=== PATIENT | female | born 1950 | race Caucasian/White ===

== ENCOUNTER 2018-03-15 15:56 | Inpatient (IN) | END 2018-03-26 19:00 | DRG 467 ==

== ENCOUNTER 2018-03-26 19:31 | Inpatient (IN) | END 2018-04-07 15:30 | DRG 560 ==

== ENCOUNTER 2018-05-19 08:19 | Day surgery (SDC) | END 2018-05-19 14:46 ==

== ENCOUNTER 2018-06-16 13:19 | Day surgery (SDC) | END 2018-06-16 16:06 | disposition home or self-care (01) ==

== ENCOUNTER 2018-07-06 15:49 | Inpatient (IN) | payer MEDICARE, BC ==
[~2018-07-06] VITALS: Ht 144.8 cm; Wt 67.3 kg
[~2018-07-06 15:49] MED LIST: ACET-2047 PO; ASPI81TA52 PO; ATOR20TA38 PO; BETH25TA PO; BISA10SU55 RC; CARV12.598 PO; CLON-379 PO; CLOP75TA27 PO; DIL4I IV; IPRA3AMP29 INHALATION; LANT3I SC; LINA5TAB PO; LUBI24CA7 PO; MAGN400O19 PO; MAGN400T27 PO; NA P133E39 RC; ONDA4SOL IVP; OXYC40TA26 PO; PANT40TA3 PO; PRED5TAB PO
--- NOTE | 2018-07-06 21:30 | NUR ---
ADMISSION Pt arrived via gurney transported per [place]. Pt transferred from [facility]. Pt on bed in low position with call light within reach. Bed alarm activated. Will continue with admission process.
[2018-07-06 22:00] VITALS: BP 149/86; PULSE 81; RESP 18; Ht 144.8 cm; Wt 67.3 kg
[2018-07-06] MEDS ORDERED: NA PHOSPHATE/BIPHOS 133 ML ENEMA PR ONE (23:30)
[2018-07-06] MEDS ORDERED: AMLO2.5T78 PO (23:47)
[2018-07-06] MEDS ORDERED: FENO48TA4 PO (23:47)
[2018-07-06] MEDS: HYDROmorphONE 1 MG/ML SYG IV PRN (23:57)
[2018-07-07 02:53] VITALS: BP 141/69; PULSE 74; RESP 18
[2018-07-07] MEDS: HYDROmorphONE 1 MG/ML SYG IV PRN ×2 (02:58→06:06)
--- NOTE | 2018-07-07 05:56 | NUR ---
END OF SHIFT REPORT Pt alert and oriented x4. Pt on bed in low position with call light within reach and bed alarm activated. Vitals stable. Pt c/o pain and due pain meds administered with effectiveness. Will endorse pt to AM shift nurse for continuation of care.
[2018-07-07 07:33] VITALS: BP 138/67; PULSE 87; RESP 16
[2018-07-07] MEDS: INSULIN ASPART [NOVOLOG] 3 ML PEN SC SCH ×4 (08:00→20:28)
[2018-07-07] MEDS ORDERED: VANCOMYCIN IV PER PHARMACY XX SCH (08:00)
[2018-07-07] MEDS ORDERED: GLUCOSE GEL 15 GRAM TUBE PO PRN ×2 (08:00)
[2018-07-07] MEDS ORDERED: GLUCOSE GEL 15 GRAM TUBE BUCCAL PRN (08:00)
[2018-07-07] MEDS ORDERED: GLUCAGON 1 MG INJ IM PRN (08:00)
[2018-07-07] MEDS ORDERED: ALTEPLASE (CATHFLO) 2 MG INJ CATHETER PRN (08:00)
[2018-07-07] MEDS ORDERED: DEXTROSE 50% 50 ML SYRINGE IV PRN ×2 (08:00)
--- NOTE | 2018-07-07 08:40 | NUR ---
67 YO F TO START VANCOMYCIN IVPB PER RX PROTOCOL WT 67.3KG HT 4'9" CONCURRENT ABX: CEFTRIAXONE BUN/CR -13/0.6 (FROM 07/06- [facility]) - RECEIVED 1GM ON 07/05 @ 2316 AND 1GM 07/06 @ 07/06 A/P: WILL START 750MG IVPB Q12H FOR ESTIMATED GOAL TROUGH ~ 10-15. TROUGH AT SS.
[2018-07-07] MEDS: HYDROmorphONE 2 MG/ML SYG IV PRN ×7 (08:50→22:49)
[2018-07-07] MEDS: FENOFIBRATE 48 MG TAB PO SCH (08:53)
[2018-07-07] MEDS: oxyCODONE (CR) 40 MG TAB [oxyCONTIN] PO SCH ×3 (08:54→20:17)
[2018-07-07] MEDS: PANTOPRAZOLE (EC) 40 MG TAB PO SCH (08:54)
[2018-07-07] MEDS: AMLODIPINE 5 MG TAB PO SCH (08:54)
[2018-07-07] MEDS: CEFTRIAXONE 1 GM/50 ML (PMX) 50 ML IVPB SCH ×2 (08:55→20:18)
[2018-07-07] MEDS ORDERED: predniSONE 10 MG TAB PO SCH (09:00)
[2018-07-07] MEDS ORDERED: oxyCODONE (CR) 40 MG TAB [oxyCONTIN] PO SCH (09:00)
[2018-07-07] MEDS ORDERED: FENOFIBRATE 48 MG TAB PO SCH (09:00)
--- NOTE | 2018-07-07 09:18 | CONS ---
Date/Time of Note Date/Time of Note DATE: 07/07/18 TIME: 09:11 Assessment/Plan Assessment/Plan Chief Complaint/Hosp Course 1. Cardiovascular preop evaluation 2. Septic knee 3. 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 History of severe rheumatoid arthritis and multiple joint deformities 6. Poor exercise tolerance Recommendations: Antibiotic management as per internal medicine and possible ID recommendations I will check echocardiogram to evaluate for the valves Coreg will be added to her regimen to control the blood pressure better Patient EKG will be checked as well Chest x-ray for the baseline will be checked as well Patient has no anginal chest pain no history of cardiac disorder including no cardiac complication with the previous multiple orthopedic surgeries. Based on above no further cardiac workup would be indicated. However given her multiple comorbidities including diabetes hypertension history of poor exercise tolerance, patient would be at moderate risk of cardiovascular event. Thank you for his referral. We will continue to follow along with you KASSIDY BRAY MD [facility] Consultation Date/Type/Reason Admit Date/Time Jul 06, 2018 at 21:08 Date of Consultation: Jul 07, 2018 Type of Consult cv Reason for Consultation cvpreop Requesting Provider: ROMARIO GUTIERREZ DO Hx of Present Illness Interventional cardiology consultation note Reason for consult: Cardiovascular preop evaluation CHIEF COMPLAINT: septic knee HISTORY OF PRESENT ILLNESS: Thank you for his referral. History was obtained from the patient from review of the old chart, from discussion with the staff and physicians. This is a 67-year-old female with a past medical history of rheumatoid arthritis, history of bilateral knee replacement, and multiple other orthopedic surgery history of left hip replacement, history of steroid-induced diabetes, history of hypertension, dyslipidemia, history of osteoarthritis, history of multiple blood clots, status post IVC filter placement who was transferred for facility for evaluation treatment of her septic knee. Patient has been scheduled to undergo surgery for her septic knee and I was kindly asked to evaluate and treat. Patient denies any left-sided chest pain or pressure to me. Denies history of cardiac disorder to me. Denies any PND orthopnea to me. She denies any loss of consciousness syncope or presyncope to me. Patient exercise tolerance appeared to be very limited due to mostly her osteoarthritis and rheumatoid arthritis and she has been mostly bedbound recently. She denies any cardiac complication including any anesthesia complication or cardiac complications with her previous multiple orthopedic surgeries. She denies any chest pain or pressure to me denies any PND orthopnea to me. PAST MEDICAL HISTORY: As stated above, history of rheumatoid arthritis, history of osteoarthritis with severe joint deformity, history of diabetes, history of multiple blood clots. The patient is status post IVC filter, history of hypertension, dyslipidemia. PAST SURGICAL HISTORY: Status post bilateral knee replacement, status post left hip replacement surgery, status post inferior vena cava filter placement. Status post left malleolus fracture surgery ALLERGIES: PATIENT IS ALLERGIC TO: 1. HYDROMORPHONE MEPERIDINE. FAMILY HISTORY: No family history of early coronary artery disease SOCIAL HISTORY: Does not drink, smoke or do drugs. Medications were reviewed as per medical reconciliation sheet Review of system: Patient denies all others except for above-mentioned Past Medical History Medications Current Medications Amlodipine Besylate (Norvasc) 5 mg DAILY PO Last administered on 07/07/18at 08:54; Admin Dose 5 MG; Start 07/07/18 at 09:00 Atorvastatin Calcium (Lipitor) 20 mg QHS PO ; Start 07/07/18 at 21:00 Insulin Glargine (Lantus) 33 units QHS SC ; Start 07/07/18 at 21:00 Pantoprazole (Protonix Tab) 40 mg DAILY PO Last administered on 07/07/18at 08:54; Admin Dose 40 MG; Start 07/07/18 at 09:00 Prednisone (Prednisone) 10 mg DAILY PO Last administered on 07/07/18at 08:58; Admin Dose 10 MG; Start 07/07/18 at 09:00 Fenofibrate (Tricor) 48 mg DAILY PO Last administered on 07/07/18at 08:53; Admin Dose 48 MG; Start 07/07/18 at 09:00 Oxycodone HCl (Oxycontin) 40 mg TID PO Last administered on 07/07/18at 08:54; Admin Dose 40 MG; Start 07/07/18 at 09:00 Alteplase, Recombinant (Cathflo (Activase)) 2 mg MAY REPEAT X1 PRN CATHETER IF CATHETER REMAINS OCCULUDED Last administered on 07/07/18at 09:02; Admin Dose 2 MG; Start 07/07/18 at 08:00 Diagnostic Test (Pha) (Accu-Chek) 1 ea 02 XX ; Start 07/08/18 at 02:00 Insulin Aspart (Novolog Insulin Pen) NOVOLOG *MILD* ALGORITHM WITH MEALS BEDTIME SC ; Start 07/07/18 at 08:00 Vancomycin HCl (Vanco Iv Per Pharmacy) VANCOMYCIN PER PHARMACY PER PROTOCOL XX ; Start 07/07/18 at 08:00 Ceftriaxone Sodium 50 ml @ 100 mls/hr Q12 IVPB Last administered on 07/07/18at 08:55; Admin Dose 100 MLS/HR; Start 07/07/18 at 09:00 Miscellaneous Information 1 ea NOTE XX ; Start 07/07/18 at 08:00 Glucose (Glutose) 15 gm Q15M PRN PO DECREASED GLUCOSE; Start 07/07/18 at 08:00 Glucose (Glutose) 22.5 gm Q15M PRN PO DECREASED GLUCOSE; Start 07/07/18 at 08:00 Dextrose (D50w Syringe) 25 ml Q15M PRN IV DECREASED GLUCOSE; Start 07/07/18 at 08:00 Dextrose (D50w Syringe) 50 ml Q15M PRN IV DECREASED GLUCOSE; Start 07/07/18 at 08:00 Glucagon (Glucagen) 1 mg Q15M PRN IM DECREASED GLUCOSE; Start 07/07/18 at 08:00 Glucose (Glutose) 15 gm Q15M PRN BUCCAL DECREASED GLUCOSE; Start 07/07/18 at 08:00 Hydromorphone HCl (Dilaudid) 3 mg Q2H PRN IV SEVERE PAIN LEVEL 7-10 Last administered on 07/07/18at 08:50; Admin Dose 3 MG; Start 07/07/18 at 08:00 Vancomycin HCl 750 mg/Sodium Chloride 150 ml @ 75 mls/hr Q12H IVPB ; Start 07/07/18 at 10:00 Allergies: Coded Allergies: meperidine (Verified Allergy, Mild, 06/16/18) hydromorphone (Verified Adverse Reaction, Mild, NAUSEA, 06/16/18) Sulfa (Sulfonamide Antibiotics) (Verified Adverse Reaction, Unknown, PO: NAUSEA, 06/16/18) SULFA PO: NAUSEA/ ANESTHESIOLOGIST LAKSHMI haleyfish derived (Verified Adverse Reaction, Unknown, 06/16/18) Social History Smoking Status: Never smoker Exam/Review of Systems Vital Signs Vitals Vital Signs Date Temp Pulse Resp B/P (MAP) Pulse Ox O2 O2 Flow FiO2 Time Delivery Rate 07/07/18 99.1 87 16 138/67 93 Room Air 07:33 (90) Intake and Output 07/06/18 07/06/18 07/07/18 1515:00 23:00 07:00 IntakeIntake Total 600 ml BalanceBalance 600 ml Exam General: no acute distress HEENT: NC/AT. pupils are equal. round. NECK: NO JVD. no stridor. CV: RRR. systolic murmur; no gallop or rubs. PULM: no wheezing or rhonchi. GI: SOFT, NT, ND, no rebound or guarding Extremity: With multiple joint deformities. neuro: awake and alert, OX3. Psych: calm and pleasant rectal: deferred Review of the old chart showed echocardiogram done in March 2018 which was personally reviewed shows: Normal left ventricular systolic function. Normal left ventricular cavity size. Mild concentric left ventricular hypertrophy. Ejection fraction is visually estimated at 65 %. Tissue Doppler/Mitral Doppler indices are consistent with impaired relaxation (Stage I diastolic dysfunction). Mild mitral leaflet calcification. Mild mitral annular calcification. Trace mitral regurgitation. No significant aortic stenosis or insufficiency. Aortic cusps appear moderately calcified. Left coronary cusp appears moderately calcified. Non coronary cusp appears moderately calcified. Normal appearance of the tricuspid valve. Estimated peak PA systolic pressure 40 mmHg. There is mild tricuspid regurgitation. Normal size and normal respiratory collapse consistent with normal right atrial pressure. Medications Medications Current Medications Amlodipine Besylate (Norvasc) 5 mg DAILY PO Last administered on 07/07/18at 08:54; Admin Dose 5 MG; Start 07/07/18 at 09:00 Atorvastatin Calcium (Lipitor) 20 mg QHS PO ; Start 07/07/18 at 21:00 Insulin Glargine (Lantus) 33 units QHS SC ; Start 07/07/18 at 21:00 Pantoprazole (Protonix Tab) 40 mg DAILY PO Last administered on 07/07/18at 08:54; Admin Dose 40 MG; Start 07/07/18 at 09:00 Prednisone (Prednisone) 10 mg DAILY PO Last administered on 07/07/18at 08:58; Admin Dose 10 MG; Start 07/07/18 at 09:00 Fenofibrate (Tricor) 48 mg DAILY PO Last administered on 07/07/18at 08:53; Admin Dose 48 MG; Start 07/07/18 at 09:00 Oxycodone HCl (Oxycontin) 40 mg TID PO Last administered on 07/07/18at 08:54; Admin Dose 40 MG; Start 07/07/18 at 09:00 Alteplase, Recombinant (Cathflo (Activase)) 2 mg MAY REPEAT X1 PRN CATHETER IF CATHETER REMAINS OCCULUDED Last administered on 07/07/18at 09:02; Admin Dose 2 MG; Start 07/07/18 at 08:00 Diagnostic Test (Pha) (Accu-Chek) 1 ea 02 XX ; Start 07/08/18 at 02:00 Insulin Aspart (Novolog Insulin Pen) NOVOLOG *MILD* ALGORITHM WITH MEALS BEDTIME SC ; Start 07/07/18 at 08:00 Vancomycin HCl (Vanco Iv Per Pharmacy) VANCOMYCIN PER PHARMACY PER PROTOCOL XX ; Start 07/07/18 at 08:00 Ceftriaxone Sodium 50 ml @ 100 mls/hr Q12 IVPB Last administered on 07/07/18at 08:55; Admin Dose 100 MLS/HR; Start 07/07/18 at 09:00 Miscellaneous Information 1 ea NOTE XX ; Start 07/07/18 at 08:00 Glucose (Glutose) 15 gm Q15M PRN PO DECREASED GLUCOSE; Start 07/07/18 at 08:00 Glucose (Glutose) 22.5 gm Q15M PRN PO DECREASED GLUCOSE; Start 07/07/18 at 08:00 Dextrose (D50w Syringe) 25 ml Q15M PRN IV DECREASED GLUCOSE; Start 07/07/18 at 08:00 Dextrose (D50w Syringe) 50 ml Q15M PRN IV DECREASED GLUCOSE; Start 07/07/18 at 08:00 Glucagon (Glucagen) 1 mg Q15M PRN IM DECREASED GLUCOSE; Start 07/07/18 at 08:00 Glucose (Glutose) 15 gm Q15M PRN BUCCAL DECREASED GLUCOSE; Start 07/07/18 at 08:00 Hydromorphone HCl (Dilaudid) 3 mg Q2H PRN IV SEVERE PAIN LEVEL 7-10 Last administered on 07/07/18at 08:50; Admin Dose 3 MG; Start 07/07/18 at 08:00 Vancomycin HCl 750 mg/Sodium Chloride 150 ml @ 75 mls/hr Q12H IVPB ; Start 07/07/18 at 10:00 KASSIDY BRAY MD Jul 07, 2018 09:18
--- NOTE | 2018-07-07 11:14 | RADRPT ---
Echocardiogram Report Patient Name: FABIAN JACOME Gender: Female Date: 1950 Study Date: 07-Jul-2018 Supply Chain Technician: Alec Costa [facility] [place] Location: [id number] Ref. Physician: KASSIDY RUTLEDGE Quality: Good Procedures: Transthoracic echocardiogram with complete 2D, M-Mode, and doppler examination. Indications: r/o vegetations. 2D/M Mode Doppler Measurement Value Normal Ranges Measurement Value Normal Ranges LVIDd 2D 4.7 3.5 - 5.6 cm AV Peak Arley 1.7 m/sec LVIDs 2D 3.2 2.1 - 4.1 cm AV Peak PG 12.0 mmHg LVPWd 2D 1.2 0.6 - 1.1 cm LVOT Peak Arley 1.1 m/sec IVSd 2D 1.1 0.6 - 1.1 cm LVOT Peak PG 5.0 mmHg AoR Diam 2D 2.9 2.0 - 3.7 cm TR Peak Arley 2.8 m/sec LA/Ao 2D 1 0 - 1 TR Peak PG 31.0 mmHg LA Dimen 2D 3.8 2.3 - 4.0 cm RVSP 41.0 mmHg RA Pressure 10.0 Findings Left Ventricle: Normal left ventricular systolic function. Normal left ventricular cavity size. Mild concentric left ventricular hypertrophy. Ejection fraction is visually estimated at 65 %. Right Ventricle: Normal right ventricular size. Normal right ventricular systolic function. Left Atrium: The left atrium is normal in size. Right Atrium: The right atrium is normal in size. Mitral Valve: Mitral valve leaflets appear mildly thickened. Mild mitral annular calcification. Trace mitral regurgitation. Echogenic structure is seen on the mitral valve consistent with vegetation. Aortic Valve: No significant aortic stenosis or insufficiency. Aortic sclerosis without significant stenosis. Aortic cusps appear mildly calcified. Trileaflet aortic valve. Tricuspid Valve: Normal appearance of the tricuspid valve. Estimated peak PA systolic pressure 41 mmHg. There is mild tricuspid regurgitation. Pulmonic Valve: Normal pulmonic valve appearance. There is trace pulmonic regurgitation. Pericardium: Normal pericardium with no significant pericardial effusion. Aorta: Normal aortic root. IVC: Normal size and normal respiratory collapse consistent with normal right atrial pressure. Conclusions Normal left ventricular systolic function. Normal left ventricular cavity size. Mild concentric left ventricular hypertrophy. Ejection fraction is visually estimated at 65 %. Mitral valve leaflets appear mildly thickened. Mild mitral annular calcification. Trace mitral regurgitation. Echogenic structure is seen on the mitral valve consistent with vegetation. No significant aortic stenosis or insufficiency. Aortic sclerosis without significant stenosis. Aortic cusps appear mildly calcified. Trileaflet aortic valve. Normal appearance of the tricuspid valve. Estimated peak PA systolic pressure 41 mmHg. There is mild tricuspid regurgitation. Electronically Signed By: Kassidy Rutledge 07-Jul-2018 11:13:43 -0800 Patient Name: FABIAN JACOME Study Date: 07-Jul-2018 [id number]
--- NOTE | 2018-07-07 11:25 | HP ---
DATE OF ADMISSION: 07/06/2018 CHIEF COMPLAINT: Left knee septic joint. HISTORY OF PRESENT ILLNESS: This is a 67-year-old female with a past medical history of rheumatoid a rthritis, history of bilateral knee replacement surgery, history of left hip replacement surgery, his tory of steroid-induced diabetes, history of hypertension, dyslipidemia, osteoarthritis, previous his tory of peripheral vascular disease who was transferred from [facility] to [facility] due to septic joint. The patient's history started in March when she had a mechani michael fall resulting in a posterior malleolar fracture and displaced fracture of her left distal femora l metaphysis. The patient was seen by orthopedist, Dr. Duran and underwent a closed reduction of her l eft ankle fracture and a left total knee revision arthroplasty. Following the surgery, the patient w as transferred to acute rehabilitation. She developed initially superficial ulcers in her left ankle . The patient was seen by vascular surgery and wound care. The patient was then subsequently transf erred to a skilled nurse facility where she continued rehabilitation and was seen in wound care clini c in outpatient setting for underlying left ankle and a newly developed left knee wound. The patient also had followup with her orthopedic surgeon in the outpatient setting. The patient then states ap proximately 2 to 3 days ago she underwent another mechanical fall and developing more pain in her lef t knee. The patient then noted discharge from the left knee and was transferred to [facility]. While at [facility], the patient was placed on IV antibiotics and transferred to [facility] for evaluation with her original orthopedist, Dr. Duran. Upon my evaluation of the patient at this time, she is currently complaining of intolerable left knee pain. The patient denies any chills, any nausea, any vomiting. The patient is concerned about losi ng her left knee and her inability to ambulate. She otherwise denies any chest pain, no hemoptysis, hematemesis or anesthesia. PAST MEDICAL HISTORY: History of rheumatoid arthritis. The patient is on weekly Enbrel and predniso ne, a history of peripheral vascular disease, history of diabetes, hypertension, dyslipidemia, histor y of osteoarthritis. PAST SURGICAL HISTORY: Patient had bilateral knee replacement surgery, left hip replacement surgery, status post left knee revision surgery. The patient also has a history of IVC placement. History o f DVTs. ALLERGIES: PLEASE SEE LIST. FAMILY HISTORY: No family history of kidney disease. SOCIAL HISTORY: Does not drink, smoke or do drugs. MEDICATIONS: The patient's medications have been reviewed. REVIEW OF SYSTEMS: A 14-point review of systems conducted. Pertinent positives stated in HPI, other agrawal negative. PHYSICAL EXAMINATION: VITAL SIGNS: Blood pressure 120/62, respiration 18, pulse 87, temperature 98.7. HEENT: Head is normocephalic. Pupils are reactive to light. NECK: Supple. HEART: Regular rate. LUNGS: Show diminished breath sounds at base, otherwise clear. ABDOMEN: Soft, nontender to palpation without rebound or guarding. EXTREMITIES: Negative for clubbing, cyanosis, no edema. Noted is multiple deformities that the patie nt has including boutonniere and swan neck deformities of the joints. The patient's left knee has no baljit ulcer with surrounding erythema with positive discharge. DERMATOLOGIC: No rashes. NEUROLOGIC: No obvious focal deficits. MEDICATIONS: The patient's medications have been reviewed. LABORATORY DATA: Currently pending. ASSESSMENT AND PLAN: This is a 67-year-old female who presents with: 1. Left knee septic joint. Plan is to have urgent consult with orthopedist, Dr. Duran. Will also con sult vascular surgery, Dr. Pathak. The patient will be placed on broad spectrum antibiotics of va ncomycin and ceftriaxone. We will draw blood cultures. We will also place an ID consult to help wit h antibiotic management. Will monitor patient closely. 2. Rheumatoid arthritis with multiple joint deformities. The patient is currently on prednisone and will continue. The patient is also on Enbrel. We will place a rheumatology consult for further help with management. 3. History of deep venous thrombosis. The patient has a history of IVC filter placement. Will cont inue to monitor. Will hold Plavix at this time. 4. Diabetes. Continue current insulin regimen. Continue Lantus. Continue subcutaneous insulin with meals. Monitor and follow up hemoglobin A1c. 5. Pain syndrome. Continue pain regimen with OxyContin and IV Dilaudid. 6. Hypertension. Continue current blood pressure regimen. 7. Dyslipidemia. Continue statin therapy. 8. History of anemia. Monitor hemoglobin and hematocrit. 9. GI and DVT prophylaxis. Dictated By: ROMARIO AMBRIZ/JOLLY Conf#: [id number] DID#: [id number]
[2018-07-07] MEDS: VANCOMYCIN 750 MG in SOD CHLORIDE 0.9% 150 ML IVPB SCH ×2 (11:31→21:57)
[2018-07-07 13:49] VITALS: BP 110/58; PULSE 85
[2018-07-07] MEDS ORDERED: NA PHOSPHATE/BIPHOS 133 ML ENEMA PR ONE (14:00)
--- NOTE | 2018-07-07 18:00 | NUR ---
END OF SHIFT REPORT. PT IS AT BED RESTING HAS ARTHRITIS WITH MULTIPLE JOINT DEFORMATION. VITAL STABLE . ALL DUE MEDICATION GIVEN TOLERATED WELL.PT C/O OF LEFT KNEE PAIN. PAIN MED DILAUDID 3MG IV GIVEN Q2HRS. CURRENT ANTIBIOTIC VANCOMYCIN AND ROCEPHIN IV GIVEN.wound care is done .FLEET ENEMA IS GIVEN FOR CONSTIPATION and pt has big BM.picc line was no blood return cath flow iv given and the line start working. PT SEEN BY TODAY.HOURLY ROUND DONE . WILL MONITOR PT CLOSELY.
[2018-07-07 19:20] VITALS: BP 159/56; PULSE 80; RESP 18
--- NOTE | 2018-07-07 20:09 | CONS ---
Date/Time of Note Date/Time of Note DATE: 07/07/18 TIME: 20:07 Assessment/Plan Assessment/Plan Chief Complaint/Hosp Course no current vascular intervention, will need IV antibiotics and evaluation with Orthopedics Consultation Date/Type/Reason Admit Date/Time Jul 06, 2018 at 21:08 Past Medical History Medications Current Medications Amlodipine Besylate (Norvasc) 5 mg DAILY PO Last administered on 07/07/18 08:54; Admin Dose 5 MG; Start 07/07/18 at 09:00 Atorvastatin Calcium (Lipitor) 20 mg QHS PO ; Start 07/07/18 at 21:00 Insulin Glargine (Lantus) 33 units QHS SC ; Start 07/07/18 at 21:00 Pantoprazole (Protonix Tab) 40 mg DAILY PO Last administered on 07/07/18at 08:54; Admin Dose 40 MG; Start 07/07/18 at 09:00 Prednisone (Prednisone) 10 mg DAILY PO Last administered on 07/07/18at 08:58; Admin Dose 10 MG; Start 07/07/18 at 09:00 Fenofibrate (Tricor) 48 mg DAILY PO Last administered on 07/07/18at 08:53; Admin Dose 48 MG; Start 07/07/18 at 09:00 Oxycodone HCl (Oxycontin) 40 mg TID PO Last administered on 07/07/18at 12:55; Admin Dose 40 MG; Start 07/07/18 at 09:00 Alteplase, Recombinant (Cathflo (Activase)) 2 mg MAY REPEAT X1 PRN CATHETER IF CATHETER REMAINS OCCULUDED Last administered on 07/07/18at 09:02; Admin Dose 2 MG; Start 07/07/18 at 08:00 Diagnostic Test (Pha) (Accu-Chek) 1 02 XX ; Start 07/08/18 at 02:00 Insulin Aspart (Novolog Insulin Pen) NOVOLOG *MILD* ALGORITHM WITH MEALS BEDTIME SC Last administered on 07/07/18at 17:22; Admin Dose 3 UNIT; Start 07/07/18 at 08:00 Vancomycin HCl (Vanco Iv Per Pharmacy) VANCOMYCIN PER PHARMACY PER PROTOCOL XX ; Start 07/07/18 at 08:00 Ceftriaxone Sodium 50 ml @ 100 mls/hr Q12 IVPB Last administered on 07/07/18at 08:55; Admin Dose 100 MLS/HR; Start 07/07/18 at 09:00 Miscellaneous Information 1 ea NOTE XX ; Start 07/07/18 at 08:00 Glucose (Glutose) 15 gm Q15M PRN PO DECREASED GLUCOSE; Start 07/07/18 at 08:00 Glucose (Glutose) 22.5 gm Q15M PRN PO DECREASED GLUCOSE; Start 07/07/18 at 08:00 Dextrose (D50w Syringe) 25 ml Q15M PRN IV DECREASED GLUCOSE; Start 07/07/18 at 08:00 Dextrose (D50w Syringe) 50 ml Q15M PRN IV DECREASED GLUCOSE; Start 07/07/18 at 08:00 Glucagon (Glucagen) 1 mg Q15M PRN IM DECREASED GLUCOSE; Start 07/07/18 at 08:00 Glucose (Glutose) 15 gm Q15M PRN BUCCAL DECREASED GLUCOSE; Start 07/07/18 at 08:00 Hydromorphone HCl (Dilaudid) 3 mg Q2H PRN IV SEVERE PAIN LEVEL 7-10 Last administered on 07/07/18at 18:16; Admin Dose 3 MG; Start 07/07/18 at 08:00 Vancomycin HCl 750 mg/Sodium Chloride 150 ml @ 75 mls/hr Q12H IVPB Last administered on 07/07/18at 11:31; Admin Dose 75 MLS/HR; Start 07/07/18 at 10:00 Carvedilol (Coreg) 3.125 mg BID PO Last administered on 07/07/18at 12:55; Admin Dose 3.125 MG; Start 07/07/18 at 10:00 Allergies: Coded Allergies: meperidine (Verified Allergy, Mild, 06/16/18) hydromorphone (Verified Adverse Reaction, Mild, NAUSEA, 06/16/18) Sulfa (Sulfonamide Antibiotics) (Verified Adverse Reaction, Unknown, PO: NAUSEA, 06/16/18) SULFA PO: NAUSEA/ ANESTHESIOLOGIST LAKSHMI shellfish derived (Verified Adverse Reaction, Unknown, 06/16/18) Social History Smoking Status: Never smoker Exam/Review of Systems Vital Signs Vitals Vital Signs Date Temp Pulse Resp B/P (MAP) Pulse Ox O2 O2 Flow FiO2 Time Delivery Rate 07/07/18 98.0 80 18 159/56 97 19:20 (90) 12/25/18 Room Air 13:49 Intake and Output 12/24/18 12/24/18 12/25/18 1515:00 23:00 07:00 IntakeIntake Total 600 ml BalanceBalance 600 ml Medications Medications Current Medications Amlodipine Besylate (Norvasc) 5 mg DAILY PO Last administered on 07/07/18at 08:54; Admin Dose 5 MG; Start 07/07/18 at 09:00 Atorvastatin Calcium (Lipitor) 20 mg QHS PO ; Start 07/07/18 at 21:00 Insulin Glargine (Lantus) 33 units QHS SC ; Start 07/07/18 at 21:00 Pantoprazole (Protonix Tab) 40 mg DAILY PO Last administered on 07/07/18at 08:54; Admin Dose 40 MG; Start 07/07/18 at 09:00 Prednisone (Prednisone) 10 mg DAILY PO Last administered on 07/07/18at 08:58; Admin Dose 10 MG; Start 07/07/18 at 09:00 Fenofibrate (Tricor) 48 mg DAILY PO Last administered on 07/07/18at 08:53; Admin Dose 48 MG; Start 07/07/18 at 09:00 Oxycodone HCl (Oxycontin) 40 mg TID PO Last administered on 07/07/18at 12:55; Admin Dose 40 MG; Start 07/07/18 at 09:00 Alteplase, Recombinant (Cathflo (Activase)) 2 mg MAY REPEAT X1 PRN CATHETER IF CATHETER REMAINS OCCULUDED Last administered on 07/07/18at 09:02; Admin Dose 2 MG; Start 07/07/18 at 08:00 Diagnostic Test (Pha) (Accu-Chek) 1 ea 02 XX ; Start 07/08/18 at 02:00 Insulin Aspart (Novolog Insulin Pen) NOVOLOG *MILD* ALGORITHM WITH MEALS BEDTIME SC Last administered on 07/07/18at 17:22; Admin Dose 3 UNIT; Start 07/07/18 at 08:00 Vancomycin HCl (Vanco Iv Per Pharmacy) VANCOMYCIN PER PHARMACY PER PROTOCOL XX ; Start 07/07/18 at 08:00 Ceftriaxone Sodium 50 ml @ 100 mls/hr Q12 IVPB Last administered on 07/07/18at 08:55; Admin Dose 100 MLS/HR; Start 07/07/18 at 09:00 Miscellaneous Information 1 ea NOTE XX ; Start 07/07/18 at 08:00 Glucose (Glutose) 15 gm Q15M PRN PO DECREASED GLUCOSE; Start 07/07/18 at 08:00 Glucose (Glutose) 22.5 gm Q15M PRN PO DECREASED GLUCOSE; Start 07/07/18 at 08:00 Dextrose (D50w Syringe) 25 ml Q15M PRN IV DECREASED GLUCOSE; Start 07/07/18 at 08:00 Dextrose (D50w Syringe) 50 ml Q15M PRN IV DECREASED GLUCOSE; Start 07/07/18 at 08:00 Glucagon (Glucagen) 1 mg Q15M PRN IM DECREASED GLUCOSE; Start 07/07/18 at 08:00 Glucose (Glutose) 15 gm Q15M PRN BUCCAL DECREASED GLUCOSE; Start 07/07/18 at 08:00 Hydromorphone HCl (Dilaudid) 3 mg Q2H PRN IV SEVERE PAIN LEVEL 7-10 Last administered on 07/07/18at 18:16; Admin Dose 3 MG; Start 07/07/18 at 08:00 Vancomycin HCl 750 mg/Sodium Chloride 150 ml @ 75 mls/hr Q12H IVPB Last adm inistered on 07/07/18at 11:31; Admin Dose 75 MLS/HR; Start 07/07/18 at 10:00 Carvedilol (Coreg) 3.125 mg BID PO Last administered on 07/07/18at 12:55; Admin Dose 3.125 MG; Start 07/07/18 at 10:00 HECTOR CAVAZOS MD Jul 07, 2018 20:09
[2018-07-07] MEDS: ATORVASTATIN 20 MG TAB PO SCH (20:17)
[2018-07-07] MEDS: INSULIN GLARGINE [LANTus] (100 UNITS/ML) SYG SC SCH (20:29)
[2018-07-08 01:12] VITALS: BP 165/67; PULSE 65; RESP 18
[2018-07-08] MEDS: HYDROmorphONE 2 MG/ML SYG IV PRN ×11 (01:21→22:43)
[2018-07-08] MEDS: ACCU-CHEK XX SCH (02:23)
[2018-07-08] MEDS ORDERED: KETOROLAC 15 MG INJ IV STA (06:40)
--- NOTE | 2018-07-08 07:22 | NUR ---
SHIFT REPORT: AT THE START OF THE SHIFT, PATIENT WAS COMPLAINING OF THE INSUFFICIENT LIGHT IN HER ROOM. ENGINEERING WAS CALL AND TRIED TO FIX THE PROBLEM UNFORTUNATELY, HE SAID NEEDS FOLLOW UP IN AM. WOUND CARE WAS DONE.PAIN MEDICATION EVERY TWO HOURS WAS GIVEN NEEDED. CONTINUE ON IV ANTIBIOTIC WITH NO ADVERSE REACTION WAS NOTED.INSTRUCTED TO CALL FOR ASSISTANCE.BED ALARM IS ON. WILL CONTINUE TO MONITOR. CAME AND ASSESSED THE PATIENT WITH ORDER TO SOCIAL SERVICE CONSULT FOR POSSIBLE TRANSFER TO [facility].
--- NOTE | 2018-07-08 07:44 | CONS ---
DATE OF ADMISSION: 07/06/2018 DATE OF CONSULTATION: 07/07/2018 TYPE OF CONSULTATION: Infectious disease. REASON FOR CONSULTATION: Antibiotic management. HISTORY OF PRESENT ILLNESS: Norm Rendon is a 67-year-old female who was admitted on 07/06/2018 with left knee septic joint and is being seen for antibiotic management. Her problems include: 1. Rheumatoid arthritis. 2. History of bilateral knee replacement surgery. 3. Left hip replacement surgery. 4. History of steroid-induced diabetes. 5. Hypertension. 6. Dyslipidemia. 7. Osteoarthritis. 8. Peripheral vascular disease. She was transferred from [facility] to [facility] due to a septic joint. The pat ient's history started in March. She had a mechanical fall resulting in a posterior malleolar fr acture and displaced fracture of the left distal femoral metaphysis. She was seen by , orth opedics. She underwent a closed reduction of the left ankle fracture and a left total knee revision arthroplasty. She was sent to acute rehabilitation subsequently, she developed some superficial ulce rs in her left ankle. She was seen by vascular surgery and wound care and transferred to [facility] for continued rehabilitation. She was seen in the wound care clinic in an outpatient s etting for underlying left ankle and newly developed left knee wound. She also had followup with her orthopedic surgeon in the outpatient setting. Two or 3 days ago she underwent another mechanical fa ll with development of more pain in her left knee. Patient then noted a discharge from the left knee . She was transferred to [place], placed on IV antibiotics and transferred to [facility] for further evaluation by . The patient had significant pain in the left knee. She jose miguel es any chills, nausea or vomiting. She has inability to ambulate. PAST SURGICAL HISTORY: Includes bilateral knee replacement, left hip replacement, left knee revision . She also has history of IVC placement and DVTs. PAST MEDICAL HISTORY: Positive for rheumatoid arthritis. She is on weekly Enbrel and prednisone. S he has peripheral vascular disease, diabetes as noted previously. She also has hypertension, dyslipi demia, and osteoarthritis. PAST MEDICAL HISTORY: Operations as outlined. FAMILY HISTORY: Noncontributory. SOCIAL HISTORY: She does not smoke, drink or abuse drugs. ALLERGIES: Please see list that include: 1. SULFA. 2. HYDROMORPHONE. 3. MEPERIDINE. 4. SHELLFISH. MEDICATIONS: Per chart. REVIEW OF SYSTEMS: Noncontributory. PHYSICAL EXAMINATION: GENERAL: The patient is well-developed, well-nourished female who is alert, responsive, in no acute distress. VITAL SIGNS: Stable. She is afebrile. T-max of 99.1. SKIN: Without generalized rash. HEENT: Within normal limits. NECK: Supple. LYMPH NODES: None palpable. CHEST: Decreased breath sounds at the bases. HEART: Without murmur or gallop. ABDOMEN: Soft, nontender, without organosplenomegaly or masses. EXTREMITIES: Without cyanosis, clubbing, or edema. She has multiple deformities of her joints inclu ding swan neck deformities and boutonniere deformities. Left knee has noted ulceration with surround ing erythema. Positive discharge. IMPRESSION AND PLAN: The patient may have a left knee septic joint. Orthopedics was called, Dr. Edmund linton was called in vascular surgery. Patient was placed on vancomycin and ceftriaxone. Blood cult ures were drawn. I concur with the current regimen. She has to be evaluated by to see th e extent of her knee involvement whether it is superficial or goes down to the arthroplasty. Continu e on vancomycin and ceftriaxone. Cultures currently are pending. If there is any discharge a wound culture should be done. I will dictate my findings to Dr. Gutierrez. Dictated By: CALI FELDER MD, JD/JOLLY Conf#: [id number] DID#: [id number] CC: ROMARIO GUTIERREZ DO;*EndCC*
[2018-07-08] MEDS: INSULIN ASPART [NOVOLOG] 3 ML PEN SC SCH ×4 (08:00→21:48)
--- NOTE | 2018-07-08 08:01 | CONS ---
Date/Time of Note Date/Time of Note DATE: 07/08/18 TIME: 07:58 Consult Date/Type/Reason Admit Date/Time Jul 06, 2018 at 21:08 Initial Consult Date 07/07/18 Type of Consultation: cv Requesting Provider: ROMARIO GUTIERREZ DO Subjective Cardiology follow-up progress note Subjective: Case discussed with staff. Discussed with the physicians. Patient with no chest pain or pressure with no palpitation. Objective: General: no acute distress HEENT: NC/AT. pupils are equal. round. NECK: NO JVD. no stridor. CV: RRR. systolic murmur; no gallop or rubs. PULM: no wheezing or rhonchi. GI: SOFT, NT, ND, no rebound or guarding Extremity: With multiple joint deformities. neuro: awake and alert, OX3. Psych: calm and pleasant rectal: deferred Echocardiogram done 07/07/2018 which was personally reviewed shows: Normal left ventricular systolic function. Normal left ventricular cavity size. Mild concentric left ventricular hypertrophy. Ejection fraction is visually estimated at 65 %. Mitral valve leaflets appear mildly thickened. Mild mitral annular calcification. Trace mitral regurgitation. Echogenic structure is seen on the mitral valve consistent with vegetation. No significant aortic stenosis or insufficiency. Aortic sclerosis without significant stenosis. Aortic cusps appear mildly calcified. Trileaflet aortic valve. Normal appearance of the tricuspid valve. Estimated peak PA systolic pressure 41 mmHg. There is mild tricuspid regurgitation. Objective Vital Signs Date Temp Pulse Resp B/P (MAP) Pulse Ox O2 O2 Flow FiO2 Time Delivery Rate 07/08/18 98.0 65 18 165/67 95 01:12 (99) 07/07/18 Room Air 13:49 Intake and Output 07/07/18 07/07/18 07/08/18 1515:00 23:00 07:00 IntakeIntake Total 120 ml 970 ml 150 ml BalanceBalance 120 ml 970 ml 150 ml Results/Medications Result Diagram: 07/08/18 0454 07/08/18 0454 Results 24 hrs Laboratory Tests Test 07/07/18 08:06 07/07/18 08:18 07/07/18 12:27 07/07/18 17:11 Bedside Glucose 140 271 H 241 H White Blood 8.2 Count Red Blood Count 2.95 L Hemoglobin 7.7 L Hematocrit 25.9 L Mean Corpuscular 87.8 Volume Mean Corpuscular 26.1 L Hemoglobin Mean Corpuscular 29.7 L Hemoglobin Korin nt Red Cell 18.2 H Distribution Width Platelet Count 283 # Mean Platelet 8.8 Volume Immature 0.400 Granulocytes % Neutrophils % 63.4 Lymphocytes % 20.6 Monocytes % 11.7 H Eosinophils % 3.7 Basophils % 0.2 Nucleated Red 0.0 Blood Cells % Immature 0.030 Granulocytes # Neutrophils # 5.2 Lymphocytes # 1.7 Monocytes # 1.0 H Eosinophils # 0.3 Basophils # 0.0 Nucleated Red 0.0 Blood Cells # Sodium Level 141 Potassium Level 3.7 Chloride Level 106 Carbon Dioxide 29 Level Anion Gap 6 Blood Urea 12 Nitrogen Creatinine 0.47 Est Glomerular > 60 Filtrat Rate mL/min Glucose Level 128 Calcium Level 8.2 L Total Bilirubin 0.1 L Direct Bilirubin 0.00 Indirect 0.1 Bilirubin Aspartate Amino 14 L Transf (AST/SGOT ) Alanine 22 Aminotransferase (ALT/SGPT) Alkaline 76 Phosphatase Total Protein 5.4 L Albumin 2.5 L Globulin 2.90 Albumin/Globulin 0.86 Ratio Test 07/07/18 20:25 07/08/18 02:16 07/08/18 04:54 Bedside Glucose 284 H 208 White Blood 7.2 Count Red Blood Count 2.80 L Hemoglobin 7.4 L Hematocrit 25.1 L Mean Corpuscular 89.6 Volume Mean Corpuscular 26.4 L Hemoglobin Mean Corpuscular 29.5 L Hemoglobin Korin nt Red Cell 17.9 H Distribution Width Platelet Count 307 Mean Platelet 9.0 Volume Immature 0.700 H Granulocytes % Neutrophils % 55.8 Lymphocytes % 26.8 Monocytes % 12.2 H Eosinophils % 3.8 Basophils % 0.7 Nucleated Red 0.0 Blood Cells % Immature 0.050 H Granulocytes # Neutrophils # 4.0 Lymphocytes # 1.9 Monocytes # 0.9 Eosinophils # 0.3 Basophils # 0.1 Nucleated Red 0.0 Blood Cells # Sodium Level 143 Potassium Level 3.8 Chloride Level 105 Carbon Dioxide 30 Level Anion Gap 8 Blood Urea 17 Nitrogen Creatinine 0.65 Est Glomerular > 60 Filtrat Rate mL/min Glucose Level 131 Calcium Level 8.3 L Phosphorus Level 3.5 Magnesium Level 1.7 C-Reactive 7.0 H Protein Medications Current Medications Amlodipine Besylate (Norvasc) 5 mg DAILY PO Last administered on 07/07/18 08:54; Admin Dose 5 MG; Start 07/07/18 at 09:00 Atorvastatin Calcium (Lipitor) 20 mg QHS PO Last administered on 07/07/18 20:17; Admin Dose 20 MG; Start 07/07/18 at 21:00 Insulin Glargine (Lantus) 33 units QHS SC Last administered on 07/07/18at 20:29; Admin Dose 33 UNITS; Start 07/07/18 at 21:00 Pantoprazole (Protonix Tab) 40 mg DAILY PO Last administered on 07/07/18 08:54; Admin Dose 40 MG; Start 07/07/18 at 09:00 Prednisone (Prednisone) 10 mg DAILY PO Last administered on 07/07/18 08:58; Admin Dose 10 MG; Start 07/07/18 at 09:00 Fenofibrate (Tricor) 48 mg DAILY PO Last administered on 07/07/18 08:53; Admin Dose 48 MG; Start 07/07/18 at 09:00 Oxycodone HCl (Oxycontin) 40 mg TID PO Last administered on 07/07/18 20:17; Admin Dose 40 MG; Start 07/07/18 at 09:00 Alteplase, Recombinant (Cathflo (Activase)) 2 mg MAY REPEAT X1 PRN CATHETER IF CATHETER REMAINS OCCULUDED Last administered on 07/07/18 09:02; Admin Dose 2 MG; Start 07/07/18 at 08:00 Diagnostic Test (Pha) (Accu-Chek) 1 ea 02 XX Last administered on 07/08/18at 02:23; Admin Dose 1 EA; Start 07/08/18 at 02:00 Insulin Aspart (Novolog Insulin Pen) NOVOLOG *MILD* ALGORITHM WITH MEALS BEDTIME SC Last administered on 07/07/18at 20:28; Admin Dose 3 UNIT; Start 07/07/18 at 08:00 Vancomycin HCl (Vanco Iv Per Pharmacy) VANCOMYCIN PER PHARMACY PER PROTOCOL XX ; Start 07/07/18 at 08:00 Ceftriaxone Sodium 50 ml @ 100 mls/hr Q12 IVPB Last administered on 07/07/18at 20:18; Admin Dose 100 MLS/HR; Start 07/07/18 at 09:00 Miscellaneous Information 1 ea NOTE XX ; Start 07/07/18 at 08:00 Glucose (Glutose) 15 gm Q15M PRN PO DECREASED GLUCOSE; Start 07/07/18 at 08:00 Glucose (Glutose) 22.5 gm Q15M PRN PO DECREASED GLUCOSE; Start 07/07/18 at 08:00 Dextrose (D50w Syringe) 25 ml Q15M PRN IV DECREASED GLUCOSE; Start 07/07/18 at 08:00 Dextrose (D50w Syringe) 50 ml Q15M PRN IV DECREASED GLUCOSE; Start 07/07/18 at 08:00 Glucagon (Glucagen) 1 mg Q15M PRN IM DECREASED GLUCOSE; Start 07/07/18 at 08:00 Glucose (Glutose) 15 gm Q15M PRN BUCCAL DECREASED GLUCOSE; Start 07/07/18 at 08:00 Hydromorphone HCl (Dilaudid) 3 mg Q2H PRN IV SEVERE PAIN LEVEL 7-10 Last administered on 07/08/18at 07:53; Admin Dose 3 MG; Start 07/07/18 at 08:00 Vancomycin HCl 750 mg/Sodium Chloride 150 ml @ 75 mls/hr Q12H IVPB Last administered on 07/07/18at 21:57; Admin Dose 75 MLS/HR; Start 07/07/18 at 10:00 Carvedilol (Coreg) 3.125 mg BID PO Last administered on 07/07/18at 20:17; Admin Dose 3.125 MG; Start 07/07/18 at 10:00 Assessment/Plan Chief Complaint/Hosp Course 1. Cardiovascular preop evaluation 2. Septic knee 3. 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 History of severe rheumatoid arthritis and multiple joint deformities 6. Poor exercise tolerance 7. Possible mitral valve endocarditis/vegetation 8. Anemia Recommendations: Antibiotic management as per internal medicine and ID recommendations. Patient most likely will need prolonged antibiotic treatment Continue with the Coreg as tolerated needed Patient EKG will be checked as well Orthopedic workup and treatment as per orthopedic surgery. Transfusions as needed Follow-up culture results Patient reports she will be transferred to a tertiary center Thank you for his referral. We will continue to follow along with you KASSIDY BRAY MD [facility] KASSIDY BRAY MD Jul 08, 2018 08:01
[2018-07-08 08:11] VITALS: BP 134/61; PULSE 53; RESP 17
[2018-07-08] MEDS: CEFTRIAXONE 1 GM/50 ML (PMX) 50 ML IVPB SCH ×2 (09:26→21:39)
--- NOTE | 2018-07-08 09:26 | CONS ---
DATE OF ADMISSION: 07/06/2018 DATE OF CONSULTATION: CHIEF COMPLAINT: Left knee pain. HISTORY OF PRESENT ILLNESS: Ms. Rendon is a 67-year-old female with past medical history including rheumatoid arthritis, diabetes mellitus, who had a previous left total knee arthroplasty performed by Dr. Hever Patricio. She had a mechanical fall resulting in a periprosthetic distal femur fracture. At the time of surgery, I found that the prosthesis was loose. She underwent a left distal femoral replacement. She was subsequently transferred to [facility]. Postoperatively, she had developed wound dehiscence at the alf. She was taken from [facility] to [facility]. She was transferred to [facility] yesterday. PAST MEDICAL HISTORY: Rheumatoid arthritis, diabetes mellitus, peripheral vascular disease, hypertension, dyslipidemia. DVTs. PAST SURGICAL HISTORY: Left total hip arthroplasty, bilateral total knee arthroplasty, left distal femoral replacement, IVC filter. MEDICATIONS: The medications list was reviewed. SOCIAL HISTORY: Denies tobacco, alcohol use. FAMILY HISTORY: None. ALLERGIES: Please see list. PHYSICAL EXAMINATION: VITAL SIGNS: Temperature 98.0, 65, pulse 18, blood pressure 165/67. GENERAL: The patient is resting comfortably in no acute distress. EXTREMITIES: LEFT KNEE EXAM: There is wound dehiscence over the midline incision. There is no active drainage. She has tenderness with range of motion. She has intact sensation throughout the left lower extremity. She has faint palpable pulses. She has 4/5 extensor hallucis longus, tibialis anterior, gastric soleus function. X-rays, left knee pending. LABORATORY DATA: White blood cell count 7.2., ESR/CRP are pending IMPRESSION: A 67-year-old female with multiple medical comorbidities who has a periprosthetic joint infection. PLAN: I discussed treatment options with the patient including washout with poly exchange, antibiotic spacer placement. Patient stated that she is unhappy with the medical care at the hospital and does not wish to proceed with intervention at this hospital. She requested to be transferred to outside facility. She has seen a plastic surgeon at [facility] previously and would like to be transferred to [facility]. I had a lengthy discussion with the patient regarding care at this hospital including coordination with plastic surgery, infectious disease and vascular surgery. I will discuss this with Dr. Romario Sonia. This was also communicated with the patient's nurse, all questions were answered to the patient's satisfaction. Dictated By: DEEPA NOBLES/JOLLY Conf#: [id number] DID#: [id number] CC: ROMARIO GUTIERREZ DO;*EndCC* MTDD
[2018-07-08] MEDS: oxyCODONE (CR) 40 MG TAB [oxyCONTIN] PO SCH ×3 (09:27→21:40)
[2018-07-08] MEDS: FENOFIBRATE 48 MG TAB PO SCH (09:27)
[2018-07-08] MEDS: FAMOTIDINE 20 MG TAB PO SCH ×2 (09:27→21:41)
[2018-07-08] MEDS: AMLODIPINE 5 MG TAB PO SCH (09:27)
[2018-07-08] MEDS: PANTOPRAZOLE (EC) 40 MG TAB PO SCH (09:27)
[2018-07-08] MEDS ORDERED: predniSONE 5 MG TAB PO SCH (09:30)
--- NOTE | 2018-07-08 09:59 | OPR ---
Date/Time of Note Date/Time of Note DATE: 07/08/18 TIME: 09:56 Operative Report Free Text/Dictation Addendum: I had another discussion with the patient. Her floor nurse, Alvarez JACOBS, was present at bedside as well. I explained to the patient that I would be glad to take care of her at this facility in coordination with plastic surgery, vascular surgery, and infectious disease. Patient declined further care at this facility. She stated her desire to be transferred to [facility]. She has seen a plastic surgeon for her wound that has privileges at [facility] and would like to be transferred for the remainder of her care. This was also discussed with Dr. Herrera, distresser. I will continue to follow the patient along. All questions were answered to the patient's satisfaction. DEEPA CORDOVA MD Jul 08, 2018 09:59
[2018-07-08] MEDS: VANCOMYCIN 750 MG in SOD CHLORIDE 0.9% 150 ML IVPB SCH ×2 (10:45→22:43)
[2018-07-08] MEDS: ENOXAPARIN 40 MG/0.4 ML SYG SC SCH (10:53)
--- NOTE | 2018-07-08 11:15 | NUR ---
CLAUDETTE NOTE: TRANSFER S/W Kimberley at [facility] regarding this pt. Per Kimberley clinical information faxed to [facility] (P:[phone], F:[phone]). Confirmation received. Awaiting response. Trenton Ware RN CM [id number] Addendum: 07/08/18 at 1453 by GARRISON WARE CM Pt previous and current echocardiogram faxed to [facility]. Confirmation received. Addendum: 07/09/18 at 0741 by GARRISON WARE CM S/W [facility] who states they are still attempting to locate an accepting provider Addendum: 07/09/18 at 0819 by GARRISON WARE CM S/Clari Romo at [facility] (P:[phone], F:[phone]) regarding this pt. Clinicals faxed. Confirmation received. Davis/Clari Arizmendi at [facility] (P:[phone], F:[phone]). New request for transfer submitted. Clinicals faxed. Confirmation received. Addendum: 07/09/18 at 1031 by GARRISON WARE CM Received call from Clarissa at [facility] who states that their orthopedic surgeon is denying the case and deferring back to Dr. Duran. Addendum: 07/09/18 at 1231 by GARRISON WARE CM Received call from Greyson at [facility] who states pt was presented to [facility] for acceptance, however denied due to "not a good candidate at this time." Addendum: 07/09/18 at 1436 by GARRISON WARE CM Mango Arizmendi from [facility] who states that they are reviewing the case and will f/u once orthopedic surgeon has reviewed the case.
--- NOTE | 2018-07-08 12:26 | PN ---
DATE: 07/08/2018 SUBJECTIVE: I spoke this morning with orthopedic surgeon, Dr. Duran, who evaluated the patient and informed me that the patient is requesting transfer to a tertiary center as she is refusing surgery. After speaking with the patient herself, she wants to be transferred to a tertiary center. The patient continues to have underlying pain moderately controlled with current pain regimen. No other acute events noted. OBJECTIVE: VITAL SIGNS: Blood pressure is 134/61, respirations 17, pulse 83, temperature 98.9. HEENT: Head is normocephalic. NECK: Supple. HEART: Regular rate. LUNGS: Show diminished breath sounds at the base. ABDOMEN: Soft, nontender to palpation without rebound or guarding. EXTREMITIES: Negative for clubbing, cyanosis. MUSCULOSKELETAL: The patient was noted multiple joint deformities of her fingers including boutonniere and Adams neck deformities. The patient was noted edema on the left leg. Also noted is ulceration of her knee with surrounding erythema and noted discharge of white pus on palpation. DERMATOLOGIC: No rashes. NEUROLOGIC: No focal deficits. MEDICATIONS: Have been reviewed. LABORATORY DATA: Shows a BMP within normal limits. Calcium 8.3. White count 7.2, hemoglobin 7.4, platelet count is 307. DIAGNOSTIC DATA: The patient's knee x-ray is unremarkable, prosthesis. The patient's 2D echo was also reviewed which showed the possibility of vegetation on the mitral valve. ASSESSMENT AND PLAN: 1. Left knee septic joint. The patient was evaluated by Dr. Duran with the recommendation for transfer to tertiary center as the patient will require a complicated surgery, which may include a plastic surgery support for underlying flap and the possibility of disarticulation of joint if infection cannot be controlled. We will therefore discuss with case management about transfer to tertiary center to salvage the patients limb. We would otherwise continue antibiotic therapy. A plastic surgery consult has also been placed. Continue wound care. Follow up with orthopedist and vascular surgery for any further recommendations. 2. Rheumatoid arthritis with multiple joint deformities. The patient is currently on prednisone. We will place a rheumatology consult for further evaluation as the patient usually receives weekly Enbrel. 3. History of deep venous thrombosis. The patient has a history of inferior vena cava filter placement. We will continue to monitor. Continue medical management. 4.Infective Endocarditis of Mitral valve. . Echo shows possible vegetation on mitral valve. Continue antibiotics. Follow up with cardiology. The patient may require mitral valve replacement will d/w cardiology if the patient requires transfer to a tertiary center. 4. Diabetes. Continue Lantus insulin sliding scale. Adjust insulin regimen as needed. 5. 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 Continue OxyContin and IV Dilaudid. 6. Hypertension. Continue current blood pressure regimen. 7. Dyslipidemia. Continue statin therapy. 8. Anemia. We will check iron panel, stool for occult blood. Monitor hemoglobin and hematocrit levels. 9. Gastrointestinal and deep venous thrombosis prophylaxis. Disposition. A case assembler consult was placed for transfer to a tertiary center. Dictated By: ROMARIO AMBRIZ/JOLLY Conf#: [id number] DID#: [id number]
--- NOTE | 2018-07-08 13:04 | RADRPT ---
Vent Rate: 93 bpm RR Interval: 0 msec OK Interval: 176 msec QRS Duration: 84 msec QT Interval: 368 msec QTC Interval: 457 msec P-R-T Cowen: 54 - 85 - 71 degrees Sinus rhythm with premature atrial complexes Nonspecific ST abnormality Abnormal ECG Electronically Signed By: Florian Lebron [id number]
--- NOTE | 2018-07-08 14:30 | CONS ---
Date/Time of Note Date/Time of Note DATE: 07/08/18 TIME: 14:29 Assessment/Plan Assessment/Plan Hospital Course Patient is awake looks comfortable no fevers overnight temperature 98.9 pulse 60 respirations 17 blood pressure 134/61 saturation 97% on room air WBC 7.2 H&H 7.4 and 25.1 platelets 307 BUN 17 creatinine 0.65. ESR 77 Diagnostics 2D echo done yesterday revealed mitral valve vegetation. Ejection fraction of 65% Indwelling: Right upper extremity PICC line placed on May 14, 2018 Antimicrobials: Patient is on IV vancomycin and Rocephin Physical examination: Chronically ill-appearing fragile well-developed elderly woman who is alert in no distress. Head atraumatic normocephalic. Neck is supple chest rise symmetrical breath sounds clear diminished bases. Heart: S1- S2. Abdomen soft bowel sounds present. Extremities with multiple deformities, left knee with draining wounds and dehiscence Assessment: 1. Left knee septic arthroplasty, history of total knee replacement 2. Acute tricuspid endocarditis 3. Severe rheumatoid arthritis 4. Diabetes 5. History of left total knee replacement with revision 03/18/18 Plan: Patient is clinically stable. We will will order wound cultures and blood cultures 2 sets from PICC line, continue her on current antibiotics, follow Ortho and cardiology recommendations. Her PICC line may need to be changed DW DR Mirna Scott Result Diagram: 07/08/18 0454 07/08/18 0454 Results 24hrs Laboratory Tests Test 07/07/18 17:11 07/07/18 20:25 07/08/18 02:16 07/08/18 04:54 Bedside Glucose 241 H 284 H 208 White Blood 7.2 Count Red Blood Count 2.80 L Hemoglobin 7.4 L Hematocrit 25.1 L Mean Corpuscular 89.6 Volume Mean Corpuscular 26.4 L Hemoglobin Mean Corpuscular 29.5 L Hemoglobin Korin nt Red Cell 17.9 H Distribution Width Platelet Count 307 Mean Platelet 9.0 Volume Immature 0.700 H Granulocytes % Neutrophils % 55.8 Lymphocytes % 26.8 Monocytes % 12.2 H Eosinophils % 3.8 Basophils % 0.7 Nucleated Red 0.0 Blood Cells % Immature 0.050 H Granulocytes # Neutrophils # 4.0 Lymphocytes # 1.9 Monocytes # 0.9 Eosinophils # 0.3 Basophils # 0.1 Nucleated Red 0.0 Blood Cells # Erythrocyte 77 H Sedimentation Rate Sodium Level 143 Potassium Level 3.8 Chloride Level 105 Carbon Dioxide 30 Level Anion Gap 8 Blood Urea 17 Nitrogen Creatinine 0.65 Est Glomerular > 60 Filtrat Rate mL/min Glucose Level 131 Calcium Level 8.3 L Phosphorus Level 3.5 Magnesium Level 1.7 C-Reactive 7.0 H Protein Test 07/08/18 07:04 07/08/18 08:25 07/08/18 12:15 Iron Level 19 L Total Iron 221 L Binding Capacity Percent Iron 9 L Saturation Ferritin 61.0 Bedside Glucose 125 119 Consultation Date/Type/Reason Admit Date/Time Jul 06, 2018 at 21:08 Initial Consult Date 07/07/18 Type of Consult ID Requesting Provider: ROMARIO SCOTT DO Exam/Review of Systems Vital Signs Vitals Vital Signs Date Temp Pulse Resp B/P (MAP) Pulse Ox O2 O2 Flow FiO2 Time Delivery Rate 07/08/18 98.9 53 17 134/61 97 08:11 (85) 07/07/18 Room Air 13:49 Intake and Output 07/07/18 07/07/18 07/08/18 1515:00 23:00 07:00 IntakeIntake Total 120 ml 970 ml 150 ml BalanceBalance 120 ml 970 ml 150 ml Medications Medications Current Medications Amlodipine Besylate (Norvasc) 5 mg DAILY PO Last administered on 07/08/18at 09:27; Admin Dose 5 MG; Start 07/07/18 at 09:00 Atorvastatin Calcium (Lipitor) 20 mg QHS PO Last administered on 07/07/18at 20:17; Admin Dose 20 MG; Start 07/07/18 at 21:00 Insulin Glargine (Lantus) 33 units QHS SC Last administered on 07/07/18at 20:29; Admin Dose 33 UNITS; Start 07/07/18 at 21:00 Pantoprazole (Protonix Tab) 40 mg DAILY PO Last administered on 07/08/18 09:27; Admin Dose 40 MG; Start 07/07/18 at 09:00 Fenofibrate (Tricor) 48 mg DAILY PO Last administered on 07/08/18 09:27; Admin Dose 48 MG; Start 07/07/18 at 09:00 Oxycodone HCl (Oxycontin) 40 mg TID PO Last administered on 12/26/18at 09:27; Admin Dose 40 MG; Start 07/07/18 at 09:00 Alteplase, Recombinant (Cathflo (Activase)) 2 mg MAY REPEAT X1 PRN CATHETER IF CATHETER REMAINS OCCULUDED Last administered on 07/07/18at 09:02; Admin Dose 2 MG; Start 07/07/18 at 08:00 Diagnostic Test (Pha) (Accu-Chek) 1 ea 02 XX Last administered on 07/08/18at 02:23; Admin Dose 1 EA; Start 07/08/18 at 02:00 Insulin Aspart (Novolog Insulin Pen) NOVOLOG *MILD* ALGORITHM WITH MEALS BEDTIME SC Last administered on 07/07/18at 20:28; Admin Dose 3 UNIT; Start 07/07/18 at 08:00 Vancomycin HCl (Vanco Iv Per Pharmacy) VANCOMYCIN PER PHARMACY PER PROTOCOL XX ; Start 07/07/18 at 08:00 Ceftriaxone Sodium 50 ml @ 100 mls/hr Q12 IVPB Last administered on 07/08/18at 09:26; Admin Dose 100 MLS/HR; Start 07/07/18 at 09:00 Miscellaneous Information 1 ea NOTE XX ; Start 07/07/18 at 08:00 Glucose (Glutose) 15 gm Q15M PRN PO DECREASED GLUCOSE; Start 07/07/18 at 08:00 Glucose (Glutose) 22.5 gm Q15M PRN PO DECREASED GLUCOSE; Start 07/07/18 at 08:00 Dextrose (D50w Syringe) 25 ml Q15M PRN IV DECREASED GLUCOSE; Start 07/07/18 at 08:00 Dextrose (D50w Syringe) 50 ml Q15M PRN IV DECREASED GLUCOSE; Start 07/07/18 at 08:00 Glucagon (Glucagen) 1 mg Q15M PRN IM DECREASED GLUCOSE; Start 07/07/18 at 08:00 Glucose (Glutose) 15 gm Q15M PRN BUCCAL DECREASED GLUCOSE; Start 07/07/18 at 08:00 Hydromorphone HCl (Dilaudid) 3 mg Q2H PRN IV SEVERE PAIN LEVEL 7-10 Last administered on 07/08/18at 13:45; Admin Dose 3 MG; Start 07/07/18 at 08:00 Vancomycin HCl 750 mg/Sodium Chloride 150 ml @ 75 mls/hr Q12H IVPB Last administered on 07/08/18at 10:45; Admin Dose 75 MLS/HR; Start 07/07/18 at 10:00 Carvedilol (Coreg) 3.125 mg BID PO Last administered on 07/08/18at 09:00; Admin Dose 3.125 MG; Start 07/07/18 at 10:00 Enoxaparin Sodium (Lovenox) 40 mg DAILY SC Last administered on 07/08/18at 10:53; Admin Dose 40 MG; Start 07/08/18 at 09:00 Famotidine (Pepcid) 20 mg BID PO Last administered on 07/08/18at 09:27; Admin Dose 20 MG; Start 07/08/18 at 09:00 Prednisone (Prednisone) 4 mg DAILY PO ; Start 07/09/18 at 09:00 CHRIS WHIPPLE NP Jul 08, 2018 14:30
--- NOTE | 2018-07-08 14:38 | CONS ---
Date/Time of Note Date/Time of Note DATE: 07/08/18 TIME: 13:53 Consult Date/Type/Reason Admit Date/Time Jul 06, 2018 at 21:08 Initial Consult Date 07/08/18 Type of Consultation: Plastic and Reconstructive Jim Reason for Consultation Left Knee Septic Arthritis, Purulent Requesting Provider: ROMARIO GUTIERREZ Patient is a 67 y.o. with Long time history of R>A., wikth significant related severe joint deformities of both hands who underwent bilateral total knee operations about [address] Watson, orthopedic surgeon. She has been on low dose (5 mg. daily) Prednisone and Embryl weekly, and was active until 03/13/2018 when she slipped and fell in bathroom and had injury (fracture) to the left ankle as well as her left knee. She was attended and managed for these, but continued with problems leading to an open wound of left knee with septic arthritis and abundance of purulence from the joint. She was transfered to [facility] from [facility] on 07/06/2018. She is allergic to Sulfa, Hydromorpho ne, Meperidine, and shellfish derivatives. Objective Vital Signs Date Temp Pulse Resp B/P (MAP) Pulse Ox O2 O2 Flow FiO2 Time Delivery Rate 07/08/18 98.9 53 17 134/61 97 08:11 (85) 07/07/18 Room Air 13:49 Intake and Output 07/07/18 07/07/18 07/08/18 1515:00 23:00 07:00 IntakeIntake Total 120 ml 970 ml 150 ml BalanceBalance 120 ml 970 ml 150 ml Exam A well oreinted, alert and coopoerative, pleasant lady who is a good historian and concerned with her active problem. Upon removing the dressing from left knee , and open wound , about 1.5 cm. X 2.0 cm. in the inferior pre-patellar area is noted along with a 5 mm. opening over the vertical scar of her arthroplasty incision that expelled more than about 150 ml. of a light chocolate coloured purulence. Patient is not in any dystress or pain at rest or raising or moving the left knee joint. The right knee is s/p total knee and is unremarkable. Distal pulses are hard to palpate (0-1/4) Results/Medications Result Diagram: 07/08/18 0454 07/08/18 0454 Results 24 hrs Laboratory Tests Test 07/07/18 17:11 07/07/18 20:25 07/08/18 02:16 07/08/18 04:54 Bedside Glucose 241 H 284 H 208 White Blood 7.2 Count Red Blood Count 2.80 L Hemoglobin 7.4 L Hematocrit 25.1 L Mean Corpuscular 89.6 Volume Mean Corpuscular 26.4 L Hemoglobin Mean Corpuscular 29.5 L Hemoglobin Korin nt Red Cell 17.9 H Distribution Width Platelet Count 307 Mean Platelet 9.0 Volume Immature 0.700 H Granulocytes % Neutrophils % 55.8 Lymphocytes % 26.8 Monocytes % 12.2 H Eosinophils % 3.8 Basophils % 0.7 Nucleated Red 0.0 Blood Cells % Immature 0.050 H Granulocytes # Neutrophils # 4.0 Lymphocytes # 1.9 Monocytes # 0.9 Eosinophils # 0.3 Basophils # 0.1 Nucleated Red 0.0 Blood Cells # Erythrocyte 77 H Sedimentation Rate Sodium Level 143 Potassium Level 3.8 Chloride Level 105 Carbon Dioxide 30 Level Anion Gap 8 Blood Urea 17 Nitrogen Creatinine 0.65 Est Glomerular > 60 Filtrat Rate mL/min Glucose Level 131 Calcium Level 8.3 L Phosphorus Level 3.5 Magnesium Level 1.7 C-Reactive 7.0 H Protein Test 07/08/18 07:04 07/08/18 08:25 07/08/18 12:15 Iron Level 19 L Total Iron 221 L Binding Capacity Percent Iron 9 L Saturation Ferritin 61.0 Bedside Glucose 125 119 Medications Current Medications Amlodipine Besylate (Norvasc) 5 mg DAILY PO Last administered on 07/08/18at 09:27; Admin Dose 5 MG; Start 07/07/18 at 09:00 Atorvastatin Calcium (Lipitor) 20 mg QHS PO Last administered on 07/07/18at 20:17; Admin Dose 20 MG; Start 07/07/18 at 21:00 Insulin Glargine (Lantus) 33 units QHS SC Last administered on 07/07/18at 20:29; Admin Dose 33 UNITS; Start 07/07/18 at 21:00 Pantoprazole (Protonix Tab) 40 mg DAILY PO Last administered on 07/08/18at 09:27; Admin Dose 40 MG; Start 07/07/18 at 09:00 Fenofibrate (Tricor) 48 mg DAILY PO Last administered on 07/08/18at 09:27; Admin Dose 48 MG; Start 07/07/18 at 09:00 Oxycodone HCl (Oxycontin) 40 mg TID PO Last administered on 07/08/18at 09:27; Admin Dose 40 MG; Start 07/07/18 at 09:00 Alteplase, Recombinant (Cathflo (Activase)) 2 mg MAY REPEAT X1 PRN CATHETER IF CATHETER REMAINS OCCULUDED Last administered on 07/07/18at 09:02; Admin Dose 2 MG; Start 07/07/18 at 08:00 Diagnostic Test (Pha) (Accu-Chek) 1 ea 02 XX Last administered on 07/08/18at 02:23; Admin Dose 1 EA; Start 07/08/18 at 02:00 Insulin Aspart (Novolog Insulin Pen) NOVOLOG *MILD* ALGORITHM WITH MEALS BEDTIME SC Last administered on 07/07/18at 20:28; Admin Dose 3 UNIT; Start 07/07/18 at 08:00 Vancomycin HCl (Vanco Iv Per Pharmacy) VANCOMYCIN PER PHARMACY PER PROTOCOL XX ; Start 07/07/18 at 08:00 Ceftriaxone Sodium 50 ml @ 100 mls/hr Q12 IVPB Last administered on 07/08/18at 09:26; Admin Dose 100 MLS/HR; Start 07/07/18 at 09:00 Miscellaneous Information 1 ea NOTE XX ; Start 07/07/18 at 08:00 Glucose (Glutose) 15 gm Q15M PRN PO DECREASED GLUCOSE; Start 07/07/18 at 08:00 Glucose (Glutose) 22.5 gm Q15M PRN PO DECREASED GLUCOSE; Start 07/07/18 at 08:00 Dextrose (D50w Syringe) 25 ml Q15M PRN IV DECREASED GLUCOSE; Start 07/07/18 at 08:00 Dextrose (D50w Syringe) 50 ml Q15M PRN IV DECREASED GLUCOSE; Start 07/07/18 at 08:00 Glucagon (Glucagen) 1 mg Q15M PRN IM DECREASED GLUCOSE; Start 07/07/18 at 08:00 Glucose (Glutose) 15 gm Q15M PRN BUCCAL DECREASED GLUCOSE; Start 07/07/18 at 08:00 Hydromorphone HCl (Dilaudid) 3 mg Q2H PRN IV SEVERE PAIN LEVEL 7-10 Last administered on 07/08/18 13:45; Admin Dose 3 MG; Start 07/07/18 at 08:00 Vancomycin HCl 750 mg/Sodium Chloride 150 ml @ 75 mls/hr Q12H IVPB Last administered on 07/08/18 10:45; Admin Dose 75 MLS/HR; Start 07/07/18 at 10:00 Carvedilol (Coreg) 3.125 mg BID PO Last administered on 07/08/18at 09:00; Admin Dose 3.125 MG; Start 07/07/18 at 10:00 Enoxaparin Sodium (Lovenox) 40 mg DAILY SC Last administered on 07/08/18 10:53; Admin Dose 40 MG; Start 07/08/18 at 09:00 Famotidine (Pepcid) 20 mg BID PO Last administered on 07/08/18 09:27; Admin Dose 20 MG; Start 07/08/18 at 09:00 Prednisone (Prednisone) 5 mg DAILY PO Last administered on 07/08/18at 11:52; Admin Dose 5 MG; Start 07/08/18 at 09:30 Assessment/Plan Chief Complaint/Hosp Course Patient has been started on wide spectrum antibiotics upon admission here, and is continuing to receive them. Problems: (1) Rheumatoid arthritis (2) Essential hypertension (3) Diabetes mellitus type 2 in obese (4) Diverticulosis large intestine w/o perforation or abscess w/o bleeding (5) Hemorrhoids (6) Hyperlipidemia (7) Chronic pain syndrome (8) History of revision of total replacement of left knee joint (9) Closed fracture of left ankle (10) Peripheral vascular disease due to secondary diabetes (11) Mitral valve vegetation (12) Grade I diastolic dysfunction (13) History of total bilateral knee replacement (14) History of hysterectomy (15) History of 2 sections (16) History of total left hip arthroplasty (17) S/P IVC filter Additional Assessment/Plan Patient is a 67 y.o. with Long time history of R>A., wikth significant related severe joint deformities of both hands who underwent bilateral total knee operations about [address] Watson, orthopedic surgeon. She has been on low dose (5 mg. daily) Prednisone and Embryl weekly, and was active until 03/13/2018 when she slipped and fell in bathroom and had injury (fracture) to the left ankle as well as her left knee. She was attended and managed for these, but continued with problems leading to an open wound of left knee with septic arthritis and abundance of purulence from the joint. She was transfered to [facility] on 07/06/2018. She is allergic to Sulfa, Hydromorphone, Meperidine, and shellfish derivatives. She is not septic. She has h/o DM, PVD, IVC filter, Mitral Valve vegetation. A well oreinted, alert and coopoerative, pleasant lady who is a good historian and concerned with her active problem. Upon removing the dressing from left knee , and open wound , about 1.5 cm. X 2.0 cm. in the inferior pre-patellar area is noted along with a 5 mm. opening over the vertical scar of her arthroplasty incision that expelled more than about 150 ml. of a light chocolate coloured purulence. Patient is not in any dystress or pain at rest or raising or moving the left knee joint. The right knee is s/p total knee and is unremarkable. Distal pulses are hard to palpate (0-1/4) Assessment and Plan: This patient has an overt and purulent left knee septic arthritis with an open wound in presence of a total knee prosthesis. Her co-morbidities including peripheral vascular disease as well as D.M. will increase the gravity of this challenging condition to the point of increasing possibility of an amputation sometime in the future for her. First recommendation is to stop Embryl in face of her infection and to start tapering her steroid, to be coordinated by Dr. Winslow, as patient does not seem to have active R.A. at this time. Also, irrigation of the joint space BID using at least 200 ml. of 1/40 diluted Dakin's solution may offer a good opportunity to stop or slow joon the purulence temporarily. Her management as to the orthopedic approach has been well outlined by Dr. Austyn Mae, orthopedic surgeon (Removal of prosthesis and use of a/b impregnated spacer to treat infection). This , along with IV antibiotics is expected to treat the infection and heal her ulcer. Patient may require a muscle or a myocutaneous flap as a local or free flap, should above measures do not lead to healing of her wound. Such flaps are expected to be highly moise llenging considering her known peripheral vascular disease and her other co- morbidities. Therefore, a highle urgent transfer to a higher level of care such as [facility] or a [place] setting such as [facility], [facility], ... as a limb saving measure is strongly recommended and encouraged. I reviewed above in detail with patient and answered her questions to her satisfaction. She understands all above, Agrees with them and wishes to proceed as recommended. Cont'd Hospitalization Reason: Left knee septic arthritis with purulence LONNY LANGE MD Jul 08, 2018 14:12
--- NOTE | 2018-07-08 14:44 | CONS ---
DATE OF ADMISSION: 07/06/2018 DATE OF CONSULTATION: TYPE OF CONSULTATION: Rheumatology consultation. HISTORY OF PRESENT ILLNESS: The patient is a 67-year-old woman with a long history of rheu matoid arthritis with multiple joint deformities. She is status post bilateral total knee replacemen ts many years ago, as well as a left hip replacement. The patient in February fell on getting out of t he shower and developed left malleolar fracture as well as a displaced fracture of her left distal fe moral metaphysis. She had a closed reduction of the left ankle fracture and underwent a total left k nee revision arthroplasty. However, subsequently she developed ulcerations around her left ankle and more recently an open wound of the left knee area with much pus-like discharge. The patient has been on long-term prednisone dose mostly of 5 mg daily for the last several years as well as Enbrel weekly. However, she states that about 3 months ago she stopped taking the Enbrel for over 2 months and did not have any exacerbation of her rheumatoid arthritic symptoms. However, she restarted Enbrel 3 weeks ago and the last dose was 6 days ago. The patient denies pain or swelling in other joints including the hands and wrists. She has been bas ically bed bound since the recent problems with the left knee. RHEUMATOLOGIC REVIEW OF SYSTEMS: Negative for fevers, rashes, shortness of breath or chest pains. Denies significant abdominal pains, nausea or vomiting. Denies dysuria. Denies history of Raynaud's phenomenon. Denies definite numbness and denies headaches or new visual changes. PAST MEDICAL HISTORY: Positive for the rheumatoid arthritis, peripheral vascular disease, diabetes w hich may have related to the prednisone, hypertension, hyperlipidemia and DVT. PAST SURGICAL HISTORY: Status post bilateral knee replacement, left hip replacement and left knee rev ision surgery. More recently the patient does have a history of IVC placement. SOCIAL HISTORY: The patient does not smoke or drink alcohol. FAMILY HISTORY: Noncontributory. PHYSICAL EXAMINATION: VITAL SIGNS: Afebrile, temperature 98.9, blood pressure 134/61, pulse of 60, respirations 17, oxygen saturation 97 on room air. GENERAL: Well-developed, slightly obese woman in no acute distress, alert, oriented x3. SKIN: Without acute rashes. HEENT: Without acute oral or ocular lesions noted. NECK: Without lymphadenopathy or thyromegaly. CHEST: Clear to auscultation. HEART: Regular rate and rhythm. There is a II/ systolic murmur. ABDOMEN: Soft without masses or tenderness. MUSCULOSKELETAL: Left knee with open wound with marked pus-like discharge and mild surrounding eryth angelita. Hand and other joints without synovitis and hands with multiple old joint deformities with ulnar deviation. NEUROLOGIC: Grossly intact. LABORATORY STUDIES: Noted, including a normal white count of 7200, hemoglobin 7.4, hematocrit 25.1. Sedimentation rate 77, oxygen. Iron saturation 9%, glucose ranges from 140 to 284. X-ray of the le ft knee read as basically unremarkable for the left knee prosthesis. Echocardiogram showing echogeni c structure on the mitral valve consistent with vegetation. ASSESSMENT: 1. Left knee septic arthritis in joints, status post prosthesis with open draining wound. 2. Rheumatoid arthritis which appears relatively inactive. At this point, the patient apparently di d not have an exacerbation of symptoms while off the Enbrel for over 2 months recently and has not krause d other active rheumatoid arthritis symptoms for some time. 3. Diabetes mellitus. 4. Mitral valve, possible vegetations of unclear significance at this point. RECOMMENDATIONS: 1. Certainly continue to hold the Enbrel for the foreseeable future. 2. Will decrease the prednisone slowly as she has been on it long-term and it is unclear to what ext ent she actually needs it. At this point would decrease it to 4 mg daily. 3. Would agree with the transfer of the patient to a tertiary center for surgical management of this left knee process. Thank you for having me see the patient rheumatologically. Dictated By: KENYA DE LA FUENTE/JOLLY Conf#: [id number] DID#: [id number] CC: ROMARIO GUTIERREZ DO;*EndCC*
[2018-07-08 17:12] VITALS: BP 136/75; PULSE 78; RESP 16
--- NOTE | 2018-07-08 18:18 | NUR ---
END OF SHIFT NOTES: PT STABLE, ALERT & ORIENTED X4. PT STILL REQUEST IV DILAUDID 3MG Q2H FOR LEFT KNEE PAIN. DRESSING CHANGED TODAY, LOTS OF YELLOW DRAINAGE NOTED. WOUND CULTURE COLLECTED AND SENT TO LAB. PENDING TX TO HIGHER LEVEL OF CARE. ACCU CHECK ACHS, NO EPISODES OF HYPERGLYCEMIA. INSTRUCTED PT TO CALL FOR ASSISTANCE. VS WNL.HOURLY ROUNDING. CALL LIGHT WITHIN REACH.ALL NEEDS MET. NO NEW COMPLAINTS.
[2018-07-08 19:12] VITALS: BP 136/63; PULSE 73; RESP 16
[2018-07-08] MEDS: ATORVASTATIN 20 MG TAB PO SCH (21:41)
[2018-07-08] MEDS: SODIUM HYPOCHLORITE (1/40) 1 APPLIC BTL IRR SCH (21:42)
[2018-07-08] MEDS: INSULIN GLARGINE [LANTus] (100 UNITS/ML) SYG SC SCH (21:47)
[2018-07-09] MEDS: HYDROmorphONE 2 MG/ML SYG IV PRN ×11 (00:33→22:53)
[2018-07-09] MEDS: ACCU-CHEK XX SCH (02:29)
[2018-07-09 02:32] VITALS: BP 168/77; PULSE 77; RESP 18
--- NOTE | 2018-07-09 04:53 | NUR ---
EOSS: Patient remains stable. Pain management every 2 hours. Dressing changed done and tolerated very well. Instructed patient to use call light when assistance is needed, patient verbalize understanding. No other complaints. Will endorse to morning nurse for continuity of care. Addendum: 07/09/18 at 0515 by GOGO MALHOTRA JR, RN Patient refused hibiclens bath. Per patient she wants it done after breakfast.
[2018-07-09 07:22] VITALS: BP 173/74; PULSE 68; RESP 16
[2018-07-09] MEDS: INSULIN ASPART [NOVOLOG] 3 ML PEN SC SCH ×4 (08:00→21:00)
--- NOTE | 2018-07-09 08:45 | CONS ---
Date/Time of Note Date/Time of Note DATE: 07/09/18 TIME: 08:40 Consult Date/Type/Reason Admit Date/Time Jul 06, 2018 at 21:08 Initial Consult Date 07/07/18 Type of Consultation: cv Requesting Provider: ROMARIO GUTIERREZ DO Subjective Cardiology follow-up progress note Subjective: Case discussed with staff. Discussed with the physicians. Patient with no chest pain or pressure with no palpitation. mild leg pain Objective: General: no acute distress HEENT: NC/AT. pupils are equal. round. NECK: NO JVD. no stridor. CV: RRR. systolic murmur; no gallop or rubs. PULM: no wheezing or rhonchi. GI: SOFT, NT, ND, no rebound or guarding Extremity: With multiple joint deformities. neuro: awake and alert, OX3. Psych: anxious but pleasant rectal: deferred Echocardiogram done 07/07/2018 which was personally reviewed shows: Normal left ventricular systolic function. Normal left ventricular cavity size. Mild concentric left ventricular hypertrophy. Ejection fraction is visually estimated at 65 %. Mitral valve leaflets appear mildly thickened. Mild mitral annular calcification. Trace mitral regurgitation. Echogenic structure is seen on the mitral valve consistent with vegetation. No significant aortic stenosis or insufficiency. Aortic sclerosis without significant stenosis. Aortic cusps appear mildly calcified. Trileaflet aortic valve. Normal appearance of the tricuspid valve. Estimated peak PA systolic pressure 41 mmHg. There is mild tricuspid regurgitation. Objective Vital Signs Date Temp Pulse Resp B/P (MAP) Pulse Ox O2 O2 Flow FiO2 Time Delivery Rate 07/09/18 97.9 68 16 173/74 92 07:22 (107) 07/07/18 Room Air 13:49 Intake and Output 07/08/18 07/08/18 07/09/18 1515:00 23:00 07:00 IntakeIntake Total 1160 ml 530 ml 600 ml BalanceBalance 1160 ml 530 ml 600 ml Results/Medications Result Diagram: 07/09/18 0431 07/09/18 0431 Results 24 hrs Laboratory Tests Test 07/08/18 12:15 07/08/18 17:35 07/08/18 21:00 07/08/18 21:44 Bedside Glucose 119 134 195 Vancomycin 15.3 Level Trough Test 07/09/18 02:31 07/09/18 04:31 07/09/18 07:34 07/09/18 08:14 Bedside Glucose 94 70 White Blood 7.4 Count Red Blood Count 2.70 L Hemoglobin 7.2 L Hematocrit 24.1 L Mean 89.3 Corpuscular Volume Mean 26.7 L Corpuscular Hemoglobin Mean 29.9 L Corpuscular Hemoglobin Conc ent Red Cell 18.2 H Distribution Width Platelet Count 347 Mean Platelet 9.1 Volume Immature 0.500 H Granulocytes % Neutrophils % 54.5 Lymphocytes % 28.8 Monocytes % 10.2 Eosinophils % 5.3 Basophils % 0.7 Nucleated Red 0.0 Blood Cells % Immature 0.040 H Granulocytes # Neutrophils # 4.0 Lymphocytes # 2.1 Monocytes # 0.8 Eosinophils # 0.4 Basophils # 0.1 Nucleated Red 0.0 Blood Cells # Sodium Level 141 Potassium Level 4.2 Chloride Level 107 Carbon Dioxide 30 Level Anion Gap 4 L Blood Urea 17 Nitrogen Creatinine 0.55 Est Glomerular > 60 Filtrat Rate mL/min Glucose Level 82 # Calcium Level 8.3 L Phosphorus 4.0 Level Magnesium Level 1.6 L Lab Scanned REFERENCE LAB Report Medications Current Medications Amlodipine Besylate (Norvasc) 5 mg DAILY PO Last administered on 07/08/18at 09:27; Admin Dose 5 MG; Start 07/07/18 at 09:00 Atorvastatin Calcium (Lipitor) 20 mg QHS PO Last administered on 07/08/18at 21:41; Admin Dose 20 MG; Start 07/07/18 at 21:00 Insulin Glargine (Lantus) 33 units QHS SC Last administered on 07/08/18 21:47; Admin Dose 33 UNITS; Start 07/07/18 at 21:00 Pantoprazole (Protonix Tab) 40 mg DAILY PO Last administered on 07/08/18at 0 9:27; Admin Dose 40 MG; Start 07/07/18 at 09:00 Fenofibrate (Tricor) 48 mg DAILY PO Last administered on 07/08/18 09:27; Admin Dose 48 MG; Start 07/07/18 at 09:00 Oxycodone HCl (Oxycontin) 40 mg TID PO Last administered on 07/08/18 21:40; Admin Dose 40 MG; Start 07/07/18 at 09:00 Alteplase, Recombinant (Cathflo (Activase)) 2 mg MAY REPEAT X1 PRN CATHETER IF CATHETER REMAINS OCCULUDED Last administered on 07/07/18at 09:02; Admin Dose 2 MG; Start 07/07/18 at 08:00 Diagnostic Test (Pha) (Accu-Chek) 1 ea 02 XX Last administered on 07/09/18at 02:29; Admin Dose 1 EA; Start 07/08/18 at 02:00 Insulin Aspart (Novolog Insulin Pen) NOVOLOG *MILD* ALGORITHM WITH MEALS BEDTIME SC Last administered on 07/08/18at 21:48; Admin Dose 1 UNIT; Start 07/07/18 at 08:00 Vancomycin HCl (Vanco Iv Per Pharmacy) VANCOMYCIN PER PHARMACY PER PROTOCOL XX ; Start 07/07/18 at 08:00 Ceftriaxone Sodium 50 ml @ 100 mls/hr Q12 IVPB Last administered on 07/08/18at 21:39; Admin Dose 100 MLS/HR; Start 07/07/18 at 09:00 Miscellaneous Information 1 ea NOTE XX ; Start 07/07/18 at 08:00 Glucose (Glutose) 15 gm Q15M PRN PO DECREASED GLUCOSE; Start 07/07/18 at 08:00 Glucose (Glutose) 22.5 gm Q15M PRN PO DECREASED GLUCOSE; Start 07/07/18 at 08:00 Dextrose (D50w Syringe) 25 ml Q15M PRN IV DECREASED GLUCOSE; Start 07/07/18 at 08:00 Dextrose (D50w Syringe) 50 ml Q15M PRN IV DECREASED GLUCOSE; Start 07/07/18 at 08:00 Glucagon (Glucagen) 1 mg Q15M PRN IM DECREASED GLUCOSE; Start 07/07/18 at 08:00 Glucose (Glutose) 15 gm Q15M PRN BUCCAL DECREASED GLUCOSE; Start 07/07/18 at 08:00 Hydromorphone HCl (Dilaudid) 3 mg Q2H PRN IV SEVERE PAIN LEVEL 7-10 Last administered on 07/09/18at 06:49; Admin Dose 3 MG; Start 07/07/18 at 08:00 Vancomycin HCl 750 mg/Sodium Chloride 150 ml @ 75 mls/hr Q12H IVPB Last administered on 07/08/18at 22:43; Admin Dose 75 MLS/HR; Start 07/07/18 at 10:00 Carvedilol (Coreg) 3.125 mg BID PO Last administered on 07/08/18 21:41; Admin Dose 3.125 MG; Start 07/07/18 at 10:00 Enoxaparin Sodium (Lovenox) 40 mg DAILY SC Last administered on 07/08/18 10:53; Admin Dose 40 MG; Start 07/08/18 at 09:00 Famotidine (Pepcid) 20 mg BID PO Last administered on 07/08/18 21:41; Admin Dose 20 MG; Start 07/08/18 at 09:00 Prednisone (Prednisone) 4 mg DAILY PO ; Start 07/09/18 at 09:00 Sodium Hypochlorite (Dakin'S (Dilute )) 1 applic BID IRR Last administered on 07/08/18 21:42; Admin Dose 1 APPLIC; Start 07/08/18 at 21:00 Assessment/Plan Chief Complaint/Hosp Course 1. Cardiovascular preop evaluation 2. Septic knee 3. 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 History of severe rheumatoid arthritis and multiple joint deformities 6. Poor exercise tolerance 7. Possible mitral valve endocarditis/vegetation 8. Anemia Recommendations: Antibiotic management as per internal medicine and ID recommendations. Patient most likely will need prolonged antibiotic treatment Continue with the Coreg as tolerated needed replace lytes prn. Orthopedic workup and treatment as per orthopedic surgery. Transfusions as needed Follow-up culture results Patient reports she will be transferred to a tertiary center Thank you for his referral. We will continue to follow along with you KASSIDY BRAY MD [facility] KASSIDY BRAY MD Jul 09, 2018 08:45
[2018-07-09] MEDS: FENOFIBRATE 48 MG TAB PO SCH (08:53)
[2018-07-09] MEDS: PANTOPRAZOLE (EC) 40 MG TAB PO SCH (08:53)
[2018-07-09] MEDS: oxyCODONE (CR) 40 MG TAB [oxyCONTIN] PO SCH ×3 (08:53→20:54)
[2018-07-09] MEDS: FAMOTIDINE 20 MG TAB PO SCH ×2 (08:54→20:53)
[2018-07-09] MEDS: CEFTRIAXONE 1 GM/50 ML (PMX) 50 ML IVPB SCH ×2 (08:54→20:54)
[2018-07-09] MEDS: AMLODIPINE 5 MG TAB PO SCH (08:54)
[2018-07-09] MEDS: ENOXAPARIN 40 MG/0.4 ML SYG SC SCH (08:55)
[2018-07-09] MEDS: SODIUM HYPOCHLORITE (1/40) 1 APPLIC BTL IRR SCH ×2 (09:41→21:01)
[2018-07-09] MEDS: predniSONE 1 MG TAB PO SCH (09:41)
[2018-07-09] MEDS ORDERED: MAGNESIUM SULFATE 3 GM in DEXTROSE 5% 100 ML IVPB ONE (10:00)
--- NOTE | 2018-07-09 10:27 | PN ---
DATE: 07/09/2018 SUBJECTIVE: I spoke with the patient again this morning, updating her on the request of transfer to [facility] or another tertiary center. The patient again states that she wishes to be transferred to another facility for further surgery. No other events noted. No hemoptysis, hematemesis or hemat ochezia. The patient's pain is currently adequately controlled. The patient is anxious and nervous about the possibility of losing her leg. The patient was also seen by a plastic surgeon, Dr. Styles and tie presser, Dr. Lackey. Please note, I discussed the case with the case finisher and [facility] staff. OBJECTIVE: VITAL SIGNS: Blood pressure is 173/74, respirations 16, pulse 68, temperature 97.9. HEENT: Head is normocephalic. NECK: Supple. HEART: Regular rate. LUNGS: Show diminished breath sounds at the base. ABDOMEN: Soft, nontender to palpation without rebound or guarding. EXTREMITIES: Negative for clubbing, cyanosis. The patient's dressing over left knee is clean, dry, intact. There is trace edema in left lower extremity. DERMATOLOGIC: No rashes. MUSCULOSKELETAL: No joint effusion. NEUROLOGIC: No focal deficits. MEDICATIONS: Reviewed. LABORATORY DATA: Shows white count of 7.4, hemoglobin 7.2, platelet count is 347. Sodium 141, potas sium 4.2, BUN 17, creatinine 0.55, magnesium 1.6. ASSESSMENT AND PLAN: 1. Left knee septic joint. The patient was evaluated by Dr. Mae, orthopedic surgeon. The patient herself is refusing surgery at [facility]. Requests transfer to a tertiary center. A transfer request has been sent and waiting to see if it is accepted. Currently, the raffy ent is receiving IV antibiotics. She was also seen by plastic surgeon, Dr. Styles, who recommended t he patient be treated with diluted Dakin solution for wound washout. Plan is to continue current med ical management. Continue wound care. We will continue dressing changes. Continue IV antibiotics. We will follow up with orthopedics, infectious disease and vascular surgery for further recommendati ons. Greatly appreciate plastic surgery's recommendations. We will continue current treatment plan and monitor closely. 2. Rheumatoid arthritis with multiple joint deformities. Appreciate rheumatology's evaluation. The patient's Enbrel will be held at this time. Continue prednisone, being managed by rheumatology. 3. History of deep venous thrombosis and IVC filter placement. Continue to monitor. 4. Anemia with iron deficiency. Will start the patient on IV Ferrlecit. 5. 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 Continue current antibiotic regimen. Appreciate cardiology evaluation. 6. Diabetes. Continue current insulin regimen, adjust as needed. 7. Chronic pain syndrome. Continue current pain regimen. 8. Hypertension. Continue current blood pressure regimen. 9. Dyslipidemia. Continue statin therapy. 10. Gastrointestinal and deep vein thrombosis prophylaxis. DISPOSITION: The patient is pending transfer to a possible tertiary center once accepted. Dictated By: ROMARIO GUTIERREZ DO NR/NTS Conf#: DID#: [id number] CC: ROMARIO GUTIERREZ DO;*EndCC*
[2018-07-09] MEDS: VANCOMYCIN 750 MG in SOD CHLORIDE 0.9% 150 ML IVPB SCH ×2 (10:33→22:44)
[2018-07-09] MEDS: MUPIROCIN 2% 22 GM OINT TOP SCH ×2 (11:46→21:01)
[2018-07-09] MEDS: COLLAGENASE 5 GM (UD JAR) TOP SCH (11:46)
--- NOTE | 2018-07-09 12:13 | NUR ---
WOUND CONSULT: 67 year old female admitted with septic join per record. History of rheumatoid arthritis, s/p bilateral knee replacement, left hip replacement, steroid-induced diabetes, hypertension, dyslipidemia, osteoarthritis, peripheral vascular disease, s/p mechanical fall March s/p closed reduction of her left ankle fracture and a left total knee revision arthroplasty per medical history. Patient awake, alert, oriented. Seen by Dr. Mae and Dr. Pathak. ASSESSMENT: - Left knee wound. Please follow wound care order per Dr. Duran. - Left latera foot full thickness wound. Possible diabetic ulcer. Full thickness wound with 30% pale yellow slough and 70% red wound bed. Periwound intact. Small serous drainage. No odor. - Left lateral distal foot diabetic ulcer. Area cover with dry eschar with edges peeling off the wound base. No drainage. No odor. - Left medal foot diffuse purple discoloration. RECOMMENDATIONS: - Left lateral foot and Left lateral distal foot wounds: Cleanse with normal saline. Apply Santyl ointment daily to wound bed. Cover with dry dressing. Change daily. - Float heels off bed with pillows. - Reposition every 2 hours. - Sacrococcyx cover with foam border dressing for protection. Assessed patient with RNSandy. RN to obtain wound care recommendations from . CALIN LeN RN CWOCN
--- NOTE | 2018-07-09 14:38 | NUR ---
Vancomycin per Rx Vancomycin trough = 15.3 SCr 0.65 Continue Vancomycin 750 mg IV q12h
--- NOTE | 2018-07-09 15:10 | CONS ---
Date/Time of Note Date/Time of Note DATE: 07/09/18 TIME: 15:08 Assessment/Plan Assessment/Plan Hospital Course Patient is awake looks comfortable denies pain no fevers overnight family at bedside WBC 7.4 no shift no bands BUN 17 creatinine 0.55 Microbiology: Blood cultures pending, left knee wound culture at [facility] 3 days ago grew MRSA, urine culture grew E. coli Antimicrobials: Vancomycin and Rocephin Diagnostics 2D echo revealed mitral valve vegetation. Ejection fraction of 65% Indwelling: Right upper extremity PICC line placed on May 14, 2018 Physical examination: Chronically ill-appearing fragile well-developed elderly woman who is alert in no distress. Head atraumatic normocephalic. Neck is supple chest rise symmetrical breath sounds clear diminished bases. Heart: S1- S2. Abdomen soft bowel sounds present. Extremities with multiple deformities, left knee with draining wounds and dehiscence Assessment: 1. 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 Severe rheumatoid arthritis 4. Diabetes 5. History of left total knee replacement with revision 03/18/18 Plan: Patient is clinically stable. We will continue her on current antibiotics, await for blood cultures, pending transfer to tertiary care facility Discussed with patient at bedside Result Diagram: 07/09/18 0431 07/09/18 0431 Results 24hrs Laboratory Tests Test 07/08/18 17:35 07/08/18 21:00 07/08/18 21:44 07/09/18 02:31 Bedside Glucose 134 195 94 Vancomycin 15.3 Level Trough Test 07/09/18 04:31 07/09/18 07:34 07/09/18 08:14 07/09/18 12:18 White Blood 7.4 Count Red Blood Count 2.70 L Hemoglobin 7.2 L Hematocrit 24.1 L Mean 89.3 Corpuscular Volume Mean 26.7 L Corpuscular Hemoglobin Mean 29.9 L Corpuscular Hemoglobin Conc ent Red Cell 18.2 H Distribution Width Platelet Count 347 Mean Platelet 9.1 Volume Immature 0.500 H Granulocytes % Neutrophils % 54.5 Lymphocytes % 28.8 Monocytes % 10.2 Eosinophils % 5.3 Basophils % 0.7 Nucleated Red 0.0 Blood Cells % Immature 0.040 H Granulocytes # Neutrophils # 4.0 Lymphocytes # 2.1 Monocytes # 0.8 Eosinophils # 0.4 Basophils # 0.1 Nucleated Red 0.0 Blood Cells # Sodium Level 141 Potassium Level 4.2 Chloride Level 107 Carbon Dioxide 30 Level Anion Gap 4 L Blood Urea 17 Nitrogen Creatinine 0.55 Est Glomerular > 60 Filtrat Rate mL/min Glucose Level 82 # Calcium Level 8.3 L Phosphorus 4.0 Level Magnesium Level 1.6 L Lab Scanned REFERENCE LAB Report Bedside Glucose 70 107 Consultation Date/Type/Reason Admit Date/Time Jul 06, 2018 at 21:08 Initial Consult Date 07/07/18 Type of Consult ID Requesting Provider: ROMARIO GUTIERREZ DO Exam/Review of Systems Vital Signs Vitals Vital Signs Date Temp Pulse Resp B/P (MAP) Pulse Ox O2 O2 Flow FiO2 Time Delivery Rate 07/09/18 97.9 68 16 173/74 92 07:22 (107) 07/07/18 Room Air 13:49 Intake and Output 07/08/18 07/08/18 07/09/18 1515:00 23:00 07:00 IntakeIntake Total 1160 ml 530 ml 600 ml BalanceBalance 1160 ml 530 ml 600 ml Medications Medications Current Medications Amlodipine Besylate (Norvasc) 5 mg DAILY PO Last administered on 07/09/18at 08:54; Admin Dose 5 MG; Start 07/07/18 at 09:00 Atorvastatin Calcium (Lipitor) 20 mg QHS PO Last administered on 07/08/18at 21:41; Admin Dose 20 MG; Start 07/07/18 at 21:00 Insulin Glargine (Lantus) 33 units QHS SC Last administered on 07/08/18at 21:47; Admin Dose 33 UNITS; Start 07/07/18 at 21:00 Pantoprazole (Protonix Tab) 40 mg DAILY PO Last administered on 07/09/18at 08:53; Admin Dose 40 MG; Start 07/07/18 at 09:00 Fenofibrate (Tricor) 48 mg DAILY PO Last administered on 07/09/18at 08:53; Admin Dose 48 MG; Start 07/07/18 at 09:00 Oxycodone HCl (Oxycontin) 40 mg TID PO Last administered on 07/09/18at 13:38; Admin Dose 40 MG; Start 07/07/18 at 09:00 Alteplase, Recombinant (Cathflo (Activase)) 2 mg MAY REPEAT X1 PRN CATHETER IF CATHETER REMAINS OCCULUDED Last administered on 07/07/18at 09:02; Admin Dose 2 MG; Start 07/07/18 at 08:00 Diagnostic Test (Pha) (Accu-Chek) 1 ea 02 XX Last administered on 07/09/18at 02 :29; Admin Dose 1 EA; Start 07/08/18 at 02:00 Insulin Aspart (Novolog Insulin Pen) NOVOLOG *MILD* ALGORITHM WITH MEALS BEDTIME SC Last administered on 07/08/18at 21:48; Admin Dose 1 UNIT; Start at 08:00 Vancomycin HCl (Vanco Iv Per Pharmacy) VANCOMYCIN PER PHARMACY PER PROTOCOL XX ; Start 07/07/18 at 08:00 Ceftriaxone Sodium 50 ml @ 100 mls/hr Q12 IVPB Last administered on 07/09/18at 08:54; Admin Dose 100 MLS/HR; Start 07/07/18 at 09:00 Miscellaneous Information 1 ea NOTE XX ; Start 07/07/18 at 08:00 Glucose (Glutose) 15 gm Q15M PRN PO DECREASED GLUCOSE; Start 07/07/18 at 08:00 Glucose (Glutose) 22.5 gm Q15M PRN PO DECREASED GLUCOSE; Start 07/07/18 at 08:00 Dextrose (D50w Syringe) 25 ml Q15M PRN IV DECREASED GLUCOSE; Start 07/07/18 at 08:00 Dextrose (D50w Syringe) 50 ml Q15M PRN IV DECREASED GLUCOSE; Start 07/07/18 at 08:00 Glucagon (Glucagen) 1 mg Q15M PRN IM DECREASED GLUCOSE; Start 07/07/18 at 08:00 Glucose (Glutose) 15 gm Q15M PRN BUCCAL DECREASED GLUCOSE; Start 07/07/18 at 08:00 Hydromorphone HCl (Dilaudid) 3 mg Q2H PRN IV SEVERE PAIN LEVEL 7-10 Last administered on 07/09/18at 14:20; Admin Dose 3 MG; Start 07/07/18 at 08:00 Vancomycin HCl 750 mg/Sodium Chloride 150 ml @ 75 mls/hr Q12H IVPB Last administered on 07/09/18at 10:33; Admin Dose 75 MLS/HR; Start 07/07/18 at 10:00 Carvedilol (Coreg) 3.125 mg BID PO Last administered on 07/09/18 08:53; Admin Dose 3.125 MG; Start 07/07/18 at 10:00 Enoxaparin Sodium (Lovenox) 40 mg DAILY SC Last administered on 07/09/18 08:55; Admin Dose 40 MG; Start 07/08/18 at 09:00 Famotidine (Pepcid) 20 mg BID PO Last administered on 07/09/18 08:54; Admin Dose 20 MG; Start 07/08/18 at 09:00 Prednisone (Prednisone) 4 mg DAILY PO Last administered on 07/09/18 09:41; Admin Dose 4 MG; Start 07/09/18 at 09:00 Sodium Hypochlorite (Dakin'S (Dilute )) 1 applic BID IRR Last administered on 07/09/18 09:41; Admin Dose 1 APPLIC; Start 07/08/18 at 21:00 Ferric Sodium Gluconate Complex 125 mg/Sodium Chloride 110 ml @ 110 mls/hr DAILY@1300 IVPB ; Start 07/09/18 at 13:00; Stop 07/13/18 at 13:59 Mupirocin (Bactroban) 1 applic BID TOP Last administered on 07/09/18 11:46; Admin Dose 1 APPLIC; Start 07/09/18 at 11:00 Collagenase (Santyl) 1 applic DAILY TOP Last administered on 07/09/18at 11:46; Admin Dose 1 APPLIC; Start 07/09/18 at 11:30 CHRIS WHIPPLE NP Jul 09, 2018 15:10
--- NOTE | 2018-07-09 15:16 | NUR ---
CLAUDETTE NOTE: S/W pt son-in-law Charlie regarding status of pt transfer. Informed that claudette is still working on the transfer at this time. Trenton Burgos RN CM [id number]
[2018-07-09 15:25] VITALS: BP 168/72; PULSE 73; RESP 16
[2018-07-09] MEDS: SOD FERRIC GLUC COMPLX 125 MG in SOD CHLORIDE 0.9% 100 ML IVPB SCH (17:41)
--- NOTE | 2018-07-09 17:44 | NUR ---
[facility] Transfer request declined - Received a call pillowcase cleaner Annalise at [facility]. option 4. She stated that ortho Dr. Cecelia Carreon declined the transfer request, stating "higher level of care is not needed".
--- NOTE | 2018-07-09 18:46 | NUR ---
END OF SHIFT Patient alert, no acute distress. Pain management provided. Changes dressing to left knew twice. Needs attended. Due medications given. Will continue to monitor
--- NOTE | 2018-07-09 19:33 | CONS ---
Date/Time of Note Date/Time of Note DATE: 07/09/18 TIME: 19:27 Consult Date/Type/Reason Admit Date/Time Jul 06, 2018 at 21:08 Initial Consult Date 07/07/18 Type of Consultation: Rheum Requesting Provider: ROMARIO GUTIERREZ DO Subjective No new complaints. Patient anxious and would like to be transferred to tertiary center for continued care. Objective Vital Signs Date Temp Pulse Resp B/P (MAP) Pulse Ox O2 O2 Flow FiO2 Time Delivery Rate 07/09/18 98.2 73 16 168/72 94 15:25 (104) 07/07/18 Room Air 13:49 Intake and Output 07/08/18 07/08/18 07/09/18 1515:00 23:00 07:00 IntakeIntake Total 1160 ml 530 ml 600 ml BalanceBalance 1160 ml 530 ml 600 ml Exam PHYSICAL EXAMINATION: VITAL SIGNS: Afebrile, temperature 98.9, blood pressure 134/61, pulse of 60, respirations 17, oxygen saturation 97 on room air. GENERAL: No acute distress, alert, oriented x3. SKIN: Without acute rashes. HEENT: Without acute oral or ocular lesions noted. NECK: Without lymphadenopathy or thyromegaly. CHEST: Clear to auscultation. HEART: Regular rate and rhythm. There is a II/ systolic murmur. ABDOMEN: Soft without masses or tenderness. MUSCULOSKELETAL: Left knee with open wound with marked pus-like discharge and mild surrounding erythema. Hand and other joints without synovitis and hands with multiple old joint deformities with ulnar deviation. NEUROLOGIC: Grossly intact. Results/Medications Result Diagram: 07/09/18 0431 07/09/18 0431 Results 24 hrs Laboratory Tests Test 07/08/18 21:00 07/08/18 21:44 07/09/18 02:31 07/09/18 04:31 Vancomycin 15.3 Level Trough Bedside Glucose 195 94 White Blood 7.4 Count Red Blood Count 2.70 L Hemoglobin 7.2 L Hematocrit 24.1 L Mean 89.3 Corpuscular Volume Mean 26.7 L Corpuscular Hemoglobin Mean 29.9 L Corpuscular Hemoglobin Conc ent Red Cell 18.2 H Distribution Width Platelet Count 347 Mean Platelet 9.1 Volume Immature 0.500 H Granulocytes % Neutrophils % 54.5 Lymphocytes % 28.8 Monocytes % 10.2 Eosinophils % 5.3 Basophils % 0.7 Nucleated Red 0.0 Blood Cells % Immature 0.040 H Granulocytes # Neutrophils # 4.0 Lymphocytes # 2.1 Monocytes # 0.8 Eosinophils # 0.4 Basophils # 0.1 Nucleated Red 0.0 Blood Cells # Sodium Level 141 Potassium Level 4.2 Chloride Level 107 Carbon Dioxide 30 Level Anion Gap 4 L Blood Urea 17 Nitrogen Creatinine 0.55 Est Glomerular > 60 Filtrat Rate mL/min Glucose Level 82 # Calcium Level 8.3 L Phosphorus 4.0 Level Magnesium Level 1.6 L Test 07/09/18 07:34 07/09/18 08:14 07/09/18 12:18 07/09/18 17:40 Lab Scanned REFERENCE LAB Report Bedside Glucose 70 107 166 Medications Current Medications Amlodipine Besylate (Norvasc) 5 mg DAILY PO Last administered on 07/09/18at 0 8:54; Admin Dose 5 MG; Start 07/07/18 at 09:00 Atorvastatin Calcium (Lipitor) 20 mg QHS PO Last administered on 07/08/18at 21:41; Admin Dose 20 MG; Start 07/07/18 at 21:00 Insulin Glargine (Lantus) 33 units QHS SC Last administered on 07/08/18at 21:47; Admin Dose 33 UNITS; Start 07/07/18 at 21:00 Pantoprazole (Protonix Tab) 40 mg DAILY PO Last administered on 07/09/18at 08:53; Admin Dose 40 MG; Start 07/07/18 at 09:00 Fenofibrate (Tricor) 48 mg DAILY PO Last administered on 07/09/18at 08:53; Admin Dose 48 MG; Start 07/07/18 at 09:00 Oxycodone HCl (Oxycontin) 40 mg TID PO Last administered on 07/09/18at 13:38; Admin Dose 40 MG; Start 07/07/18 at 09:00 Alteplase, Recombinant (Cathflo (Activase)) 2 mg MAY REPEAT X1 PRN CATHETER IF CATHETER REMAINS OCCULUDED Last administered on 07/07/18 09:02; Admin Dose 2 MG; Start 07/07/18 at 08:00 Diagnostic Test (Pha) (Accu-Chek) 1 ea 02 XX Last administered on 07/09/18at 02:29; Admin Dose 1 EA; Start 07/08/18 at 02:00 Insulin Aspart (Novolog Insulin Pen) NOVOLOG *MILD* ALGORITHM WITH MEALS BEDTIME SC Last administered on 07/09/18at 17:45; Admin Dose 1 UNIT; Start 07/07/18 at 08:00 Vancomycin HCl (Vanco Iv Per Pharmacy) VANCOMYCIN PER PHARMACY PER PROTOCOL XX ; Start 07/07/18 at 08:00 Ceftriaxone Sodium 50 ml @ 100 mls/hr Q12 IVPB Last administered on 07/09/18at 08:54; Admin Dose 100 MLS/HR; Start 07/07/18 at 09:00 Miscellaneous Information 1 ea NOTE XX ; Start 07/07/18 at 08:00 Glucose (Glutose) 15 gm Q15M PRN PO DECREASED GLUCOSE; Start 07/07/18 at 08:00 Glucose (Glutose) 22.5 gm Q15M PRN PO DECREASED GLUCOSE; Start 07/07/18 at 08:00 Dextrose (D50w Syringe) 25 ml Q15M PRN IV DECREASED GLUCOSE; Start 07/07/18 at 08:00 Dextrose (D50w Syringe) 50 ml Q15M PRN IV DECREASED GLUCOSE; Start 07/07/18 at 08:00 Glucagon (Glucagen) 1 mg Q15M PRN IM DECREASED GLUCOSE; Start 07/07/18 at 08:00 Glucose (Glutose) 15 gm Q15M PRN BUCCAL DECREASED GLUCOSE; Start 07/07/18 at 08:00 Hydromorphone HCl (Dilaudid) 3 mg Q2H PRN IV SEVERE PAIN LEVEL 7-10 Last administered on 07/09/18at 18:35; Admin Dose 3 MG; Start 07/07/18 at 08:00 Vancomycin HCl 750 mg/Sodium Chloride 150 ml @ 75 mls/hr Q12H IVPB Last administered on 07/09/18at 10:33; Admin Dose 75 MLS/HR; Start 07/07/18 at 10:00; Stop 07/10/18 at 02:00 Carvedilol (Coreg) 3.125 mg BID PO Last administered on 07/09/18at 08:53; Admin Dose 3.125 MG; Start 07/07/18 at 10:00 Enoxaparin Sodium (Lovenox) 40 mg DAILY SC Last administered on 07/09/18at 08:55; Admin Dose 40 MG; Start 07/08/18 at 09:00 Famotidine (Pepcid) 20 mg BID PO Last administered on 07/09/18at 08:54; Admin Dose 20 MG; Start 07/08/18 at 09:00 Prednisone (Prednisone) 4 mg DAILY PO Last administered on 07/09/18 09:41; Admin Dose 4 MG; Start 07/09/18 at 09:00 Sodium Hypochlorite (Dakin'S (Dilute )) 1 applic BID IRR Last administered on 07/09/18at 09:41; Admin Dose 1 APPLIC; Start 07/08/18 at 21:00 Ferric Sodium Gluconate Complex 125 mg/Sodium Chloride 110 ml @ 110 mls/hr DAILY@1300 IVPB Last administered on 07/09/18at 17:41; Admin Dose 110 MLS/HR; Start 07/09/18 at 13:00; Stop 07/13/18 at 13:59 Mupirocin (Bactroban) 1 applic BID TOP Last administered on 07/09/18at 11:46; Admin Dose 1 APPLIC; Start 07/09/18 at 11:00 Collagenase (Santyl) 1 applic DAILY TOP Last administered on 07/09/18at 11:46; Admin Dose 1 APPLIC; Start 07/09/18 at 11:30 Vancomycin/Sodium Chloride 250 ml @ 125 mls/hr Q12H IVPB ; Start 07/10/18 at 10:00 Assessment/Plan Chief Complaint/Hosp Course ASSESSMENT: 1. Left knee septic arthritis in joints, status post prosthesis with open draining wound. 2. Rheumatoid arthritis which appears relatively inactive. At this point, the patient apparently did not have an exacerbation of symptoms while off the Enbrel for over 2 months recently and has not had other active rheumatoid arthritis symptoms for some time. 3. Diabetes mellitus. 4. 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 RECOMMENDATIONS: 1. Continue to hold the Enbrel for the foreseeable future. 2. Prednisone 4 mg daily for now 3. Agree with the transfer of the patient to a tertiary center for surgical management of this left knee process. KENYA COATES MD Jul 09, 2018 19:33
[2018-07-09 19:36] VITALS: BP 135/60; PULSE 63; RESP 16
[2018-07-09] MEDS: ATORVASTATIN 20 MG TAB PO SCH (20:53)
[2018-07-09] MEDS: INSULIN GLARGINE [LANTus] (100 UNITS/ML) SYG SC SCH (21:00)
[2018-07-10 01:31] VITALS: BP 155/77; PULSE 73; RESP 16
[2018-07-10] MEDS: HYDROmorphONE 2 MG/ML SYG IV PRN ×10 (01:34→22:17)
[2018-07-10] MEDS: ACCU-CHEK XX SCH (02:00)
--- NOTE | 2018-07-10 06:21 | NUR ---
END OF SHIFT REPORT PT IN PAIN, GETTING DILAUDID EVERY 2 HRS,EFFECTIVE.DRESSING ON LEFT KNEE CLEAN AND INTACT.WITH SMALL AMOUNT OF BLEEDING NOTED.CONTINUE ON IV ANTIBIOTIC ORDERED.NEEDS ATTENDED.CALL LIGHT AT REACH.HOURLY ROUNDING DONE
[2018-07-10] MEDS: INSULIN ASPART [NOVOLOG] 3 ML PEN SC SCH ×4 (08:00→20:14)
[2018-07-10] MEDS: oxyCODONE (CR) 40 MG TAB [oxyCONTIN] PO SCH ×3 (08:12→20:16)
--- NOTE | 2018-07-10 08:49 | CONS ---
Date/Time of Note Date/Time of Note DATE: 07/10/18 TIME: 08:47 Consult Date/Type/Reason Admit Date/Time Jul 06, 2018 at 21:08 Initial Consult Date 07/07/18 Type of Consultation: Rheum Requesting Provider: ROMARIO GUTIERREZ DO Subjective No new complaints. Objective Vital Signs Date Temp Pulse Resp B/P (MAP) Pulse Ox O2 O2 Flow FiO2 Time Delivery Rate 07/10/18 98.6 73 16 155/77 91 01:31 (103) 07/07/18 Room Air 13:49 Intake and Output 07/09/18 07/09/18 07/10/18 1515:00 23:00 07:00 IntakeIntake Total 1280 ml 110 ml 650 ml BalanceBalance 1280 ml 110 ml 650 ml Exam HYSICAL EXAMINATION: VITAL SIGNS: Afebrile, temperature 98.9, blood pressure 134/61, pulse of 60, respirations 17, oxygen saturation 97 on room air. GENERAL: No acute distress, alert, oriented x3. SKIN: Without acute rashes. HEENT: Without acute oral or ocular lesions noted. NECK: Without lymphadenopathy or thyromegaly. CHEST: Clear to auscultation. HEART: Regular rate and rhythm. There is a II/ systolic murmur. ABDOMEN: Soft without masses or tenderness. MUSCULOSKELETAL: Left knee wound dressed at present. Rest without change. No other synovitis. NEUROLOGIC: Grossly intact. Results/Medications Result Diagram: 07/10/18 0601 07/10/18 0601 Results 24 hrs Laboratory Tests Test 07/09/18 12:18 07/09/18 17:40 07/09/18 20:52 07/10/18 06:01 Bedside Glucose 107 166 166 White Blood 8.7 Count Red Blood Count 3.16 L Hemoglobin 8.3 L Hematocrit 28.4 L Mean Corpuscular 89.9 Volume Mean Corpuscular 26.3 L Hemoglobin Mean Corpuscular 29.2 L Hemoglobin Korin nt Red Cell 17.8 H Distribution Width Platelet Count 421 #H Mean Platelet 8.5 Volume Immature 0.700 H Granulocytes % Neutrophils % 56.0 Lymphocytes % 27.1 Monocytes % 9.7 Eosinophils % 5.8 Basophils % 0.7 Nucleated Red 0.0 Blood Cells % Immature 0.060 H Granulocytes # Neutrophils # 4.9 Lymphocytes # 2.4 Monocytes # 0.8 Eosinophils # 0.5 Basophils # 0.1 Nucleated Red 0.0 Blood Cells # Sodium Level 143 Potassium Level 4.2 Chloride Level 104 Carbon Dioxide 32 H Level Anion Gap 7 Blood Urea 15 Nitrogen Creatinine 0.54 Est Glomerular > 60 Filtrat Rate mL/min Glucose Level 86 Calcium Level 8.6 Phosphorus Level 3.8 Magnesium Level 2.0 Total Bilirubin 0.0 L Direct Bilirubin 0.00 Indirect 0.0 Bilirubin Aspartate Amino 14 L Transf (AST/SGOT ) Alanine 19 Aminotransferase (ALT/SGPT) Alkaline 63 Phosphatase Total Protein 5.3 L Albumin 2.7 L Globulin 2.60 Albumin/Globulin 1.03 Ratio Test 07/10/18 08:11 Bedside Glucose 75 Medications Current Medications Amlodipine Besylate (Norvasc) 5 mg DAILY PO Last administered on 07/09/18 08:54; Admin Dose 5 MG; Start 07/07/18 at 09:00 Atorvastatin Calcium (Lipitor) 20 mg QHS PO Last administered on 07/09/18 20:53; Admin Dose 20 MG; Start 07/07/18 at 21:00 Insulin Glargine (Lantus) 33 units QHS SC Last administered on 07/09/18 21:00; Admin Dose 33 UNITS; Start 07/07/18 at 21:00 Pantoprazole (Protonix Tab) 40 mg DAILY PO Last administered on 07/09/18 08:53; Admin Dose 40 MG; Start 07/07/18 at 09:00 Fenofibrate (Tricor) 48 mg DAILY PO Last administered on 07/09/18 08:53; Admi n Dose 48 MG; Start 07/07/18 at 09:00 Oxycodone HCl (Oxycontin) 40 mg TID PO Last administered on 07/10/18 08:12; Admin Dose 40 MG; Start 07/07/18 at 09:00 Alteplase, Recombinant (Cathflo (Activase)) 2 mg MAY REPEAT X1 PRN CATHETER IF CATHETER REMAINS OCCULUDED Last administered on 07/07/18 09:02; Admin Dose 2 MG; Start 07/07/18 at 08:00 Diagnostic Test (Pha) (Accu-Chek) 1 ea 02 XX Last administered on 07/09/18 02:29; Admin Dose 1 EA; Start 07/08/18 at 02:00 Insulin Aspart (Novolog Insulin Pen) NOVOLOG *MILD* ALGORITHM WITH MEALS BEDTIME SC Last administered on 07/09/18at 17:45; Admin Dose 1 UNIT; Start 07/07/18 at 08:00 Vancomycin HCl (Vanco Iv Per Pharmacy) VANCOMYCIN PER PHARMACY PER PROTOCOL XX ; Start 07/07/18 at 08:00 Ceftriaxone Sodium 50 ml @ 100 mls/hr Q12 IVPB Last administered on 07/09/18at 20:54; Admin Dose 100 MLS/HR; Start 07/07/18 at 09:00 Miscellaneous Information 1 ea NOTE XX ; Start 07/07/18 at 08:00 Glucose (Glutose) 15 gm Q15M PRN PO DECREASED GLUCOSE; Start 07/07/18 at 08:00 Glucose (Glutose) 22.5 gm Q15M PRN PO DECREASED GLUCOSE; Start 07/07/18 at 08:00 Dextrose (D50w Syringe) 25 ml Q15M PRN IV DECREASED GLUCOSE; Start 07/07/18 at 08:00 Dextrose (D50w Syringe) 50 ml Q15M PRN IV DECREASED GLUCOSE; Start 07/07/18 at 08:00 Glucagon (Glucagen) 1 mg Q15M PRN IM DECREASED GLUCOSE; Start 07/07/18 at 08:00 Glucose (Glutose) 15 gm Q15M PRN BUCCAL DECREASED GLUCOSE; Start 07/07/18 at 08:00 Hydromorphone HCl (Dilaudid) 3 mg Q2H PRN IV SEVERE PAIN LEVEL 7-10 Last administered on 07/10/18at 07:04; Admin Dose 3 MG; Start 07/07/18 at 08:00 Carvedilol (Coreg) 3.125 mg BID PO Last administered on 07/09/18at 20:53; Admin Dose 3.125 MG; Start 07/07/18 at 10:00 Enoxaparin Sodium (Lovenox) 40 mg DAILY SC Last administered on 07/09/18at 08:55; Admin Dose 40 MG; Start 07/08/18 at 09:00 Famotidine (Pepcid) 20 mg BID PO Last administered on 07/09/18at 20:53; Admin Dose 20 MG; Start 07/08/18 at 09:00 Prednisone (Prednisone) 4 mg DAILY PO Last administered on 07/09/18at 09:41; Admin Dose 4 MG; Start 07/09/18 at 09:00 Sodium Hypochlorite (Dakin'S (Dilute )) 1 applic BID IRR Last administered on 07/09/18at 21:01; Admin Dose 1 APPLIC; Start 07/08/18 at 21:00 Ferric Sodium Gluconate Complex 125 mg/Sodium Chloride 110 ml @ 110 mls/hr DAILY@1300 IVPB Last administered on 07/09/18at 17:41; Admin Dose 110 MLS/HR; Start 07/09/18 at 13:00; Stop 07/13/18 at 13:59 Mupirocin (Bactroban) 1 applic BID TOP Last administered on 07/09/18at 21:01; Admin Dose 1 APPLIC; Start 07/09/18 at 11:00 Collagenase (Santyl) 1 applic DAILY TOP Last administered on 07/09/18at 11:46; Admin Dose 1 APPLIC; Start 07/09/18 at 11:30 Vancomycin/Sodium Chloride 250 ml @ 125 mls/hr Q12H IVPB ; Start 07/10/18 at 10:00 Assessment/Plan Chief Complaint/Hosp Course ASSESSMENT: 1. Left knee septic arthritis in joints, status post prosthesis with open draining wound. 2. Rheumatoid arthritis which appears relatively inactive. At this point, the patient apparently did not have an exacerbation of symptoms while off the Enbrel for over 2 months recently and has not had other active rheumatoid arthritis sym ptoms for some time. 3. Diabetes mellitus. 4. 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 RECOMMENDATIONS: 1. Continue to hold the Enbrel for the foreseeable future. 2. Prednisone 4 mg daily for now 3. Agree with the transfer of the patient to a tertiary center for surgical management of this left knee process. KENYA COATES MD Jul 10, 2018 08:49
[2018-07-10 08:57] VITALS: BP 185/117; PULSE 71; RESP 20
[2018-07-10] MEDS: CEFTRIAXONE 1 GM/50 ML (PMX) 50 ML IVPB SCH ×2 (09:04→20:15)
[2018-07-10] MEDS: FAMOTIDINE 20 MG TAB PO SCH ×2 (09:07→20:17)
[2018-07-10] MEDS: PANTOPRAZOLE (EC) 40 MG TAB PO SCH (09:07)
[2018-07-10] MEDS: predniSONE 1 MG TAB PO SCH (09:07)
[2018-07-10] MEDS: MUPIROCIN 2% 22 GM OINT TOP SCH ×3 (09:10→20:17)
[2018-07-10] MEDS: COLLAGENASE 5 GM (UD JAR) TOP SCH (09:12)
[2018-07-10] MEDS: SODIUM HYPOCHLORITE (1/40) 1 APPLIC BTL IRR SCH ×2 (09:12→20:15)
[2018-07-10] MEDS: AMLODIPINE 5 MG TAB PO SCH (09:26)
[2018-07-10] MEDS: FENOFIBRATE 48 MG TAB PO SCH (09:26)
[2018-07-10] MEDS: ENOXAPARIN 40 MG/0.4 ML SYG SC SCH (09:26)
[2018-07-10 10:04] VITALS: BP 157/81
[2018-07-10] MEDS: VANCOMYCIN 750 MG (PMX) 250 ML IVPB SCH ×2 (10:06→22:16)
--- NOTE | 2018-07-10 10:58 | NUR ---
CM NOTE: TRANSFER UPDATE No accepting facility at this time. Pt submitted for transfer to [facility] and [facility]. Confirmation received. Trenton Burgos RN CM [id number]
--- NOTE | 2018-07-10 11:09 | CONS ---
Date/Time of Note Date/Time of Note DATE: 07/10/18 TIME: 11:05 Assessment/Plan Assessment/Plan Hospital Course No acute changes patient looks comfortable afebrile Vanco trough 15.3 WBC 8.7 H&H 8.3 and 28.4 platelets 421 no shift no bands BUN 15 creatinine 0.54 Microbiology: Blood cultures negative, left knee wound culture at [facility] grew MRSA, urine culture grew E. coli, nares swab positive for MRSA Antimicrobials: Vancomycin and Rocephin Diagnostics 2D echo revealed mitral valve vegetation. Ejection fraction of 65% Indwelling: Right upper extremity PICC line placed on May 14, 2018 Physical examination: Chronically ill-appearing fragile well-developed elderly woman who is alert in no distress. Head atraumatic normocephalic. Neck is supple chest rise symmetrical breath sounds clear diminished bases. Heart: S1- S2. Abdomen soft bowel sounds present. Extremities with multiple deformities, left knee with draining wounds and dehiscence Assessment: 1. 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 Severe rheumatoid arthritis, stable per rheumatology 4. Diabetes 5. 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 Resolving UTI Plan: Patient is clinically stable. We will add Bactroban to nares and order Hibiclens baths daily for 5 days, continue antibiotics, plan to transfer to tertiary care facility Discussed with staff Result Diagram: 07/10/18 0601 07/10/18 0601 Results 24hrs Laboratory Tests Test 07/09/18 12:18 07/09/18 17:40 07/09/18 20:52 07/10/18 06:01 Bedside Glucose 107 166 166 White Blood 8.7 Count Red Blood Count 3.16 L Hemoglobin 8.3 L Hematocrit 28.4 L Mean Corpuscular 89.9 Volume Mean Corpuscular 26.3 L Hemoglobin Mean Corpuscular 29.2 L Hemoglobin Korin nt Red Cell 17.8 H Distribution Width Platelet Count 421 #H Mean Platelet 8.5 Volume Immature 0.700 H Granulocytes % Neutrophils % 56.0 Lymphocytes % 27.1 Monocytes % 9.7 Eosinophils % 5.8 Basophils % 0.7 Nucleated Red 0.0 Blood Cells % Immature 0.060 H Granulocytes # Neutrophils # 4.9 Lymphocytes # 2.4 Monocytes # 0.8 Eosinophils # 0.5 Basophils # 0.1 Nucleated Red 0.0 Blood Cells # Sodium Level 143 Potassium Level 4.2 Chloride Level 104 Carbon Dioxide 32 H Level Anion Gap 7 Blood Urea 15 Nitrogen Creatinine 0.54 Est Glomerular > 60 Filtrat Rate mL/min Glucose Level 86 Calcium Level 8.6 Phosphorus Level 3.8 Magnesium Level 2.0 Total Bilirubin 0.0 L Direct Bilirubin 0.00 Indirect 0.0 Bilirubin Aspartate Amino 14 L Transf (AST/SGOT ) Alanine 19 Aminotransferase (ALT/SGPT) Alkaline 63 Phosphatase Total Protein 5.3 L Albumin 2.7 L Globulin 2.60 Albumin/Globulin 1.03 Ratio Test 07/10/18 08:11 Bedside Glucose 75 Consultation Date/Type/Reason Admit Date/Time Jul 06, 2018 at 21:08 Initial Consult Date 07/07/18 Type of Consult ID Requesting Provider: ROMARIO GUTIERREZ DO Exam/Review of Systems Vital Signs Vitals Vital Signs Date Temp Pulse Resp B/P (MAP) Pulse Ox O2 O2 Flow FiO2 Time Delivery Rate 07/10/18 157/81 10:04 (106) 07/10/18 98.4 71 20 90 08:57 07/07/18 Room Air 13:49 Intake and Output 07/09/18 07/09/18 07/10/18 1515:00 23:00 07:00 IntakeIntake Total 1280 ml 110 ml 650 ml BalanceBalance 1280 ml 110 ml 650 ml Medications Medications Current Medications Amlodipine Besylate (Norvasc) 5 mg DAILY PO Last administered on 07/10/18 09:26; Admin Dose 5 MG; Start 07/07/18 at 09:00 Atorvastatin Calcium (Lipitor) 20 mg QHS PO Last administered on 07/09/18at 20:53; Admin Dose 20 MG; Start 07/07/18 at 21:00 Insulin Glargine (Lantus) 33 units QHS SC Last administered on 07/09/18at 21:00; Admin Dose 33 UNITS; Start 07/07/18 at 21:00 Pantoprazole (Protonix Tab) 40 mg DAILY PO Last administered on 07/10/18at 09:07; Admin Dose 40 MG; Start 07/07/18 at 09:00 Fenofibrate (Tricor) 48 mg DAILY PO Last administered on 07/10/18 09:26; Admin Dose 48 MG; Start 07/07/18 at 09:00 Oxycodone HCl (Oxycontin) 40 mg TID PO Last administered on 07/10/18at 08:12; Admin Dose 40 MG; Start 07/07/18 at 09:00 Alteplase, Recombinant (Cathflo (Activase)) 2 mg MAY REPEAT X1 PRN CATHETER IF CATHETER REMAINS OCCULUDED Last administered on 07/07/18at 09:02; Admin Dose 2 MG; Start 07/07/18 at 08:00 Diagnostic Test (Pha) (Accu-Chek) 1 ea 02 XX Last administered on 07/09/18at 02:29; Admin Dose 1 EA; Start 07/08/18 at 02:00 Insulin Aspart (Novolog Insulin Pen) NOVOLOG *MILD* ALGORITHM WITH MEALS BEDTIME SC Last administered on 07/09/18at 17:45; Admin Dose 1 UNIT; Start 07/07/18 at 08:00 Vancomycin HCl (Vanco Iv Per Pharmacy) VANCOMYCIN PER PHARMACY PER PROTOCOL XX ; Start 07/07/18 at 08:00 Ceftriaxone Sodium 50 ml @ 100 mls/hr Q12 IVPB Last administered on 07/10/18at 09:04; Admin Dose 100 MLS/HR; Start 07/07/18 at 09:00 Miscellaneous Information 1 ea NOTE XX ; Start 07/07/18 at 08:00 Glucose (Glutose) 15 gm Q15M PRN PO DECREASED GLUCOSE; Start 07/07/18 at 08:00 Glucose (Glutose) 22.5 gm Q15M PRN PO DECREASED GLUCOSE; Start 07/07/18 at 08:00 Dextrose (D50w Syringe) 25 ml Q15M PRN IV DECREASED GLUCOSE; Start 07/07/18 at 08:00 Dextrose (D50w Syringe) 50 ml Q15M PRN IV DECREASED GLUCOSE; Start 07/07/18 at 08:00 Glucagon (Glucagen) 1 mg Q15M PRN IM DECREASED GLUCOSE; Start 07/07/18 at 08:00 Glucose (Glutose) 15 gm Q15M PRN BUCCAL DECREASED GLUCOSE; Start 07/07/18 at 08:00 Hydromorphone HCl (Dilaudid) 3 mg Q2H PRN IV SEVERE PAIN LEVEL 7-10 Last administered on 07/10/18at 09:04; Admin Dose 3 MG; Start 07/07/18 at 08:00 Carvedilol (Coreg) 3.125 mg BID PO Last administered on 07/10/18 09:27; Admin Dose 3.125 MG; Start 07/07/18 at 10:00 Enoxaparin Sodium (Lovenox) 40 mg DAILY SC Last administered on 07/10/18 09:26; Admin Dose 40 MG; Start 07/08/18 at 09:00 Famotidine (Pepcid) 20 mg BID PO Last administered on 07/10/18 09:07; Admin Dose 20 MG; Start 07/08/18 at 09:00 Prednisone (Prednisone) 4 mg DAILY PO Last administered on 07/10/18 09:07; Admin Dose 4 MG; Start 07/09/18 at 09:00 Sodium Hypochlorite (Dakin'S (Dilute )) 1 applic BID IRR Last administered on 07/10/18 09:12; Admin Dose 1 APPLIC; Start 07/08/18 at 21:00 Ferric Sodium Gluconate Complex 125 mg/Sodium Chloride 110 ml @ 110 mls/hr DAILY@1300 IVPB Last administered on 07/09/18at 17:41; Admin Dose 110 MLS/HR; Start 07/09/18 at 13:00; Stop 07/13/18 at 13:59 Mupirocin (Bactroban) 1 applic BID TOP Last administered on 07/10/18 09:10; Admin Dose 1 APPLIC; Start 07/09/18 at 11:00 Collagenase (Santyl) 1 applic DAILY TOP Last administered on 07/10/18 09:12; Admin Dose 1 APPLIC; Start 07/09/18 at 11:30 Vancomycin/Sodium Chloride 250 ml @ 125 mls/hr Q12H IVPB Last administered on 07/10/18 10:06; Admin Dose 125 MLS/HR; Start 07/10/18 at 10:00 CHRIS WHIPPLE NP Jul 10, 2018 11:09
--- NOTE | 2018-07-10 11:35 | NUR ---
CLAUDETTE NOTE: TRANSFER Per Dr. Duran there is an accepting orthopedic surgeon at [facility] who is willing to accept the pt. Per Dr. Duran, accepting provider Dr. Carl Montero is requesting that the patient information be sent to the transfer center on Friday. CM to send information on Friday and f/u. Trenton Ware RN CM [id number] Addendum: 07/10/18 at 1151 by GARRISON WARE CM S/W Dr. Duran who states that transfer should be coordinated with Dr. Simpson (P:[phone]) as well. CM contacted Dr. Simpson as instructed. Dr. Simpson states that he is on vacation and another plastic surgeon will need to be consulted. CM to proceed with transfer on Friday as planned.
--- NOTE | 2018-07-10 11:43 | PN ---
DATE: 07/10/2018 SUBJECTIVE: The patient was stable overnight. No acute events. The patient is anxious about being transferred to tertiary center. The patient unfortunately has been denied transfer to tertiary [facility] at [facility] and [facility]. I spoke with the patient in detail about course of care. The patient is nervous about having surgery done at this facility. I informed her that I will attempt again to cont act tertiary centers to possibly facility transfer. I have also requested a transfer to [facility]. We will continue to monitor closely. OBJECTIVE: VITAL SIGNS: Blood pressure is 155/77, respirations 16, pulse 73, temperature 98.6. HEENT: Head is normocephalic. NECK: Supple. HEART: Regular rate. LUNGS: Show diminished breath sounds at base. ABDOMEN: Soft, nontender to palpation. No rebound or guarding. EXTREMITIES: Negative for clubbing, cyanosis. No edema. DERMATOLOGIC: No rashes. MUSCULOSKELETAL: The patient has noted dressing over her left knee and left ankle, clean, dry, and i ntact. NEUROLOGIC: No change in exam. MEDICATIONS: Have been reviewed. LABORATORY DATA: Show sodium of 143, potassium 4.2, BUN 15, creatinine 0.54. White count 8.7, hemog lobin 8.3, platelet count is 421. ASSESSMENT AND PLAN: 1. Left knee septic joint. The patient was evaluated by orthopedist, Dr. Duran. The patient has also been seen by plastic surgery and vascular surgery. The patient currently is on broad spectrum antib iotics and is receiving washout of the wound twice a day. The patient is requesting transfer to a [facility] for surgery of her knee; unfortunately, unable to find an accepting facility. We will continue to try to find accepting facility. Otherwise, continue current medical management. Continu e antibiotic therapy. Continue dressing changes. Continue wound washout. Follow up with specialist s for further recommendations. 2. Rheumatoid arthritis with multiple joint deformities. The patient is being seen by rheumatology. I appreciate their help with evaluation. Continue to monitor. 3. 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 Continue to monitor. 4. Anemia with iron deficiency. Continue IV Ferrlecit. 5. 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 Continue antibiotic regimen. Follow up with cardiology. 6. Diabetes. Continue current insulin regimen. 7. Chronic pain syndrome. Continue current pain regimen. 8. Hypertension. Continue current blood pressure regimen. 9. Dyslipidemia. Continue statin therapy. 10. Gastrointestinal and deep venous thrombosis prophylaxis. 11. Disposition: Attempting to transfer the patient to a tertiary center. Dictated By: ROMARIO AMBRIZ/JOLLY Conf#: [id number] DID#: [id number]
[2018-07-10] MEDS: SOD FERRIC GLUC COMPLX 125 MG in SOD CHLORIDE 0.9% 100 ML IVPB SCH (13:14)
[2018-07-10 16:15] VITALS: BP 180/76; PULSE 72; RESP 18
[2018-07-10 16:16] VITALS: BP 159/76; PULSE 80
--- NOTE | 2018-07-10 18:13 | NUR ---
END OF SHIFT Patient alert no acute distress. Pain management provided, with help. Wound dressing done. Needs attended. No acute distress. Will continue to monitor.
--- NOTE | 2018-07-10 19:42 | CONS ---
Date/Time of Note Date/Time of Note DATE: 07/10/18 TIME: 19:41 Consult Date/Type/Reason Admit Date/Time Jul 06, 2018 at 21:08 Initial Consult Date 07/07/18 Type of Consultation: cv Requesting Provider: ROMARIO GUTIERREZ DO Subjective Cardiology follow-up progress note Subjective: Case discussed with staff. Discussed with the physicians. Patient with no chest pain or pressure with no palpitation. mild leg pain no fever Objective: General: no acute distress HEENT: NC/AT. pupils are equal. round. NECK: NO JVD. no stridor. CV: RRR. systolic murmur; no gallop or rubs. PULM: no wheezing or rhonchi. GI: SOFT, NT, ND, no rebound or guarding Extremity: With multiple joint deformities. neuro: awake and alert, OX3. Psych: anxious but pleasant rectal: deferred Echocardiogram done 07/07/2018 which was personally reviewed shows: Normal left ventricular systolic function. Normal left ventricular cavity size. Mild concentric left ventricular hypertrophy. Ejection fraction is visually estimated at 65 %. Mitral valve leaflets appear mildly thickened. Mild mitral annular calcification. Trace mitral regurgitation. Echogenic structure is seen on the mitral valve consistent with vegetation. No significant aortic stenosis or insufficiency. Aortic sclerosis without significant stenosis. Aortic cusps appear mildly calcified. Trileaflet aortic valve. Normal appearance of the tricuspid valve. Estimated peak PA systolic pressure 41 mmHg. There is mild tricuspid regurgitation. Objective Vital Signs Date Temp Pulse Resp B/P (MAP) Pulse Ox O2 O2 Flow FiO2 Time Delivery Rate 07/10/18 80 159/76 16:16 (103) 07/10/18 98.3 18 93 16:15 07/07/18 Room Air 13:49 Intake and Output 07/09/18 07/09/18 07/10/18 1515:00 23:00 07:00 IntakeIntake Total 1280 ml 110 ml 800 ml BalanceBalance 1280 ml 110 ml 800 ml Results/Medications Result Diagram: 07/10/18 0601 07/10/18 0601 Results 24 hrs Laboratory Tests Test 07/09/18 20:52 07/10/18 06:01 07/10/18 08:11 07/10/18 12:34 Bedside Glucose 166 75 125 White Blood 8.7 Count Red Blood Count 3.16 L Hemoglobin 8.3 L Hematocrit 28.4 L Mean Corpuscular 89.9 Volume Mean Corpuscular 26.3 L Hemoglobin Mean Corpuscular 29.2 L Hemoglobin Korin nt Red Cell 17.8 H Distribution Width Platelet Count 421 #H Mean Platelet 8.5 Volume Immature 0.700 H Granulocytes % Neutrophils % 56.0 Lymphocytes % 27.1 Monocytes % 9.7 Eosinophils % 5.8 Basophils % 0.7 Nucleated Red 0.0 Blood Cells % Immature 0.060 H Granulocytes # Neutrophils # 4.9 Lymphocytes # 2.4 Monocytes # 0.8 Eosinophils # 0.5 Basophils # 0.1 Nucleated Red 0.0 Blood Cells # Sodium Level 143 Potassium Level 4.2 Chloride Level 104 Carbon Dioxide 32 H Level Anion Gap 7 Blood Urea 15 Nitrogen Creatinine 0.54 Est Glomerular > 60 Filtrat Rate mL/min Glucose Level 86 Calcium Level 8.6 Phosphorus Level 3.8 Magnesium Level 2.0 Total Bilirubin 0.0 L Direct Bilirubin 0.00 Indirect 0.0 Bilirubin Aspartate Amino 14 L Transf (AST/SGOT ) Alanine 19 Aminotransferase (ALT/SGPT) Alkaline 63 Phosphatase Total Protein 5.3 L Albumin 2.7 L Globulin 2.60 Albumin/Globulin 1.03 Ratio Test 07/10/18 17:39 Bedside Glucose 195 Medications Current Medications Amlodipine Besylate (Norvasc) 5 mg DAILY PO Last administered on 07/10/18 09:26; Admin Dose 5 MG; Start 07/07/18 at 09:00 Atorvastatin Calcium (Lipitor) 20 mg QHS PO Last administered on 07/09/18 20:53; Admin Dose 20 MG; Start 07/07/18 at 21:00 Insulin Glargine (Lantus) 33 units QHS SC Last administered on 07/09/18 21:00; Admin Dose 33 UNITS; Start 07/07/18 at 21:00 Pantoprazole (Protonix Tab) 40 mg DAILY PO Last administered on 07/10/18 09:07; Admin Dose 40 MG; Start 07/07/18 at 09:00 Fenofibrate (Tricor) 48 mg DAILY PO Last administered on 07/10/18 09:26; Admin Dose 48 MG; Start 07/07/18 at 09:00 Oxycodone HCl (Oxycontin) 40 mg TID PO Last administered on 07/10/18 12:35; Admin Dose 40 MG; Start 07/07/18 at 09:00 Alteplase, Recombinant (Cathflo (Activase)) 2 mg MAY REPEAT X1 PRN CATHETER IF CATHETER REMAINS OCCULUDED Last administered on 07/07/18at 09:02; Admin Dose 2 MG; Start 07/07/18 at 08:00 Diagnostic Test (Pha) (Accu-Chek) 1 ea 02 XX Last administered on 07/09/18at 02:29; Admin Dose 1 EA; Start 07/08/18 at 02:00 Insulin Aspart (Novolog Insulin Pen) NOVOLOG *MILD* ALGORITHM WITH MEALS BEDTIME SC Last administered on 07/10/18at 17:42; Admin Dose 2 UNIT; Start 07/07/18 at 08:00 Vancomycin HCl (Vanco Iv Per Pharmacy) VANCOMYCIN PER PHARMACY PER PROTOCOL XX ; Start 07/07/18 at 08:00 Ceftriaxone Sodium 50 ml @ 100 mls/hr Q12 IVPB Last administered on 07/10/18at 09:04; Admin Dose 100 MLS/HR; Start 07/07/18 at 09:00 Miscellaneous Information 1 ea NOTE XX ; Start 07/07/18 at 08:00 Glucose (Glutose) 15 gm Q15M PRN PO DECREASED GLUCOSE; Start 07/07/18 at 08:00 Glucose (Glutose) 22.5 gm Q15M PRN PO DECREASED GLUCOSE; Start 07/07/18 at 08:00 Dextrose (D50w Syringe) 25 ml Q15M PRN IV DECREASED GLUCOSE; Start 07/07/18 at 08:00 Dextrose (D50w Syringe) 50 ml Q15M PRN IV DECREASED GLUCOSE; Start 07/07/18 at 08:00 Glucagon (Glucagen) 1 mg Q15M PRN IM DECREASED GLUCOSE; Start 07/07/18 at 08:00 Glucose (Glutose) 15 gm Q15M PRN BUCCAL DECREASED GLUCOSE; Start 07/07/18 at 08:00 Hydromorphone HCl (Dilaudid) 3 mg Q2H PRN IV SEVERE PAIN LEVEL 7-10 Last administered on 07/10/18at 17:37; Admin Dose 3 MG; Start 07/07/18 at 08:00 Carvedilol (Coreg) 3.125 mg BID PO Last administered on 07/10/18at 09:27; Admin Dose 3.125 MG; Start 07/07/18 at 10:00 Enoxaparin Sodium (Lovenox) 40 mg DAILY SC Last administered on 07/10/18at 09:26; Admin Dose 40 MG; Start 07/08/18 at 09:00 Famotidine (Pepcid) 20 mg BID PO Last administered on 07/10/18at 09:07; Admin Dose 20 MG; Start 07/08/18 at 09:00 Prednisone (Prednisone) 4 mg DAILY PO Last administered on 07/10/18at 09:07; Admin Dose 4 MG; Start 07/09/18 at 09:00 Sodium Hypochlorite (Dakin'S (Dilute 40)) 1 applic BID IRR Last administered on 07/10/18at 09:12; Admin Dose 1 APPLIC; Start 07/08/18 at 21:00 Ferric Sodium Gluconate Complex 125 mg/Sodium Chloride 110 ml @ 110 mls/hr DAILY@1300 IVPB Last administered on 07/10/18at 13:14; Admin Dose 110 MLS/HR; Start 07/09/18 at 13:00; Stop 07/13/18 at 13:59 Collagenase (Santyl) 1 applic DAILY TOP Last administered on 07/10/18at 09:12; Admin Dose 1 APPLIC; Start 07/09/18 at 11:30 Vancomycin/Sodium Chloride 250 ml @ 125 mls/hr Q12H IVPB Last administered on 07/10/18at 10:06; Admin Dose 125 MLS/HR; Start 07/10/18 at 10:00 Mupirocin (Bactroban) 1 applic BID TOP ; Start 07/10/18 at 12:00 Miscellaneous Information (*Rx Drug Level Order Reminder*) VANCOMYCIN TROUGH AT 0900 ONCE ONCE XX ; Start 07/11/18 at 09:00; Stop 07/11/18 at 09:01 Assessment/Plan Chief Complaint/Hosp Course 1. Cardiovascular preop evaluation 2. Septic knee 3. 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 History of severe rheumatoid arthritis and multiple joint deformities 6. Poor exercise tolerance 7. Possible mitral valve endocarditis/vegetation 8. Anemia Recommendations: Antibiotic management as per internal medicine and ID recommendations. Patient most likely will need prolonged antibiotic treatment Continue with the Coreg and inc as tolerated /needed replace lytes prn. Orthopedic workup and treatment as per orthopedic surgery. Transfusions as needed Follow-up culture results Thank you for his referral. We will continue to follow along with you KASSIDY BRAY MD [facility] KASSIDY BRAY MD Jul 10, 2018 19:42
[2018-07-10 19:57] VITALS: BP 124/93; PULSE 74; RESP 18
[2018-07-10] MEDS: INSULIN GLARGINE [LANTus] (100 UNITS/ML) SYG SC SCH (20:15)
[2018-07-10] MEDS: ATORVASTATIN 20 MG TAB PO SCH (20:16)
[2018-07-11] MEDS: HYDROmorphONE 2 MG/ML SYG IV PRN ×9 (00:22→23:05)
[2018-07-11 01:48] VITALS: BP 153/68; PULSE 62; RESP 16
[2018-07-11] MEDS: ACCU-CHEK XX SCH (02:00)
--- NOTE | 2018-07-11 04:58 | NUR ---
END OF SHIFT REPORT PT ON PAIN MANAGEMENT,DILAUDID GIVEN ORDERED.STABLE DURING THE NIGHT.WOUND DRESSING DONE.KEEP PT COMFORTABLE.NEEDS ATTENDED.CALL LIGHT AT REACH.WILL CONTINUE IV ANTIBIOTIC.
[2018-07-11 07:14] VITALS: BP 167/76; PULSE 63
--- NOTE | 2018-07-11 07:16 | PN ---
Date/Time of Note Date/Time of Note DATE: 07/11/18 TIME: 07:13 Assessment/Plan VTE Prophylaxis Risk score (from Nsg)>0 risk: 6 SCD applied (from Nsg): No SCD contraindicated: other Pharmacological prophylaxis: other Lines/Catheters IV Catheter Type (from Nrsg): PICC Line Central line still needed: Yes Urinary Cath still in place: No Assessment/Plan Hospital Course medicine follow up SUBJECTIVE: The patient was stable overnight. No acute events. per records, she has been denied transfer to tertiary centers at [facility] and [facility]. d/w Dr Scott OBJECTIVE: HEENT: Head is normocephalic. NECK: Supple. HEART: Regular rate. LUNGS: Show diminished breath sounds at base. ABDOMEN: Soft, nontender to palpation. No rebound or guarding. EXTREMITIES: Negative for clubbing, cyanosis. No edema. DERMATOLOGIC: No rashes. MUSCULOSKELETAL: The patient has noted dressing over her left knee and left ankle, clean, dry, and intact. NEUROLOGIC: No change in exam. MEDICATIONS: Have been reviewed. ASSESSMENT AND PLAN: 1. Left knee septic joint. The patient was evaluated by orthopedist, Dr. Duran. The patient has also been seen by plastic surgery and vascular surgery. The patient currently is on broad spectrum antibiotics and is receiving washout of the wound twice a day. Awaiting transfer to a tertiary center for surgery of her knee; unfortunately, unable to find an accepting facility. We will continue to try to find accepting facility. Otherwise, continue current medical management. Continue antibiotic therapy. Continue dressing changes. Continue wound washout. Follow up with specialists for further recommendations. 2. Rheumatoid arthritis with multiple joint deformities. The patient is being seen by rheumatology. I appreciate their help with evaluation. Continue to monitor. 3. 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 Continue to monitor. 4. Anemia with iron deficiency. Continue IV Ferrlecit. 5. 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 Continue antibiotic regimen. Follow up with cardiology. 6. Diabetes. Continue current insulin regimen. 7. Chronic pain syndrome. Continue current pain regimen. 8. Hypertension. Continue current blood pressure regimen. 9. Dyslipidemia. Continue statin therapy. 10. Gastrointestinal and deep venous thrombosis prophylaxis. 11. Disposition: Attempting to transfer the patient to a tertiary center. Result Diagram: 07/10/18 0601 12/28/18 0601 Results 24hrs Laboratory Tests Test 07/10/18 08:11 07/10/18 12:34 07/10/18 17:39 07/10/18 20:07 Bedside Glucose 75 125 195 189 Exam/Review of Systems Vital Signs Vitals Vital Signs Date Temp Pulse Resp B/P (MAP) Pulse Ox O2 O2 Flow FiO2 Time Delivery Rate 07/11/18 98.2 62 16 153/68 98 01:48 (96) 07/07/18 Room Air 13:49 Intake and Output 07/10/18 07/10/18 07/11/18 1515:00 23:00 07:00 IntakeIntake Total 890 ml 820 ml 560 ml BalanceBalance 890 ml 820 ml 560 ml Medications Medications Current Medications Amlodipine Besylate (Norvasc) 5 mg DAILY PO Last administered on 07/10/18 09:26; Admin Dose 5 MG; Start 07/07/18 at 09:00 Atorvastatin Calcium (Lipitor) 20 mg QHS PO Last administered on 07/10/18 20:16; Admin Dose 20 MG; Start 07/07/18 at 21:00 Insulin Glargine (Lantus) 33 units QHS SC Last administered on 07/10/18 20:15; Admin Dose 33 UNITS; Start 07/07/18 at 21:00 Pantoprazole (Protonix Tab) 40 mg DAILY PO Last administered on 07/10/18 09:07; Admin Dose 40 MG; Start 07/07/18 at 09:00 Fenofibrate (Tricor) 48 mg DAILY PO Last administered on 07/10/18 09:26; Admin Dose 48 MG; Start 07/07/18 at 09:00 Oxycodone HCl (Oxycontin) 40 mg TID PO Last administered on 07/10/18 20:16; Admin Dose 40 MG; Start 07/07/18 at 09:00 Alteplase, Recombinant (Cathflo (Activase)) 2 mg MAY REPEAT X1 PRN CATHETER IF CATHETER REMAINS OCCULUDED Last administered on 07/07/18 09:02; Admin Dose 2 MG; Start 07/07/18 at 08:00 Diagnostic Test (Pha) (Accu-Chek) 1 ea 02 XX Last administered on 07/09/18at 02:29; Admin Dose 1 EA; Start 07/08/18 at 02:00 Insulin Aspart (Novolog Insulin Pen) NOVOLOG *MILD* ALGORITHM WITH MEALS BEDTIME SC Last administered on 07/10/18at 20:14; Admin Dose 1 UNIT; Start 07/07/18 at 08:00 Vancomycin HCl (Vanco Iv Per Pharmacy) VANCOMYCIN PER PHARMACY PER PROTOCOL XX ; Start 07/07/18 at 08:00 Ceftriaxone Sodium 50 ml @ 100 mls/hr Q12 IVPB Last administered on 07/10/18at 20:15; Admin Dose 100 MLS/HR; Start 07/07/18 at 09:00 Miscellaneous Information 1 ea NOTE XX ; Start 07/07/18 at 08:00 Glucose (Glutose) 15 gm Q15M PRN PO DECREASED GLUCOSE; Start 07/07/18 at 08:00 Glucose (Glutose) 22.5 gm Q15M PRN PO DECREASED GLUCOSE; Start 07/07/18 at 08:00 Dextrose (D50w Syringe) 25 ml Q15M PRN IV DECREASED GLUCOSE; Start 07/07/18 at 08:00 Dextrose (D50w Syringe) 50 ml Q15M PRN IV DECREASED GLUCOSE; Start 07/07/18 at 08:00 Glucagon (Glucagen) 1 mg Q15M PRN IM DECREASED GLUCOSE; Start 07/07/18 at 08:00 Glucose (Glutose) 15 gm Q15M PRN BUCCAL DECREASED GLUCOSE; Start 07/07/18 at 08:00 Hydromorphone HCl (Dilaudid) 3 mg Q2H PRN IV SEVERE PAIN LEVEL 7-10 Last administered on 07/11/18at 06:00; Admin Dose 3 MG; Start 07/07/18 at 08:00 Enoxaparin Sodium (Lovenox) 40 mg DAILY SC Last administered on 07/10/18at 09:26; Admin Dose 40 MG; Start 07/08/18 at 09:00 Famotidine (Pepcid) 20 mg BID PO Last administered on 07/10/18at 20:17; Admin Dose 20 MG; Start 07/08/18 at 09:00 Prednisone (Prednisone) 4 mg DAILY PO Last administered on 07/10/18at 09:07; Admin Dose 4 MG; Start 07/09/18 at 09:00 Sodium Hypochlorite (Dakin'S (Dilute 40)) 1 applic BID IRR Last administered on 07/10/18at 20:15; Admin Dose 1 APPLIC; Start 07/08/18 at 21:00 Ferric Sodium Gluconate Complex 125 mg/Sodium Chloride 110 ml @ 110 mls/hr DAILY@1300 IVPB Last administered on 07/10/18at 13:14; Admin Dose 110 MLS/HR; Start 07/09/18 at 13:00; Stop 07/13/18 at 13:59 Collagenase (Santyl) 1 applic DAILY TOP Last administered on 07/10/18at 09:12; Admin Dose 1 APPLIC; Start 07/09/18 at 11:30 Vancomycin/Sodium Chloride 250 ml @ 125 mls/hr Q12H IVPB Last administered on 07/10/18at 22:16; Admin Dose 125 MLS/HR; Start 07/10/18 at 10:00 Mupirocin (Bactroban) 1 applic BID TOP Last administered on 07/10/18at 20:17; Admin Dose 1 APPLIC; Start 07/10/18 at 12:00 Miscellaneous Information (*Rx Drug Level Order Reminder*) VANCOMYCIN TROUGH AT 0900 ONCE ONCE XX ; Start 07/11/18 at 09:00; Stop 07/11/18 at 09:01 Carvedilol (Coreg) 6.25 mg BID PO Last administered on 07/10/18at 20:16; Admin Dose 6.25 MG; Start 07/10/18 at 21:00 CHANDRAKANT DOMINGO DO Jul 11, 2018 07:16
[2018-07-11] MEDS: INSULIN ASPART [NOVOLOG] 3 ML PEN SC SCH ×4 (08:00→20:16)
[2018-07-11] MEDS: oxyCODONE (CR) 40 MG TAB [oxyCONTIN] PO SCH ×3 (08:51→21:36)
[2018-07-11] MEDS: CEFTRIAXONE 1 GM/50 ML (PMX) 50 ML IVPB SCH (08:51)
[2018-07-11] MEDS: predniSONE 1 MG TAB PO SCH (08:51)
[2018-07-11] MEDS: MUPIROCIN 2% 22 GM OINT TOP SCH ×2 (08:51→20:24)
[2018-07-11] MEDS: COLLAGENASE 5 GM (UD JAR) TOP SCH (08:51)
[2018-07-11] MEDS: SODIUM HYPOCHLORITE (1/40) 1 APPLIC BTL IRR SCH ×2 (08:52→20:24)
[2018-07-11] MEDS: PANTOPRAZOLE (EC) 40 MG TAB PO SCH (08:52)
[2018-07-11] MEDS: FAMOTIDINE 20 MG TAB PO SCH ×2 (08:52→20:10)
[2018-07-11] MEDS: FENOFIBRATE 48 MG TAB PO SCH (08:52)
[2018-07-11] MEDS: ENOXAPARIN 40 MG/0.4 ML SYG SC SCH (09:02)
[2018-07-11] MEDS: AMLODIPINE 5 MG TAB PO SCH (09:03)
--- NOTE | 2018-07-11 10:24 | NUR ---
RX NOTE RE: VANCOMYCIN DAY# 6 OF VANCO PER RX BUN/SCR: 13/0.55 WBC: 9.8 TMAX: 98.3 ABX ALLERGIES: SULFA OTHER ABX: ROCEPHIN VANCO TROUGH: 18.3 ADJUST DOSE TO VANCOMYCIN 500MG IV Q12HR. PHARMACY TO FOLLOW
[2018-07-11] MEDS: VANCOMYCIN 500 MG (PMX) 100 ML IVPB SCH (12:52)
[2018-07-11] MEDS: SOD FERRIC GLUC COMPLX 125 MG in SOD CHLORIDE 0.9% 100 ML IVPB SCH (13:46)
--- NOTE | 2018-07-11 15:49 | CONS ---
Date/Time of Note Date/Time of Note DATE: 07/11/18 TIME: 15:49 Assessment/Plan Assessment/Plan Hospital Course ID PROGRESS NOTE CURRENT ABX: DAY # => Vancomycin IV and Rocephin 07/11/1860407/11/18 06 24H INTERVAL SUMMARY * No new issues, VSS, NAD, no complaints * Microbiology: Blood cultures (-) left knee wound culture at [facility] 3 days ago grew MRSA, urine culture grew E. coli * Diagnostics 2D echo revealed mitral valve vegetation. Ejection fraction of 65% * Indwelling: Right upper extremity PICC line placed on May 14, 2018 MICRO * (+)MRSA Nares screen * Left Knee Cx (+)MRSA * BCx (-) to date PHYSICAL EXAMINATION: GENERAL: Afebrile, VSS, HEENT: AT, NC, anicteric NECK: Supple, trach CHEST: Equal chest rise bilaterally, without dyspnea on observation HEART: Pulse RRR ABDOMEN: Soft / NT EXTREMITIES: Warm, dry: Extremities with multiple deformities, left knee with draining wounds and dehiscence SKIN: No rash, no diaphoresis ID ASSESSMENT 67 yo F admit with: 1. 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 Severe rheumatoid arthritis and multiple joint deformities 4. Diabetes (+)MRSA Nares -> Bactroban ABX ALLERGIES: NKDA INVASIVES: PI CURRENT ABX: DAY == Vancomycin IV and Rocephin s/p ID RECOMMENDATIONS/PLAN: Continue Vanco IV --- treat for 8 weeks MRSA for SBE and septic joint Will need removal of infected knee prosthesis with placement of temporary spacer -- treat for 8 weeks MRSA NO clear indication for Ceftriaxone -- replace with Doxycycline * Not able to add Rifaximin due to multiple Drug-Drug interactions Bactroban to Bilateral Nares onboard . Result Diagram: 07/11/18 0607/11/18 06 Results 24hrs Laboratory Tests Test 07/10/18 17:39 07/10/18 20:07 07/11/18 06:05 07/11/18 08:50 Bedside Glucose 195 189 White Blood 9.8 Count Red Blood Count 2.87 L Hemoglobin 7.7 L Hematocrit 25.5 L Mean Corpuscular 88.9 Volume Mean Corpuscular 26.8 L Hemoglobin Mean Corpuscular 30.2 L Hemoglobin Korin nt Red Cell 18.0 H Distribution Width Platelet Count 383 Mean Platelet 8.9 Volume Immature 0.700 H Granulocytes % Neutrophils % 60.4 Lymphocytes % 25.3 Monocytes % 8.7 Eosinophils % 4.5 Basophils % 0.4 Nucleated Red 0.0 Blood Cells % Immature 0.070 H Granulocytes # Neutrophils # 5.9 Lymphocytes # 2.5 Monocytes # 0.9 Eosinophils # 0.4 Basophils # 0.0 Nucleated Red 0.0 Blood Cells # Sodium Level 142 Potassium Level 3.7 Chloride Level 107 Carbon Dioxide 33 H Level Anion Gap 2 L Blood Urea 13 Nitrogen Creatinine 0.55 Est Glomerular > 60 Filtrat Rate mL/min Glucose Level 60 #L Calcium Level 8.6 Phosphorus Level 3.8 Magnesium Level 1.8 Vancomycin Level 18.5 Trough Test 07/11/18 08:56 07/11/18 12:50 Bedside Glucose 71 117 Consultation Date/Type/Reason Admit Date/Time Jul 06, 2018 at 21:08 Initial Consult Date 07/07/18 Requesting Provider: ROMARIO GUTIERREZ DO Exam/Review of Systems Vital Signs Vitals Vital Signs Date Temp Pulse Resp B/P (MAP) Pulse Ox O2 O2 Flow FiO2 Time Delivery Rate 07/11/18 98.3 63 167/76 96 Room Air 07:14 (106) 07/11/18 16 01:48 Intake and Output 07/10/18 07/10/18 07/11/18 1515:00 23:00 07:00 IntakeIntake Total 890 ml 820 ml 560 ml BalanceBalance 890 ml 820 ml 560 ml Medications Medications Current Medications Amlodipine Besylate (Norvasc) 5 mg DAILY PO Last administered on 07/11/18at 09:03; Admin Dose 5 MG; Start 07/07/18 at 09:00 Atorvastatin Calcium (Lipitor) 20 mg QHS PO Last administered on 07/10/18at 20:16; Admin Dose 20 MG; Start 07/07/18 at 21:00 Insulin Glargine (Lantus) 33 units QHS SC Last administered on 07/10/18at 20:15; Admin Dose 33 UNITS; Start 07/07/18 at 21:00 Pantoprazole (Protonix Tab) 40 mg DAILY PO Last administered on 07/11/18at 0 8:52; Admin Dose 40 MG; Start 07/07/18 at 09:00 Fenofibrate (Tricor) 48 mg DAILY PO Last administered on 07/11/18at 08:52; Admin Dose 48 MG; Start 07/07/18 at 09:00 Oxycodone HCl (Oxycontin) 40 mg TID PO Last administered on 07/11/18at 13:46; Admin Dose 40 MG; Start 07/07/18 at 09:00 Alteplase, Recombinant (Cathflo (Activase)) 2 mg MAY REPEAT X1 PRN CATHETER IF CATHETER REMAINS OCCULUDED Last administered on 07/07/18at 09:02; Admin Dose 2 MG; Start 07/07/18 at 08:00 Diagnostic Test (Pha) (Accu-Chek) 1 ea 02 XX Last administered on 07/09/18at 02:29; Admin Dose 1 EA; Start 07/08/18 at 02:00 Insulin Aspart (Novolog Insulin Pen) NOVOLOG *MILD* ALGORITHM WITH MEALS BEDTIME SC Last administered on 07/10/18at 20:14; Admin Dose 1 UNIT; Start 07/07/18 at 08:00 Vancomycin HCl (Vanco Iv Per Pharmacy) VANCOMYCIN PER PHARMACY PER PROTOCOL XX ; Start 07/07/18 at 08:00 Ceftriaxone Sodium 50 ml @ 100 mls/hr Q12 IVPB Last administered on 07/11/18at 08:51; Admin Dose 100 MLS/HR; Start 07/07/18 at 09:00 Miscellaneous Information 1 ea NOTE XX ; Start 07/07/18 at 08:00 Glucose (Glutose) 15 gm Q15M PRN PO DECREASED GLUCOSE; Start 07/07/18 at 08:00 Glucose (Glutose) 22.5 gm Q15M PRN PO DECREASED GLUCOSE; Start 07/07/18 at 08:00 Dextrose (D50w Syringe) 25 ml Q15M PRN IV DECREASED GLUCOSE; Start 07/07/18 at 08:00 Dextrose (D50w Syringe) 50 ml Q15M PRN IV DECREASED GLUCOSE; Start 07/07/18 at 08:00 Glucagon (Glucagen) 1 mg Q15M PRN IM DECREASED GLUCOSE; Start 07/07/18 at 08:00 Glucose (Glutose) 15 gm Q15M PRN BUCCAL DECREASED GLUCOSE; Start 07/07/18 at 08:00 Hydromorphone HCl (Dilaudid) 3 mg Q2H PRN IV SEVERE PAIN LEVEL 7-10 Last administered on 07/11/18 13:46; Admin Dose 3 MG; Start 07/07/18 at 08:00 Enoxaparin Sodium (Lovenox) 40 mg DAILY SC Last administered on 07/11/18 09:02; Admin Dose 40 MG; Start 07/08/18 at 09:00 Famotidine (Pepcid) 20 mg BID PO Last administered on 07/11/18 08:52; Admin Dose 20 MG; Start 07/08/18 at 09:00 Prednisone (Prednisone) 4 mg DAILY PO Last administered on 07/11/18 08:51; Admin Dose 4 MG; Start 07/09/18 at 09:00 Sodium Hypochlorite (Dakin'S (Dilute )) 1 applic BID IRR Last administered on 07/11/18 08:52; Admin Dose 1 APPLIC; Start 07/08/18 at 21:00 Ferric Sodium Gluconate Complex 125 mg/Sodium Chloride 110 ml @ 110 mls/hr DAILY@1300 IVPB Last administered on 07/11/18 13:46; Admin Dose 110 MLS/HR; Start 07/09/18 at 13:00; Stop 07/13/18 at 13:59 Collagenase (Santyl) 1 applic DAILY TOP Last administered on 07/11/18 08:51; Admin Dose 1 APPLIC; Start 07/09/18 at 11:30 Mupirocin (Bactroban) 1 applic BID TOP Last administered on 07/11/18 08:51; Admin Dose 1 APPLIC; Start 07/10/18 at 12:00 Carvedilol (Coreg) 6.25 mg BID PO Last administered on 07/11/18 09:02; Admin Dose 6.25 MG; Start 07/10/18 at 21:00 Vancomycin HCl 100 ml @ 100 mls/hr Q12H IVPB Last administered on 07/11/18 1 2:52; Admin Dose 100 MLS/HR; Start 07/11/18 at 12:00 RAMEZ CR NP Jul 11, 2018 15:49
[2018-07-11 16:01] VITALS: BP 157/72; PULSE 76; RESP 16
--- NOTE | 2018-07-11 18:28 | NUR ---
PT STABLE, ALERT & ORIENTED X4. PT STILL REQUEST IV DILAUDID 3MG Q2H FOR LEFT KNEE PAIN. DRESSING CHANGED TODAY. PENDING TX TO HIGHER LEVEL OF CARE. RECEIVED CALL FROM [facility]. FACE SHIT BEEN FAX TO [phone] . [employer] SHOULD FOLLOW UP WITH TRANSFER CENTER AT PHONE # [phone] ACCU CHECK ACHS, NO EPISODES OF HYPERGLYCEMIA. INSTRUCTED PT TO CALL FOR ASSISTANCE. VS WNL.HOURLY ROUNDING. CALL LIGHT WITHIN REACH.ALL NEEDS MET. NO NEW COMPLAINTS.
[2018-07-11 20:03] VITALS: BP 162/76; PULSE 91; RESP 18
[2018-07-11] MEDS: ATORVASTATIN 20 MG TAB PO SCH (20:09)
[2018-07-11] MEDS: INSULIN GLARGINE [LANTus] (100 UNITS/ML) SYG SC SCH (20:17)
[2018-07-11] MEDS: DOXYCYCLINE 100 MG in SOD CHLORIDE 0.9% 250 ML IVPB SCH (21:37)
--- NOTE | 2018-07-11 23:59 | NUR ---
VANCO 500MG Med not in med room. Notified pharmacist. Will send one. Will administer once it arrives.
[2018-07-12] MEDS: VANCOMYCIN 500 MG (PMX) 100 ML IVPB SCH ×2 (00:32→12:00)
[2018-07-12] MEDS: HYDROmorphONE 2 MG/ML SYG IV PRN ×5 (01:56→15:49)
[2018-07-12] MEDS: ACCU-CHEK XX SCH (02:00)
[2018-07-12 02:06] VITALS: BP 161/100; PULSE 87; RESP 17
--- NOTE | 2018-07-12 05:08 | NUR ---
PHONE CALL WITH STACI Spoke with RN at [facility]. Was informed that pt requires financial clearance to get discharged. Financial department is not open during weekends or holidays. Will hear back after new year.
--- NOTE | 2018-07-12 06:20 | NUR ---
EOSS No acute changes in patient's condition. VSS. A &Ox4. All due meds given. Accuchecks done. Insulin coverage required. 0200 acucheck WNL. Pt c/o pain. Pain meds given. Dressing change done on left knee. Hibiclens bath completed. Hourly rounding done. Bed left in lowest position with bed alarm on. Call light left within reach.
[2018-07-12 07:31] VITALS: BP 179/77; PULSE 59; RESP 16
[2018-07-12] MEDS: INSULIN ASPART [NOVOLOG] 3 ML PEN SC SCH ×2 (08:00→12:00)
--- NOTE | 2018-07-12 09:23 | PN ---
Date/Time of Note Date/Time of Note DATE: 07/12/18 TIME: 09:22 Assessment/Plan VTE Prophylaxis Risk score (from Nsg)>0 risk: 7 SCD applied (from Nsg): No SCD contraindicated: other Pharmacological prophylaxis: other Lines/Catheters IV Catheter Type (from Nrsg): PICC Line Central line still needed: Yes Urinary Cath still in place: No Assessment/Plan Hospital Course medicine follow up SUBJECTIVE: The patient was stable overnight. No acute events. per nurses, she has been accepted by a physician at [facility] and case management is making arrangements. d/w Dr Scott OBJECTIVE: HEENT: Head is normocephalic. NECK: Supple. HEART: Regular rate. LUNGS: Show diminished breath sounds at base. ABDOMEN: Soft, nontender to palpation. No rebound or guarding. EXTREMITIES: Negative for clubbing, cyanosis. No edema. DERMATOLOGIC: No rashes. MUSCULOSKELETAL: The patient has noted dressing over her left knee and left an kle, clean, dry, and intact. NEUROLOGIC: No change in exam. MEDICATIONS: Have been reviewed. ASSESSMENT AND PLAN: 1. Left knee septic joint. The patient was evaluated by orthopedist, Dr. Duran. The patient has also been seen by plastic surgery and vascular surgery. The patient currently is on broad spectrum antibiotics and is receiving washout of the wound twice a day. Awaiting transfer to a tertiary center for surgery of her knee. continue current medical management. Continue antibiotic therapy. Continue dressing changes. Continue wound washout. Follow up with specialists for further recommendations. 2. Rheumatoid arthritis with multiple joint deformities. The patient is being seen by rheumatology. I appreciate their help with evaluation. Continue to monitor. 3. 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 Continue to monitor. 4. Anemia with iron deficiency. Continue IV Ferrlecit. 5. 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 Continue antibiotic regimen. Follow up with cardiology. 6. Diabetes. Continue current insulin regimen. 7. Chronic pain syndrome. Continue current pain regimen. 8. Hypertension. Continue current blood pressure regimen. 9. Dyslipidemia. Continue statin therapy. 10. Gastrointestinal and deep venous thrombosis prophylaxis. 11. Disposition: Attempting to transfer the patient to a tertiary center. Result Diagram: 07/11/18 0605 07/11/18 0605 Results 24hrs Laboratory Tests Test 07/11/18 12:50 07/11/18 17:52 12/29/18 20:07 07/12/18 02:00 Bedside Glucose 117 145 211 93 Exam/Review of Systems Vital Signs Vitals Vital Signs Date Temp Pulse Resp B/P (MAP) Pulse Ox O2 O2 Flow FiO2 Time Delivery Rate 07/12/18 97.8 59 16 179/77 95 07:31 (111) 07/11/18 Room Air 07:14 Intake and Output 07/11/18 07/11/18 07/12/18 1515:00 23:00 07:00 IntakeIntake Total 740 ml 370 ml 240 ml OutputOutput Total 1000 ml BalanceBalance 740 ml 370 ml -760 ml Medications Medications Current Medications Amlodipine Besylate (Norvasc) 5 mg DAILY PO Last administered on 07/11/18 09:03; Admin Dose 5 MG; Start 07/07/18 at 09:00 Atorvastatin Calcium (Lipitor) 20 mg QHS PO Last administered on 07/11/18 20:09; Admin Dose 20 MG; Start 07/07/18 at 21:00 Insulin Glargine (Lantus) 33 units QHS SC Last administered on 07/11/18 20:17; Admin Dose 33 UNITS; Start 07/07/18 at 21:00 Pantoprazole (Protonix Tab) 40 mg DAILY PO Last administered on 07/11/18 08:52; Admin Dose 40 MG; Start 07/07/18 at 09:00 Fenofibrate (Tricor) 48 mg DAILY PO Last administered on 07/11/18 08:52; Admin Dose 48 MG; Start 07/07/18 at 09:00 Oxycodone HCl (Oxycontin) 40 mg TID PO Last administered on 07/11/18 21:36; Admin Dose 40 MG; Start 07/07/18 at 09:00 Alteplase, Recombinant (Cathflo (Activase)) 2 mg MAY REPEAT X1 PRN CATHETER IF CATHETER REMAINS OCCULUDED Last administered on 07/07/18 09:02; Admin Dose 2 MG; Start 07/07/18 at 08:00 Diagnostic Test (Pha) (Accu-Chek) 1 ea 02 XX Last administered on 07/09/18 02:29; Admin Dose 1 EA; Start 07/08/18 at 02:00 Insulin Aspart (Novolog Insulin Pen) NOVOLOG *MILD* ALGORITHM WITH MEALS BEDTIME SC Last administered on 07/11/18at 20:16; Admin Dose 1 UNIT; Start 07/07/18 at 08:00 Vancomycin HCl (Vanco Iv Per Pharmacy) VANCOMYCIN PER PHARMACY PER PROTOCOL XX ; Start 07/07/18 at 08:00 Miscellaneous Information 1 ea NOTE XX ; Start 07/07/18 at 08:00 Glucose (Glutose) 15 gm Q15M PRN PO DECREASED GLUCOSE; Start 07/07/18 at 08:00 Glucose (Glutose) 22.5 gm Q15M PRN PO DECREASED GLUCOSE; Start 07/07/18 at 08:00 Dextrose (D50w Syringe) 25 ml Q15M PRN IV DECREASED GLUCOSE; Start 07/07/18 at 08:00 Dextrose (D50w Syringe) 50 ml Q15M PRN IV DECREASED GLUCOSE; Start 07/07/18 at 08:00 Glucagon (Glucagen) 1 mg Q15M PRN IM DECREASED GLUCOSE; Start 07/07/18 at 08:00 Glucose (Glutose) 15 gm Q15M PRN BUCCAL DECREASED GLUCOSE; Start 07/07/18 at 08:00 Hydromorphone HCl (Dilaudid) 3 mg Q2H PRN IV SEVERE PAIN LEVEL 7-10 Last administered on 07/12/18at 07:42; Admin Dose 3 MG; Start 07/07/18 at 08:00 Enoxaparin Sodium (Lovenox) 40 mg DAILY SC Last administered on 07/11/18at 09:02; Admin Dose 40 MG; Start 07/08/18 at 09:00 Famotidine (Pepcid) 20 mg BID PO Last administered on 07/11/18at 20:10; Admin Dose 20 MG; Start 07/08/18 at 09:00 Prednisone (Prednisone) 4 mg DAILY PO Last administered on 07/11/18at 08:51; Admin Dose 4 MG; Start 07/09/18 at 09:00 Sodium Hypochlorite (Dakin'S (Dilute )) 1 applic BID IRR Last administered on 07/11/18at 20:24; Admin Dose 1 APPLIC; Start 07/08/18 at 21:00 Ferric Sodium Gluconate Complex 125 mg/Sodium Chloride 110 ml @ 110 mls/hr DAILY@1300 IVPB Last administered on 07/11/18at 13:46; Admin Dose 110 MLS/HR; Start 07/09/18 at 13:00; Stop 07/13/18 at 13:59 Collagenase (Santyl) 1 applic DAILY TOP Last administered on 07/11/18at 08:51; Admin Dose 1 APPLIC; Start 07/09/18 at 11:30 Mupirocin (Bactroban) 1 applic BID TOP Last administered on 07/11/18at 20:24; Admin Dose 1 APPLIC; Start 07/10/18 at 12:00 Carvedilol (Coreg) 6.25 mg BID PO Last administered on 07/11/18 20:09; Admin Dose 6.25 MG; Start 07/10/18 at 21:00 Vancomycin HCl 100 ml @ 100 mls/hr Q12H IVPB Last administered on 07/12/18at 00:32; Admin Dose 100 MLS/HR; Start 07/11/18 at 12:00 Doxycycline Hyclate 100 mg/ Sodium Chloride 250 ml @ 250 mls/hr Q12 IVPB Last administered on 07/11/18at 21:37; Admin Dose 250 MLS/HR; Start 07/11/18 at 21:00 CHANDRAKANT DOMINGO DO Jul 12, 2018 09:23
[2018-07-12] MEDS: FENOFIBRATE 48 MG TAB PO SCH (09:49)
[2018-07-12] MEDS: FAMOTIDINE 20 MG TAB PO SCH (09:49)
[2018-07-12] MEDS: COLLAGENASE 5 GM (UD JAR) TOP SCH (09:49)
[2018-07-12] MEDS: SODIUM HYPOCHLORITE (1/40) 1 APPLIC BTL IRR SCH (09:49)
[2018-07-12] MEDS: PANTOPRAZOLE (EC) 40 MG TAB PO SCH (09:49)
[2018-07-12] MEDS: oxyCODONE (CR) 40 MG TAB [oxyCONTIN] PO SCH ×2 (09:50→12:58)
[2018-07-12] MEDS: predniSONE 1 MG TAB PO SCH (09:50)
[2018-07-12] MEDS: AMLODIPINE 5 MG TAB PO SCH (09:51)
[2018-07-12] MEDS: MUPIROCIN 2% 22 GM OINT TOP SCH (09:51)
[2018-07-12] MEDS: ENOXAPARIN 40 MG/0.4 ML SYG SC SCH (09:52)
--- NOTE | 2018-07-12 10:00 | NUR ---
Spoke with Dr. Wood and obtained order for discharge to acute care hospital. Dr. Duran currently talking to the patient and informed Primary RN, Jagruti that patient should be transfered to [facility] today as discussed with CLAUDETTE Hearn last Friday, 07/10. Dr. Duran also spoke with CLAUDETTE White to follow up on this transfer.
[2018-07-12] MEDS: DOXYCYCLINE 100 MG in SOD CHLORIDE 0.9% 250 ML IVPB SCH (10:03)
--- NOTE | 2018-07-12 10:30 | NUR ---
called Joy at spoke to Kerline the Nursing Surveillance Inspector at ext [phone]. she requested that I fax her the clinicals to that was done. 10:20 called Kerline again and she advised receiving the clinicals and will let me know. Names of physicians and Tel numbers were written on the fax cover sheet. She was also notified of accepting physician Dr. Carl Montero.
--- NOTE | 2018-07-12 12:06 | NUR ---
12:00 called Joy butter production supervisor Prema again and she advised that she was in a code and will get back to me as soon as she reviews the clinicals.
--- NOTE | 2018-07-12 14:23 | NUR ---
14:15 Kerline from [place] called and accepted the pt, to be admitted as direct admit to ortho floor. Room number was not given. tel for report . ambulance to burr picker the pt at 15:15 trip # [id number]. RN informed. Dr. Duran was informed of this as well.
--- NOTE | 2018-07-12 14:29 | NUR ---
Ambulance to take pt to ER admission and pt to be admitted as direct admit.
[2018-07-12] MEDS: SOD FERRIC GLUC COMPLX 125 MG in SOD CHLORIDE 0.9% 100 ML IVPB SCH (14:34)
[2018-07-12 15:00] VITALS: BP 148/66; PULSE 78; RESP 16
[2018-07-12 15:45] VITALS: BP 150/88; PULSE 65; RESP 19
--- NOTE | 2018-07-12 15:56 | CONS ---
Date/Time of Note Date/Time of Note DATE: 07/12/18 TIME: 15:52 Assessment/Plan Assessment/Plan Hospital Course ID PROGRESS NOTE CURRENT ABX: DAY # => Vancomycin IV and Doxycycline s/p Rocephin 24H INTERVAL SUMMARY * Patient in process of transferring to [facility] for ambulance transport to [facility] -- she is accepted by ORTHO for left infected knee prosthesis explant -- TKR re-do * She is currently stable, no fevers, VSS, A/A/O -- expresses understanding, agreement with transfer plan * Microbiology: Blood cultures (-) left knee wound culture at [facility] 3 days ago grew MRSA, urine culture grew E. coli * Diagnostics 2D echo revealed mitral valve vegetation. Ejection fraction of 65% * Indwelling: Right upper extremity PICC line placed on May 14, 2018 MICRO * (+)MRSA Nares screen * Left Knee Cx (+)MRSA * BCx (-) to date PHYSICAL EXAMINATION: GENERAL: Afebrile, VSS, HEENT: AT, NC, anicteric NECK: Supple, trach CHEST: Equal chest rise bilaterally, without dyspnea on observation HEART: Pulse RRR ABDOMEN: Soft / NT EXTREMITIES: Warm, dry: Extremities with multiple deformities, left knee with draining wounds and dehiscence SKIN: No rash, no diaphoresis ID ASSESSMENT 67 yo F admit with: 1. 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 Severe rheumatoid arthritis and multiple joint deformities 4. Diabetes (+)MRSA Nares -> Bactroban ABX ALLERGIES: NKDA INVASIVES: PI CURRENT ABX: DAY == Vancomycin IV + Doxycycline s/p Rocephin ID RECOMMENDATIONS/PLAN: IN process of ambulance transport pick-up --- TRANSFERRING to [facility] for TKR re-do of septic prosthesis * Continue Vanco IV --- treat for 8 weeks MRSA for SBE and septic joint * Will need removal of infected knee prosthesis with placement of temporary spacer -- treat for 8 weeks MRSA . Result Diagram: 07/11/1860407/11/18604 Results 24hrs Laboratory Tests Test 07/11/18 17:52 07/11/18 20:07 07/12/18 02:00 07/12/18 09:48 Bedside Glucose 145 211 93 73 Test 07/12/18 13:03 Bedside Glucose 98 Consultation Date/Type/Reason Admit Date/Time Jul 06, 2018 at 21:08 Initial Consult Date 07/07/18 Requesting Provider: ROMARIO GUTIERREZ DO Exam/Review of Systems Vital Signs Vitals Vital Signs Date Temp Pulse Resp B/P (MAP) Pulse Ox O2 O2 Flow FiO2 Time Delivery Rate 07/12/18 97.8 59 16 179/77 95 07:31 (111) 07/11/18 Room Air 07:14 Intake and Output 07/11/18 07/11/18 07/12/18 1515:00 23:00 07:00 IntakeIntake Total 740 ml 370 ml 240 ml OutputOutput Total 1000 ml BalanceBalance 740 ml 370 ml -760 ml Medications Medications Current Medications Amlodipine Besylate (Norvasc) 5 mg DAILY PO Last administered on 07/12/18 09:51; Admin Dose 5 MG; Start 07/07/18 at 09:00 Atorvastatin Calcium (Lipitor) 20 mg QHS PO Last administered on 07/11/18 20:09; Admin Dose 20 MG; Start 07/07/18 at 21:00 Insulin Glargine (Lantus) 33 units QHS SC Last administered on 07/11/18 20:17; Admin Dose 33 UNITS; Start 07/07/18 at 21:00 Pantoprazole (Protonix Tab) 40 mg DAILY PO Last administered on 07/12/18 09:49; Admin Dose 40 MG; Start 07/07/18 at 09:00 Fenofibrate (Tricor) 48 mg DAILY PO Last administered on 07/12/18 09:49; Admin Dose 48 MG; Start 07/07/18 at 09:00 Oxycodone HCl (Oxycontin) 40 mg TID PO Last administered on 07/12/18 12:58; Admin Dose 40 MG; Start 07/07/18 at 09:00 Alteplase, Recombinant (Cathflo (Activase)) 2 mg MAY REPEAT X1 PRN CATHETER IF CATHETER REMAINS OCCULUDED Last administered on 07/07/18 09:02; Admin Dose 2 MG; Start 07/07/18 at 08:00 Diagnostic Test (Pha) (Accu-Chek) 1 ea 02 XX Last administered on 07/09/18at 02:29; Admin Dose 1 EA; Start 07/08/18 at 02:00 Insulin Aspart (Novolog Insulin Pen) NOVOLOG *MILD* ALGORITHM WITH MEALS BEDTIME SC Last administered on 07/11/18at 20:16; Admin Dose 1 UNIT; Start 07/07/18 at 08:00 Vancomycin HCl (Vanco Iv Per Pharmacy) VANCOMYCIN PER PHARMACY PER PROTOCOL XX ; Start 07/07/18 at 08:00 Miscellaneous Information 1 ea NOTE XX ; Start 07/07/18 at 08:00 Glucose (Glutose) 15 gm Q15M PRN PO DECREASED GLUCOSE; Start 07/07/18 at 08:00 Glucose (Glutose) 22.5 gm Q15M PRN PO DECREASED GLUCOSE; Start 07/07/18 at 08:00 Dextrose (D50w Syringe) 25 ml Q15M PRN IV DECREASED GLUCOSE; Start 07/07/18 at 08:00 Dextrose (D50w Syringe) 50 ml Q15M PRN IV DECREASED GLUCOSE; Start 07/07/18 at 08:00 Glucagon (Glucagen) 1 mg Q15M PRN IM DECREASED GLUCOSE; Start 07/07/18 at 08:00 Glucose (Glutose) 15 gm Q15M PRN BUCCAL DECREASED GLUCOSE; Start 07/07/18 at 08:00 Hydromorphone HCl (Dilaudid) 3 mg Q2H PRN IV SEVERE PAIN LEVEL 7-10 Last administered on 07/12/18at 12:58; Admin Dose 3 MG; Start 07/07/18 at 08:00 Enoxaparin Sodium (Lovenox) 40 mg DAILY SC Last administered on 07/12/18at 09 :52; Admin Dose 40 MG; Start 07/08/18 at 09:00 Famotidine (Pepcid) 20 mg BID PO Last administered on 07/12/18 09:49; Admin Dose 20 MG; Start 07/08/18 at 09:00 Prednisone (Prednisone) 4 mg DAILY PO Last administered on 07/12/18at 09:50; Admin Dose 4 MG; Start 07/09/18 at 09:00 Sodium Hypochlorite (Dakin'S (Dilute )) 1 applic BID IRR Last administered on 07/12/18at 09:49; Admin Dose 1 APPLIC; Start 07/08/18 at 21:00 Ferric Sodium Gluconate Complex 125 mg/Sodium Chloride 110 ml @ 110 mls/hr DAILY@1300 IVPB Last administered on 07/12/18at 14:34; Admin Dose 110 MLS/HR; Start 07/09/18 at 13:00; Stop 07/13/18 at 13:59 Collagenase (Santyl) 1 applic DAILY TOP Last administered on 07/12/18at 09:49; Admin Dose 1 APPLIC; Start 07/09/18 at 11:30 Mupirocin (Bactroban) 1 applic BID TOP Last administered on 07/12/18at 09:51; Admin Dose 1 APPLIC; Start 07/10/18 at 12:00 Carvedilol (Coreg) 6.25 mg BID PO Last administered on 07/12/18at 09:51; Admin Dose 6.25 MG; Start 07/10/18 at 21:00 Vancomycin HCl 100 ml @ 100 mls/hr Q12H IVPB Last administered on 07/12/18at 00:32; Admin Dose 100 MLS/HR; Start 07/11/18 at 12:00 Doxycycline Hyclate 100 mg/ Sodium Chloride 250 ml @ 250 mls/hr Q12 IVPB Last administered on 07/12/18at 10:03; Admin Dose 250 MLS/HR; Start 07/11/18 at 21:0 0 Miscellaneous Information (*Rx Drug Level Order Reminder*) VANC TROUGH @ 1,100 ONCE ONCE XX ; Start 07/13/18 at 11:00; Stop 07/13/18 at 11:01 RAMEZ CR NP Jul 12, 2018 15:56
--- NOTE | 2018-07-12 16:55 | NUR ---
No acute distress during the day. Patient was medicated for pain every 2 hours with relieve to level of tolerance.Patient been seen by Dr Duran. Patient is going to [facility] . Patient refused to take pictures and to change dressings before transfer. Patient been medicated with Dilaudid 3 mg before transfer. Report given to [facility].. PICC line flushed and locked by. Dada ramoss with patient. Family aware about transfer.
--- NOTE | 2018-07-13 07:33 | PN ---
DATE: 07/12/2018 HISTORY OF PRESENT ILLNESS: Patient is doing well. She has no pain. She denies any fevers. She has no complaints. PHYSICAL EXAMINATION: VITAL SIGNS: Temperature 97.8, blood pressure 179/77, pulse of 59, respiratory rate of 16. EXTREMITIES: Left knee exam open wound over the distal extent of the midline incision. The extensor mechanism is visible. There is no drainage. There is also a small open wound of the proximal incision. Her calf is soft with negative Homans. LABORATORY DATA: White blood cell count 9.8, ESR 77. IMAGING: X-rays of the left knee demonstrate intact distal femoral replacement. There is no evidence of loosening. IMPRESSION: A 67-year-old female with a past medical history of diabetes mellitus, rheumatoid arthritis, status post left distal femoral replacement with open wound and exposed extensor mechanism. PLAN: I discussed treatment options with the patient. I explained to her that I am willing to do the orthopedic surgery aspect of her care, but require plastic surgery for wound closure. Patient reiterated her desire to be transferred to [facility]. I explained to her that she has been accepted at [facility]. Patient stated that she will think about transfer to [facility] and would like to wait for [facility] acceptance. I will continue to follow the patient along. She remains stable at this time. Dictated By: DEEPA NOBLES/JOLLY Conf#: [id number] DID#: [id number] CC: ROMARIO GUTIERREZ DO;*EndCC* MTDD
== END 2018-07-12 16:00 | disposition short-term general hospital (02) | DRG 560 ==
LOC: 2NE 21:08
PROVIDERS: ADMIT Internal Medicine; ATTEND Internal Medicine
DX: T84.54XA Infection and inflammatory reaction due to internal left knee prosthesis, initial encounter (principal); I01.1 Acute rheumatic endocarditis; M00.062 Staphylococcal arthritis, left knee; N39.0 Urinary tract infection, site not specified; M06.9 Rheumatoid arthritis, unspecified; B95.62 Methicillin resistant Staphylococcus aureus infection as the cause of diseases classified elsewhere; E78.5 Hyperlipidemia, unspecified; E09.51 Drug or chemical induced diabetes mellitus with diabetic peripheral angiopathy without gangrene; G89.4 Chronic pain syndrome; D50.9 Iron deficiency anemia, unspecified; K57.30 Diverticulosis of large intestine without perforation or abscess without bleeding; K64.9 Unspecified hemorrhoids; Z79.4 Long term (current) use of insulin; Z86.718 Personal history of other venous thrombosis and embolism; Z96.651 Presence of right artificial knee joint; Z96.642 Presence of left artificial hip joint; Z88.2 Allergy status to sulfonamides; T38.0X5A Adverse effect of glucocorticoids and synthetic analogues, initial encounter; Y79.2 Prosthetic and other implants, materials and accessory orthopedic devices associated with adverse incidents
CPT/HCPCS: 73560; 80048; 80053; 80202; 82728; 82962; 83540; 83735; 84100; 85025; 85651; 86140; 87040; 87070; 87081; 93005; 93306; J0696; J1170; J1650; J1815; J1885; J2916; J3370; J3475; J7050; J7512

== ENCOUNTER 2018-12-15 21:28 | Inpatient (IN) | payer MEDICARE, BC ==
[~2018-12-15] VITALS: Ht 149.9 cm; Wt 55.5 kg
[~2018-12-15 21:28] MED LIST changes: +AMLO2.5T78 PO; +FENO48TA4 PO
[2018-12-16] MEDS ORDERED: PIPER-TAZO 3.375 GM IV (PMX) 100 ML IVPB ONE (01:00)
[2018-12-16] MEDS ORDERED: VANCOMYCIN 1 GM (PMX) 250 ML IVPB ONE (01:00)
[2018-12-16] MEDS ORDERED: HYDROmorphONE 1 MG/ML SYG IV STA (04:53)
--- NOTE | 2018-12-16 06:27 | EN ---
Date/Time of Note Date/Time of Note DATE: 12/16/18 TIME: 06:26 ER Progress Note Patient was endorsed to me pending transfer to [facility] for higher level of care. Patient with a complicated hospital stay in June prompting transfer to [facility] for washout of a septic joint. The patient again has a septic joint. I spoke to orthopedic surgeon correctional sergeant Dr. Jeff who agrees and recommends with transfer to [facility] given that is where the patient most recently had surgery. [facility] is been notified of this recommendation by her on-call orthopedic surgeon. Patient is pending transfer. JOLEEN MARTINES MD Dec 16, 2018 06:27
[2018-12-16] MEDS ORDERED: ONDANSETRON 4 MG INJ IV PRN (14:00)
[2018-12-16] MEDS ORDERED: ACETAMINOPHEN 325 MG TAB PO PRN ×2 (14:00→14:30)
[2018-12-16 14:30] VITALS: BP 200/94; PULSE 71; RESP 18
[2018-12-16] MEDS ORDERED: BISACODYL 10 MG SUPP PR PRN (14:30)
[2018-12-16] MEDS ORDERED: GLUCAGON 1 MG INJ IM PRN (15:00)
[2018-12-16] MEDS ORDERED: GLUCOSE GEL 15 GRAM TUBE PO PRN ×2 (15:00)
[2018-12-16] MEDS ORDERED: DEXTROSE 50% 50 ML SYRINGE IV PRN ×2 (15:00)
[2018-12-16] MEDS ORDERED: GLUCOSE GEL 15 GRAM TUBE BUCCAL PRN (15:00)
[2018-12-16 15:25] VITALS: BP 194/82
[2018-12-16] MEDS: ACCU-CHEK XX SCH ×2 (16:15→22:24)
[2018-12-16] MEDS ORDERED: LIDOCAINE 1% (MDV) 20 ML INJ IM ONE (17:00)
[2018-12-16] MEDS ORDERED: ALBUTEROL/IPRATROPIUM (NEB) 3 ML AMP NEB PRN (17:00)
[2018-12-16] MEDS: HYDROmorphONE 2 MG/ML SYG IV PRN ×2 (17:07→23:32)
[2018-12-16 18:18] VITALS: Ht 149.9 cm; Wt 55.5 kg
[2018-12-16 18:30] VITALS: BP 152/80
[2018-12-16] MEDS: PIPER-TAZO 2.25 GM (PMX) 50 ML IVPB SCH ×2 (19:58→23:32)
[2018-12-16 20:00] VITALS: BP 137/64; PULSE 72; RESP 18
--- NOTE | 2018-12-16 20:24 | CONS ---
DATE OF ADMISSION: 12/16/2018 DATE OF CONSULTATION: 12/16/2018 TYPE OF CONSULTATION: Infectious Disease. REASON FOR CONSULTATION: Antibiotic management. HISTORY OF PRESENT ILLNESS: Norm Rendon is a 68-year-old female well known to us from previous admissions. She was admitted on 07/06/2018 with left knee septic joint. Her problems incl ude: 1. Rheumatoid arthritis. 2. History of bilateral knee replacement surgery. 3. Left hip replacement surgery. 4. Steroid-induced diabetes. 5. Hypertension. 6. Dyslipidemia. 7. Osteoarthritis. 8. Peripheral vascular disease. The patient had her knee replaced about 30 years ago and then when she fell, it shattered. She had k nee replacement by Dr. Duran. She subsequently was operated on by Dr. Carl Montero at [facility]. She comes in now again with pain and discomfort in the left knee and obvious evidence of infection. On admission, her lower extremity CT scan showed constraint left knee revision arthroplasty. No evid ent hardware complication, fluid collection of the distal aspect of the femoral prosthetic elements. Differential includes an abscess. CT-guided aspiration of fluid may be of further use. There was a n attempt made to transfer her back to [facility], but that went for [facility] and she was seen I believe by Dr. Jeff. Dr. Espinoza came to the bedside to evaluate the patient. He did not feel she nee ded emergency surgery. She needs a complex surgery at a tertiary care center. She may benefit from arthrocentesis and some IV antibiotic therapy. PAST MEDICAL HISTORY: Operations as outlined. FAMILY HISTORY: Noncontributory. SOCIAL HISTORY: She does not smoke, drink or abuse drugs. ALLERGIES: NONE TO PENICILLIN, SULFA OR FOODS. MEDICATIONS: Per chart. REVIEW OF SYSTEMS: Noncontributory. PHYSICAL EXAMINATION: GENERAL: The patient is a frail elderly 68-year-old female who is awake, responsive, in no acute dis tress. VITAL SIGNS: Stable. She is afebrile. SKIN: Without generalized rash. HEENT: Within normal limits. NECK: Supple. LYMPH NODES: None palpable. CHEST: Decreased breath sounds at the bases. HEART: Without murmur or gallop. ABDOMEN: Soft, nontender, without organosplenomegaly or masses. EXTREMITIES: There is mottling and redness over the left knee with tenderness as well. RECTAL AND GENITAL: Deferred. NEUROLOGIC: No focal neurological abnormality. IMPRESSION AND PLAN: The patient requires aspiration of the knee. She has already received some van comycin and Zosyn. We will await the decision on aspiration. If it is not in today, then we will re sume the vancomycin and Zosyn. I will dictate my findings to Dr. Jeff and to the hospitalist. Dictated By: CALI FELDER MD BO/NTS Conf#: [id number] DID#: [id number] CC: JOSIANE ESPINOZA MD;*EndCC*
--- NOTE | 2018-12-16 20:33 | HP ---
DATE OF ADMISSION: 12/16/2018 CHIEF COMPLAINT: Left knee swelling. HISTORY OF PRESENT ILLNESS: This is a 68-year-old female with a past medical history of rheumatoid a rthritis, history of bilateral knee replacement surgery, history of left hip surgery, history of ster oid-induced diabetes, history of hypertension, dyslipidemia, osteoarthritis, history of peripheral va scular disease, and recent history of left septic knee joint necessitating joint replacement, who pre sents to [facility] for left knee swelling. The patient states that in e patient was admitted to [facility] for septic joint. She was transferred to [facility] where she underwent a replacement of her knee by Dr. Montero. The patient has been on a long course of antibiotics at that time. The patient states that recently she had diarrhea and discontinued her IV antibiotics of vancomycin. The patient said over the last 24 hours, she has had increased swelling over left knee, so she came into the [facility] emergency room for evalu ation. Upon arrival here, the patient had a CT scan of the left knee which showed evidence of absces s consistent with septic knee. The patient, unfortunately, was unable to be transferred to [facility]. The orthopedist, Dr. Collado, did see the patient in the emergency room. He felt that the patient has a subacute septic joint and would need IV antibiotics. The patient did not necessitate i mmediate intervention. The patient will, therefore, be admitted to the hospital for IV antibiotics a nd continued observation. There were no reports of hemoptysis, hematemesis, or hematochezia. PAST MEDICAL HISTORY: History of rheumatoid arthritis on weekly Enbrel and prednisone, history of pe ripheral vascular disease, diabetes, hypertension, dyslipidemia, history of osteoarthritis, and histo ry of DVT. PAST SURGICAL HISTORY: Status post bilateral knee replacement surgery, status post left hip replacem ent surgery, status post left knee revision surgery, status post revision again of the left knee due to septic joint, and history of IVC placement. ALLERGIES: PLEASE SEE LIST. FAMILY HISTORY: No family history of kidney disease. SOCIAL HISTORY: Does not drink, smoke, or do drugs. MEDICATIONS: Reviewed. REVIEW OF SYSTEMS: A 14-point review of systems has been conducted. Pertinent positives stated in H PI, otherwise negative. PHYSICAL EXAMINATION: VITAL SIGNS: Blood pressure 151/89, respiration 18, pulse 72, temperature 98.3. HEENT: Head is normocephalic. NECK: Supple. HEART: Regular rate. LUNGS: Show diminished breath sounds at base. ABDOMEN: Soft, nontender to palpation without rebound or guarding. EXTREMITIES: Negative for clubbing or cyanosis and no edema on the right leg. Left knee has noted e rythema, swelling, and deformity. DERMATOLOGIC: No rashes. NEUROLOGIC: No focal deficits. MUSCULOSKELETAL: Positive left knee effusion and erythema. LABORATORY DATA: Reviewed. IMAGING STUDIES: Reviewed. Lower extremity CT scan was reviewed. The x-rays were reviewed. ASSESSMENT AND PLAN: This is a 68-year-old female with: 1. Left knee septic joint. This is likely a subacute process. The patient had a recent revision of her left knee due to septic joint by Dr. Montero at [facility]. The patient has been on long-term antibiotic therapy. Plan, at this point, is to follow up with recommendations from Orthope dics, Dr. Collado. Accordingly, per emergency room doctor, the patient will likely need a few days of I V antibiotics and possible aspiration of the left knee but unlikely to require immediate surgical int ervention. Nevertheless, we will follow up with recommendations from orthopedic surgeon. An ID cons ult has also been placed and will monitor closely. 2. Rheumatoid arthritis with multiple joint deformities. We will continue the patient on prednisone . The patient was also receiving outpatient Enbrel. Consider rheumatologic evaluation. 3. History of deep venous thrombosis, history of IVC filter. Continue aspirin and hold Plavix at th is time as patient may require joint aspiration. 4. Diabetes. Continue current insulin regimen. Continue subcutaneous insulin with meals. 5. Chronic pain syndrome. Continue OxyContin. Continue pain management consult. 6. Hypertension. Continue blood pressure regimen. 7. Dyslipidemia. Continue statin therapy. 8. Gastrointestinal and deep venous thrombosis prophylaxis. 9. Anemia. Monitor H and H levels. 10. Constipation. Continue current bowel regimen. Please note that an additional 30 minutes of face to face time with the patient's son at bedside disc ussing code status. The patient is FULL CODE. Dictated By: ROMARIO AMBRIZ/JOLLY Conf#: [id number] DID#: [id number] CC: JOSIANE COLLADO MD;*End*
[2018-12-16] MEDS: LUBIPROSTONE 24 MCG CAP PO SCH ×2 (21:00→22:17)
[2018-12-16] MEDS: ATORVASTATIN 20 MG TAB PO SCH (22:18)
[2018-12-16] MEDS: oxyCODONE (CR) 40 MG TAB [oxyCONTIN] PO SCH (22:19)
[2018-12-16] MEDS: INSULIN GLARGINE [LANTus] (100 UNITS/ML) SYG SC SCH (22:21)
--- NOTE | 2018-12-16 23:08 | CONS ---
Assessment/Plan Assessment/Plan Hospital Course (Demo Recall) This is a 68-year-old female with a complex surgical history with chronically infected left distal thumb replacement. She has multiple comorbidities which make treating her condition significantly more difficult including rheumatoid arthritis, diabetes, peripheral vascular disease. She is cachectic appearing. I have given much thought to her case and discussed at length her daughter over 60 minutes of the different options and benefits and risks of those options. From a technical standpoint the best way to cure her infection is to do a formal two-stage surgery (fusion vs distal femoral replacement) followed by a lateral femur plate to bridge the stress riser. However given the patient's multiple comorbidities and condition of her soft tissue envelope I believe pursuing such heroic treatment options with more than likely result in significant comorbidity including above-knee amputation and . The patient's goal is to be able to walk again. I do not believe performing a formal two-stage with an additional surgery to bridge the stress riser to enable her walk. She is currently extremely deconditioned and the major surgeries stated above would lead to further decline in the patient's ability to ambulate. Removing the distal femoral replacement both the femoral and tibial components would likely result in fractures given the poor quality of her bone. I do not believe she has much healing potential to heal these fractures as well as her soft tissue envelope. The second option I stated the patient included irrigation debridement and poly- exchange followed by chronic suppression. If this succeeded and she continued to have pain at the area of the stress riser further thought and consideration could be given to placing a plate along the lateral femur. However I also cautioned the patient that given her numerous surgeries and condition of her skin she is a high likelihood of having a wound complication especially anterior medial tibia. To cover this would require a medial gastrocnemius flap which I do not believe should be a good candidate for given her severe peripheral vascular disease. The third option is to undergo aspiration of the knee and even multiple aspiration of the knee if necessary and continue IV antibiotics for chronic suppression. This is the least risk option for the patient with proper physical therapy hopefully she can weight-bear fully on her right lower extremity and used a walker to assist when placing some weight on her left lower extremity. If all of those treatment options fail an above-knee amputation would be required. I also discussed with the patient and her daughter that at this time as well and above-knee amputation could be considered a reasonable option in order to and the endless cycle that she has found herself in for the past year. At this time the patient is not septic and the infection is chronic therefore any emergent irrigation & debridement will not make any difference. If her infection can be controlled with IV antibiotics she can be discharged home with IV antibiotics to follow-up as an outpatient. The patient also expressed interest in multiple opinions which I encouraged given her complex clinical situation. Plan: Aspiration left knee IV antibiotics: Vancomycin Zosyn Infectious disease consult Discharge planning for IV antibiotics at home versus SNF Follow-up with me or another surgeon for second opinion as an outpatient. Assessment/Plan (Daily) Procedure note: Left knee aspiration procedure: Risks and benefits aspiration reviewed with patient. The risks include infection, failure, pain, swelling, nerve/tendon/ligament damage. The patient verbalized understanding and verbal consent was obtained prior to procedure. The left knee was prepped in a sterile fashion with alcohol and betadine the site of aspiration was confirmed. Anterior distal femur approach was used. The skin and capsule was anesthetized with 3mL 1% lidocaine careful not to inject intra-articularly. Sterile gloves were donned and the aspiration site was again prepped. The left knee was aspirated. 70 mL of cloudy and yellow synovial fluid with debris was aspirated. Good hemostasis was achieved and no complications noted. The patient tolerated the procedure well. Limit activity and ice for 24-48 hours 20 mL of the fluid was sent to the laboratory for cell count with differential, crystals, Gram stain, anaerobic and aerobic cultures. Consultation Date/Type/Reason Admit Date/Time Dec 16, 2018 at 13:59 Date of Consultation: Dec 16, 2018 Reason for Consultation Chronically infected left total knee arthroplasty Date/Time of Note DATE: 12/16/18 TIME: 23:08 Hx of Present Illness Ms Norm Rendon is a 68-year-old female with a chronic septic left distal femoral replacement with a complex surgical history with multiple medical p roblems including rheumatoid arthritis, severe peripheral vascular disease, diabetes, multiple DVTs, chronic pain syndrome. The patient first had a left total knee replacement approximately [address] Patricio. In February 2018 she fell and sustained a periprosthetic fracture which necessitated treatment with a distal femoral replacement. This was done by Dr. Duran at [facility]. Unfortunately the patient did have a wound complication which resulted in infection of the distal femoral replacement. Sometime in June she was transferred to [facility] and was treated by Dr. Montero. From x- rays and from the patient's family's story it sounds like a single stage revision was done. She was continued on IV antibiotics for chronic suppression. The patient continued to be unable to walk secondary to pain and feelings of instability of the knee. The patient saw Dr. Finney about 2 weeks ago for consultation. During that visit it was thought there was a stress fracture betw een the stems of her total hip replacement and the femoral prosthesis. Shortly after the visit the patient stopped the IV antibiotics and transition to oral antibiotics just 2 weeks ago as the IV antibiotics were making her feel sick. Once transition to oral antibiotics she continued to have increased swelling of the knee and pain. The patient has not walked since her fall in February 2018. She wishes more than anything to be able to walk again. The patient has numbness throughout the foot. Patient denies fever, chills, shortness of breath, chest pain, nausea/vomiting, constipation, diarrhea, Past Medical History Chronic infection left distal femoral replacement Rheumatoid arthritis Peripheral vascular disease Diabetes Chronic pain syndrome Hypertension Dyslipidemia Anemia Constipation Home Meds Reported Medications Amlodipine Besylate* (Amlodipine Besylate*) 2.5 Mg Tablet, 5 MG PO DAILY, #30 TAB 07/06/18 Fenofibrate Nanocrystallized* (Fenofibrate*) 48 Mg Tablet, 54 MG PO DAILY, TAB 07/06/18 Sodium Phosphate,Otero-Dibasic (Enema Ready To Use) 133 Ml Enema, 133 ML RC EVERY 2 DAYS PRN for CONSTIPATION, ENEMA 05/19/18 Magnesium Hydroxide* (Milk Of Magnesia*) 400 Mg/5 Ml Oral.susp, 30 ML PO DAILY, ML 05/19/18 Bisacodyl (Dulcolax) 10 Mg Supp.rect, 10 MG RC DAILY PRN for CONSTIPATION, SUPP.RECT 05/19/18 Insulin Glargine* (Lantus*) 100 Unit/Ml Soln, 33 UNIT SC QHS, #1 VIAL 05/19/18 Linagliptin (TRADJENTA) 5 Mg Tablet, 5 MG PO DAILY, TAB 05/19/18 Ondansetron Hcl* (Ondansetron Hcl* Liq) 4 Mg/5 Ml Solution, 4 MG IVP Q6H PRN for NAUSEA AND/OR VOMITING, ML 11/6/18 Ipratropium-Albuterol (Ipratropium-Albuterol) 0.5-3 Mg/3 Ml Ampul.neb, 3 ML INHALATION Q4 PRN for SHORTNESS OF BREATH, #30 VIAL 05/19/18 Pantoprazole* (Protonix*) 40 Mg Tablet.dr, 40 MG PO DAILY, TAB 05/19/18 Magnesium Oxide* (Mag-Oxide*) 400 Mg Tablet, 400 MG PO DAILY, TAB 05/19/18 Prednisone* (Prednisone*) 5 Mg Tab, 10 MG PO DAILY, TAB 05/19/18 Hydromorphone Hcl* (Dilaudid* Inj) 4 Mg/Ml Soln, 3 MG IV Q3H PRN for PAIN LEVEL 6-10, EA 05/19/18 Lubiprostone* (Amitiza*) 24 Mcg Capsule, 24 MCG PO BID, #60 CAP 05/19/18 Acetaminophen* (Acetaminophen*) 650 Mg Tablet, 650 MG PO Q4 PRN for PAIN LEVEL 1-5, #30 TAB 05/19/18 Oxycodone Hcl* (Oxycontin*) 40 Mg Tab.er.12h, 40 MG PO TID, TAB 05/19/18 Aspirin (Low Dose Aspirin) 81 Mg Tablet.dr, 81 MG PO DAILY, #30 TAB 05/19/18 Clopidogrel Bisulfate (Clopidogrel) 75 Mg Tablet, 75 MG PO DAILY, #30 TAB 05/19/18 Clonidine Hcl* (Clonidine Hcl*) 0.1 Mg Tab, 0.1 MG PO Q6 PRN for ELEVATED BLOOD PRESSURE, TAB HOLD FOR SBP>160 05/19/18 Carvedilol* (Coreg*) 12.5 Mg Tablet, 12.5 MG PO BID, #60 TAB 05/19/18 Bethanechol Chloride* (Bethanechol Chloride*) 25 Mg Tablet, 25 MG PO DAILY, TAB 05/19/18 Atorvastatin Calcium* (Atorvastatin Calcium*) 20 Mg Tablet, 20 MG PO QHS, #30 TAB 05/19/18 Medications Current Medications Ondansetron HCl (Zofran Inj) 4 mg BRIDGE ORDER PRN IV NAUSEA/VOMITING; Start 12/16/18 at 14:00; Stop 12/17/18 at 13:59 Acetaminophen (Tylenol Tab) 650 mg ER BRIDGE PRN PO .MILD PAIN 1-3 OR TEMP; Start 12/16/18 at 14:00; Stop 12/17/18 at 13:59 Acetaminophen (Tylenol Tab) 650 mg Q4H PRN PO PAIN LEVEL 1-5; Start 12/16/18 at 14:30 Amlodipine Besylate (Norvasc) 5 mg DAILY PO ; Start 12/17/18 at 09:00 Aspirin (Halfprin) 81 mg DAILY PO ; Start 12/17/18 at 09:00 Atorvastatin Calcium (Lipitor) 20 mg QHS PO Last administered on 12/16/18at 22:1 8; Admin Dose 20 MG; Start 12/16/18 at 21:00 Bisacodyl (Dulcolax Supp) 10 mg DAILY PRN ME CONSTIPATION; Start 12/16/18 at 14:30 Carvedilol (Coreg) 12.5 mg BID PO Last administered on 12/16/18at 22:18; Admin Dose 12.5 MG; Start 12/16/18 at 21:00 Fenofibrate (Tricor) 48 mg DAILY PO ; Start 12/17/18 at 09:00 Insulin Glargine (Lantus) 33 units QHS SC Last administered on 12/16/18at 22:21; Admin Dose 33 UNITS; Start 12/16/18 at 21:00 Albuterol/ Ipratropium (Duoneb) 3 ml Q4H RESP THERAPY PRN NEB SHORTNESS OF BREATH; Start 12/16/18 at 17:00 Linagliptin (Tradjenta) 5 mg DAILY PO ; Start 12/17/18 at 09:00 Lubiprostone (Amitiza) 24 mcg BID PO ; Start 12/16/18 at 21:00 Magnesium Hydroxide (Milk Of Mag) 30 ml DAILY PO ; Start 12/17/18 at 09:00 Magnesium Oxide (Mag-Ox 400) 400 mg DAILY PO ; Start 12/17/18 at 09:00 Ondansetron HCl (Zofran Tab) 4 mg Q6H PRN PO NAUSEA AND/OR VOMITING; Start 12/16/18 at 15:00 Oxycodone HCl (Oxycontin) 40 mg TID PO Last administered on 12/16/18at 22:19; Admin Dose 40 MG; Start 12/16/18 at 21:00 Pantoprazole (Protonix Tab) 40 mg DAILY@0600 PO ; Start 12/17/18 at 06:00 Prednisone (Prednisone) 4 mg DAILY PO ; Start 12/17/18 at 09:00 Diagnostic Test (Pha) (Accu-Chek) 1 ea AC MEALS AND BEDTIME XX Last administered on 12/16/18at 16:15; Admin Dose 1 EA; Start 12/16/18 at 17:30 Miscellaneous Information 1 ea NOTE XX ; Start 12/16/18 at 15:00 Glucose (Glutose) 15 gm Q15M PRN PO DECREASED GLUCOSE; Start 12/16/18 at 15:00 Glucose (Glutose) 22.5 gm Q15M PRN PO DECREASED GLUCOSE; Start 12/16/18 at 15:00 Dextrose (D50w Syringe) 25 ml Q15M PRN IV DECREASED GLUCOSE; Start 12/16/18 at 15:00 Dextrose (D50w Syringe) 50 ml Q15M PRN IV DECREASED GLUCOSE; Start 12/16/18 at 15:00 Glucagon (Glucagen) 1 mg Q15M PRN IM DECREASED GLUCOSE; Start 12/16/18 at 15:00 Glucose (Glutose) 15 gm Q15M PRN BUCCAL DECREASED GLUCOSE; Start 12/16/18 at 15:00 Hydromorphone HCl (Dilaudid) 1.5 mg Q6H PRN IV SEVERE PAIN LEVEL 7-10 Last administered on 12/16/18at 17:07; Admin Dose 1.5 MG; Start 12/16/18 at 17:00 Hydralazine HCl (Apresoline) 25 mg Q6H PRN PO give for sbp >170 Last administered on 12/16/18at 17:07; Admin Dose 25 MG; Start 12/16/18 at 17:00 Vancomycin HCl (Vanco Iv Per Pharmacy) VANCOMYCIN PER PHARMACY PER PROTOCOL XX ; Start 12/17/18 at 00:00 Piperacillin Sod/ Tazobactam Sod 50 ml @ 100 mls/hr Q6 IVPB Last administered on 12/16/18at 19:58; Admin Dose 100 MLS/HR; Start 12/16/18 at 19:00 Vancomycin HCl 100 ml @ 100 mls/hr Q12H IVPB ; Start 12/17/18 at 01:00 Allergies: Coded Allergies: Sulfa (Sulfonamide Antibiotics) (Unverified Adverse Reaction, Unknown, PO: NAUSEA, 12/16/18) SULFA PO: NAUSEA/ ANESTHESIOLOGIST LAKSHMI shellfish derived (Unverified Adverse Reaction, Unknown, 12/16/18) Past Surgical History Per HPI Family History Significant Family History: no pertinent family hx Social History Alcohol Use: none Smoking Status: Never smoker Drug Use: none Exam/Review of Systems Exam Vitals Vital Signs Date Temp Pulse Resp B/P (MAP) Pulse Ox O2 O2 Flow FiO2 Time Delivery Rate 12/16/18 98.1 72 18 137/64 96 20:00 (88) 12/16/18 Room Air 15:16 Exam General: Awake, alert, in no acute distress, pleasant and cooperative. Cachectic appearing Heart: regular rhythm Lungs: breathing comfortably, no tachypnea or dyspnea MUSCULOSKELETAL: Left lower extremity: Very atrophied extremity with extremely thin skin. There is a healed longitudinal as shaped incision starting over the distal third anterolateral thigh extending past the tibial tubercle. There is erythema around the knee. There is a large effusion. There is tenderness palpation throughout the knee. The prosthesis can be felt almost immediately underneath the skin the skin over the anterior medial tibia is currently intact but appears previously compromised. There is excessive rotation at the knee joint that is exacerbated by rotation of the hip. Range of motion of the knee is about 5-80 degrees. Sensation decreased to light touch in a sural, saphenous, deep peroneal, superficial peroneal, medial and lateral plantar nerve distribution. Motor is intact, patient able to dorsiflex and plantarflex ankle and extend and flex great toe. Brisk capillary refill. Compartments are soft. Calves non-tender to palpation bilaterally. Results Result Diagram: 12/15/18215612/15/182156 Results 24hrs Laboratory Tests Test 12/16/18 15:04 12/16/18 16:12 12/16/18 20:35 12/16/18 22:16 C-Reactive Protein 7.6 H Bedside Glucose 94 202 176 Imaging Imaging 2 views of the left femur, 3 views of the left knee, 2 views of the left tib-fib were obtained and personally reviewed. There is a cemented left total hip arthroplasty with the distal end of the stem less than 2 diaphyseal diameters away from the proximal tip of the femoral knee stem. There appears to be stress reaction with some increased bone growth around this stress riser. There is a distal femoral replacement it is not loose. The tibia is well fixed as well. No signs of loosening. Medications Medication Current Medications Ondansetron HCl (Zofran Inj) 4 mg BRIDGE ORDER PRN IV NAUSEA/VOMITING; Start 12/16/18 at 14:00; Stop 12/17/18 at 13:59 Acetaminophen (Tylenol Tab) 650 mg ER BRIDGE PRN PO .MILD PAIN 1-3 OR TEMP; S tart 12/16/18 at 14:00; Stop 12/17/18 at 13:59 Acetaminophen (Tylenol Tab) 650 mg Q4H PRN PO PAIN LEVEL 1-5; Start 12/16/18 at 14:30 Amlodipine Besylate (Norvasc) 5 mg DAILY PO ; Start 12/17/18 at 09:00 Aspirin (Halfprin) 81 mg DAILY PO ; Start 12/17/18 at 09:00 Atorvastatin Calcium (Lipitor) 20 mg QHS PO Last administered on 12/16/18at 22:18; Admin Dose 20 MG; Start 12/16/18 at 21:00 Bisacodyl (Dulcolax Supp) 10 mg DAILY PRN ME CONSTIPATION; Start 12/16/18 at 14:30 Carvedilol (Coreg) 12.5 mg BID PO Last administered on 12/16/18at 22:18; Admin Dose 12.5 MG; Start 12/16/18 at 21:00 Fenofibrate (Tricor) 48 mg DAILY PO ; Start 12/17/18 at 09:00 Insulin Glargine (Lantus) 33 units QHS SC Last administered on 12/16/18at 22:21; Admin Dose 33 UNITS; Start 12/16/18 at 21:00 Albuterol/ Ipratropium (Duoneb) 3 ml Q4H RESP THERAPY PRN NEB SHORTNESS OF BREATH; Start 12/16/18 at 17:00 Linagliptin (Tradjenta) 5 mg DAILY PO ; Start 12/17/18 at 09:00 Lubiprostone (Amitiza) 24 mcg BID PO ; Start 12/16/18 at 21:00 Magnesium Hydroxide (Milk Of Mag) 30 ml DAILY PO ; Start 12/17/18 at 09:00 Magnesium Oxide (Mag-Ox 400) 400 mg DAILY PO ; Start 12/17/18 at 09:00 Ondansetron HCl (Zofran Tab) 4 mg Q6H PRN PO NAUSEA AND/OR VOMITING; Start 12/16/18 at 15:00 Oxycodone HCl (Oxycontin) 40 mg TID PO Last administered on 12/16/18at 22:19; Admin Dose 40 MG; Start 12/16/18 at 21:00 Pantoprazole (Protonix Tab) 40 mg DAILY@0600 PO ; Start 12/17/18 at 06:00 Prednisone (Prednisone) 4 mg DAILY PO ; Start 12/17/18 at 09:00 Diagnostic Test (Pha) (Accu-Chek) 1 ea AC MEALS AND BEDTIME XX Last administered on 12/16/18at 16:15; Admin Dose 1 EA; Start 12/16/18 at 17:30 Miscellaneous Information 1 ea NOTE XX ; Start 12/16/18 at 15:00 Glucose (Glutose) 15 gm Q15M PRN PO DECREASED GLUCOSE; Start 12/16/18 at 15:00 Glucose (Glutose) 22.5 gm Q15M PRN PO DECREASED GLUCOSE; Start 12/16/18 at 15:00 Dextrose (D50w Syringe) 25 ml Q15M PRN IV DECREASED GLUCOSE; Start 12/16/18 at 15:00 Dextrose (D50w Syringe) 50 ml Q15M PRN IV DECREASED GLUCOSE; Start 12/16/18 at 15:00 Glucagon (Glucagen) 1 mg Q15M PRN IM DECREASED GLUCOSE; Start 12/16/18 at 15:00 Glucose (Glutose) 15 gm Q15M PRN BUCCAL DECREASED GLUCOSE; Start 12/16/18 at 15:00 Hydromorphone HCl (Dilaudid) 1.5 mg Q6H PRN IV SEVERE PAIN LEVEL 7-10 Last administered on 12/16/18at 17:07; Admin Dose 1.5 MG; Start 12/16/18 at 17:00 Hydralazine HCl (Apresoline) 25 mg Q6H PRN PO give for sbp >170 Last administered on 12/16/18at 17:07; Admin Dose 25 MG; Start 12/16/18 at 17:00 Vancomycin HCl (Vanco Iv Per Pharmacy) VANCOMYCIN PER PHARMACY PER PROTOCOL XX ; Start 12/17/18 at 00:00 Piperacillin Sod/ Tazobactam Sod 50 ml @ 100 mls/hr Q6 IVPB Last administered on 12/16/18at 19:58; Admin Dose 100 MLS/HR; Start 12/16/18 at 19:00 Vancomycin HCl 100 ml @ 100 mls/hr Q12H IVPB ; Start 12/17/18 at 01:00 JOSIANE COLLADO MD Dec 16, 2018 23:08
[2018-12-16] MEDS ORDERED: ALTEPLASE (CATHFLO) 2 MG INJ CATHETER PRN (23:30)
[2018-12-17] MEDS ORDERED: VANCOMYCIN IV PER PHARMACY XX SCH
[2018-12-17] MEDS: VANCOMYCIN 500 MG (PMX) 100 ML IVPB SCH ×2 (01:31→12:19)
[2018-12-17 02:47] VITALS: BP 113/59; PULSE 67; RESP 20
[2018-12-17] MEDS: PIPER-TAZO 2.25 GM (PMX) 50 ML IVPB SCH ×4 (05:47→23:50)
[2018-12-17] MEDS: PANTOPRAZOLE (EC) 40 MG TAB PO SCH (05:47)
[2018-12-17] MEDS: HYDROmorphONE 2 MG/ML SYG IV PRN ×4 (05:53→23:49)
[2018-12-17 08:00] VITALS: BP 169/79; PULSE 61; RESP 19
[2018-12-17] MEDS: ACCU-CHEK XX SCH ×4 (08:58→21:00)
[2018-12-17] MEDS: predniSONE 1 MG TAB PO SCH (08:59)
[2018-12-17] MEDS: MAGNESIUM HYDROXIDE 30ML CUP PO SCH ×2 (09:00→09:01)
[2018-12-17] MEDS: MAGNESIUM OXIDE 400 MG TAB PO SCH (09:00)
[2018-12-17] MEDS: AMLODIPINE 5 MG TAB PO SCH (09:00)
[2018-12-17] MEDS: oxyCODONE (CR) 40 MG TAB [oxyCONTIN] PO SCH ×3 (09:00→21:06)
[2018-12-17] MEDS: FENOFIBRATE 48 MG TAB PO SCH (09:00)
[2018-12-17] MEDS: LUBIPROSTONE 24 MCG CAP PO SCH ×3 (09:00→21:06)
[2018-12-17] MEDS: ASPIRIN (EC) 81 MG TAB PO SCH (09:01)
--- NOTE | 2018-12-17 09:27 | PN ---
DATE: 12/17/2018 SUBJECTIVE: The patient is stable. Yesterday, the patient had aspiration of her left knee. No othe r acute events noted. OBJECTIVE: VITAL SIGNS: Blood pressure is 169/79, respiration 19, pulse 61, temperature 97.9. HEENT: Head is normocephalic. NECK: Supple. HEART: Regular rate. LUNGS: Show diminished breath sounds at the base. ABDOMEN: Soft, nontender to palpation without rebound or guarding. EXTREMITIES: Negative for clubbing, cyanosis. Positive joint deformities. The patient's left knee noted to have less swelling. Mild erythema. NEUROLOGIC: No focal deficits. DERMATOLOGIC: No rashes. MEDICATIONS: Has been reviewed. LABORATORY DATA: Has been reviewed. IMAGING STUDIES: Have been reviewed. ASSESSMENT AND PLAN: 1. Left knee septic joint. The patient is status post aspiration. Appreciate evaluation by orthope dist, Dr. Espinoza. The patient is currently on antibiotic therapy, will continue. Follow up cultures. Follow up with orthopedist for any further recommendations. 2. Rheumatoid arthritis with multiple joint deformities. Continue prednisone. The patient is on ou tpatient Enbrel. 3. History of DVT, history of IVC filter. Continue aspirin. Will resume Plavix. 4. Diabetes. Continue current insulin regimen. 5. Chronic pain syndrome. Continue OxyContin. Continue Dilaudid for breakthrough pain. 6. Hypertension. Continue current blood pressure regimen. 7. Dyslipidemia. Continue statin therapy. 8. Anemia. Monitor hemoglobin and hematocrit levels. 9. Constipation. Continue current bowel regimen. 10. Gastrointestinal and deep venous thrombosis prophylaxis. Dictated By: ROMARIO AMBRIZ/JOLLY Conf#: [id number] DID#: [id number]
[2018-12-17 10:08] VITALS: BP 112/62; PULSE 60
[2018-12-17] MEDS ORDERED: MAGNESIUM SULFATE 2 GM/50 ML 50 ML IVPB ONE (11:00)
[2018-12-17] MEDS: CLOPIDOGREL 75 MG TAB PO SCH (11:15)
[2018-12-17] MEDS: ENOXAPARIN 40 MG/0.4 ML SYG SC SCH (11:18)
[2018-12-17] MEDS: LINAGLIPTIN 5 MG TABLET PO SCH (11:27)
[2018-12-17 14:00] VITALS: BP 136/65; PULSE 70; RESP 17
--- NOTE | 2018-12-17 15:03 | CONS ---
Assessment/Plan Assessment/Plan Hospital Course (Demo Recall) Patient is alert looks comfortable no fevers overnight WBC 10.9 no shift no bands BUN 18 creatinine 0.67 Blood cultures remain negative synovial fluid cultures pending Antimicrobials: Vancomycin, Zosyn Physical examination: This is a very pleasant wasted and ill-appearing fragile elderly woman who is alert in no distress. Head atraumatic normocephalic neck is supple chest rise symmetrical breath sounds clear diminished bases heart S1- S2 abdomen soft bowel sounds present extremities contractured deformed, left knee erythema and pain on palpation Assessment: 1. Chronically MRSA infected left knee arthroplasty, status post fluid aspiration 2. Rheumatoid arthritis 3. Diabetes 4. Degenerative joint disease Plan: Patient remains stable, cultures are pending, order recommendations noted, patient is high risk for surgical intervention, may require lifelong suppression with antibiotics Consultation Date/Type/Reason Admit Date/Time Dec 16, 2018 at 13:59 Initial Consult Date 12/16/18 Type of Consult id Date/Time of Note DATE: 12/17/18 TIME: 15:02 Exam/Review of Systems Exam Vitals Vital Signs Date Temp Pulse Resp B/P (MAP) Pulse Ox O2 O2 Flow FiO2 Time Delivery Rate 12/17/18 60 112/62 10:08 (79) 12/17/18 97.9 19 95 08:00 12/16/18 Room Air 15:16 Intake and Output 12/16/18 12/16/18 12/17/18 1515:00 23:00 07:00 IntakeIntake Total 450 ml 200 ml BalanceBalance 450 ml 200 ml Results Result Diagram: 12/17/18 0642 12/17/18 0642 Results 24hrs Laboratory Tests Test 12/16/18 15:04 12/16/18 16:12 12/16/18 20:35 12/16/18 22:10 C-Reactive Protein 7.6 H Bedside Glucose 94 202 Pathologist NO Review (Hematology) Synovial Fluid LEFT KNEE Source Synovial Fluid Color YELLOW Synovial Fluid Turbid Appearance Synovial Fluid 20.0 H Volume Synovial Fluid WBC 92467 H Synovial Fluid 89.8 H Polynuclear WBCs % Synovial Fluid 10.2 Mononuclear WBCs % Synovial Fluid NO CRYSTALS SEEN Crystals Test 12/16/18 22:16 12/17/18 06:42 12/17/18 08:24 12/17/18 08:45 Bedside Glucose 176 68 L 67 L White Blood Count 10.9 H Red Blood Count 3.62 L Hemoglobin 10.0 L Hematocrit 33.1 L Mean Corpuscular 91.4 Volume Mean Corpuscular 27.6 L Hemoglobin Mean Corpuscular 30.2 L Hemoglobin Concent Red Cell 14.2 Distribution Width Platelet Count 408 Mean Platelet Volume 8.9 Immature 0.400 Granulocytes % Neutrophils % 70.3 Lymphocytes % 12.9 L Monocytes % 9.1 Eosinophils % 6.5 Basophils % 0.8 Nucleated Red Blood 0.0 Cells % Immature 0.040 H Granulocytes # Neutrophils # 7.7 H Lymphocytes # 1.4 Monocytes # 1.0 H Eosinophils # 0.7 H Basophils # 0.1 Nucleated Red Blood 0.0 Cells # Sodium Level 141 Potassium Level 3.8 Chloride Level 107 Carbon Dioxide Level 27 Anion Gap 7 Blood Urea Nitrogen 18 Creatinine 0.67 Est Glomerular > 60 Filtrat Rate mL/min Glucose Level 51 #L Calcium Level 8.9 Phosphorus Level 4.5 Magnesium Level 1.6 L Test 12/17/18 09:07 12/17/18 09:25 12/17/18 09:43 12/17/18 11:27 Bedside Glucose 71 83 95 120 Medications Medication Current Medications Acetaminophen (Tylenol Tab) 650 mg Q4H PRN PO PAIN LEVEL 1-5; Start 12/16/18 at 14:30 Amlodipine Besylate (Norvasc) 5 mg DAILY PO Last administered on 12/17/18at 09:00; Admin Dose 5 MG; Start 12/17/18 at 09:00 Aspirin (Halfprin) 81 mg DAILY PO Last administered on 12/17/18at 09:01; Admin Dose 81 MG; Start 12/17/18 at 09:00 Atorvastatin Calcium (Lipitor) 20 mg QHS PO Last administered on 12/16/18at 22:18; Admin Dose 20 MG; Start 12/16/18 at 21:00 Bisacodyl (Dulcolax Supp) 10 mg DAILY PRN [place] CONSTIPATION; Start 12/16/18 at 14:30 Carvedilol (Coreg) 12.5 mg BID PO Last administered on 12/17/18at 09:00; Admin Dose 12.5 MG; Start 12/16/18 at 21:00 Fenofibrate (Tricor) 48 mg DAILY PO Last administered on 12/17/18at 09:00; Admin Dose 48 MG; Start 12/17/18 at 09:00 Insulin Glargine (Lantus) 33 units QHS SC Last administered on 12/16/18at 22:21; Admin Dose 33 UNITS; Start 12/16/18 at 21:00 Albuterol/ Ipratropium (Duoneb) 3 ml Q4H RESP THERAPY PRN NEB SHORTNESS OF BREATH; Start 12/16/18 at 17:00 Linagliptin (Tradjenta) 5 mg DAILY PO Last administered on 12/17/18at 11:27; Admin Dose 5 MG; Start 12/17/18 at 09:00 Lubiprostone (Amitiza) 24 mcg BID PO ; Start 12/16/18 at 21:00 Magnesium Hydroxide (Milk Of Mag) 30 ml DAILY PO ; Start 12/17/18 at 09:00 Magnesium Oxide (Mag-Ox 400) 400 mg DAILY PO ; Start 12/17/18 at 09:00 Ondansetron HCl (Zofran Tab) 4 mg Q6H PRN PO NAUSEA AND/OR VOMITING; Start 12/16/18 at 15:00 Oxycodone HCl (Oxycontin) 40 mg TID PO Last administered on 12/17/18at 12:24; A dmin Dose 40 MG; Start 12/16/18 at 21:00 Pantoprazole (Protonix Tab) 40 mg DAILY@0600 PO Last administered on 12/17/18at 05:47; Admin Dose 40 MG; Start 12/17/18 at 06:00 Prednisone (Prednisone) 4 mg DAILY PO Last administered on 12/17/18at 08:59; Admin Dose 4 MG; Start 12/17/18 at 09:00 Diagnostic Test (Pha) (Accu-Chek) 1 ea AC MEALS AND BEDTIME XX Last administered on 12/16/18at 16:15; Admin Dose 1 EA; Start 12/16/18 at 17:30 Miscellaneous Information 1 ea NOTE XX ; Start 12/16/18 at 15:00 Glucose (Glutose) 15 gm Q15M PRN PO DECREASED GLUCOSE; Start 12/16/18 at 15:00 Glucose (Glutose) 22.5 gm Q15M PRN PO DECREASED GLUCOSE; Start 12/16/18 at 15:00 Dextrose (D50w Syringe) 25 ml Q15M PRN IV DECREASED GLUCOSE; Start 12/16/18 at 15:00 Dextrose (D50w Syringe) 50 ml Q15M PRN IV DECREASED GLUCOSE; Start 12/16/18 at 15:00 Glucagon (Glucagen) 1 mg Q15M PRN IM DECREASED GLUCOSE; Start 12/16/18 at 15:00 Glucose (Glutose) 15 gm Q15M PRN BUCCAL DECREASED GLUCOSE; Start 12/16/18 at 15:00 Hydralazine HCl (Apresoline) 25 mg Q6H PRN PO give for sbp >170 Last administered on 12/16/18at 17:07; Admin Dose 25 MG; Start 12/16/18 at 17:00 Vancomycin HCl (Vanco Iv Per Pharmacy) VANCOMYCIN PER PHARMACY PER PROTOCOL XX ; Start 12/17/18 at 00:00 Piperacillin Sod/ Tazobactam Sod 50 ml @ 100 mls/hr Q6 IVPB Last administered on 12/17/18at 11:15; Admin Dose 100 MLS/HR; Start 12/16/18 at 19:00 Vancomycin HCl 100 ml @ 100 mls/hr Q12H IVPB Last administered on 12/17/18at 12:19; Admin Dose 100 MLS/HR; Start 12/17/18 at 01:00 Alteplase, Recombinant (Cathflo (Activase)) 2 mg MAY REPEAT X1 PRN CATHETER IF CATHETER REMAINS OCCULUDED; Start 12/16/18 at 23:30 Hydromorphone HCl (Dilaudid) 2 mg Q6H PRN IV SEVERE PAIN LEVEL 7-10 Last administered on 12/17/18 11:15; Admin Dose 2 MG; Start 12/17/18 at 11:00 Clopidogrel Bisulfate (plaVIX) 75 mg DAILY PO Last administered on 12/17/18at 11:15; Admin Dose 75 MG; Start 12/17/18 at 11:00 Enoxaparin Sodium (Lovenox) 40 mg DAILY SC Last administered on 12/17/18 11:18; Admin Dose 40 MG; Start 12/17/18 at 11:00 Miscellaneous Information (*Rx Drug Level Order Reminder*) 1 1200 ONCE XX ; Start 12/18/18 at 12:00; Stop 12/18/18 at 12:01 CHRIS WHIPPLE NP Dec 17, 2018 15:03
[2018-12-17 20:52] VITALS: BP 174/74; PULSE 66; RESP 20
[2018-12-17] MEDS: INSULIN GLARGINE [LANTus] (100 UNITS/ML) SYG SC SCH (21:00)
[2018-12-17] MEDS: ATORVASTATIN 20 MG TAB PO SCH (21:06)
[2018-12-18] MEDS: VANCOMYCIN 500 MG (PMX) 100 ML IVPB SCH ×2 (01:23→13:26)
[2018-12-18 02:10] VITALS: BP 116/58; PULSE 75; RESP 16
[2018-12-18] MEDS: PIPER-TAZO 2.25 GM (PMX) 50 ML IVPB SCH ×3 (05:50→18:10)
[2018-12-18] MEDS: HYDROmorphONE 2 MG/ML SYG IV PRN ×3 (05:50→18:12)
[2018-12-18] MEDS: PANTOPRAZOLE (EC) 40 MG TAB PO SCH (05:50)
[2018-12-18 07:20] VITALS: BP 134/65; PULSE 67; RESP 18
[2018-12-18] MEDS: ACCU-CHEK XX SCH ×4 (07:30→21:00)
[2018-12-18] MEDS: LUBIPROSTONE 24 MCG CAP PO SCH ×3 (09:00→21:00)
[2018-12-18] MEDS: MAGNESIUM OXIDE 400 MG TAB PO SCH (09:00)
[2018-12-18] MEDS: predniSONE 1 MG TAB PO SCH (09:44)
[2018-12-18] MEDS: ASPIRIN (EC) 81 MG TAB PO SCH (09:45)
[2018-12-18] MEDS: CLOPIDOGREL 75 MG TAB PO SCH (09:46)
[2018-12-18] MEDS: LINAGLIPTIN 5 MG TABLET PO SCH (09:46)
[2018-12-18] MEDS: FENOFIBRATE 48 MG TAB PO SCH (09:47)
[2018-12-18] MEDS: oxyCODONE (CR) 40 MG TAB [oxyCONTIN] PO SCH ×3 (09:47→20:58)
[2018-12-18] MEDS: AMLODIPINE 5 MG TAB PO SCH (09:48)
[2018-12-18] MEDS: ENOXAPARIN 40 MG/0.4 ML SYG SC SCH (09:53)
[2018-12-18] MEDS: MAGNESIUM HYDROXIDE 30ML CUP PO SCH (09:54)
--- NOTE | 2018-12-18 13:17 | PN ---
DATE: 12/18/2018 SUBJECTIVE: The patient is stable. The patient is complaining about continued drainage from her lef t knee from arthrocentesis site. No other events noted. The patient is complaining about pain and i s requesting increase in her Dilaudid. OBJECTIVE: VITAL SIGNS: Blood pressure is 116/58, respiration 16, pulse 75, temperature 97.7. HEENT: Head is normocephalic. NECK: Supple. HEART: Regular rate. LUNGS: Show diminished breath sounds at base. ABDOMEN: Soft, nontender to palpation without rebound or guarding. EXTREMITIES: Negative for clubbing, cyanosis. No edema. DERMATOLOGIC: No rashes. MUSCULOSKELETAL: The patient's left knee is in dressing. It is clean, dry and intact. NEUROLOGIC: No change in exam. MEDICATIONS: Have been reviewed. LABORATORY DATA: Have been reviewed. ASSESSMENT AND PLAN: 1. Left knee septic joint. The patient is status post aspiration. Cultures are currently pending. Gram stains are pending. Continue current antibiotic regimen. Follow up with infectious disease. The patient is continuing to have drainage from her left knee site. We will also attempt to follow u p with orthopedist for any further recommendations. 2. Rheumatoid arthritis with multiple joint deformities. Continue prednisone. The patient is on ou tpatient Enbrel. 3. History of deep venous thrombosis, IVC filter. Continue aspirin and Plavix. 4. Diabetes. Continue current insulin regimen. 5. Chronic pain syndrome. Continue OxyContin. We will increase Dilaudid for breakthrough pain. 6. Hypertension. Continue current blood pressure regimen. 7. Dyslipidemia. Continue statin therapy. 8. Anemia. Monitor hemoglobin and hematocrit levels. 9. Constipation. Continue current bowel regimen. 10. Gastrointestinal and deep vein thrombosis prophylaxis. Dictated By: ROMARIO GUTIERREZ DO NR/NTS Conf#: [id number] DID#: [id number] CC: JOSIANE COLLADO MD;*EndCC*
[2018-12-18 14:26] VITALS: BP 121/66; PULSE 73; RESP 16
--- NOTE | 2018-12-18 18:47 | CONS ---
Assessment/Plan Assessment/Plan Hospital Course (Demo Recall) 1200 patient is alert looks comfortable no fevers overnight Blood cultures remain negative synovial fluid cultures growing staph aureus preliminary Antimicrobials: Vancomycin, Zosyn Physical examination: This is a very pleasant wasted and ill-appearing fragile elderly woman who is alert in no distress. Head atraumatic normocephalic neck is supple chest rise symmetrical breath sounds clear diminished bases heart S1- S2 abdomen soft bowel sounds present extremities contractured deformed, left knee erythema and pain on palpation Assessment: 1. Chronically MRSA infected left knee arthroplasty, status post fluid aspiration 2. Rheumatoid arthritis 3. Diabetes 4. Degenerative joint disease Plan: Patient remains stable, cultures are pending, patient is high risk for surgical intervention,will require lifelong suppression with antibiotics, DC Zosyn Consultation Date/Type/Reason Admit Date/Time Dec 16, 2018 at 13:59 Initial Consult Date 12/16/18 Type of Consult id Date/Time of Note DATE: 12/18/18 TIME: 18:47 Exam/Review of Systems Exam Vitals Vital Signs Date Temp Pulse Resp B/P (MAP) Pulse Ox O2 O2 Flow FiO2 Time Delivery Rate 12/18/18 98.4 73 16 121/66 94 Room Air 14:26 (84) Intake and Output 12/17/18 12/17/18 12/18/18 1515:00 23:00 07:00 IntakeIntake Total 150 ml 700 ml 150 ml BalanceBalance 150 ml 700 ml 150 ml Results Result Diagram: 12/18/18 0532 12/17/18 0642 Results 24hrs Laboratory Tests Test 12/17/18 21:03 12/18/18 05:32 12/18/18 07:54 12/18/18 12:07 Bedside Glucose 201 133 White Blood Count 7.7 # Red Blood Count 3.21 L Hemoglobin 9.1 L Hematocrit 29.6 L Mean Corpuscular Volume 92.2 Mean Corpuscular 28.3 L Hemoglobin Mean Corpuscular 30.7 L Hemoglobin Concent Red Cell Distribution 14.1 Width Platelet Count 303 # Mean Platelet Volume 9.0 Immature Granulocytes % 0.300 Neutrophils % 65.5 Lymphocytes % 17.1 Monocytes % 8.9 Eosinophils % 7.6 H Basophils % 0.6 Nucleated Red Blood 0.0 Cells % Immature Granulocytes # 0.020 Neutrophils # 5.1 Lymphocytes # 1.3 Monocytes # 0.7 Eosinophils # 0.6 H Basophils # 0.1 Nucleated Red Blood 0.0 Cells # Vancomycin Level Trough 12.1 Test 12/18/18 12:08 12/18/18 17:45 Bedside Glucose 140 176 Medications Medication Current Medications Acetaminophen (Tylenol Tab) 650 mg Q4H PRN PO PAIN LEVEL 1-5; Start 12/16/18 at 14:30 Amlodipine Besylate (Norvasc) 5 mg DAILY PO Last administered on 12/18/18 09:48; Admin Dose 5 MG; Start 12/17/18 at 09:00 Aspirin (Halfprin) 81 mg DAILY PO Last administered on 12/18/18 09:45; Admin Dose 81 MG; Start 12/17/18 at 09:00 Atorvastatin Calcium (Lipitor) 20 mg QHS PO Last administered on 12/17/18 21:06; Admin Dose 20 MG; Start 12/16/18 at 21:00 Bisacodyl (Dulcolax Supp) 10 mg DAILY PRN [place] CONSTIPATION; Start 12/16/18 at 14:30 Carvedilol (Coreg) 12.5 mg BID PO Last administered on 12/18/18 09:48; Admin Dose 12.5 MG; Start 12/16/18 at 21:00 Fenofibrate (Tricor) 48 mg DAILY PO Last administered on 12/18/18 09:47; Admin Dose 48 MG; Start 12/17/18 at 09:00 Insulin Glargine (Lantus) 33 units QHS SC Last administered on 12/16/18at 22:21; Admin Dose 33 UNITS; Start 12/16/18 at 21:00 Albuterol/ Ipratropium (Duoneb) 3 ml Q4H RESP THERAPY PRN NEB SHORTNESS OF BREATH; Start 12/16/18 at 17:00 Linagliptin (Tradjenta) 5 mg DAILY PO Last administered on 12/18/18 09:46; Admin Dose 5 MG; Start 12/17/18 at 09:00 Lubiprostone (Amitiza) 24 mcg BID PO ; Start 12/16/18 at 21:00 Magnesium Hydroxide (Milk Of Mag) 30 ml DAILY PO Last administered on 12/18/18 09:54; Admin Dose 30 ML; Start 12/17/18 at 09:00 Magnesium Oxide (Mag-Ox 400) 400 mg DAILY PO ; Start 12/17/18 at 09:00 Ondansetron HCl (Zofran Tab) 4 mg Q6H PRN PO NAUSEA AND/OR VOMITING; Start 12/16/18 at 15:00 Oxycodone HCl (Oxycontin) 40 mg TID PO Last administered on 12/18/18at 13:27; Admin Dose 40 MG; Start 12/16/18 at 21:00 Pantoprazole (Protonix Tab) 40 mg DAILY@0600 PO Last administered on 12/18/18at 05:50; Admin Dose 40 MG; Start 12/17/18 at 06:00 Prednisone (Prednisone) 4 mg DAILY PO Last administered on 12/18/18at 09:44; Admin Dose 4 MG; Start 12/17/18 at 09:00 Diagnostic Test (Pha) (Accu-Chek) 1 ea AC MEALS AND BEDTIME XX Last admi nistered on 12/16/18at 16:15; Admin Dose 1 EA; Start 12/16/18 at 17:30 Miscellaneous Information 1 ea NOTE XX ; Start 12/16/18 at 15:00 Glucose (Glutose) 15 gm Q15M PRN PO DECREASED GLUCOSE; Start 12/16/18 at 15:00 Glucose (Glutose) 22.5 gm Q15M PRN PO DECREASED GLUCOSE; Start 12/16/18 at 15:00 Dextrose (D50w Syringe) 25 ml Q15M PRN IV DECREASED GLUCOSE; Start 12/16/18 at 15:00 Dextrose (D50w Syringe) 50 ml Q15M PRN IV DECREASED GLUCOSE; Start 12/16/18 at 15:00 Glucagon (Glucagen) 1 mg Q15M PRN IM DECREASED GLUCOSE; Start 12/16/18 at 15:00 Glucose (Glutose) 15 gm Q15M PRN BUCCAL DECREASED GLUCOSE; Start 12/16/18 at 15:00 Hydralazine HCl (Apresoline) 25 mg Q6H PRN PO give for sbp >170 Last admin istered on 12/16/18at 17:07; Admin Dose 25 MG; Start 12/16/18 at 17:00 Vancomycin HCl (Vanco Iv Per Pharmacy) VANCOMYCIN PER PHARMACY PER PROTOCOL XX ; Start 12/17/18 at 00:00 Piperacillin Sod/ Tazobactam Sod 50 ml @ 100 mls/hr Q6 IVPB Last administered on 12/18/18 18:10; Admin Dose 100 MLS/HR; Start 12/16/18 at 19:00 Vancomycin HCl 100 ml @ 100 mls/hr Q12H IVPB Last administered on 12/18/18 13:26; Admin Dose 100 MLS/HR; Start 12/17/18 at 01:00 Alteplase, Recombinant (Cathflo (Activase)) 2 mg MAY REPEAT X1 PRN CATHETER IF CATHETER REMAINS OCCULUDED Last administered on 12/17/18 16:09; Admin Dose 2 MG; Start 12/16/18 at 23:30 Clopidogrel Bisulfate (plaVIX) 75 mg DAILY PO Last administered on 12/18/18 09:46; Admin Dose 75 MG; Start 12/17/18 at 11:00 Enoxaparin Sodium (Lovenox) 40 mg DAILY SC Last administered on 12/18/18 09:53; Admin Dose 40 MG; Start 12/17/18 at 11:00 Hydromorphone HCl (Dilaudid) 2.5 mg Q6H PRN IV SEVERE PAIN LEVEL 7-10 Last administered on 12/18/18 18:12; Admin Dose 2.5 MG; Start 12/18/18 at 11:00 CHRIS WHIPPLE NP Dec 18, 2018 18:47
[2018-12-18 20:13] VITALS: BP 115/66; PULSE 67; RESP 16
[2018-12-18] MEDS: ATORVASTATIN 20 MG TAB PO SCH (20:59)
[2018-12-18] MEDS: INSULIN GLARGINE [LANTus] (100 UNITS/ML) SYG SC SCH (22:04)
[2018-12-18] MEDS: INSULIN ASPART [NOVOLOG] 3 ML PEN SC SCH (22:06)
[2018-12-19] MEDS: HYDROmorphONE 2 MG/ML SYG IV PRN ×4 (00:48→19:04)
[2018-12-19] MEDS: VANCOMYCIN 500 MG (PMX) 100 ML IVPB SCH ×2 (01:32→13:09)
[2018-12-19] MEDS: ACCU-CHEK XX SCH ×5 (02:00→21:02)
[2018-12-19 02:08] VITALS: BP 189/86; PULSE 68; RESP 18
[2018-12-19] MEDS: PANTOPRAZOLE (EC) 40 MG TAB PO SCH (06:18)
[2018-12-19] MEDS: INSULIN ASPART [NOVOLOG] 3 ML PEN SC SCH ×4 (08:00→21:00)
[2018-12-19 08:30] VITALS: BP 199/91; PULSE 65; RESP 18
[2018-12-19] MEDS: LUBIPROSTONE 24 MCG CAP PO SCH ×2 (08:39→21:01)
[2018-12-19] MEDS: oxyCODONE (CR) 40 MG TAB [oxyCONTIN] PO SCH ×3 (08:39→21:02)
[2018-12-19] MEDS: FENOFIBRATE 48 MG TAB PO SCH (08:39)
[2018-12-19] MEDS: CLOPIDOGREL 75 MG TAB PO SCH (08:39)
[2018-12-19] MEDS: LINAGLIPTIN 5 MG TABLET PO SCH (08:39)
[2018-12-19] MEDS: predniSONE 1 MG TAB PO SCH (08:39)
[2018-12-19] MEDS: AMLODIPINE 5 MG TAB PO SCH (08:40)
[2018-12-19] MEDS: ASPIRIN (EC) 81 MG TAB PO SCH (08:40)
[2018-12-19] MEDS: ENOXAPARIN 40 MG/0.4 ML SYG SC SCH (08:46)
[2018-12-19] MEDS: MAGNESIUM HYDROXIDE 30ML CUP PO SCH (09:00)
[2018-12-19] MEDS: MAGNESIUM OXIDE 400 MG TAB PO SCH (09:00)
--- NOTE | 2018-12-19 09:34 | PN ---
DATE: 12/19/2018 SUBJECTIVE: The patient is stable. Pain is adequately controlled. Patient continues to have ongoin g drainage from her left knee. No fevers, no chills, no nausea, vomiting. OBJECTIVE: VITAL SIGNS: Blood pressure is 115/66, respirations 16, pulse 67, temperature 98.6. HEENT: Head is normocephalic. NECK: Supple. HEART: Regular rate. LUNGS: Show diminished breath sounds at the base. ABDOMEN: Soft, nontender to palpation without rebound or guarding. EXTREMITIES: Negative for clubbing, cyanosis, no edema. DERMATOLOGIC: No rashes. MUSCULOSKELETAL: No joint effusions. NEUROLOGIC: No change in exam. MEDICATIONS: The patient's medications have been reviewed. LABORATORY DATA: Laboratory data has been reviewed. ASSESSMENT AND PLAN: 1. Left knee septic joint. The patient is status post aspiration. The patient's aspirate culture h as grown out Staph aureus. Would continue current antibiotic regimen. Follow up with orthopedist fo r any further recommendations. Monitor closely. 2. Rheumatoid arthritis with multiple joint deformities. Continue prednisone. The patient receives outpatient Enbrel. 3. History of deep venous thrombosis, IVC filter. Continue aspirin, Plavix and Lovenox. 4. Diabetes. The patient's insulin regimen was adjusted. Continue to monitor. 5. Chronic pain syndrome. Continue current pain regimen, OxyContin and Dilaudid. 6. Hypertension. Continue current blood pressure regimen. 7. Dyslipidemia. Continue statin therapy. 8. Anemia. Monitor hemoglobin and hematocrit levels. 9. Constipation. Continue current bowel regimen. 10. Gastrointestinal and deep vein thrombosis prophylaxis. Dictated By: ROMARIO AMBRIZ/NTS Conf#: [id number] DID#: [id number] CC: Enrique Espinoza;*EndCC*
[2018-12-19 09:40] VITALS: BP 154/69; PULSE 58
[2018-12-19] MEDS: ONDANSETRON 4 MG TAB PO PRN (12:58)
[2018-12-19 14:46] VITALS: BP 133/64; PULSE 67; RESP 18
--- NOTE | 2018-12-19 14:57 | CONS ---
Assessment/Plan Assessment/Plan Hospital Course (Demo Recall) ID PROGRESS NOTE CURRENT ABX: DAY # =>Vanco IV s/p Zosyn 12/19/1843112/19/18 0432 24H INTERVAL SUMMARY * A/A/O -- VSS, no fevers, NAD, appears to be coping well with recurrent septic knee -- she is aware of need for IV Vanco followed by lifelong Doxy MICRO/OTHER * 12/15/18 BCX (-) * 12/16/18 BCX (-) * 12/16/18 Synovial Joint Fluid (+) MRSA BODY FLUID CULTURE Preliminary ANAEROBES (-) Organism 1 METHICILLIN RESISTANT S.AUREUS QUANTITY 1+ . MULTI DRUG RESISTANT ORGANISM MRSA M.I.C. RX --------- --- CEFAZOLIN R CIPROFLOXACIN >=8 R CLINDAMYCIN >=8 R DOXYCYCLINE S ERYTHROMYCIN >=8 R LEVOFLOXACIN >=8 R OXACILLIN >=4 R PENICILLIN-G >=0.5 R RIFAMPIN <=0.5 S VANCOMYCIN 1 S TRIMETHOPRIM/SULFAMETHOXAZOLE <=10 S ------- PHYSICAL EXAMINATION: GENERAL: VSS, NAD HEENT: AT, NC, anicteric, NECK: Supple, CHEST: Equal chest rise bilaterally, without dyspnea on observation HEART: Pulse RRR ABDOMEN: Soft : deferred EXTREMITIES: Warm, dry SKIN: No rash, no diaphoresis ID ASSESSMENT 68 yo F admit with: 1. Chronically MRSA infected left knee arthroplasty, status post fluid aspiration 2. Rheumatoid arthritis 3. Diabetes 4. Degenerative joint disease (-)MRSA Nares ABX ALLERGIES: Sulfa INVASIVES: PIV CURRENT ABX: DAY # => Vanco IV s/p Zosyn ID RECOMMENDATIONS/PLAN: 1. Continue MRSA == will need 6 weeks Vanco IV followed by lifelong suppressive ABX * Per notes: patient is high risk for surgical intervention,will require lifelong suppression with antibiotics (Doxycycline) . Consultation Date/Type/Reason Admit Date/Time Dec 16, 2018 at 13:59 Initial Consult Date 12/16/18 Date/Time of Note DATE: 12/19/18 TIME: 14:57 Exam/Review of Systems Exam Vitals Vital Signs Date Temp Pulse Resp B/P (MAP) Pulse Ox O2 O2 Flow FiO2 Time Delivery Rate 12/19/18 98.2 67 18 133/64 100 Room Air 14:46 (87) Intake and Output 12/18/18 12/18/18 12/19/18 1515:00 23:00 07:00 IntakeIntake Total 690 ml 410 ml 500 ml BalanceBalance 690 ml 410 ml 500 ml Results Result Diagram: 12/19/18 0432 12/19/18 0432 Results 24hrs Laboratory Tests Test 12/18/18 17:45 12/18/18 20:57 12/18/18 22:03 12/19/18 02:26 Bedside Glucose 176 167 182 128 Test 12/19/18 04:32 12/19/18 08:13 12/19/18 12:18 White Blood Count 8.2 Red Blood Count 3.12 L Hemoglobin 8.9 L Hematocrit 29.3 L Mean Corpuscular Volume 93.9 Mean Corpuscular 28.5 L Hemoglobin Mean Corpuscular 30.4 L Hemoglobin Concent Red Cell Distribution 14.2 Width Platelet Count 297 Mean Platelet Volume 9.2 Immature Granulocytes % 0.200 Neutrophils % 67.4 Lymphocytes % 15.6 Monocytes % 7.6 Eosinophils % 8.6 H Basophils % 0.6 Nucleated Red Blood 0.0 Cells % Immature Granulocytes # 0.020 Neutrophils # 5.5 Lymphocytes # 1.3 Monocytes # 0.6 Eosinophils # 0.7 H Basophils # 0.1 Nucleated Red Blood 0.0 Cells # Sodium Level 142 Potassium Level 4.4 Chloride Level 112 H Carbon Dioxide Level 27 Anion Gap 3 L Blood Urea Nitrogen 19 Creatinine 0.73 Est Glomerular Filtrat > 60 Rate mL/min Glucose Level 123 # Calcium Level 8.5 Phosphorus Level 3.3 Magnesium Level 1.8 Bedside Glucose 102 113 Medications Medication Current Medications Acetaminophen (Tylenol Tab) 650 mg Q4H PRN PO PAIN LEVEL 1-5; Start 12/16/18 at 14:30 Amlodipine Besylate (Norvasc) 5 mg DAILY PO Last administered on 12/19/18at 08:40; Admin Dose 5 MG; Start 12/17/18 at 09:00 Aspirin (Halfprin) 81 mg DAILY PO Last administered on 12/19/18 08:40; Admin Dose 81 MG; Start 12/17/18 at 09:00 Atorvastatin Calcium (Lipitor) 20 mg QHS PO Last administered on 12/18/18 20:59; Admin Dose 20 MG; Start 12/16/18 at 21:00 Bisacodyl (Dulcolax Supp) 10 mg DAILY PRN [place] CONSTIPATION; Start 12/16/18 at 14:30 Carvedilol (Coreg) 12.5 mg BID PO Last administered on 12/19/18 08:40; Admin Dose 12.5 MG; Start 12/16/18 at 21:00 Fenofibrate (Tricor) 48 mg DAILY PO Last administered on 12/19/18 08:39; Admin Dose 48 MG; Start 12/17/18 at 09:00 Albuterol/ Ipratropium (Duoneb) 3 ml Q4H RESP THERAPY PRN NEB SHORTNESS OF BREATH; Start 12/16/18 at 17:00 Linagliptin (Tradjenta) 5 mg DAILY PO Last administered on 12/19/18 08:39; Admin Dose 5 MG; Start 12/17/18 at 09:00 Lubiprostone (Amitiza) 24 mcg BID PO Last administered on 12/19/18 08:39; Admin Dose 24 MCG; Start 12/16/18 at 21:00 Magnesium Hydroxide (Milk Of Mag) 30 ml DAILY PO Last administered on 12/18/18 09:54; Admin Dose 30 ML; Start 12/17/18 at 09:00 Magnesium Oxide (Mag-Ox 400) 400 mg DAILY PO ; Start 12/17/18 at 09:00 Ondansetron HCl (Zofran Tab) 4 mg Q6H PRN PO NAUSEA AND/OR VOMITING Last administered on 12/19/18 12:58; Admin Dose 4 MG; Start 12/16/18 at 15:00 Oxycodone HCl (Oxycontin) 40 mg TID PO Last administered on 12/19/18 12:58; Admin Dose 40 MG; Start 12/16/18 at 21:00 Pantoprazole (Protonix Tab) 40 mg DAILY@0600 PO Last administered on 6/8/19at 06:18; Admin Dose 40 MG; Start 12/17/18 at 06:00 Prednisone (Prednisone) 4 mg DAILY PO Last administered on 12/19/18at 08:39; Admin Dose 4 MG; Start 12/17/18 at 09:00 Diagnostic Test (Pha) (Accu-Chek) 1 ea AC MEALS AND BEDTIME XX Last administered on 12/16/18at 16:15; Admin Dose 1 EA; Start 12/16/18 at 17:30 Miscellaneous Information 1 ea NOTE XX ; Start 12/16/18 at 15:00 Glucose (Glutose) 15 gm Q15M PRN PO DECREASED GLUCOSE; Start 12/16/18 at 15:00 Glucose (Glutose) 22.5 gm Q15M PRN PO DECREASED GLUCOSE; Start 12/16/18 at 15:00 Dextrose (D50w Syringe) 25 ml Q15M PRN IV DECREASED GLUCOSE; Start 12/16/18 at 15:00 Dextrose (D50w Syringe) 50 ml Q15M PRN IV DECREASED GLUCOSE; Start 12/16/18 at 15:00 Glucagon (Glucagen) 1 mg Q15M PRN IM DECREASED GLUCOSE; Start 12/16/18 at 15:00 Glucose (Glutose) 15 gm Q15M PRN BUCCAL DECREASED GLUCOSE; Start 12/16/18 at 15:00 Hydralazine HCl (Apresoline) 25 mg Q6H PRN PO give for sbp >170 Last administered on 12/19/18at 02:34; Admin Dose 25 MG; Start 12/16/18 at 17:00 Vancomycin HCl (Vanco Iv Per Pharmacy) VANCOMYCIN PER PHARMACY PER PROTOCOL XX ; Start 12/17/18 at 00:00 Vancomycin HCl 100 ml @ 100 mls/hr Q12H IVPB Last administered on 12/19/18at 13:09; Admin Dose 100 MLS/HR; Start 12/17/18 at 01:00 Alteplase, Recombinant (Cathflo (Activase)) 2 mg MAY REPEAT X1 PRN CATHETER IF CATHETER REMAINS OCCULUDED Last administered on 12/17/18at 16:09; Admin Dose 2 MG; Start 12/16/18 at 23:30 Clopidogrel Bisulfate (plaVIX) 75 mg DAILY PO Last administered on 12/19/18at 08:39; Admin Dose 75 MG; Start 12/17/18 at 11:00 Enoxaparin Sodium (Lovenox) 40 mg DAILY SC Last administered on 12/19/18 08:46; Admin Dose 40 MG; Start 12/17/18 at 11:00 Hydromorphone HCl (Dilaudid) 2.5 mg Q6H PRN IV SEVERE PAIN LEVEL 7-10 Last administered on 12/19/18 12:58; Admin Dose 2.5 MG; Start 12/18/18 at 11:00 Insulin Glargine (Lantus) 15 units QHS SC Last administered on 12/18/18 22:04; Admin Dose 15 UNITS; Start 12/18/18 at 22:30 Diagnostic Test (Pha) (Accu-Chek) 1 02 XX ; Start 12/19/18 at 02:00 Insulin Aspart (Novolog Insulin Pen) NOVOLOG *MILD* ALGORITHM WITH MEALS BEDTIME SC Last administered on 12/18/18 22:06; Admin Dose 1 UNIT; Start 12/18/18 at 22:30 RAMEZ CR NP Dec 19, 2018 14:57
[2018-12-19 19:52] VITALS: BP 146/67; PULSE 66; RESP 17
[2018-12-19] MEDS: INSULIN GLARGINE [LANTus] (100 UNITS/ML) SYG SC SCH (21:01)
[2018-12-19] MEDS: ATORVASTATIN 20 MG TAB PO SCH (21:01)
[2018-12-20] MEDS: HYDROmorphONE 2 MG/ML SYG IV PRN ×4 (00:53→19:51)
[2018-12-20] MEDS: VANCOMYCIN 500 MG (PMX) 100 ML IVPB SCH ×2 (00:54→13:38)
[2018-12-20] MEDS: ACCU-CHEK XX SCH ×5 (02:00→21:00)
[2018-12-20 02:13] VITALS: BP 169/81; PULSE 62; RESP 17
[2018-12-20 02:15] VITALS: BP 171/78; PULSE 62
[2018-12-20 03:15] VITALS: BP 153/73; PULSE 68
[2018-12-20] MEDS: PANTOPRAZOLE (EC) 40 MG TAB PO SCH (06:48)
[2018-12-20] MEDS: INSULIN ASPART [NOVOLOG] 3 ML PEN SC SCH ×4 (08:00→21:00)
[2018-12-20] MEDS: ENOXAPARIN 40 MG/0.4 ML SYG SC SCH (08:23)
[2018-12-20] MEDS: predniSONE 1 MG TAB PO SCH (08:25)
[2018-12-20] MEDS: oxyCODONE (CR) 40 MG TAB [oxyCONTIN] PO SCH ×4 (08:26→21:08)
[2018-12-20] MEDS: MAGNESIUM OXIDE 400 MG TAB PO SCH (08:26)
[2018-12-20] MEDS: LINAGLIPTIN 5 MG TABLET PO SCH (08:26)
[2018-12-20] MEDS: ASPIRIN (EC) 81 MG TAB PO SCH (08:26)
[2018-12-20] MEDS: CLOPIDOGREL 75 MG TAB PO SCH (08:26)
[2018-12-20] MEDS: FENOFIBRATE 48 MG TAB PO SCH (08:29)
[2018-12-20] MEDS: AMLODIPINE 5 MG TAB PO SCH (08:29)
[2018-12-20] MEDS: MAGNESIUM HYDROXIDE 30ML CUP PO SCH (08:31)
[2018-12-20] MEDS: LUBIPROSTONE 24 MCG CAP PO SCH ×2 (08:31→21:07)
[2018-12-20 08:50] VITALS: BP 132/95; PULSE 70; RESP 17
--- NOTE | 2018-12-20 09:13 | PN ---
DATE: 12/20/2018 SUBJECTIVE: The patient is stable, no events overnight. No fevers, chills, nausea, vomiting. OBJECTIVE: VITAL SIGNS: Blood pressure is 153/73, respirations 17, pulse 62, temperature 98.2. HEENT: Head is normocephalic. NECK: Supple. HEART: Regular rate. LUNGS: Show diminished breath sounds at the base. ABDOMEN: Soft, nontender to palpation without rebound or guarding. EXTREMITIES: Negative for clubbing, cyanosis, no edema. DERMATOLOGIC: No rashes. MUSCULOSKELETAL: No joint effusions. NEUROLOGIC: No change in exam. MEDICATIONS: The patient's medications have been reviewed. LABORATORY DATA: Has been reviewed. IMAGING STUDIES: Have been reviewed. ASSESSMENT AND PLAN: 1. Left knee septic joint. The patient's left knee aspiration joint fluid grew out MRSA. Continue current medical management, continue antibiotic therapy. Follow up with ID and orthopedics for [facility] recommendations. 2. Rheumatoid arthritis with multiple joint deformities. Continue prednisone. 3. History of deep venous thrombosis, status post inferior vena cava filter. Continue aspirin, Plav ix and Lovenox. 4. Diabetes. Continue current insulin regimen. 5. Chronic pain syndrome. Continue current pain regimen. 6. Hypertension. Blood pressure remains elevated, will increase dose of Norvasc 10 mg daily. 7. Dyslipidemia. Continue statin therapy. 8. Anemia. 9. Constipation. 10. History of left knee arthroplasty complicated with a septic joint. The patient is status post j oint replacement with antibiotic spacer. The patient now has recurrence of subacute septic joint. A s stated above, patient had an aspiration of the knee and is currently on IV antibiotics. No immedia te need for further intervention. The patient is likely to seek further outpatient opinion, possibly a tertiary care center. Dictated By: ROMARIO GUTIERREZ DO NR/NTS Conf#: [id number] DID#: [id number] CC: Enrique Espinoza;*EndCC*
--- NOTE | 2018-12-20 10:40 | CONS ---
Assessment/Plan Assessment/Plan Hospital Course (Demo Recall) ID PROGRESS NOTE CURRENT ABX: DAY # =>Vanco IV s/p Zosyn 24H INTERVAL SUMMARY * Awake, coping well -- no new issues, no complaints, no new labs, no fevers * DC PLANNING = work up completed MICRO/OTHER * 12/15/18 BCX (-) * 12/16/18 BCX (-) * 12/16/18 Synovial Joint Fluid (+) MRSA BODY FLUID CULTURE Preliminary ANAEROBES (-) Organism 1 METHICILLIN RESISTANT S.AUREUS QUANTITY 1+ . MULTI DRUG RESISTANT ORGANISM MRSA M.I.C. RX --------- --- CEFAZOLIN R CIPROFLOXACIN >=8 R CLINDAMYCIN >=8 R DOXYCYCLINE S ERYTHROMYCIN >=8 R LEVOFLOXACIN >=8 R OXACILLIN >=4 R PENICILLIN-G >=0.5 R RIFAMPIN <=0.5 S VANCOMYCIN 1 S TRIMETHOPRIM/SULFAMETHOXAZOLE <=10 S PHYSICAL EXAMINATION: GENERAL: VSS, NAD HEENT: AT, NC, anicteric, NECK: Supple, CHEST: Equal chest rise bilaterally, without dyspnea on observation HEART: Pulse RRR ABDOMEN: Soft : deferred EXTREMITIES: Warm, dry SKIN: No rash, no diaphoresis ID ASSESSMENT 68 yo F admit with: 1. Chronically MRSA infected left knee arthroplasty, status post fluid aspiration 2. Rheumatoid arthritis 3. Diabetes 4. Degenerative joint disease (-)MRSA Nares ABX ALLERGIES: Sulfa INVASIVES: PIV CURRENT ABX: DAY # => Vanco IV s/p Zosyn ID RECOMMENDATIONS/PLAN: 1. Continue MRSA == will need 6 weeks Vanco IV followed by lifelong suppressive ABX * Per notes: patient is high risk for surgical intervention,will require lifelong suppression with antibiotics (Doxycycline) . Consultation Date/Type/Reason Admit Date/Time Dec 16, 2018 at 13:59 Initial Consult Date 12/16/18 Date/Time of Note DATE: 12/20/18 TIME: 10:38 Exam/Review of Systems Exam Vitals Vital Signs Date Temp Pulse Resp B/P (MAP) Pulse Ox O2 O2 Flow FiO2 Time Delivery Rate 12/20/18 98.2 70 17 132/95 96 Room Air 08:50 (107) Intake and Output 12/19/18 12/19/18 12/20/18 1515:00 23:00 07:00 IntakeIntake Total 460 ml 320 ml 100 ml OutputOutput Total 200 ml BalanceBalance 260 ml 320 ml 100 ml Results Result Diagram: 12/19/18 0432 12/19/18 0432 Results 24hrs Laboratory Tests Test 12/19/18 12:18 12/19/18 17:37 12/19/18 20:59 12/20/18 08:09 Bedside Glucose 113 133 162 99 Medications Medication Current Medications Acetaminophen (Tylenol Tab) 650 mg Q4H PRN PO PAIN LEVEL 1-5; Start 12/16/18 at 14:30 Aspirin (Halfprin) 81 mg DAILY PO Last administered on 12/20/18at 08:26; Admin Dose 81 MG; Start 12/17/18 at 09:00 Atorvastatin Calcium (Lipitor) 20 mg QHS PO Last administered on 12/19/18at 21:01; Admin Dose 20 MG; Start 12/16/18 at 21:00 Bisacodyl (Dulcolax Supp) 10 mg DAILY PRN MD CONSTIPATION; Start 12/16/18 at 14:30 Carvedilol (Coreg) 12.5 mg BID PO Last administered on 12/20/18at 08:25; Admin Dose 12.5 MG; Start 12/16/18 at 21:00 Fenofibrate (Tricor) 48 mg DAILY PO Last administered on 12/20/18at 08:29; Admin Dose 48 MG; Start 12/17/18 at 09:00 Albuterol/ Ipratropium (Duoneb) 3 ml Q4H RESP THERAPY PRN NEB SHORTNESS OF BREATH; Start 12/16/18 at 17:00 Linagliptin (Tradjenta) 5 mg DAILY PO Last administered on 12/20/18at 08:26; Admin Dose 5 MG; Start 12/17/18 at 09:00 Lubiprostone (Amitiza) 24 mcg BID PO Last administered on 12/19/18 21:01; Admin Dose 24 MCG; Start 12/16/18 at 21:00 Magnesium Hydroxide (Milk Of Mag) 30 ml DAILY PO Last administered on 12/18/18 09:54; Admin Dose 30 ML; Start 12/17/18 at 09:00 Magnesium Oxide (Mag-Ox 400) 400 mg DAILY PO Last administered on 12/20/18 08:26; Admin Dose 400 MG; Start 12/17/18 at 09:00 Ondansetron HCl (Zofran Tab) 4 mg Q6H PRN PO NAUSEA AND/OR VOMITING Last administered on 12/19/18 12:58; Admin Dose 4 MG; Start 12/16/18 at 15:00 Oxycodone HCl (Oxycontin) 40 mg TID PO Last administered on 12/20/18 08:26; Admin Dose 40 MG; Start 12/16/18 at 21:00 Pantoprazole (Protonix Tab) 40 mg DAILY@0600 PO Last administered on 12/20/18 06:48; Admin Dose 40 MG; Start 12/17/18 at 06:00 Prednisone (Prednisone) 4 mg DAILY PO Last administered on 12/20/18 08:25; Admin Dose 4 MG; Start 12/17/18 at 09:00 Diagnostic Test (Pha) (Accu-Chek) 1 ea AC MEALS AND BEDTIME XX Last administered on 12/20/18 08:20; Admin Dose 1 EA; Start 12/16/18 at 17:30 Miscellaneous Information 1 ea NOTE XX ; Start 12/16/18 at 15:00 Glucose (Glutose) 15 gm Q15M PRN PO DECREASED GLUCOSE; Start 12/16/18 at 15:00 Glucose (Glutose) 22.5 gm Q15M PRN PO DECREASED GLUCOSE; Start 12/16/18 at 15:00 Dextrose (D50w Syringe) 25 ml Q15M PRN IV DECREASED GLUCOSE; Start 12/16/18 at 15:00 Dextrose (D50w Syringe) 50 ml Q15M PRN IV DECREASED GLUCOSE; Start 12/16/18 at 15:00 Glucagon (Glucagen) 1 mg Q15M PRN IM DECREASED GLUCOSE; Start 12/16/18 at 15:00 Glucose (Glutose) 15 gm Q15M PRN BUCCAL DECREASED GLUCOSE; Start 12/16/18 at 15:00 Hydralazine HCl (Apresoline) 25 mg Q6H PRN PO give for sbp >170 Last administered on 12/20/18at 02:13; Admin Dose 25 MG; Start 12/16/18 at 17:00 Vancomycin HCl (Vanco Iv Per Pharmacy) VANCOMYCIN PER PHARMACY PER PROTOCOL XX ; Start 12/17/18 at 00:00 Vancomycin HCl 100 ml @ 100 mls/hr Q12H IVPB Last administered on 12/20/18at 00:54; Admin Dose 100 MLS/HR; Start 12/17/18 at 01:00 Alteplase, Recombinant (Cathflo (Activase)) 2 mg MAY REPEAT X1 PRN CATHETER IF CATHETER REMAINS OCCULUDED Last administered on 12/17/18at 16:09; Admin Dose 2 MG; Start 12/16/18 at 23:30 Clopidogrel Bisulfate (plaVIX) 75 mg DAILY PO Last administered on 12/20/18at 08:26; Admin Dose 75 MG; Start 12/17/18 at 11:00 Enoxaparin Sodium (Lovenox) 40 mg DAILY SC Last administered on 12/20/18at 08:23; Admin Dose 40 MG; Start 12/17/18 at 11:00 Hydromorphone HCl (Dilaudid) 2.5 mg Q6H PRN IV SEVERE PAIN LEVEL 7-10 Last administered on 12/20/18at 06:52; Admin Dose 2.5 MG; Start 12/18/18 at 11:00 Insulin Glargine (Lantus) 15 units QHS SC Last administered on 12/19/18at 21:01; Admin Dose 15 UNITS; Start 12/18/18 at 22:30 Diagnostic Test (Pha) (Accu-Chek) 1 ea 02 XX ; Start 12/19/18 at 02:00 Insulin Aspart (Novolog Insulin Pen) NOVOLOG *MILD* ALGORITHM WITH MEALS BED TIME SC Last administered on 12/18/18at 22:06; Admin Dose 1 UNIT; Start 12/18/18 at 22:30 Amlodipine Besylate (Norvasc) 10 mg DAILY PO Last administered on 12/20/18at 08:29; Admin Dose 10 MG; Start 12/20/18 at 09:00 Miscellaneous Information (*Rx Drug Level Order Reminder*) VANCO TROUGH @ 1,200 ON... 1200 ONCE XX ; Start 12/21/18 at 12:00; Stop 12/21/18 at 12:01 RAMEZ CR NP Dec 20, 2018 10:40
[2018-12-20 14:41] VITALS: BP 156/72; PULSE 72; RESP 18
[2018-12-20 20:00] VITALS: BP 139/65; PULSE 69; RESP 18
[2018-12-20] MEDS: ATORVASTATIN 20 MG TAB PO SCH (21:08)
[2018-12-20] MEDS: INSULIN GLARGINE [LANTus] (100 UNITS/ML) SYG SC SCH (21:12)
[2018-12-21] MEDS: VANCOMYCIN 500 MG (PMX) 100 ML IVPB SCH ×2 (01:30→14:19)
[2018-12-21] MEDS: HYDROmorphONE 2 MG/ML SYG IV PRN ×4 (01:33→20:38)
[2018-12-21] MEDS: ONDANSETRON 4 MG TAB PO PRN ×2 (01:41→05:40)
[2018-12-21 02:00] VITALS: BP 142/68; PULSE 79; RESP 18
[2018-12-21] MEDS: ACCU-CHEK XX SCH ×5 (02:00→20:46)
[2018-12-21] MEDS: PANTOPRAZOLE (EC) 40 MG TAB PO SCH (05:38)
[2018-12-21 08:00] VITALS: BP 130/60; PULSE 64; RESP 17
[2018-12-21] MEDS: INSULIN ASPART [NOVOLOG] 3 ML PEN SC SCH ×4 (08:00→20:45)
[2018-12-21] MEDS: predniSONE 1 MG TAB PO SCH (08:12)
[2018-12-21] MEDS: CLOPIDOGREL 75 MG TAB PO SCH (08:14)
[2018-12-21] MEDS: LUBIPROSTONE 24 MCG CAP PO SCH ×2 (08:14→20:37)
[2018-12-21] MEDS: LINAGLIPTIN 5 MG TABLET PO SCH (08:14)
[2018-12-21] MEDS: ASPIRIN (EC) 81 MG TAB PO SCH (08:14)
[2018-12-21] MEDS: MAGNESIUM OXIDE 400 MG TAB PO SCH (08:14)
[2018-12-21] MEDS: FENOFIBRATE 48 MG TAB PO SCH (08:14)
[2018-12-21] MEDS: AMLODIPINE 5 MG TAB PO SCH (08:15)
[2018-12-21] MEDS: MAGNESIUM HYDROXIDE 30ML CUP PO SCH (08:15)
[2018-12-21] MEDS: ENOXAPARIN 40 MG/0.4 ML SYG SC SCH (08:16)
--- NOTE | 2018-12-21 09:19 | PN ---
DATE: 12/21/2018 SUBJECTIVE: The patient is stable. No events overnight. OBJECTIVE: VITAL SIGNS: Blood pressure is 142/68, respirations 18, pulse 79, temperature 98.4. HEENT: Head is normocephalic. NECK: Supple. HEART: Regular rate. LUNGS: Show diminished breath sounds at the base. ABDOMEN: Soft, nontender to palpation. No rebound or guarding. EXTREMITIES: Negative for clubbing, cyanosis, no edema. DERMATOLOGIC: No rashes. MUSCULOSKELETAL: No joint effusion. The patient has a dressing over left knee. Erythema is improve d. Swelling is improved. NEUROLOGIC: No change in exam. MEDICATIONS: Reviewed. LABORATORY DATA: Reviewed. IMAGING STUDIES: Reviewed, ASSESSMENT AND PLAN: 1. History of left knee arthroplasty complicated with septic joint. The patient is status post join t replacement. The patient now has continued low grade subacute septic joint. The patient was seen by orthopedist, status post drain of abscess, which showed MRSA. Given the patient's complicated ort hopedic history recommendation was made for possible evaluation at tertiary center. At this point, w e will continue IV antibiotic therapy. There is no immediate need for repeat surgery per orthopedist . We will therefore continue to monitor closely. Follow up with infectious disease. 2. Rheumatoid arthritis with multiple joint deformities. Continue prednisone. 3. History of deep venous thrombosis, status post inferior vena cava filter placement. Continue asp irin, Plavix, and Lovenox. 4. Chronic pain syndrome. Continue current pain regimen. 5. Hypertension. Continue current blood pressure regimen. Medications were adjusted. 6. Dyslipidemia. Continue statin therapy. 7. Anemia. 8. Constipation. Continue current bowel regimen. DISPOSITION: Discharge planning back to home with IV antibiotics. Dictated By: ROMARIO GUTIERREZ DO NR/NTS Conf#: [id number] DID#: [id number] CC: ROMARIO GUTIERREZ DO; JOSIANE COLLADO;*EndCC*
[2018-12-21] MEDS: oxyCODONE (CR) 40 MG TAB [oxyCONTIN] PO SCH ×3 (09:32→22:30)
--- NOTE | 2018-12-21 14:14 | CONS ---
Assessment/Plan Assessment/Plan Hospital Course (Demo Recall) Patient is alert looks comfortable no fevers overnight Blood cultures remain negative synovial fluid cultures growing MRSA Antimicrobials: Vancomycin Physical examination: This is a very pleasant wasted and ill-appearing fragile elderly woman who is alert in no distress. Head atraumatic normocephalic neck is supple chest rise symmetrical breath sounds clear diminished bases heart S1-S 2 abdomen soft bowel sounds present extremities contractured deformed, left knee erythema and pain on palpation Assessment: 1. Chronically MRSA infected left knee arthroplasty, status post fluid asp iration 2. Rheumatoid arthritis 3. Diabetes 4. Degenerative joint disease Plan: Patient remains stable, will continue on IV vancomycin for 6 to 8 weeks after that patient needs to be on oral doxycycline lifelong as she is a high risk for surgical intervention Consultation Date/Type/Reason Admit Date/Time Dec 16, 2018 at 13:59 Initial Consult Date 12/16/18 Type of Consult id Date/Time of Note DATE: 12/21/18 TIME: 14:13 Exam/Review of Systems Exam Vitals Vital Signs Date Temp Pulse Resp B/P (MAP) Pulse Ox O2 O2 Flow FiO2 Time Delivery Rate 12/21/18 98.4 64 17 130/60 98 Room Air 08:00 (83) Intake and Output 12/20/18 12/20/18 12/21/18 1515:00 23:00 07:00 IntakeIntake Total 1100 ml 520 ml 100 ml BalanceBalance 1100 ml 520 ml 100 ml Results Result Diagram: 12/21/18 0734 12/21/18 0734 Results 24hrs Laboratory Tests Test 12/20/18 17:12 12/20/18 21:03 12/21/18 07:34 12/21/18 07:46 Bedside Glucose 125 155 107 White Blood Count 9.5 Red Blood Count 3.24 L Hemoglobin 9.0 L Hematocrit 29.9 L Mean Corpuscular 92.3 Volume Mean Corpuscular 27.8 L Hemoglobin Mean Corpuscular 30.1 L Hemoglobin Concent Red Cell 14.2 Distribution Width Platelet Count 310 Mean Platelet Volume 8.9 Immature 0.300 Granulocytes % Neutrophils % 66.7 Lymphocytes % 14.8 L Monocytes % 9.1 Eosinophils % 8.5 H Basophils % 0.6 Nucleated Red Blood 0.0 Cells % Immature 0.030 Granulocytes # Neutrophils # 6.4 Lymphocytes # 1.4 Monocytes # 0.9 Eosinophils # 0.8 H Basophils # 0.1 Nucleated Red Blood 0.0 Cells # Sodium Level 141 Potassium Level 4.1 Chloride Level 110 Carbon Dioxide Level 25 Anion Gap 6 Blood Urea Nitrogen 17 Creatinine 0.63 Est Glomerular > 60 Filtrat Rate mL/min Glucose Level 111 Calcium Level 8.7 Phosphorus Level 3.7 Magnesium Level 1.7 Test 12/21/18 11:46 12/21/18 11:58 Vancomycin Level 15.1 Trough Bedside Glucose 142 Medications Medication Current Medications Acetaminophen (Tylenol Tab) 650 mg Q4H PRN PO PAIN LEVEL 1-5; Start 12/16/18 at 14:30 Aspirin (Halfprin) 81 mg DAILY PO Last administered on 12/21/18 08:14; Admin Dose 81 MG; Start 12/17/18 at 09:00 Atorvastatin Calcium (Lipitor) 20 mg QHS PO Last administered on 12/20/18 21:08; Admin Dose 20 MG; Start 12/16/18 at 21:00 Bisacodyl (Dulcolax Supp) 10 mg DAILY PRN ID CONSTIPATION; Start 12/16/18 at 14:30 Carvedilol (Coreg) 12.5 mg BID PO Last administered on 12/21/18 08:14; Admin Dose 12.5 MG; Start 12/16/18 at 21:00 Fenofibrate (Tricor) 48 mg DAILY PO Last administered on 12/21/18 08:14; Admin Dose 48 MG; Start 12/17/18 at 09:00 Albuterol/ Ipratropium (Duoneb) 3 ml Q4H RESP THERAPY PRN NEB SHORTNESS OF BREATH; Start 12/16/18 at 17:00 Linagliptin (Tradjenta) 5 mg DAILY PO Last administered on 12/21/18 08:14; Admin Dose 5 MG; Start 12/17/18 at 09:00 Lubiprostone (Amitiza) 24 mcg BID PO Last administered on 12/20/18 21:07; Admin Dose 24 MCG; Start 12/16/18 at 21:00 Magnesium Hydroxide (Milk Of Mag) 30 ml DAILY PO Last administered on 12/18/18 09:54; Admin Dose 30 ML; Start 12/17/18 at 09:00 Magnesium Oxide (Mag-Ox 400) 400 mg DAILY PO Last administered on 12/21/18 08:14; Admin Dose 400 MG; Start 12/17/18 at 09:00 Ondansetron HCl (Zofran Tab) 4 mg Q6H PRN PO NAUSEA AND/OR VOMITING Last administered on 12/21/18 05:40; Admin Dose 4 MG; Start 12/16/18 at 15:00 Oxycodone HCl (Oxycontin) 40 mg TID PO Last administered on 12/21/18 09:32; Admin Dose 40 MG; Start 12/16/18 at 21:00 Pantoprazole (Protonix Tab) 40 mg DAILY@0600 PO Last administered on 12/21/18 05:38; Admin Dose 40 MG; Start 12/17/18 at 06:00 Prednisone (Prednisone) 4 mg DAILY PO Last administered on 12/21/18 08:12; Admin Dose 4 MG; Start 12/17/18 at 09:00 Diagnostic Test (Pha) (Accu-Chek) 1 ea AC MEALS AND BEDTIME XX Last administered on 12/21/18at 12:13; Admin Dose 1 EA; Start 12/16/18 at 17:30 Miscellaneous Information 1 ea NOTE XX ; Start 12/16/18 at 15:00 Glucose (Glutose) 15 gm Q15M PRN PO DECREASED GLUCOSE; Start 12/16/18 at 15:00 Glucose (Glutose) 22.5 gm Q15M PRN PO DECREASED GLUCOSE; Start 12/16/18 at 15:00 Dextrose (D50w Syringe) 25 ml Q15M PRN IV DECREASED GLUCOSE; Start 12/16/18 at 15:00 Dextrose (D50w Syringe) 50 ml Q15M PRN IV DECREASED GLUCOSE; Start 12/16/18 at 15:00 Glucagon (Glucagen) 1 mg Q15M PRN IM DECREASED GLUCOSE; Start 12/16/18 at 15:00 Glucose (Glutose) 15 gm Q15M PRN BUCCAL DECREASED GLUCOSE; Start 12/16/18 at 15:00 Hydralazine HCl (Apresoline) 25 mg Q6H PRN PO give for sbp >170 Last administered on 12/20/18 02:13; Admin Dose 25 MG; Start 12/16/18 at 17:00 Vancomycin HCl (Vanco Iv Per Pharmacy) VANCOMYCIN PER PHARMACY PER PROTOCOL XX ; Start 12/17/18 at 00:00 Vancomycin HCl 100 ml @ 100 mls/hr Q12H IVPB Last administered on 12/21/18 01:30; Admin Dose 100 MLS/HR; Start 12/17/18 at 01:00 Alteplase, Recombinant (Cathflo (Activase)) 2 mg MAY REPEAT X1 PRN CATHETER IF CATHETER REMAINS OCCULUDED Last administered on 12/17/18 16:09; Admin Dose 2 MG; Start 12/16/18 at 23:30 Clopidogrel Bisulfate (plaVIX) 75 mg DAILY PO Last administered on 12/21/18 08:14; Admin Dose 75 MG; Start 12/17/18 at 11:00 Enoxaparin Sodium (Lovenox) 40 mg DAILY SC Last administered on 12/21/18 08:16; Admin Dose 40 MG; Start 12/17/18 at 11:00 Hydromorphone HCl (Dilaudid) 2.5 mg Q6H PRN IV SEVERE PAIN LEVEL 7-10 Last administered on 12/21/18 08:08; Admin Dose 2.5 MG; Start 12/18/18 at 11:00 Insulin Glargine (Lantus) 15 units QHS SC Last administered on 12/20/18 21:12; Admin Dose 15 UNITS; Start 12/18/18 at 22:30 Diagnostic Test (Pha) (Accu-Chek) 1 ea 02 XX ; Start 12/19/18 at 02:00 Insulin Aspart (Novolog Insulin Pen) NOVOLOG *MILD* ALGORITHM WITH MEALS BEDTIME SC Last administered on 12/21/18 12:14; Admin Dose 1 UNIT; Start 12/18 at 22:30 Amlodipine Besylate (Norvasc) 10 mg DAILY PO Last administered on 12/21/18 08:15; Admin Dose 10 MG; Start 12/20/18 at 09:00 CHRIS WHIPPLE NP Dec 21, 2018 14:14
[2018-12-21] MEDS: ATORVASTATIN 20 MG TAB PO SCH (20:37)
[2018-12-21] MEDS: INSULIN GLARGINE [LANTus] (100 UNITS/ML) SYG SC SCH (20:44)
[2018-12-21 20:45] VITALS: BP 172/79; PULSE 64; RESP 18
[2018-12-22] MEDS: VANCOMYCIN 500 MG (PMX) 100 ML IVPB SCH ×2 (01:58→12:26)
[2018-12-22] MEDS: ACCU-CHEK XX SCH ×5 (01:58→20:32)
[2018-12-22 02:00] VITALS: BP 155/73; PULSE 75; RESP 17
[2018-12-22] MEDS: HYDROmorphONE 2 MG/ML SYG IV PRN ×4 (02:39→22:42)
[2018-12-22] MEDS: PANTOPRAZOLE (EC) 40 MG TAB PO SCH (06:01)
[2018-12-22 07:20] VITALS: BP 132/63; PULSE 67; RESP 18
[2018-12-22] MEDS: INSULIN ASPART [NOVOLOG] 3 ML PEN SC SCH ×4 (08:00→20:32)
--- NOTE | 2018-12-22 08:48 | PN ---
DATE: 12/22/2018 SUBJECTIVE: The patient is stable, continues to have pain over her left knee site. Continues to hav e ongoing drainage. No other events noted. OBJECTIVE: VITAL SIGNS: Blood pressure is 155/73, respirations 17, pulse 75, temperature 98.3. HEENT: Head is normocephalic. NECK: Supple. HEART: Regular rate. LUNGS: Show diminished breath sounds at base. ABDOMEN: Soft, nontender to palpation without rebound or guarding. EXTREMITIES: Negative for clubbing, cyanosis, no edema. DERMATOLOGIC: No rashes. MUSCULOSKELETAL: Patient has dressing over left knee clean, dry, intact. Positive tenderness to pal pation. NEUROLOGIC: No focal deficits, no change in exam. MEDICATIONS: Reviewed. LABORATORY DATA: Reviewed. IMAGING STUDIES: Reviewed. ASSESSMENT AND PLAN: 1. History of left knee arthroplasty complicated with septic joint. The patient is status post join t replacement. The patient continues to have low grade subacute septic joint. The patient was seen by orthopedist, status post drainage of fluid collection, abscess. At this point, will continue curr ent antibiotic regimen per infectious disease. Given the patient's complicated orthopedic history, recommendation was made for patient to be evaluated at tertiary center. No immediate need for repeat surgery or orthopedist at this time. Will continue to monitor. 2. Rheumatoid arthritis with multiple joint deformities. Continue prednisone. 3. History of deep venous thrombosis, status post inferior vena cava filter placement. Continue asp irin, Plavix and Lovenox. 4. Chronic pain syndrome. Continue current pain regimen. 5. Hypertension. Continue current blood pressure regimen. Adjust medications as needed. 6. Dyslipidemia. Continue statin therapy. 7. Anemia. Continue to monitor. 8. Constipation. Continue current bowel regimen. Dictated By: ROMARIO AMBRIZ/JOLLY Conf#: [id number] DID#: [id number]
[2018-12-22] MEDS: ASPIRIN (EC) 81 MG TAB PO SCH (08:59)
[2018-12-22] MEDS: predniSONE 1 MG TAB PO SCH (08:59)
[2018-12-22] MEDS: AMLODIPINE 5 MG TAB PO SCH (09:00)
[2018-12-22] MEDS: LINAGLIPTIN 5 MG TABLET PO SCH (09:00)
[2018-12-22] MEDS: MAGNESIUM HYDROXIDE 30ML CUP PO SCH (09:00)
[2018-12-22] MEDS: FENOFIBRATE 48 MG TAB PO SCH (09:00)
[2018-12-22] MEDS: CLOPIDOGREL 75 MG TAB PO SCH (09:00)
[2018-12-22] MEDS: MAGNESIUM OXIDE 400 MG TAB PO SCH (09:00)
[2018-12-22] MEDS: LUBIPROSTONE 24 MCG CAP PO SCH ×2 (09:01→20:23)
[2018-12-22] MEDS: oxyCODONE (CR) 40 MG TAB [oxyCONTIN] PO SCH ×3 (09:01→20:24)
[2018-12-22] MEDS: ENOXAPARIN 40 MG/0.4 ML SYG SC SCH (09:02)
--- NOTE | 2018-12-22 11:34 | CONS ---
Assessment/Plan Assessment/Plan Hospital Course (Demo Recall) No events, no fevers overnight Blood cultures remain negative synovial fluid cultures growing MRSA Antimicrobials: Vancomycin Physical examination: This is a very pleasant wasted and ill-appearing fragile elderly woman who is alert in no distress. Head atraumatic normocephalic neck is supple chest rise symmetrical breath sounds clear diminished bases heart S1- S2 abdomen soft bowel sounds present extremities contractured deformed, left knee erythema and pain on palpation Assessment: 1. Chronically MRSA infected left knee arthroplasty, status post fluid aspiration 2. Rheumatoid arthritis 3. Diabetes 4. Degenerative joint disease Plan: Patient remains stable, continue on IV vancomycin for 6 to 8 weeks, after that patient needs to be on oral doxycycline lifelong Consultation Date/Type/Reason Admit Date/Time Dec 16, 2018 at 13:59 Initial Consult Date 12/16/18 Type of Consult id Date/Time of Note DATE: 12/22/18 TIME: 11:33 Exam/Review of Systems Exam Vitals Vital Signs Date Temp Pulse Resp B/P (MAP) Pulse Ox O2 O2 Flow FiO2 Time Delivery Rate 12/22/18 98.2 67 18 132/63 97 Room Air 07:20 (86) Intake and Output 12/21/18 12/21/18 12/22/18 1515:00 23:00 07:00 IntakeIntake Total 500 ml BalanceBalance 500 ml Results Result Diagram: 12/21/18 0734 12/21/18 0734 Results 24hrs Laboratory Tests Test 12/21/18 11:46 12/21/18 11:58 12/21/18 16:58 12/21/18 20:32 Vancomycin Level 15.1 Trough Bedside Glucose 142 141 135 Test 12/22/18 08:16 Bedside Glucose 97 Medications Medication Current Medications Acetaminophen (Tylenol Tab) 650 mg Q4H PRN PO PAIN LEVEL 1-5; Start 12/16/18 at 14:30 Aspirin (Halfprin) 81 mg DAILY PO Last administered on 12/22/18at 08:59; Admin Dose 81 MG; Start 12/17/18 at 09:00 Atorvastatin Calcium (Lipitor) 20 mg QHS PO Last administered on 12/21/18at 20:37; Admin Dose 20 MG; Start 12/16/18 at 21:00 Bisacodyl (Dulcolax Supp) 10 mg DAILY PRN [place] CONSTIPATION; Start 12/16/18 at 14:30 Carvedilol (Coreg) 12.5 mg BID PO Last administered on 12/22/18 09:00; Admin Dose 12.5 MG; Start 12/16/18 at 21:00 Fenofibrate (Tricor) 48 mg DAILY PO Last administered on 12/22/18 09:00; Admin Dose 48 MG; Start 12/17/18 at 09:00 Albuterol/ Ipratropium (Duoneb) 3 ml Q4H RESP THERAPY PRN NEB SHORTNESS OF BREATH; Start 12/16/18 at 17:00 Linagliptin (Tradjenta) 5 mg DAILY PO Last administered on 12/22/18 09:00; Admin Dose 5 MG; Start 12/17/18 at 09:00 Lubiprostone (Amitiza) 24 mcg BID PO Last administered on 12/22/18 09:01; Admin Dose 24 MCG; Start 12/16/18 at 21:00 Magnesium Hydroxide (Milk Of Mag) 30 ml DAILY PO Last administered on 12/18/18 09:54; Admin Dose 30 ML; Start 12/17/18 at 09:00 Magnesium Oxide (Mag-Ox 400) 400 mg DAILY PO Last administered on 12/21/18 08:14; Admin Dose 400 MG; Start 12/17/18 at 09:00 Ondansetron HCl (Zofran Tab) 4 mg Q6H PRN PO NAUSEA AND/OR VOMITING Last administered on 12/21/18 05:40; Admin Dose 4 MG; Start 12/16/18 at 15:00 Oxycodone HCl (Oxycontin) 40 mg TID PO Last administered on 12/22/18 09:01; Admin Dose 40 MG; Start 12/16/18 at 21:00 Pantoprazole (Protonix Tab) 40 mg DAILY@0600 PO Last administered on 12/22/18 06:01; Admin Dose 40 MG; Start 12/17/18 at 06:00 Prednisone (Prednisone) 4 mg DAILY PO Last administered on 12/22/18 08:59; Admin Dose 4 MG; Start 12/17/18 at 09:00 Diagnostic Test (Pha) (Accu-Chek) 1 ea AC MEALS AND BEDTIME XX Last administered on 12/21/18 20:46; Admin Dose 1 EA; Start 12/16/18 at 17:30 Miscellaneous Information 1 ea NOTE XX ; Start 12/16/18 at 15:00 Glucose (Glutose) 15 gm Q15M PRN PO DECREASED GLUCOSE; Start 12/16/18 at 15:00 Glucose (Glutose) 22.5 gm Q15M PRN PO DECREASED GLUCOSE; Start 12/16/18 at 15:00 Dextrose (D50w Syringe) 25 ml Q15M PRN IV DECREASED GLUCOSE; Start 12/16/18 at 15:00 Dextrose (D50w Syringe) 50 ml Q15M PRN IV DECREASED GLUCOSE; Start 12/16/18 at 15:00 Glucagon (Glucagen) 1 mg Q15M PRN IM DECREASED GLUCOSE; Start 12/16/18 at 15:00 Glucose (Glutose) 15 gm Q15M PRN BUCCAL DECREASED GLUCOSE; Start 12/16/18 at 15:00 Hydralazine HCl (Apresoline) 25 mg Q6H PRN PO give for sbp >170 Last administered on 12/20/18at 02:13; Admin Dose 25 MG; Start 12/16/18 at 17:00 Vancomycin HCl (Vanco Iv Per Pharmacy) VANCOMYCIN PER PHARMACY PER PROTOCOL XX ; Start 12/17/18 at 00:00 Vancomycin HCl 100 ml @ 100 mls/hr Q12H IVPB Last administered on 12/22/18at 01:58; Admin Dose 100 MLS/HR; Start 12/17/18 at 01:00 Alteplase, Recombinant (Cathflo (Activase)) 2 mg MAY REPEAT X1 PRN CATHETER IF CATHETER REMAINS OCCULUDED Last administered on 12/17/18at 16:09; Admin Dose 2 MG; Start 12/16/18 at 23:30 Clopidogrel Bisulfate (plaVIX) 75 mg DAILY PO Last administered on 12/22/18at 09:00; Admin Dose 75 MG; Start 12/17/18 at 11:00 Enoxaparin Sodium (Lovenox) 40 mg DAILY SC Last administered on 12/22/18at 09:02; Admin Dose 40 MG; Start 12/17/18 at 11:00 Hydromorphone HCl (Dilaudid) 2.5 mg Q6H PRN IV SEVERE PAIN LEVEL 7-10 Last administered on 12/22/18at 10:31; Admin Dose 2.5 MG; Start 12/18/18 at 11:00 Insulin Glargine (Lantus) 15 units QHS SC Last administered on 12/21/18at 20:44; Admin Dose 15 UNITS; Start 12/18/18 at 22:30 Diagnostic Test (Pha) (Accu-Chek) 1 ea 02 XX ; Start 12/19/18 at 02:00 Insulin Aspart (Novolog Insulin Pen) NOVOLOG *MILD* ALGORITHM WITH MEALS BEDTIME SC Last administered on 12/21/18at 17:01; Admin Dose 1 UNIT; Start 12/18/18 at 22:30 Amlodipine Besylate (Norvasc) 10 mg DAILY PO Last administered on 12/22/18at 09:00; Admin Dose 10 MG; Start 12/20/18 at 09:00 CHRIS WHIPPLE NP Dec 22, 2018 11:34
[2018-12-22 14:06] VITALS: BP 157/70; PULSE 70; RESP 18
[2018-12-22 20:03] VITALS: BP 106/53; PULSE 68; RESP 18
[2018-12-22] MEDS: ATORVASTATIN 20 MG TAB PO SCH (20:23)
[2018-12-22] MEDS: INSULIN GLARGINE [LANTus] (100 UNITS/ML) SYG SC SCH (20:25)
[2018-12-23] MEDS: VANCOMYCIN 500 MG (PMX) 100 ML IVPB SCH ×2 (00:40→12:19)
[2018-12-23] MEDS: ACCU-CHEK XX SCH ×3 (02:00→11:30)
[2018-12-23 02:09] VITALS: BP 126/61; PULSE 73; RESP 20
[2018-12-23] MEDS: HYDROmorphONE 2 MG/ML SYG IV PRN ×2 (04:45→11:11)
[2018-12-23] MEDS: PANTOPRAZOLE (EC) 40 MG TAB PO SCH (05:44)
[2018-12-23 08:00] VITALS: BP 140/81; PULSE 100; RESP 20
[2018-12-23] MEDS: INSULIN ASPART [NOVOLOG] 3 ML PEN SC SCH ×2 (08:00→12:14)
[2018-12-23] MEDS: LINAGLIPTIN 5 MG TABLET PO SCH (08:10)
[2018-12-23] MEDS: MAGNESIUM OXIDE 400 MG TAB PO SCH ×2 (08:10→08:25)
[2018-12-23] MEDS: predniSONE 1 MG TAB PO SCH (08:10)
[2018-12-23] MEDS: FENOFIBRATE 48 MG TAB PO SCH (08:10)
[2018-12-23] MEDS: CLOPIDOGREL 75 MG TAB PO SCH (08:10)
[2018-12-23] MEDS: LUBIPROSTONE 24 MCG CAP PO SCH ×2 (08:10→08:25)
[2018-12-23] MEDS: oxyCODONE (CR) 40 MG TAB [oxyCONTIN] PO SCH ×2 (08:11→12:19)
[2018-12-23] MEDS: ASPIRIN (EC) 81 MG TAB PO SCH (08:11)
[2018-12-23] MEDS: ENOXAPARIN 40 MG/0.4 ML SYG SC SCH (08:12)
[2018-12-23] MEDS: MAGNESIUM HYDROXIDE 30ML CUP PO SCH ×2 (08:14→08:25)
[2018-12-23] MEDS: AMLODIPINE 5 MG TAB PO SCH (08:19)
--- NOTE | 2018-12-23 10:13 | DS ---
DATE OF ADMISSION: 12/16/2018 DATE OF DISCHARGE: 12/23/2018 HOSPITAL COURSE: This is a 68-year-old female with a past medical history of rheumatoid arthritis, m ultiple joint deformities, history of bilateral knee replacement surgery, history of left hip surgery , history of steroid-induced diabetes, history of hypertension, dyslipidemia, osteoarthritis, periphe ral vascular disease, who was recently diagnosed with a left septic knee joint necessitating joint re placement. The patient had a joint replacement performed by Dr. Carl Montero in [facility]. Since the joint replacement, the patient has been on IV antibiotics. She noted approximately 2 days prior to admission, increased swelling of her left knee joint and as a result came to the [facility]. Upon arrival to the hospital, the patient was subsequently admitted. She wa s seen by orthopedist, Dr. Espinoza, who performed aspiration of left knee with MRSA. The patient was on IV antibiotics and had antibiotic regimen adjusted by Infectious Disease, Dr. Holden. Per Dr. Espinoza, the patient has no immediate need for orthopedic intervention. The patient is not septic. The raffy ent has ongoing subacute septic joint and may eventually need an above the knee amputation. Currentl y at this time, the patient does not wish to have an amputation. She wishes to continue IV antibioti cs and to get a secondary or third opinion at a tertiary center. Currently, at this time, the patien t is stable, in no acute distress. She will be discharged home with IV antibiotics. At the time of discharge, the patient is stable, no acute distress. FINAL DIAGNOSES: 1. Left knee septic joint. The patient is status post aspiration. We will continue IV antibiotics. Follow up with outpatient Infectious Disease and orthopedist for secondary or third opinion. 2. Rheumatoid arthritis. 3. Deep venous thrombosis. 4. Chronic pain syndrome. 5. Dyslipidemia. 6. Anemia. 7. Constipation, resolved. 8. Debility. At the time of discharge, the patient is stable, in no acute distress. FINAL MEDICATIONS: Please see reconciliation list. Please note, I spent over 30 minutes of time preparing the patient's discharge. Dictated By: ROMARIO AMBRIZ/JOLLY Conf#: [id number] DID#: [id number] CC: ROMARIO GUTIERREZ DO; JOSIANE ESPINOZA;*EndCC*
--- NOTE | 2018-12-23 13:59 | CONS ---
Assessment/Plan Assessment/Plan Hospital Course (Demo Recall) Alert, feels good Blood cultures remain negative synovial fluid cultures growing MRSA Antimicrobials: Vancomycin Physical examination: This is a very pleasant wasted and ill-appearing fragile elderly woman who is alert in no distress. Head atraumatic normocephalic neck is supple chest rise symmetrical breath sounds clear diminished bases heart S1- S2 abdomen soft bowel sounds present extremities contractured deformed, left knee erythema and pain on palpation Assessment: 1. Chronically MRSA infected left knee arthroplasty, status post fluid aspiration 2. Rheumatoid arthritis 3. Diabetes 4. Degenerative joint disease Plan: Patient remains stable, continue on IV vancomycin for 6 to 8 weeks, then keep on oral doxycycline lifelong Consultation Date/Type/Reason Admit Date/Time Dec 16, 2018 at 13:59 Initial Consult Date 12/16/18 Type of Consult id Date/Time of Note DATE: 12/23/18 TIME: 13:58 Exam/Review of Systems Exam Vitals Vital Signs Date Temp Pulse Resp B/P (MAP) Pulse Ox O2 O2 Flow FiO2 Time Delivery Rate 12/23/18 98.8 100 20 140/81 94 08:00 (100) 12/22/18 Room Air 14:06 Intake and Output 12/22/18 12/22/18 12/23/18 1515:00 23:00 07:00 IntakeIntake Total 100 ml 200 ml 350 ml BalanceBalance 100 ml 200 ml 350 ml Results Result Diagram: 12/21/18 0734 12/21/18 0734 Results 24hrs Laboratory Tests Test 12/22/18 17:17 12/22/18 20:20 12/23/18 08:00 12/23/18 12:12 Bedside Glucose 110 129 78 160 Medications Medication Current Medications Acetaminophen (Tylenol Tab) 650 mg Q4H PRN PO PAIN LEVEL 1-5; Start 12/16/18 at 14:30 Aspirin (Halfprin) 81 mg DAILY PO Last administered on 12/23/18at 08:11; Admin Dose 81 MG; Start 12/17/18 at 09:00 Atorvastatin Calcium (Lipitor) 20 mg QHS PO Last administered on 12/22/18at 20:23; Admin Dose 20 MG; Start 12/16/18 at 21:00 Bisacodyl (Dulcolax Supp) [address] CONSTIPATION; Start 12/16/18 at 1 4:30 Carvedilol (Coreg) 12.5 mg BID PO Last administered on 12/23/18 08:19; Admin Dose 12.5 MG; Start 12/16/18 at 21:00 Fenofibrate (Tricor) 48 mg DAILY PO Last administered on 12/23/18 08:10; Admin Dose 48 MG; Start 12/17/18 at 09:00 Albuterol/ Ipratropium (Duoneb) 3 ml Q4H RESP THERAPY PRN NEB SHORTNESS OF BREATH; Start 12/16/18 at 17:00 Linagliptin (Tradjenta) 5 mg DAILY PO Last administered on 12/23/18 08:10; Admin Dose 5 MG; Start 12/17/18 at 09:00 Lubiprostone (Amitiza) 24 mcg BID PO Last administered on 12/22/18 20:23; Admin Dose 24 MCG; Start 12/16/18 at 21:00 Magnesium Hydroxide (Milk Of Mag) 30 ml DAILY PO Last administered on 12/18/18 09:54; Admin Dose 30 ML; Start 12/17/18 at 09:00 Magnesium Oxide (Mag-Ox 400) 400 mg DAILY PO Last administered on 12/21/18 08:14; Admin Dose 400 MG; Start 12/17/18 at 09:00 Ondansetron HCl (Zofran Tab) 4 mg Q6H PRN PO NAUSEA AND/OR VOMITING Last administered on 12/21/18 05:40; Admin Dose 4 MG; Start 12/16/18 at 15:00 Oxycodone HCl (Oxycontin) 40 mg TID PO Last administered on 12/23/18 12:19; Admin Dose 40 MG; Start 12/16/18 at 21:00 Pantoprazole (Protonix Tab) 40 mg DAILY@0600 PO Last administered on 12/23/18 05:44; Admin Dose 40 MG; Start 12/17/18 at 06:00 Prednisone (Prednisone) 4 mg DAILY PO Last administered on 12/23/18 08:10; Admin Dose 4 MG; Start 12/17/18 at 09:00 Diagnostic Test (Pha) (Accu-Chek) 1 ea AC MEALS AND BEDTIME XX Last administered on 12/21/18at 20:46; Admin Dose 1 EA; Start 12/16/18 at 17:30 Miscellaneous Information 1 ea NOTE XX ; Start 12/16/18 at 15:00 Glucose (Glutose) 15 gm Q15M PRN PO DECREASED GLUCOSE; Start 12/16/18 at 15:00 Glucose (Glutose) 22.5 gm Q15M PRN PO DECREASED GLUCOSE; Start 12/16/18 at 15:00 Dextrose (D50w Syringe) 25 ml Q15M PRN IV DECREASED GLUCOSE; Start 12/16/18 at 15:00 Dextrose (D50w Syringe) 50 ml Q15M PRN IV DECREASED GLUCOSE; Start 12/16/18 at 15:00 Glucagon (Glucagen) 1 mg Q15M PRN IM DECREASED GLUCOSE; Start 12/16/18 at 15:00 Glucose (Glutose) 15 gm Q15M PRN BUCCAL DECREASED GLUCOSE; Start 12/16/18 at 15:00 Hydralazine HCl (Apresoline) 25 mg Q6H PRN PO give for sbp >170 Last administered on 12/20/18at 02:13; Admin Dose 25 MG; Start 12/16/18 at 17:00 Vancomycin HCl (Vanco Iv Per Pharmacy) VANCOMYCIN PER PHARMACY PER PROTOCOL XX ; Start 12/17/18 at 00:00 Vancomycin HCl 100 ml @ 100 mls/hr Q12H IVPB Last administered on 12/23/18at 12:19; Admin Dose 100 MLS/HR; Start 12/17/18 at 01:00 Alteplase, Recombinant (Cathflo (Activase)) 2 mg MAY REPEAT X1 PRN CATHETER IF CATHETER REMAINS OCCULUDED Last administered on 12/17/18at 16:09; Admin Dose 2 MG; Start 12/16/18 at 23:30 Clopidogrel Bisulfate (plaVIX) 75 mg DAILY PO Last administered on 12/23/18at 08:10; Admin Dose 75 MG; Start 12/17/18 at 11:00 Enoxaparin Sodium (Lovenox) 40 mg DAILY SC Last administered on 12/23/18at 08:12; Admin Dose 40 MG; Start 12/17/18 at 11:00 Hydromorphone HCl (Dilaudid) 2.5 mg Q6H PRN IV SEVERE PAIN LEVEL 7-10 Last administered on 12/23/18at 11:11; Admin Dose 2.5 MG; Start 12/18/18 at 11:00 Insulin Glargine (Lantus) 15 units QHS SC Last administered on 12/22/18at 20:25; Admin Dose 15 UNITS; Start 12/18/18 at 22:30 Diagnostic Test (Pha) (Accu-Chek) 1 ea 02 XX ; Start 12/19/18 at 02:00 Insulin Aspart (Novolog Insulin Pen) NOVOLOG *MILD* ALGORITHM WITH MEALS BEDTIME SC Last administered on 12/23/18at 12:14; Admin Dose 1 UNIT; Start 12/18/18 at 22:30 Amlodipine Besylate (Norvasc) 10 mg DAILY PO Last administered on 12/23/18at 08:19; Admin Dose 10 MG; Start 12/20/18 at 09:00 CHRIS WHIPPLE NP Dec 23, 2018 13:59
[2018-12-23 14:00] VITALS: PULSE 89
[2018-12-23] MEDS: ONDANSETRON 4 MG TAB PO PRN (14:23)
[2018-12-23 15:00] VITALS: BP 185/80; PULSE 89; RESP 18
[2018-12-23 16:25] VITALS: BP 156/75; PULSE 74
== END 2018-12-23 16:53 | disposition home health service (06) | DRG 560 ==
LOC: E/R 21:28 → PP2 12-16 13:59
PROVIDERS: ADMIT Internal Medicine; ATTEND Internal Medicine
PROC: 0S9D3ZZ Drainage of Left Knee Joint, Percutaneous Approach (ICD-10-PCS; principal; 2018-12-16)
DX: T84.54XA Infection and inflammatory reaction due to internal left knee prosthesis, initial encounter (principal); M00.062 Staphylococcal arthritis, left knee; M06.9 Rheumatoid arthritis, unspecified; E78.5 Hyperlipidemia, unspecified; I10 Essential (primary) hypertension; G89.4 Chronic pain syndrome; D64.9 Anemia, unspecified; K59.00 Constipation, unspecified; B95.62 Methicillin resistant Staphylococcus aureus infection as the cause of diseases classified elsewhere; E09.51 Drug or chemical induced diabetes mellitus with diabetic peripheral angiopathy without gangrene; Z96.651 Presence of right artificial knee joint; Z96.642 Presence of left artificial hip joint; T38.0X5A Adverse effect of glucocorticoids and synthetic analogues, initial encounter; Z86.718 Personal history of other venous thrombosis and embolism; Z95.9 Presence of cardiac and vascular implant and graft, unspecified; Y83.2 Surgical operation with anastomosis, bypass or graft as the cause of abnormal reaction of the patient, or of later complication, without mention of misadventure at the time of the procedure
CPT/HCPCS: 73550; 73562; 73590; 73700; 80048; 80053; 80202; 81001; 82962; 83690; 83735; 84100; 85025; 85651; 86140; 87070; 87075; 89060; J1170; J1650; J1815; J2543; J3370; J3475; J7512

== ENCOUNTER 2019-02-19 19:09 | Inpatient (IN) | payer MEDICARE, BC ==
[~2019-02-19] VITALS: Ht 144.8 cm; Wt 51.0 kg
[~2019-02-19 19:09] MED LIST changes: +CARV12.579 PO; +FENO54TA PO; +GABA300C16 PO; +LOPE-123 PO; +PANT40TA4 PO; +PRED1TAB17 PO
[2019-02-19] MEDS ORDERED: ONDANSETRON 4 MG INJ IV STA (19:18)
[2019-02-19] MEDS ORDERED: morphine 4 MG/ML VIAL IV STA (19:18)
[2019-02-19] MEDS ORDERED: VANCOMYCIN 1 GM (PMX) 250 ML IVPB STA (19:18)
[2019-02-19] MEDS ORDERED: PIPER-TAZO 3.375 GM IV (PMX) 100 ML IVPB STA (19:18)
[2019-02-19] MEDS ORDERED: ACETAMINOPHEN 325 MG TAB PO PRN (20:30)
[2019-02-19] MEDS ORDERED: ONDANSETRON 4 MG INJ IV PRN (20:30)
[2019-02-20] MEDS ORDERED: ACETAMINOPHEN 325 MG TAB PO PRN ×2 (01:30)
[2019-02-20] MEDS ORDERED: VANCOMYCIN IV PER PHARMACY XX SCH (01:30)
[2019-02-20] MEDS ORDERED: DOCUSATE SODIUM 100 MG CAP PO PRN (01:30)
[2019-02-20] MEDS ORDERED: NACL 0.9% 3 ML SYG IV SCH (01:30)
[2019-02-20] MEDS ORDERED: BISACODYL (EC) 5 MG TAB PO PRN (01:30)
[2019-02-20] MEDS ORDERED: ALBUTEROL/IPRATROPIUM (NEB) 3 ML AMP HHN PRN (01:30)
[2019-02-20] MEDS ORDERED: BISACODYL 10 MG SUPP PR PRN (01:30)
[2019-02-20] MEDS ORDERED: GLUCAGON 1 MG INJ IM PRN (02:00)
[2019-02-20] MEDS ORDERED: GLUCOSE GEL 15 GRAM TUBE PO PRN ×2 (02:00)
[2019-02-20] MEDS ORDERED: GLUCOSE GEL 15 GRAM TUBE BUCCAL PRN (02:00)
[2019-02-20] MEDS ORDERED: DEXTROSE 50% 50 ML SYRINGE IV PRN ×2 (02:00)
[2019-02-20] MEDS: HYDROmorphONE 1 MG/ML SYG IV PRN ×3 (02:02→17:29)
[2019-02-20] MEDS: ACCU-CHEK XX SCH (02:08)
[2019-02-20 02:30] VITALS: Ht 144.8 cm; Wt 51.0 kg
[2019-02-20] MEDS ORDERED: VANCOMYCIN 1 GM in 250 ML IVPB ONE (02:30)
[2019-02-20] MEDS: PIPER-TAZO 3.375 GM IV (PMX) 100 ML IVPB SCH ×4 (06:40→23:51)
[2019-02-20 07:47] VITALS: BP 159/65; PULSE 80; RESP 18
[2019-02-20] MEDS: INSULIN ASPART [NOVOLOG] 3 ML PEN SC SCH ×4 (07:50→21:00)
[2019-02-20] MEDS: FENOFIBRATE 48 MG TAB PO SCH (09:25)
[2019-02-20] MEDS: oxyCODONE (CR) 20 MG TAB [oxyCONTIN] PO SCH ×3 (09:26→20:33)
[2019-02-20] MEDS: AMLODIPINE 5 MG TAB PO SCH (09:26)
[2019-02-20] MEDS: MAGNESIUM OXIDE 400 MG TAB PO SCH (09:26)
[2019-02-20] MEDS: LUBIPROSTONE 24 MCG CAP PO SCH ×2 (09:26→20:34)
[2019-02-20] MEDS: MAGNESIUM HYDROXIDE 30ML CUP PO SCH (09:26)
[2019-02-20] MEDS: BETHANECHOL 25 MG TAB PO SCH (09:26)
[2019-02-20] MEDS: VANCOMYCIN 500 MG (PMX) 100 ML IVPB SCH (12:59)
[2019-02-20 14:13] VITALS: BP 117/64; PULSE 69; RESP 18
[2019-02-20] MEDS: CLOPIDOGREL 75 MG TAB PO SCH (15:45)
[2019-02-20] MEDS: ASPIRIN (EC) 81 MG TAB PO SCH (15:45)
[2019-02-20] MEDS: predniSONE 1 MG TAB PO SCH (15:45)
[2019-02-20] MEDS: ENOXAPARIN 40 MG/0.4 ML SYG SC SCH (15:49)
[2019-02-20 19:20] VITALS: BP 111/56; PULSE 70; RESP 18
[2019-02-20] MEDS: oxyCODONE 5 MG TAB PO PRN (19:44)
[2019-02-20] MEDS: ATORVASTATIN 20 MG TAB PO SCH (20:34)
[2019-02-20] MEDS: INSULIN GLARGINE [LANTus] (100 UNITS/ML) SYG SC SCH (20:43)
[2019-02-21] MEDS: oxyCODONE 5 MG TAB PO PRN ×2 (00:21→04:44)
[2019-02-21] MEDS: VANCOMYCIN 500 MG (PMX) 100 ML IVPB SCH ×2 (00:26→12:05)
[2019-02-21] MEDS ORDERED: ALTEPLASE (CATHFLO) 2 MG INJ CATHETER ONE (01:30)
[2019-02-21] MEDS: HYDROmorphONE 1 MG/ML SYG IV PRN ×4 (01:49→23:39)
[2019-02-21] MEDS: ACCU-CHEK XX SCH (02:00)
[2019-02-21] MEDS ORDERED: VANCOMYCIN 750 MG (PMX) 250 ML IVPB SCH (02:30)
[2019-02-21 02:34] VITALS: BP 130/62; RESP 17
[2019-02-21] MEDS: PIPER-TAZO 3.375 GM IV (PMX) 100 ML IVPB SCH ×4 (06:46→23:37)
[2019-02-21 08:10] VITALS: BP 106/62; PULSE 68; RESP 18
[2019-02-21] MEDS: MAGNESIUM HYDROXIDE 30ML CUP PO SCH (08:15)
[2019-02-21] MEDS: INSULIN ASPART [NOVOLOG] 3 ML PEN SC SCH ×4 (09:05→21:00)
[2019-02-21] MEDS: ENOXAPARIN 40 MG/0.4 ML SYG SC SCH (09:07)
[2019-02-21] MEDS: LUBIPROSTONE 24 MCG CAP PO SCH ×3 (09:08→21:35)
[2019-02-21] MEDS: BETHANECHOL 25 MG TAB PO SCH (09:08)
[2019-02-21] MEDS: FENOFIBRATE 48 MG TAB PO SCH (09:08)
[2019-02-21] MEDS: CLOPIDOGREL 75 MG TAB PO SCH (09:12)
[2019-02-21] MEDS: AMLODIPINE 5 MG TAB PO SCH (09:12)
[2019-02-21] MEDS: oxyCODONE (CR) 20 MG TAB [oxyCONTIN] PO SCH ×3 (09:13→21:35)
[2019-02-21] MEDS: predniSONE 1 MG TAB PO SCH (09:14)
[2019-02-21] MEDS: ASPIRIN (EC) 81 MG TAB PO SCH (09:15)
[2019-02-21] MEDS: MAGNESIUM OXIDE 400 MG TAB PO SCH (09:16)
[2019-02-21] MEDS ORDERED: MAGNESIUM SULFATE 3 GM in DEXTROSE 5% 100 ML IVPB ONE (12:00)
[2019-02-21 14:00] VITALS: BP 97/56; PULSE 67; RESP 18
[2019-02-21] MEDS: metroNIDAZOLE 500 MG/NS (PMX) 100 ML IVPB SCH ×2 (14:03→21:38)
[2019-02-21] MEDS: VANCOMYCIN HCL 250 MG/5ML POSYG PO SCH ×2 (14:06→17:46)
[2019-02-21] MEDS: ONDANSETRON 4 MG INJ IV PRN (17:34)
[2019-02-21 20:20] VITALS: BP 130/66; PULSE 68; RESP 19
[2019-02-21] MEDS: ATORVASTATIN 20 MG TAB PO SCH (21:36)
[2019-02-21] MEDS: NYSTATIN 30 GM POWDER BTL TOP PRN (21:39)
[2019-02-21] MEDS: INSULIN GLARGINE [LANTus] (100 UNITS/ML) SYG SC SCH (22:14)
[2019-02-22] MEDS: VANCOMYCIN 500 MG (PMX) 100 ML IVPB SCH ×3 (00:50→22:53)
[2019-02-22] MEDS: VANCOMYCIN HCL 250 MG/5ML POSYG PO SCH ×5 (00:50→22:53)
[2019-02-22] MEDS: ACCU-CHEK XX SCH (01:24)
[2019-02-22] MEDS: metroNIDAZOLE 500 MG/NS (PMX) 100 ML IVPB SCH ×3 (05:19→20:56)
[2019-02-22] MEDS: PIPER-TAZO 3.375 GM IV (PMX) 100 ML IVPB SCH ×2 (05:19→12:15)
[2019-02-22] MEDS: HYDROmorphONE 1 MG/ML SYG IV PRN ×3 (06:26→18:50)
[2019-02-22 07:38] VITALS: BP 119/58; PULSE 72; RESP 20
[2019-02-22] MEDS: INSULIN ASPART [NOVOLOG] 3 ML PEN SC SCH ×4 (07:50→21:00)
[2019-02-22] MEDS: FENOFIBRATE 48 MG TAB PO SCH (08:44)
[2019-02-22] MEDS: NYSTATIN 30 GM POWDER BTL TOP PRN (08:45)
[2019-02-22] MEDS: MAGNESIUM OXIDE 400 MG TAB PO SCH ×2 (08:45→08:49)
[2019-02-22] MEDS: BETHANECHOL 25 MG TAB PO SCH (08:45)
[2019-02-22] MEDS: ASPIRIN (EC) 81 MG TAB PO SCH (08:45)
[2019-02-22] MEDS: CLOPIDOGREL 75 MG TAB PO SCH (08:45)
[2019-02-22] MEDS: predniSONE 1 MG TAB PO SCH (08:46)
[2019-02-22] MEDS: AMLODIPINE 5 MG TAB PO SCH (08:46)
[2019-02-22] MEDS: ENOXAPARIN 40 MG/0.4 ML SYG SC SCH (08:47)
[2019-02-22] MEDS: LUBIPROSTONE 24 MCG CAP PO SCH ×2 (08:48→20:58)
[2019-02-22] MEDS: MAGNESIUM HYDROXIDE 30ML CUP PO SCH (08:48)
[2019-02-22] MEDS: oxyCODONE (CR) 20 MG TAB [oxyCONTIN] PO SCH ×3 (08:51→20:57)
[2019-02-22] MEDS: oxyCODONE 5 MG TAB PO PRN ×3 (08:58→17:17)
[2019-02-22 19:00] VITALS: BP 174/76; PULSE 71; RESP 18
[2019-02-22] MEDS: ATORVASTATIN 20 MG TAB PO SCH (20:58)
[2019-02-22] MEDS: ONDANSETRON 4 MG INJ IV PRN (23:14)
[2019-02-23] MEDS: HYDROmorphONE 1 MG/ML SYG IV PRN ×4 (01:34→20:33)
[2019-02-23] MEDS: ACCU-CHEK XX SCH (01:44)
[2019-02-23 01:50] VITALS: BP 184/81; PULSE 65; RESP 18
[2019-02-23 03:28] VITALS: BP 143/67; PULSE 64; RESP 16
[2019-02-23] MEDS: VANCOMYCIN HCL 250 MG/5ML POSYG PO SCH ×3 (05:25→20:31)
[2019-02-23] MEDS: metroNIDAZOLE 500 MG/NS (PMX) 100 ML IVPB SCH ×3 (05:25→21:55)
[2019-02-23] MEDS ORDERED: POTASSIUM CHLORIDE (SR) 20 MEQ TAB PO STA (07:44)
[2019-02-23] MEDS: INSULIN ASPART [NOVOLOG] 3 ML PEN SC SCH ×4 (07:50→20:51)
[2019-02-23] MEDS ORDERED: MAGNESIUM SULFATE 2 GM/50 ML 50 ML IVPB ONE (08:00)
[2019-02-23 08:13] VITALS: BP 116/58; PULSE 65; RESP 16
[2019-02-23] MEDS: AMLODIPINE 5 MG TAB PO SCH (08:34)
[2019-02-23] MEDS: predniSONE 1 MG TAB PO SCH (08:35)
[2019-02-23] MEDS: ASPIRIN (EC) 81 MG TAB PO SCH (08:35)
[2019-02-23] MEDS: CLOPIDOGREL 75 MG TAB PO SCH (08:35)
[2019-02-23] MEDS: FENOFIBRATE 48 MG TAB PO SCH (08:36)
[2019-02-23] MEDS: LUBIPROSTONE 24 MCG CAP PO SCH ×2 (08:37→20:34)
[2019-02-23] MEDS: MAGNESIUM HYDROXIDE 30ML CUP PO SCH (08:37)
[2019-02-23] MEDS: MAGNESIUM OXIDE 400 MG TAB PO SCH (08:37)
[2019-02-23] MEDS: FERROUS SULFATE (EC) 325 MG TAB PO SCH ×3 (08:37→20:34)
[2019-02-23] MEDS: BETHANECHOL 25 MG TAB PO SCH (08:38)
[2019-02-23] MEDS: oxyCODONE (CR) 20 MG TAB [oxyCONTIN] PO SCH ×3 (08:38→21:54)
[2019-02-23] MEDS: ENOXAPARIN 40 MG/0.4 ML SYG SC SCH (08:39)
[2019-02-23] MEDS: oxyCODONE 5 MG TAB PO PRN ×2 (11:41→17:45)
[2019-02-23] MEDS: VANCOMYCIN 500 MG (PMX) 100 ML IVPB SCH (12:42)
[2019-02-23 14:29] VITALS: BP 154/76; PULSE 66; RESP 20
[2019-02-23 20:25] VITALS: BP 143/90; PULSE 75; RESP 18
[2019-02-23] MEDS: ATORVASTATIN 20 MG TAB PO SCH (20:34)
[2019-02-24] MEDS: ONDANSETRON 4 MG INJ IV PRN ×3 (00:23→20:24)
[2019-02-24] MEDS: VANCOMYCIN 500 MG (PMX) 100 ML IVPB SCH ×2 (00:23→13:06)
[2019-02-24 01:52] VITALS: BP 140/72; PULSE 68; RESP 16
[2019-02-24] MEDS: ACCU-CHEK XX SCH (02:00)
[2019-02-24] MEDS: HYDROmorphONE 1 MG/ML SYG IV PRN ×4 (03:07→23:06)
[2019-02-24] MEDS: VANCOMYCIN HCL 250 MG/5ML POSYG PO SCH ×2 (06:00)
[2019-02-24] MEDS: metroNIDAZOLE 500 MG/NS (PMX) 100 ML IVPB SCH ×3 (06:39→22:26)
[2019-02-24] MEDS ORDERED: POTASSIUM CHLORIDE (SR) 20 MEQ TAB PO STA ×2 (07:11→10:30)
[2019-02-24 07:26] VITALS: BP 177/77; PULSE 65; RESP 15
[2019-02-24 07:31] VITALS: BP 163/72
[2019-02-24] MEDS ORDERED: POTASSIUM CHLORIDE 20 MEQ POWDER FOR ORAL SOLN PO ONE (08:00)
[2019-02-24] MEDS: INSULIN ASPART [NOVOLOG] 3 ML PEN SC SCH ×4 (08:51→20:38)
[2019-02-24] MEDS: predniSONE 1 MG TAB PO SCH (08:52)
[2019-02-24] MEDS: AMLODIPINE 5 MG TAB PO SCH (08:52)
[2019-02-24] MEDS: CLOPIDOGREL 75 MG TAB PO SCH (08:52)
[2019-02-24] MEDS: oxyCODONE (CR) 20 MG TAB [oxyCONTIN] PO SCH ×3 (08:53→21:10)
[2019-02-24] MEDS: MAGNESIUM OXIDE 400 MG TAB PO SCH (08:53)
[2019-02-24] MEDS: FERROUS SULFATE (EC) 325 MG TAB PO SCH ×3 (08:53→20:25)
[2019-02-24] MEDS: LUBIPROSTONE 24 MCG CAP PO SCH ×2 (08:53→20:24)
[2019-02-24] MEDS: ASPIRIN (EC) 81 MG TAB PO SCH (08:53)
[2019-02-24] MEDS: FENOFIBRATE 48 MG TAB PO SCH (08:54)
[2019-02-24] MEDS: MAGNESIUM HYDROXIDE 30ML CUP PO SCH (08:54)
[2019-02-24] MEDS: BETHANECHOL 25 MG TAB PO SCH (08:54)
[2019-02-24] MEDS: ENOXAPARIN 40 MG/0.4 ML SYG SC SCH (08:55)
[2019-02-24] MEDS: FAMOTIDINE 20 MG INJ IV SCH ×2 (11:18→20:24)
[2019-02-24 15:16] VITALS: BP_SYST 125; BP_SYST 157; BP_DIAS 64; BP_DIAS 79; PULSE 62; RESP 16
[2019-02-24 15:21] VITALS: BP 149/96
[2019-02-24 19:51] VITALS: BP 137/105; RESP 18
[2019-02-24] MEDS: ATORVASTATIN 20 MG TAB PO SCH (20:25)
[2019-02-25] MEDS: VANCOMYCIN 500 MG (PMX) 100 ML IVPB SCH ×2 (00:19→12:03)
[2019-02-25] MEDS: ACCU-CHEK XX SCH (02:00)
[2019-02-25] MEDS: oxyCODONE 5 MG TAB PO PRN (02:59)
[2019-02-25] MEDS: HYDROmorphONE 1 MG/ML SYG IV PRN ×5 (04:23→21:51)
[2019-02-25] MEDS: metroNIDAZOLE 500 MG/NS (PMX) 100 ML IVPB SCH ×3 (05:39→21:51)
[2019-02-25 07:29] VITALS: BP 105/65; PULSE 72; RESP 15
[2019-02-25] MEDS ORDERED: MAGNESIUM SULFATE 2 GM/50 ML 50 ML IVPB ONE (07:30)
[2019-02-25] MEDS ORDERED: NEUTRA-PHOS 250 MG PACKET PO ONE (07:30)
[2019-02-25 07:57] VITALS: BP 176/78; PULSE 74; RESP 17
[2019-02-25] MEDS: INSULIN ASPART [NOVOLOG] 3 ML PEN SC SCH ×4 (08:45→20:41)
[2019-02-25] MEDS: ASPIRIN (EC) 81 MG TAB PO SCH (08:47)
[2019-02-25] MEDS: predniSONE 1 MG TAB PO SCH (08:47)
[2019-02-25] MEDS: LINAGLIPTIN 5 MG TABLET PO SCH (08:48)
[2019-02-25] MEDS: FENOFIBRATE 48 MG TAB PO SCH (08:49)
[2019-02-25] MEDS: BETHANECHOL 25 MG TAB PO SCH (08:49)
[2019-02-25] MEDS: MAGNESIUM OXIDE 400 MG TAB PO SCH (08:49)
[2019-02-25] MEDS: CLOPIDOGREL 75 MG TAB PO SCH (08:49)
[2019-02-25] MEDS: FERROUS SULFATE (EC) 325 MG TAB PO SCH ×3 (08:49→20:21)
[2019-02-25] MEDS: AMLODIPINE 5 MG TAB PO SCH (08:50)
[2019-02-25] MEDS: oxyCODONE (CR) 20 MG TAB [oxyCONTIN] PO SCH ×3 (08:50→20:19)
[2019-02-25] MEDS: ENOXAPARIN 40 MG/0.4 ML SYG SC SCH (08:52)
[2019-02-25] MEDS: FAMOTIDINE 20 MG INJ IV SCH ×2 (08:52→20:21)
[2019-02-25] MEDS: LUBIPROSTONE 24 MCG CAP PO SCH ×2 (08:54→20:20)
[2019-02-25] MEDS: MAGNESIUM HYDROXIDE 30ML CUP PO SCH (08:58)
[2019-02-25] MEDS: NYSTATIN 30 GM POWDER BTL TOP PRN (13:46)
[2019-02-25 14:35] VITALS: BP 130/89; PULSE 80; RESP 18
[2019-02-25] MEDS: ATORVASTATIN 20 MG TAB PO SCH (20:21)
[2019-02-25] MEDS: ONDANSETRON 4 MG INJ IV PRN (23:30)
[2019-02-26] MEDS: VANCOMYCIN 500 MG (PMX) 100 ML IVPB SCH ×3 (00:21→23:03)
[2019-02-26] MEDS: ACCU-CHEK XX SCH (02:00)
[2019-02-26] MEDS: HYDROmorphONE 1 MG/ML SYG IV PRN ×6 (02:00→22:58)
[2019-02-26] MEDS: metroNIDAZOLE 500 MG/NS (PMX) 100 ML IVPB SCH ×2 (05:40→14:53)
[2019-02-26] MEDS: ONDANSETRON 4 MG INJ IV PRN ×3 (06:22→21:39)
[2019-02-26 07:49] VITALS: BP 158/69; PULSE 73; RESP 18
[2019-02-26] MEDS: INSULIN ASPART [NOVOLOG] 3 ML PEN SC SCH ×4 (07:50→21:29)
[2019-02-26] MEDS: LUBIPROSTONE 24 MCG CAP PO SCH ×2 (09:00→21:19)
[2019-02-26] MEDS ORDERED: MAGNESIUM SULFATE 2 GM/50 ML 50 ML IVPB ONE (09:00)
[2019-02-26] MEDS: MAGNESIUM HYDROXIDE 30ML CUP PO SCH (09:00)
[2019-02-26] MEDS: FENOFIBRATE 48 MG TAB PO SCH (09:09)
[2019-02-26] MEDS: oxyCODONE (CR) 20 MG TAB [oxyCONTIN] PO SCH ×3 (09:10→21:21)
[2019-02-26] MEDS: predniSONE 1 MG TAB PO SCH (09:10)
[2019-02-26] MEDS: CLOPIDOGREL 75 MG TAB PO SCH (09:11)
[2019-02-26] MEDS: LINAGLIPTIN 5 MG TABLET PO SCH (09:11)
[2019-02-26] MEDS: ASPIRIN (EC) 81 MG TAB PO SCH (09:11)
[2019-02-26] MEDS: FERROUS SULFATE (EC) 325 MG TAB PO SCH ×3 (09:11→21:19)
[2019-02-26] MEDS: BETHANECHOL 25 MG TAB PO SCH (09:12)
[2019-02-26] MEDS: ENOXAPARIN 40 MG/0.4 ML SYG SC SCH (09:14)
[2019-02-26] MEDS: FAMOTIDINE 20 MG INJ IV SCH (09:16)
[2019-02-26] MEDS: AMLODIPINE 5 MG TAB PO SCH (09:16)
[2019-02-26] MEDS: NYSTATIN 30 GM POWDER BTL TOP PRN (09:22)
[2019-02-26] MEDS ORDERED: ALTEPLASE (CATHFLO) 2 MG INJ CATHETER ONE (13:30)
[2019-02-26] MEDS: MAGNESIUM OXIDE 400 MG TAB PO SCH (14:54)
[2019-02-26 15:21] VITALS: BP 169/72; PULSE 75; RESP 18
[2019-02-26 20:30] VITALS: BP 171/77; PULSE 75; RESP 19
[2019-02-26] MEDS: ATORVASTATIN 20 MG TAB PO SCH (21:21)
[2019-02-26] MEDS: FAMOTIDINE 20 MG TAB PO SCH (21:21)
[2019-02-26] MEDS: metroNIDAZOLE 500 MG TAB PO SCH (21:38)
[2019-02-27] MEDS: ACCU-CHEK XX SCH (02:00)
[2019-02-27 02:30] VITALS: BP 163/101; PULSE 75; RESP 18
[2019-02-27] MEDS: HYDROmorphONE 1 MG/ML SYG IV PRN ×5 (03:05→20:52)
[2019-02-27] MEDS: metroNIDAZOLE 500 MG TAB PO SCH ×3 (06:24→21:47)
[2019-02-27] MEDS: LISINOPRIL 20 MG TAB PO SCH (06:26)
[2019-02-27] MEDS: AMLODIPINE 5 MG TAB PO SCH ×2 (06:28→09:24)
[2019-02-27 07:12] VITALS: BP 139/63; PULSE 72; RESP 18
[2019-02-27] MEDS ORDERED: AMLODIPINE 5 MG TAB PO SCH (09:00)
[2019-02-27] MEDS ORDERED: LISINOPRIL 20 MG TAB PO SCH (09:00)
[2019-02-27] MEDS: oxyCODONE (CR) 20 MG TAB [oxyCONTIN] PO SCH ×3 (09:21→21:47)
[2019-02-27] MEDS: LINAGLIPTIN 5 MG TABLET PO SCH (09:21)
[2019-02-27] MEDS: FENOFIBRATE 48 MG TAB PO SCH (09:21)
[2019-02-27] MEDS: MAGNESIUM HYDROXIDE 30ML CUP PO SCH (09:21)
[2019-02-27] MEDS: FAMOTIDINE 20 MG TAB PO SCH ×2 (09:22→20:33)
[2019-02-27] MEDS: ENOXAPARIN 40 MG/0.4 ML SYG SC SCH (09:22)
[2019-02-27] MEDS: FERROUS SULFATE (EC) 325 MG TAB PO SCH ×3 (09:23→20:33)
[2019-02-27] MEDS: INSULIN ASPART [NOVOLOG] 3 ML PEN SC SCH ×4 (09:23→21:00)
[2019-02-27] MEDS: LUBIPROSTONE 24 MCG CAP PO SCH ×2 (09:23→20:34)
[2019-02-27] MEDS: predniSONE 1 MG TAB PO SCH (09:23)
[2019-02-27] MEDS: CLOPIDOGREL 75 MG TAB PO SCH (09:25)
[2019-02-27] MEDS: ASPIRIN (EC) 81 MG TAB PO SCH (09:25)
[2019-02-27] MEDS: MAGNESIUM OXIDE 400 MG TAB PO SCH (09:26)
[2019-02-27] MEDS: BETHANECHOL 25 MG TAB PO SCH (09:26)
[2019-02-27] MEDS: VANCOMYCIN 500 MG (PMX) 100 ML IVPB SCH (12:55)
[2019-02-27] MEDS: NYSTATIN 30 GM POWDER BTL TOP PRN (17:01)
[2019-02-27 20:15] VITALS: BP 157/73; PULSE 78; RESP 19
[2019-02-27] MEDS: ATORVASTATIN 20 MG TAB PO SCH (20:33)
[2019-02-27] MEDS: ONDANSETRON 4 MG INJ IV PRN (20:35)
[2019-02-28] MEDS: ACCU-CHEK XX SCH (00:21)
[2019-02-28] MEDS: VANCOMYCIN 500 MG (PMX) 100 ML IVPB SCH ×2 (00:48→12:49)
[2019-02-28] MEDS: HYDROmorphONE 1 MG/ML SYG IV PRN ×3 (00:57→09:05)
[2019-02-28 02:30] VITALS: BP 149/71; PULSE 74; RESP 18
[2019-02-28] MEDS: metroNIDAZOLE 500 MG TAB PO SCH ×3 (05:01→20:51)
[2019-02-28 07:30] VITALS: BP 99/54; PULSE 68; RESP 18
[2019-02-28] MEDS: INSULIN ASPART [NOVOLOG] 3 ML PEN SC SCH ×4 (07:50→20:50)
[2019-02-28] MEDS ORDERED: MAGNESIUM SULFATE 2 GM/50 ML 50 ML IVPB ONE (08:30)
[2019-02-28] MEDS: MAGNESIUM HYDROXIDE 30ML CUP PO SCH (09:00)
[2019-02-28] MEDS: LUBIPROSTONE 24 MCG CAP PO SCH ×2 (09:00→20:51)
[2019-02-28] MEDS: ENOXAPARIN 40 MG/0.4 ML SYG SC SCH (09:06)
[2019-02-28] MEDS: MAGNESIUM OXIDE 400 MG TAB PO SCH (09:06)
[2019-02-28] MEDS: LINAGLIPTIN 5 MG TABLET PO SCH (09:06)
[2019-02-28] MEDS: FAMOTIDINE 20 MG TAB PO SCH ×2 (09:06→20:51)
[2019-02-28] MEDS: CLOPIDOGREL 75 MG TAB PO SCH (09:06)
[2019-02-28] MEDS: FERROUS SULFATE (EC) 325 MG TAB PO SCH ×3 (09:06→20:51)
[2019-02-28] MEDS: ASPIRIN (EC) 81 MG TAB PO SCH (09:06)
[2019-02-28] MEDS: BETHANECHOL 25 MG TAB PO SCH (09:07)
[2019-02-28] MEDS: FENOFIBRATE 48 MG TAB PO SCH (09:07)
[2019-02-28] MEDS: predniSONE 1 MG TAB PO SCH (09:07)
[2019-02-28] MEDS: oxyCODONE (CR) 20 MG TAB [oxyCONTIN] PO SCH ×3 (09:08→20:52)
[2019-02-28] MEDS: LISINOPRIL 20 MG TAB PO SCH (09:21)
[2019-02-28] MEDS: AMLODIPINE 5 MG TAB PO SCH (09:21)
[2019-02-28] MEDS: NYSTATIN 30 GM POWDER BTL TOP PRN (09:22)
[2019-02-28] MEDS: HYDROmorphONE 2 MG/ML SYG IV PRN ×3 (12:49→21:56)
[2019-02-28 14:00] VITALS: BP 144/67; PULSE 73; RESP 20
[2019-02-28] MEDS: ONDANSETRON 4 MG INJ IV PRN (16:00)
[2019-02-28] MEDS: oxyCODONE 5 MG TAB PO PRN (18:27)
[2019-02-28 20:00] VITALS: BP 134/62; PULSE 74; RESP 18
[2019-02-28] MEDS: ATORVASTATIN 20 MG TAB PO SCH (20:51)
[2019-03-01] MEDS: ONDANSETRON 4 MG INJ IV PRN ×2 (00:38→08:20)
[2019-03-01] MEDS: VANCOMYCIN 500 MG (PMX) 100 ML IVPB SCH ×2 (00:38→12:23)
[2019-03-01] MEDS: ACCU-CHEK XX SCH (01:53)
[2019-03-01] MEDS: HYDROmorphONE 2 MG/ML SYG IV PRN ×4 (02:01→23:03)
[2019-03-01] MEDS: oxyCODONE 5 MG TAB PO PRN ×2 (02:43→07:28)
[2019-03-01] MEDS: metroNIDAZOLE 500 MG TAB PO SCH ×3 (06:05→21:08)
[2019-03-01] MEDS: INSULIN ASPART [NOVOLOG] 3 ML PEN SC SCH ×4 (07:50→21:21)
[2019-03-01 08:02] VITALS: BP 199/83; PULSE 80; RESP 18
[2019-03-01] MEDS: ENOXAPARIN 40 MG/0.4 ML SYG SC SCH (08:32)
[2019-03-01] MEDS: oxyCODONE (CR) 20 MG TAB [oxyCONTIN] PO SCH ×3 (08:33→21:09)
[2019-03-01] MEDS: FERROUS SULFATE (EC) 325 MG TAB PO SCH ×3 (08:34→21:08)
[2019-03-01] MEDS: MAGNESIUM OXIDE 400 MG TAB PO SCH (08:34)
[2019-03-01] MEDS: CLOPIDOGREL 75 MG TAB PO SCH (08:34)
[2019-03-01] MEDS: LUBIPROSTONE 24 MCG CAP PO SCH ×2 (08:34→21:09)
[2019-03-01] MEDS: FAMOTIDINE 20 MG TAB PO SCH ×2 (08:35→21:08)
[2019-03-01] MEDS: FENOFIBRATE 48 MG TAB PO SCH (08:35)
[2019-03-01] MEDS: BETHANECHOL 25 MG TAB PO SCH (08:36)
[2019-03-01] MEDS: AMLODIPINE 5 MG TAB PO SCH (08:36)
[2019-03-01] MEDS: LISINOPRIL 20 MG TAB PO SCH (08:36)
[2019-03-01] MEDS: ASPIRIN (EC) 81 MG TAB PO SCH (08:36)
[2019-03-01] MEDS: LINAGLIPTIN 5 MG TABLET PO SCH (08:37)
[2019-03-01] MEDS: MAGNESIUM HYDROXIDE 30ML CUP PO SCH (08:45)
[2019-03-01] MEDS ORDERED: ACETAMINOPHEN 1000MG/100ML IV 100 ML IVPB ONE (09:00)
[2019-03-01] MEDS ORDERED: predniSONE 1 MG TAB PO SCH (09:00)
[2019-03-01] MEDS: predniSONE 20 MG TAB PO SCH (09:33)
[2019-03-01] MEDS: morphine 2 MG INJ IV PRN ×3 (09:34→17:48)
[2019-03-01 11:07] VITALS: BP 131/59; PULSE 71
[2019-03-01 14:19] VITALS: BP 133/65; PULSE 77; RESP 18
[2019-03-01 20:49] VITALS: BP 166/79; PULSE 75; RESP 18
[2019-03-01 21:00] VITALS: BP 154/75; PULSE 72
[2019-03-01] MEDS: ATORVASTATIN 20 MG TAB PO SCH (21:08)
[2019-03-02 02:00] VITALS: BP 152/96; PULSE 79; RESP 18
[2019-03-02] MEDS: VANCOMYCIN 500 MG (PMX) 100 ML IVPB SCH ×2 (02:30→12:55)
[2019-03-02] MEDS: ACCU-CHEK XX SCH (02:30)
[2019-03-02] MEDS: HYDROmorphONE 2 MG/ML SYG IV PRN ×6 (03:00→23:01)
[2019-03-02] MEDS: metroNIDAZOLE 500 MG TAB PO SCH ×3 (06:54→21:20)
[2019-03-02] MEDS: AMLODIPINE 5 MG TAB PO SCH (07:42)
[2019-03-02] MEDS: LISINOPRIL 20 MG TAB PO SCH (07:43)
[2019-03-02] MEDS: FERROUS SULFATE (EC) 325 MG TAB PO SCH ×3 (07:44→21:21)
[2019-03-02] MEDS: FAMOTIDINE 20 MG TAB PO SCH ×2 (07:44→21:21)
[2019-03-02] MEDS: oxyCODONE (CR) 20 MG TAB [oxyCONTIN] PO SCH ×3 (07:44→21:20)
[2019-03-02] MEDS: CLOPIDOGREL 75 MG TAB PO SCH (07:44)
[2019-03-02] MEDS: MAGNESIUM OXIDE 400 MG TAB PO SCH (07:45)
[2019-03-02] MEDS: FENOFIBRATE 48 MG TAB PO SCH (07:45)
[2019-03-02] MEDS: BETHANECHOL 25 MG TAB PO SCH (07:45)
[2019-03-02] MEDS: LINAGLIPTIN 5 MG TABLET PO SCH (07:45)
[2019-03-02] MEDS: LUBIPROSTONE 24 MCG CAP PO SCH ×2 (07:46→21:20)
[2019-03-02] MEDS: predniSONE 20 MG TAB PO SCH (07:46)
[2019-03-02] MEDS: ASPIRIN (EC) 81 MG TAB PO SCH (07:46)
[2019-03-02] MEDS: MAGNESIUM HYDROXIDE 30ML CUP PO SCH (07:47)
[2019-03-02] MEDS: ONDANSETRON 4 MG INJ IV PRN ×2 (07:53→15:04)
[2019-03-02] MEDS ORDERED: MAGNESIUM SULFATE 2 GM/50 ML 50 ML IVPB ONE (08:30)
[2019-03-02] MEDS: INSULIN ASPART [NOVOLOG] 3 ML PEN SC SCH ×4 (08:40→21:00)
[2019-03-02] MEDS: ENOXAPARIN 40 MG/0.4 ML SYG SC SCH (08:41)
[2019-03-02] MEDS ORDERED: predniSONE 10 MG TAB PO SCH (09:00)
[2019-03-02 14:28] VITALS: BP 161/72; PULSE 74; RESP 19
[2019-03-02] MEDS ORDERED: ALTEPLASE (CATHFLO) 2 MG INJ CATHETER ONE (16:30)
[2019-03-02 19:36] VITALS: BP 122/78; PULSE 77; RESP 18
[2019-03-02] MEDS: ATORVASTATIN 20 MG TAB PO SCH (21:21)
[2019-03-02 23:00] VITALS: BP 143/68; PULSE 71
[2019-03-03] MEDS: VANCOMYCIN 500 MG (PMX) 100 ML IVPB SCH ×2 (00:21→12:55)
[2019-03-03] MEDS: ACCU-CHEK XX SCH (02:00)
[2019-03-03] MEDS: HYDROmorphONE 2 MG/ML SYG IV PRN ×5 (03:21→23:01)
[2019-03-03 03:58] VITALS: BP 155/72; PULSE 71; RESP 18
[2019-03-03] MEDS: metroNIDAZOLE 500 MG TAB PO SCH ×3 (06:44→22:24)
[2019-03-03] MEDS: INSULIN ASPART [NOVOLOG] 3 ML PEN SC SCH ×4 (07:50→21:00)
[2019-03-03 08:29] VITALS: BP 127/61; PULSE 65; RESP 18
[2019-03-03] MEDS: BETHANECHOL 25 MG TAB PO SCH (09:00)
[2019-03-03] MEDS: oxyCODONE (CR) 20 MG TAB [oxyCONTIN] PO SCH ×3 (09:10→22:24)
[2019-03-03] MEDS: MAGNESIUM OXIDE 400 MG TAB PO SCH (09:11)
[2019-03-03] MEDS: LINAGLIPTIN 5 MG TABLET PO SCH (09:11)
[2019-03-03] MEDS: LUBIPROSTONE 24 MCG CAP PO SCH ×2 (09:11→22:24)
[2019-03-03] MEDS: FENOFIBRATE 48 MG TAB PO SCH (09:11)
[2019-03-03] MEDS: FERROUS SULFATE (EC) 325 MG TAB PO SCH ×3 (09:11→21:00)
[2019-03-03] MEDS: CLOPIDOGREL 75 MG TAB PO SCH (09:12)
[2019-03-03] MEDS: ASPIRIN (EC) 81 MG TAB PO SCH (09:12)
[2019-03-03] MEDS: predniSONE 20 MG TAB PO SCH (09:12)
[2019-03-03] MEDS: FAMOTIDINE 20 MG TAB PO SCH ×2 (09:12→22:25)
[2019-03-03] MEDS: LISINOPRIL 20 MG TAB PO SCH (09:13)
[2019-03-03] MEDS: AMLODIPINE 5 MG TAB PO SCH (09:14)
[2019-03-03] MEDS: MAGNESIUM HYDROXIDE 30ML CUP PO SCH (09:14)
[2019-03-03] MEDS: ENOXAPARIN 40 MG/0.4 ML SYG SC SCH (09:17)
[2019-03-03 15:29] VITALS: BP 152/80; PULSE 78; RESP 18
[2019-03-03] MEDS: ONDANSETRON 4 MG INJ IV PRN (18:20)
[2019-03-03 19:50] VITALS: BP 143/69; PULSE 72; RESP 20
[2019-03-03] MEDS: ATORVASTATIN 20 MG TAB PO SCH (21:00)
[2019-03-04] MEDS: VANCOMYCIN 500 MG (PMX) 100 ML IVPB SCH ×3 (00:04→23:50)
[2019-03-04] MEDS: ACCU-CHEK XX SCH (02:00)
[2019-03-04 02:40] VITALS: BP 127/64; PULSE 81; RESP 20
[2019-03-04] MEDS: HYDROmorphONE 2 MG/ML SYG IV PRN ×6 (03:04→23:44)
[2019-03-04] MEDS: metroNIDAZOLE 500 MG TAB PO SCH ×3 (07:00→21:48)
[2019-03-04 07:28] VITALS: BP 145/70; PULSE 93; RESP 18
[2019-03-04] MEDS: INSULIN ASPART [NOVOLOG] 3 ML PEN SC SCH ×4 (08:45→21:46)
[2019-03-04] MEDS: ENOXAPARIN 40 MG/0.4 ML SYG SC SCH (08:51)
[2019-03-04] MEDS: CLOPIDOGREL 75 MG TAB PO SCH (08:55)
[2019-03-04] MEDS: AMLODIPINE 5 MG TAB PO SCH (08:55)
[2019-03-04] MEDS: LUBIPROSTONE 24 MCG CAP PO SCH ×2 (08:55→21:48)
[2019-03-04] MEDS: MAGNESIUM OXIDE 400 MG TAB PO SCH (08:55)
[2019-03-04] MEDS: BETHANECHOL 25 MG TAB PO SCH (08:55)
[2019-03-04] MEDS: FAMOTIDINE 20 MG TAB PO SCH ×2 (08:56→21:48)
[2019-03-04] MEDS: predniSONE 20 MG TAB PO SCH (08:56)
[2019-03-04] MEDS: FERROUS SULFATE (EC) 325 MG TAB PO SCH ×3 (08:56→21:00)
[2019-03-04] MEDS: LISINOPRIL 20 MG TAB PO SCH (08:56)
[2019-03-04] MEDS: FENOFIBRATE 48 MG TAB PO SCH (08:56)
[2019-03-04] MEDS: ASPIRIN (EC) 81 MG TAB PO SCH (08:56)
[2019-03-04] MEDS: LINAGLIPTIN 5 MG TABLET PO SCH (08:56)
[2019-03-04] MEDS: MAGNESIUM HYDROXIDE 30ML CUP PO SCH (08:57)
[2019-03-04] MEDS: oxyCODONE (CR) 20 MG TAB [oxyCONTIN] PO SCH ×3 (08:58→21:47)
[2019-03-04 16:49] VITALS: BP 154/76; PULSE 83; RESP 18
[2019-03-04 19:40] VITALS: BP 146/69; PULSE 78; RESP 20
[2019-03-04] MEDS: ATORVASTATIN 20 MG TAB PO SCH (21:00)
[2019-03-04] MEDS: ONDANSETRON 4 MG INJ IV PRN (23:34)
[2019-03-05] VITALS (18 sets, daily range): BP systolic 102–173; BP diastolic 48–78; PULSE 62–78; RESP 16–20
[2019-03-05] MEDS: ACCU-CHEK XX SCH (02:00)
[2019-03-05] MEDS: HYDROmorphONE 2 MG/ML SYG IV PRN ×5 (03:50→21:24)
[2019-03-05] MEDS: metroNIDAZOLE 500 MG TAB PO SCH ×3 (05:22→21:17)
[2019-03-05] MEDS: ENOXAPARIN 40 MG/0.4 ML SYG SC SCH (09:00)
[2019-03-05] MEDS: MAGNESIUM HYDROXIDE 30ML CUP PO SCH (09:00)
[2019-03-05] MEDS: LINAGLIPTIN 5 MG TABLET PO SCH (09:00)
[2019-03-05] MEDS: FENOFIBRATE 48 MG TAB PO SCH (09:00)
[2019-03-05] MEDS: FERROUS SULFATE (EC) 325 MG TAB PO SCH ×3 (09:00→21:00)
[2019-03-05] MEDS: LUBIPROSTONE 24 MCG CAP PO SCH ×2 (09:00→21:16)
[2019-03-05] MEDS: FAMOTIDINE 20 MG TAB PO SCH ×2 (09:00→21:17)
[2019-03-05] MEDS: MAGNESIUM OXIDE 400 MG TAB PO SCH (09:00)
[2019-03-05] MEDS: INSULIN ASPART [NOVOLOG] 3 ML PEN SC SCH ×4 (09:00→21:34)
[2019-03-05] MEDS: CLOPIDOGREL 75 MG TAB PO SCH (09:11)
[2019-03-05] MEDS: oxyCODONE (CR) 20 MG TAB [oxyCONTIN] PO SCH ×3 (09:11→21:17)
[2019-03-05] MEDS: predniSONE 20 MG TAB PO SCH (09:11)
[2019-03-05] MEDS: AMLODIPINE 5 MG TAB PO SCH (09:12)
[2019-03-05] MEDS: BETHANECHOL 25 MG TAB PO SCH (09:12)
[2019-03-05] MEDS: ASPIRIN (EC) 81 MG TAB PO SCH (09:12)
[2019-03-05] MEDS: LISINOPRIL 20 MG TAB PO SCH (09:12)
[2019-03-05] MEDS: VANCOMYCIN 500 MG (PMX) 100 ML IVPB SCH ×2 (13:26→23:25)
[2019-03-05] MEDS ORDERED: IOHEXOL 300MG/ML 30 ML BTL ONE (14:03)
[2019-03-05] MEDS ORDERED: PROPOFOL 20 ML ONE (14:45)
[2019-03-05] MEDS ORDERED: MIDAZOLAM 1 MG/ML 2 ML INJ ONE (14:45)
[2019-03-05] MEDS ORDERED: FENTAnyl 50 MCG/ML VIAL ONE (14:45)
[2019-03-05] MEDS ORDERED: DIPHENHYDRAMINE 50 MG INJ IV PRN (15:00)
[2019-03-05] MEDS ORDERED: HYDROmorphONE 1 MG/5 ML IV SYRINGE IV PRN ×2 (15:00)
[2019-03-05] MEDS ORDERED: MEPERIDINE 25 MG INJ IV PRN (15:00)
[2019-03-05] MEDS ORDERED: hydrALAzine 20 MG INJ IV PRN (15:00)
[2019-03-05] MEDS ORDERED: EPHEDrine 25 MG/5 ML SYG IV PRN (15:00)
[2019-03-05] MEDS ORDERED: FENTAnyl 50 MCG/ML VIAL IV PRN ×2 (15:00)
[2019-03-05] MEDS ORDERED: ONDANSETRON 4 MG INJ IV PRN (15:00)
[2019-03-05] MEDS ORDERED: OXYCODONE/ACETAMINOPHEN (5/325) TAB PO PRN (15:00)
[2019-03-05] MEDS ORDERED: LABETALOL HCL 20MG INJ IV PRN (15:00)
[2019-03-05] MEDS ORDERED: LIDOCAINE 1% (MPF) 30 ML INJ ONE (15:01)
[2019-03-05] MEDS ORDERED: DEXAMETHASONE 4 MG/ML 5 ML INJ ONE (15:19)
[2019-03-05] MEDS ORDERED: ONDANSETRON 4 MG INJ ONE (15:19)
[2019-03-05] MEDS: ATORVASTATIN 20 MG TAB PO SCH (21:17)
[2019-03-05] MEDS: ONDANSETRON 4 MG INJ IV PRN (23:25)
[2019-03-06] MEDS: HYDROmorphONE 2 MG/ML SYG IV PRN ×6 (01:29→22:53)
[2019-03-06] MEDS: ACCU-CHEK XX SCH (02:00)
[2019-03-06 02:55] VITALS: BP 128/65; PULSE 97; RESP 20
[2019-03-06] MEDS: ONDANSETRON 4 MG INJ IV PRN ×2 (04:50→10:21)
[2019-03-06] MEDS: PANTOPRAZOLE (EC) 40 MG TAB PO SCH ×2 (05:19→17:15)
[2019-03-06] MEDS: metroNIDAZOLE 500 MG TAB PO SCH ×2 (05:19→14:02)
[2019-03-06] MEDS ORDERED: PANTOPRAZOLE (EC) 40 MG TAB PO SCH (06:00)
[2019-03-06 07:41] VITALS: BP 174/86; PULSE 91; RESP 18
[2019-03-06] MEDS: LINAGLIPTIN 5 MG TABLET PO SCH (08:42)
[2019-03-06] MEDS: ASPIRIN (EC) 81 MG TAB PO SCH (08:44)
[2019-03-06] MEDS: oxyCODONE (CR) 20 MG TAB [oxyCONTIN] PO SCH ×3 (08:44→20:34)
[2019-03-06] MEDS: predniSONE 20 MG TAB PO SCH (08:44)
[2019-03-06] MEDS: CLOPIDOGREL 75 MG TAB PO SCH (08:44)
[2019-03-06] MEDS: BETHANECHOL 25 MG TAB PO SCH (08:44)
[2019-03-06] MEDS: LISINOPRIL 20 MG TAB PO SCH (08:45)
[2019-03-06] MEDS: MAGNESIUM OXIDE 400 MG TAB PO SCH (08:45)
[2019-03-06] MEDS: FERROUS SULFATE (EC) 325 MG TAB PO SCH ×3 (08:45→20:34)
[2019-03-06] MEDS: AMLODIPINE 5 MG TAB PO SCH (08:46)
[2019-03-06] MEDS: FAMOTIDINE 20 MG TAB PO SCH ×2 (08:46→20:35)
[2019-03-06] MEDS: ENOXAPARIN 40 MG/0.4 ML SYG SC SCH (08:50)
[2019-03-06] MEDS: INSULIN ASPART [NOVOLOG] 3 ML PEN SC SCH ×4 (08:50→20:43)
[2019-03-06] MEDS: LUBIPROSTONE 24 MCG CAP PO SCH ×2 (09:00→20:34)
[2019-03-06] MEDS: MAGNESIUM HYDROXIDE 30ML CUP PO SCH (09:00)
[2019-03-06] MEDS: FENOFIBRATE 48 MG TAB PO SCH (10:21)
[2019-03-06] MEDS: VANCOMYCIN 500 MG (PMX) 100 ML IVPB SCH (12:39)
[2019-03-06] MEDS: METOCLOPRAMIDE 10 MG INJ IV PRN ×2 (12:53→18:51)
[2019-03-06] MEDS ORDERED: ALTEPLASE (CATHFLO) 2 MG INJ CATHETER ONE (13:00)
[2019-03-06] MEDS: ONDANSETRON INJ 8 MG in SOD CHLORIDE 0.9% 50 ML IV PRN ×2 (14:50→20:46)
[2019-03-06 15:00] VITALS: BP 164/88; PULSE 95; RESP 18
[2019-03-06] MEDS ORDERED: ONDANSETRON 4 MG INJ IV PRN (17:30)
[2019-03-06 20:21] VITALS: BP 108/55; PULSE 69; RESP 20
[2019-03-06] MEDS: ATORVASTATIN 20 MG TAB PO SCH (20:34)
[2019-03-07] MEDS: VANCOMYCIN 500 MG (PMX) 100 ML IVPB SCH ×2 (00:24→11:07)
[2019-03-07] MEDS: ACCU-CHEK XX SCH (02:00)
[2019-03-07 02:51] VITALS: BP 124/62; PULSE 64; RESP 18
[2019-03-07] MEDS: HYDROmorphONE 2 MG/ML SYG IV PRN ×5 (02:59→19:49)
[2019-03-07] MEDS: PANTOPRAZOLE (EC) 40 MG TAB PO SCH ×2 (06:54→17:59)
[2019-03-07 07:42] VITALS: BP 171/79; PULSE 65; RESP 17
[2019-03-07] MEDS: INSULIN ASPART [NOVOLOG] 3 ML PEN SC SCH ×4 (07:50→22:44)
[2019-03-07] MEDS: LUBIPROSTONE 24 MCG CAP PO SCH ×2 (08:46→22:45)
[2019-03-07] MEDS: MAGNESIUM HYDROXIDE 30ML CUP PO SCH (08:46)
[2019-03-07] MEDS: METOCLOPRAMIDE 10 MG INJ IV PRN (08:47)
[2019-03-07] MEDS: FAMOTIDINE 20 MG TAB PO SCH ×2 (08:58→22:45)
[2019-03-07] MEDS: oxyCODONE (CR) 20 MG TAB [oxyCONTIN] PO SCH ×3 (08:59→22:45)
[2019-03-07] MEDS: BETHANECHOL 25 MG TAB PO SCH (09:00)
[2019-03-07] MEDS: LINAGLIPTIN 5 MG TABLET PO SCH (09:00)
[2019-03-07] MEDS: MAGNESIUM OXIDE 400 MG TAB PO SCH (09:00)
[2019-03-07] MEDS: ASPIRIN (EC) 81 MG TAB PO SCH (09:01)
[2019-03-07] MEDS: CLOPIDOGREL 75 MG TAB PO SCH (09:01)
[2019-03-07] MEDS: FERROUS SULFATE (EC) 325 MG TAB PO SCH ×3 (09:02→22:45)
[2019-03-07] MEDS: AMLODIPINE 5 MG TAB PO SCH (09:02)
[2019-03-07] MEDS: LISINOPRIL 20 MG TAB PO SCH (09:03)
[2019-03-07] MEDS: predniSONE 20 MG TAB PO SCH (09:03)
[2019-03-07] MEDS: FENOFIBRATE 48 MG TAB PO SCH (09:05)
[2019-03-07] MEDS: ENOXAPARIN 40 MG/0.4 ML SYG SC SCH (09:10)
[2019-03-07] MEDS ORDERED: FOSFOMYCIN 3 GM PACKET PO ONE (14:00)
[2019-03-07] MEDS: ONDANSETRON INJ 8 MG in SOD CHLORIDE 0.9% 50 ML IV PRN (15:39)
[2019-03-07 15:58] VITALS: BP 116/59; PULSE 71; RESP 12
[2019-03-07] MEDS: NYSTATIN 30 GM POWDER BTL TOP PRN (16:54)
[2019-03-07 20:31] VITALS: BP 136/65; PULSE 70; RESP 16
[2019-03-07] MEDS: PHENAZOPYRIDINE 200 MG TAB PO SCH (22:45)
[2019-03-07] MEDS: ATORVASTATIN 20 MG TAB PO SCH (22:46)
[2019-03-08] MEDS: VANCOMYCIN 500 MG (PMX) 100 ML IVPB SCH ×2 (00:08→12:23)
[2019-03-08] MEDS: HYDROmorphONE 2 MG/ML SYG IV PRN ×6 (00:08→20:55)
[2019-03-08] MEDS: ONDANSETRON INJ 8 MG in SOD CHLORIDE 0.9% 50 ML IV PRN ×2 (01:48→16:26)
[2019-03-08] MEDS: ACCU-CHEK XX SCH ×2 (02:00→22:16)
[2019-03-08 02:57] VITALS: BP 157/72; PULSE 68; RESP 17
[2019-03-08] MEDS: PANTOPRAZOLE (EC) 40 MG TAB PO SCH ×2 (06:56→18:52)
[2019-03-08 07:35] VITALS: BP 173/79; PULSE 75; RESP 16
[2019-03-08] MEDS: INSULIN ASPART [NOVOLOG] 3 ML PEN SC SCH ×4 (07:50→21:00)
[2019-03-08] MEDS: ENOXAPARIN 40 MG/0.4 ML SYG SC SCH (08:34)
[2019-03-08] MEDS: LINAGLIPTIN 5 MG TABLET PO SCH (08:35)
[2019-03-08] MEDS: FERROUS SULFATE (EC) 325 MG TAB PO SCH ×3 (08:36→21:01)
[2019-03-08] MEDS: ASPIRIN (EC) 81 MG TAB PO SCH (08:38)
[2019-03-08] MEDS: AMLODIPINE 5 MG TAB PO SCH (08:39)
[2019-03-08] MEDS: FAMOTIDINE 20 MG TAB PO SCH ×2 (08:39→21:01)
[2019-03-08] MEDS: predniSONE 20 MG TAB PO SCH (08:39)
[2019-03-08] MEDS: PHENAZOPYRIDINE 200 MG TAB PO SCH ×3 (08:39→21:00)
[2019-03-08] MEDS: oxyCODONE (CR) 20 MG TAB [oxyCONTIN] PO SCH ×3 (08:40→22:23)
[2019-03-08] MEDS: BETHANECHOL 25 MG TAB PO SCH (08:40)
[2019-03-08] MEDS: MAGNESIUM OXIDE 400 MG TAB PO SCH (08:40)
[2019-03-08] MEDS: LISINOPRIL 20 MG TAB PO SCH (08:41)
[2019-03-08] MEDS: CLOPIDOGREL 75 MG TAB PO SCH (08:41)
[2019-03-08] MEDS: FENOFIBRATE 48 MG TAB PO SCH (08:42)
[2019-03-08] MEDS: MAGNESIUM HYDROXIDE 30ML CUP PO SCH (08:43)
[2019-03-08] MEDS: LUBIPROSTONE 24 MCG CAP PO SCH ×2 (08:43→21:00)
[2019-03-08 14:00] VITALS: BP 151/74; PULSE 71; RESP 18
[2019-03-08 20:40] VITALS: BP 121/76; PULSE 69; RESP 17
[2019-03-08] MEDS: ATORVASTATIN 20 MG TAB PO SCH (21:03)
[2019-03-09] MEDS: VANCOMYCIN 500 MG (PMX) 100 ML IVPB SCH ×2 (00:15→14:48)
[2019-03-09] MEDS: HYDROmorphONE 2 MG/ML SYG IV PRN ×6 (01:03→23:22)
[2019-03-09] MEDS: ONDANSETRON INJ 8 MG in SOD CHLORIDE 0.9% 50 ML IV PRN (01:18)
[2019-03-09] MEDS: ALTEPLASE (CATHFLO) 2 MG INJ CATHETER PRN ×2 (02:10→02:54)
[2019-03-09 02:57] VITALS: BP 134/68; PULSE 66; RESP 18
[2019-03-09] MEDS: PANTOPRAZOLE (EC) 40 MG TAB PO SCH ×2 (05:08→18:04)
[2019-03-09 07:45] VITALS: BP 168/77; PULSE 68; RESP 18
[2019-03-09] MEDS: MAGNESIUM HYDROXIDE 30ML CUP PO SCH (08:35)
[2019-03-09] MEDS: ASPIRIN (EC) 81 MG TAB PO SCH (08:36)
[2019-03-09] MEDS: FAMOTIDINE 20 MG TAB PO SCH ×2 (08:36→21:38)
[2019-03-09] MEDS: FERROUS SULFATE (EC) 325 MG TAB PO SCH ×3 (08:36→21:38)
[2019-03-09] MEDS: PHENAZOPYRIDINE 200 MG TAB PO SCH ×2 (08:36→14:48)
[2019-03-09] MEDS: LUBIPROSTONE 24 MCG CAP PO SCH ×2 (08:36→21:38)
[2019-03-09] MEDS: FENOFIBRATE 48 MG TAB PO SCH (08:37)
[2019-03-09] MEDS: BETHANECHOL 25 MG TAB PO SCH (08:37)
[2019-03-09] MEDS: MAGNESIUM OXIDE 400 MG TAB PO SCH (08:37)
[2019-03-09] MEDS: LISINOPRIL 20 MG TAB PO SCH (08:37)
[2019-03-09] MEDS: AMLODIPINE 5 MG TAB PO SCH (08:37)
[2019-03-09] MEDS: predniSONE 20 MG TAB PO SCH (08:38)
[2019-03-09] MEDS: LINAGLIPTIN 5 MG TABLET PO SCH (08:38)
[2019-03-09] MEDS: CLOPIDOGREL 75 MG TAB PO SCH (08:43)
[2019-03-09] MEDS: oxyCODONE (CR) 20 MG TAB [oxyCONTIN] PO SCH ×3 (08:43→21:39)
[2019-03-09] MEDS: ENOXAPARIN 40 MG/0.4 ML SYG SC SCH (08:45)
[2019-03-09] MEDS: INSULIN ASPART [NOVOLOG] 3 ML PEN SC SCH ×4 (08:48→21:00)
[2019-03-09] MEDS: METOCLOPRAMIDE 10 MG INJ IV PRN (14:46)
[2019-03-09 15:29] VITALS: BP 123/70; PULSE 67; RESP 18
[2019-03-09] MEDS ORDERED: MAGNESIUM SULFATE 2 GM/50 ML 50 ML IVPB ONE (19:30)
[2019-03-09 20:34] VITALS: BP 119/60; PULSE 73; RESP 19
[2019-03-09] MEDS: ATORVASTATIN 20 MG TAB PO SCH (21:38)
[2019-03-10] MEDS: VANCOMYCIN 500 MG (PMX) 100 ML IVPB SCH ×2 (01:15→12:10)
[2019-03-10] MEDS: ACCU-CHEK XX SCH (01:18)
[2019-03-10 02:30] VITALS: BP 141/69; PULSE 71; RESP 18
[2019-03-10] MEDS: HYDROmorphONE 2 MG/ML SYG IV PRN ×6 (03:33→21:40)
[2019-03-10] MEDS: PANTOPRAZOLE (EC) 40 MG TAB PO SCH (06:51)
[2019-03-10 07:57] VITALS: BP 172/78; PULSE 70; RESP 18
[2019-03-10] MEDS: MAGNESIUM HYDROXIDE 30ML CUP PO SCH (09:00)
[2019-03-10] MEDS: FAMOTIDINE 20 MG TAB PO SCH (09:21)
[2019-03-10] MEDS: CLOPIDOGREL 75 MG TAB PO SCH (09:21)
[2019-03-10] MEDS: LINAGLIPTIN 5 MG TABLET PO SCH (09:21)
[2019-03-10] MEDS: LUBIPROSTONE 24 MCG CAP PO SCH ×2 (09:21→21:00)
[2019-03-10] MEDS: BETHANECHOL 25 MG TAB PO SCH (09:22)
[2019-03-10] MEDS: FERROUS SULFATE (EC) 325 MG TAB PO SCH ×3 (09:22→21:00)
[2019-03-10] MEDS: FENOFIBRATE 48 MG TAB PO SCH (09:22)
[2019-03-10] MEDS: AMLODIPINE 5 MG TAB PO SCH (09:22)
[2019-03-10] MEDS: MAGNESIUM OXIDE 400 MG TAB PO SCH (09:22)
[2019-03-10] MEDS: predniSONE 20 MG TAB PO SCH (09:22)
[2019-03-10] MEDS: LISINOPRIL 20 MG TAB PO SCH (09:22)
[2019-03-10] MEDS: ASPIRIN (EC) 81 MG TAB PO SCH (09:22)
[2019-03-10] MEDS: INSULIN ASPART [NOVOLOG] 3 ML PEN SC SCH (09:24)
[2019-03-10] MEDS: ENOXAPARIN 40 MG/0.4 ML SYG SC SCH (09:25)
[2019-03-10] MEDS: oxyCODONE (CR) 20 MG TAB [oxyCONTIN] PO SCH ×3 (09:27→21:00)
[2019-03-10] MEDS: METOCLOPRAMIDE 10 MG INJ IV PRN (12:23)
[2019-03-10] MEDS: D5W-0.45 NACL + KCL 20 MEQ 1,000 ML IV SCH (14:15)
[2019-03-10 15:35] VITALS: BP 133/63; PULSE 67; RESP 18
[2019-03-10] MEDS ORDERED: IOHEXOL 300MG/ML 150 ML BTL ONE (16:08)
[2019-03-10] MEDS: PANTOPRAZOLE 40 MG INJ IV SCH (18:34)
[2019-03-10] MEDS: Insulin NOVOLOG SS MILD Algorithm (NPO/TPN/ENTERAL FEEDS) SC SCH (18:36)
[2019-03-10 19:25] VITALS: BP 184/80; PULSE 81; RESP 18
[2019-03-10] MEDS ORDERED: FAMOTIDINE 20 MG INJ IV SCH (21:00)
[2019-03-10] MEDS ORDERED: INSULIN GLARGINE [LANTus] (100 UNITS/ML) SYG SC SCH (21:00)
[2019-03-10] MEDS: ATORVASTATIN 20 MG TAB PO SCH (21:00)
[2019-03-10] MEDS: METHYLNALTREXONE 12 MG/0.6 ML VIAL SC SCH (21:58)
[2019-03-10 22:08] VITALS: BP 132/62; PULSE 76; RESP 18
[2019-03-11] MEDS: HYDROmorphONE 2 MG/ML SYG IV PRN ×8 (00:46→22:05)
[2019-03-11] MEDS: VANCOMYCIN 500 MG (PMX) 100 ML IVPB SCH ×2 (00:50→12:38)
[2019-03-11] MEDS: Insulin NOVOLOG SS MILD Algorithm (NPO/TPN/ENTERAL FEEDS) SC SCH ×2 (00:58→06:36)
[2019-03-11] MEDS: ACCU-CHEK XX SCH (02:00)
[2019-03-11 02:10] VITALS: BP 136/61; PULSE 66; RESP 16
[2019-03-11] MEDS: D5W-0.45 NACL + KCL 20 MEQ 1,000 ML IV SCH ×2 (03:20→04:41)
[2019-03-11] MEDS: PANTOPRAZOLE 40 MG INJ IV SCH ×2 (04:42→16:18)
[2019-03-11 07:19] VITALS: BP 173/77; PULSE 69; RESP 18
[2019-03-11] MEDS: AMLODIPINE 5 MG TAB PO SCH (08:50)
[2019-03-11] MEDS: CLOPIDOGREL 75 MG TAB PO SCH (08:51)
[2019-03-11] MEDS: oxyCODONE (CR) 20 MG TAB [oxyCONTIN] PO SCH ×2 (08:51→12:36)
[2019-03-11] MEDS: LISINOPRIL 20 MG TAB PO SCH (08:51)
[2019-03-11] MEDS: BETHANECHOL 25 MG TAB PO SCH (08:52)
[2019-03-11] MEDS: MAGNESIUM OXIDE 400 MG TAB PO SCH (08:52)
[2019-03-11] MEDS: FENOFIBRATE 48 MG TAB PO SCH (08:52)
[2019-03-11] MEDS: predniSONE 20 MG TAB PO SCH (08:52)
[2019-03-11] MEDS: ASPIRIN (EC) 81 MG TAB PO SCH (08:53)
[2019-03-11] MEDS: FERROUS SULFATE (EC) 325 MG TAB PO SCH ×3 (08:53→21:00)
[2019-03-11] MEDS: LINAGLIPTIN 5 MG TABLET PO SCH (08:53)
[2019-03-11] MEDS: LUBIPROSTONE 24 MCG CAP PO SCH ×2 (08:54→21:08)
[2019-03-11] MEDS: ENOXAPARIN 40 MG/0.4 ML SYG SC SCH (08:59)
[2019-03-11] MEDS: MAGNESIUM HYDROXIDE 30ML CUP PO SCH (09:00)
[2019-03-11] MEDS ORDERED: FAMOTIDINE 20 MG TAB PO SCH (09:00)
[2019-03-11 12:11] VITALS: BP 142/65; PULSE 68; RESP 18
[2019-03-11] MEDS: INSULIN ASPART [NOVOLOG] 3 ML PEN SC SCH ×3 (12:44→21:12)
[2019-03-11 14:27] VITALS: BP 131/62; PULSE 65; RESP 18
[2019-03-11] MEDS: METOCLOPRAMIDE 10 MG INJ IV PRN (16:18)
[2019-03-11 19:40] VITALS: BP 123/60; PULSE 65; RESP 18
[2019-03-11] MEDS: ATORVASTATIN 20 MG TAB PO SCH (21:08)
[2019-03-11] MEDS: INSULIN GLARGINE [LANTus] (100 UNITS/ML) SYG SC SCH (21:12)
[2019-03-12] MEDS: VANCOMYCIN 500 MG (PMX) 100 ML IVPB SCH ×2 (00:33→12:45)
[2019-03-12] MEDS: METOCLOPRAMIDE 10 MG INJ IV PRN ×2 (00:52→10:23)
[2019-03-12] MEDS: HYDROmorphONE 2 MG/ML SYG IV PRN ×8 (00:52→22:24)
[2019-03-12 01:33] VITALS: BP 138/62; PULSE 62; RESP 18
[2019-03-12] MEDS: ACCU-CHEK XX SCH (04:02)
[2019-03-12] MEDS: D5W-0.45 NACL + KCL 20 MEQ 1,000 ML IV SCH (06:00)
[2019-03-12] MEDS: PANTOPRAZOLE 40 MG INJ IV SCH (06:54)
[2019-03-12 07:45] VITALS: BP 177/76; PULSE 60; RESP 18
[2019-03-12] MEDS: POLYETHYLENE GLYCOL 17 GM PACKET PO SCH (09:00)
[2019-03-12] MEDS: MAGNESIUM HYDROXIDE 30ML CUP PO SCH (09:00)
[2019-03-12] MEDS: INSULIN ASPART [NOVOLOG] 3 ML PEN SC SCH ×4 (09:02→21:31)
[2019-03-12] MEDS: FENOFIBRATE 48 MG TAB PO SCH (09:03)
[2019-03-12] MEDS: FERROUS SULFATE (EC) 325 MG TAB PO SCH ×3 (09:03→21:00)
[2019-03-12] MEDS: MAGNESIUM OXIDE 400 MG TAB PO SCH (09:04)
[2019-03-12] MEDS: predniSONE 20 MG TAB PO SCH (09:04)
[2019-03-12] MEDS: LINAGLIPTIN 5 MG TABLET PO SCH (09:04)
[2019-03-12] MEDS: BETHANECHOL 25 MG TAB PO SCH (09:04)
[2019-03-12] MEDS: LUBIPROSTONE 24 MCG CAP PO SCH ×2 (09:04→20:44)
[2019-03-12] MEDS: ASPIRIN (EC) 81 MG TAB PO SCH (09:04)
[2019-03-12] MEDS: CLOPIDOGREL 75 MG TAB PO SCH (09:04)
[2019-03-12] MEDS: AMLODIPINE 5 MG TAB PO SCH (09:05)
[2019-03-12] MEDS: LISINOPRIL 20 MG TAB PO SCH (09:05)
[2019-03-12] MEDS: ENOXAPARIN 40 MG/0.4 ML SYG SC SCH (09:07)
[2019-03-12] MEDS: oxyCODONE (CR) 20 MG TAB [oxyCONTIN] PO SCH (09:13)
[2019-03-12 14:48] VITALS: BP 159/70; PULSE 70; RESP 18
[2019-03-12] MEDS: PANTOPRAZOLE (EC) 40 MG TAB PO SCH (18:18)
[2019-03-12 19:20] VITALS: BP 136/63; PULSE 74; RESP 18
[2019-03-12] MEDS: ATORVASTATIN 20 MG TAB PO SCH (20:44)
[2019-03-12] MEDS: INSULIN GLARGINE [LANTus] (100 UNITS/ML) SYG SC SCH (21:33)
[2019-03-12] MEDS: METHYLNALTREXONE 12 MG/0.6 ML VIAL SC SCH (21:49)
[2019-03-13] MEDS: HYDROmorphONE 2 MG/ML SYG IV PRN ×8 (01:24→23:10)
[2019-03-13] MEDS: VANCOMYCIN 500 MG (PMX) 100 ML IVPB SCH ×3 (01:48→23:33)
[2019-03-13] MEDS: METOCLOPRAMIDE 10 MG INJ IV PRN (01:48)
[2019-03-13] MEDS: ACCU-CHEK XX SCH (02:00)
[2019-03-13 02:38] VITALS: BP 143/67; PULSE 70; RESP 18
[2019-03-13] MEDS: PANTOPRAZOLE (EC) 40 MG TAB PO SCH ×2 (06:12→17:52)
[2019-03-13 08:07] VITALS: BP 129/61; PULSE 70; RESP 15
[2019-03-13] MEDS: MAGNESIUM HYDROXIDE 30ML CUP PO SCH (09:00)
[2019-03-13] MEDS: POLYETHYLENE GLYCOL 17 GM PACKET PO SCH (09:00)
[2019-03-13] MEDS: FERROUS SULFATE (EC) 325 MG TAB PO SCH ×3 (09:00→20:31)
[2019-03-13] MEDS: INSULIN ASPART [NOVOLOG] 3 ML PEN SC SCH ×4 (09:30→20:34)
[2019-03-13] MEDS: LISINOPRIL 20 MG TAB PO SCH (09:39)
[2019-03-13] MEDS: LUBIPROSTONE 24 MCG CAP PO SCH ×2 (09:40→20:31)
[2019-03-13] MEDS: BETHANECHOL 25 MG TAB PO SCH (09:41)
[2019-03-13] MEDS: CLOPIDOGREL 75 MG TAB PO SCH (09:41)
[2019-03-13] MEDS: predniSONE 20 MG TAB PO SCH (09:41)
[2019-03-13] MEDS: AMLODIPINE 5 MG TAB PO SCH (09:41)
[2019-03-13] MEDS: ASPIRIN (EC) 81 MG TAB PO SCH (09:41)
[2019-03-13] MEDS: MAGNESIUM OXIDE 400 MG TAB PO SCH (09:42)
[2019-03-13] MEDS: LINAGLIPTIN 5 MG TABLET PO SCH (09:42)
[2019-03-13] MEDS: oxyCODONE (CR) 20 MG TAB [oxyCONTIN] PO SCH (09:43)
[2019-03-13] MEDS: FENOFIBRATE 48 MG TAB PO SCH (09:43)
[2019-03-13] MEDS: ENOXAPARIN 40 MG/0.4 ML SYG SC SCH (09:45)
[2019-03-13] MEDS: ONDANSETRON INJ 8 MG in SOD CHLORIDE 0.9% 50 ML IV PRN ×2 (15:11→23:41)
[2019-03-13 16:07] VITALS: BP 141/85; PULSE 68; RESP 14
[2019-03-13 19:50] VITALS: BP 136/65; PULSE 70; RESP 18
[2019-03-13] MEDS: ATORVASTATIN 20 MG TAB PO SCH (20:31)
[2019-03-13] MEDS ORDERED: INSULIN GLARGINE [LANTus] (100 UNITS/ML) SYG SC SCH (21:00)
[2019-03-14] MEDS: ACCU-CHEK XX SCH (02:00)
[2019-03-14] MEDS: HYDROmorphONE 2 MG/ML SYG IV PRN ×7 (02:12→21:01)
[2019-03-14] MEDS: PANTOPRAZOLE (EC) 40 MG TAB PO SCH ×2 (06:22→17:59)
[2019-03-14 07:37] VITALS: BP 135/60; PULSE 69; RESP 17
[2019-03-14] MEDS: BETHANECHOL 25 MG TAB PO SCH (08:30)
[2019-03-14] MEDS: POLYETHYLENE GLYCOL 17 GM PACKET PO SCH (08:30)
[2019-03-14] MEDS: MAGNESIUM HYDROXIDE 30ML CUP PO SCH (08:30)
[2019-03-14] MEDS: LUBIPROSTONE 24 MCG CAP PO SCH ×2 (08:30→21:03)
[2019-03-14] MEDS: AMLODIPINE 5 MG TAB PO SCH (08:31)
[2019-03-14] MEDS: LINAGLIPTIN 5 MG TABLET PO SCH (08:31)
[2019-03-14] MEDS: predniSONE 20 MG TAB PO SCH (08:32)
[2019-03-14] MEDS: ASPIRIN (EC) 81 MG TAB PO SCH (08:32)
[2019-03-14] MEDS: CLOPIDOGREL 75 MG TAB PO SCH (08:32)
[2019-03-14] MEDS: MAGNESIUM OXIDE 400 MG TAB PO SCH ×2 (08:33→09:00)
[2019-03-14] MEDS: oxyCODONE (CR) 20 MG TAB [oxyCONTIN] PO SCH (08:33)
[2019-03-14] MEDS: LISINOPRIL 20 MG TAB PO SCH (08:34)
[2019-03-14] MEDS: FERROUS SULFATE (EC) 325 MG TAB PO SCH ×3 (08:34→21:04)
[2019-03-14] MEDS: FENOFIBRATE 48 MG TAB PO SCH (08:37)
[2019-03-14] MEDS: ENOXAPARIN 40 MG/0.4 ML SYG SC SCH (08:54)
[2019-03-14] MEDS: INSULIN ASPART [NOVOLOG] 3 ML PEN SC SCH ×4 (08:55→21:10)
[2019-03-14] MEDS: VANCOMYCIN 500 MG (PMX) 100 ML IVPB SCH (13:21)
[2019-03-14 14:43] VITALS: BP 179/81; PULSE 76; RESP 18
[2019-03-14 18:48] VITALS: BP 140/89; PULSE 60; RESP 17
[2019-03-14] MEDS: METHYLNALTREXONE 12 MG/0.6 ML VIAL SC SCH (21:00)
[2019-03-14] MEDS: ATORVASTATIN 20 MG TAB PO SCH (21:04)
[2019-03-14] MEDS: INSULIN GLARGINE [LANTus] (100 UNITS/ML) SYG SC SCH (21:10)
[2019-03-15] MEDS: HYDROmorphONE 2 MG/ML SYG IV PRN ×8 (00:05→22:27)
[2019-03-15] MEDS: VANCOMYCIN 500 MG (PMX) 100 ML IVPB SCH ×2 (00:08→12:40)
[2019-03-15] MEDS: ONDANSETRON INJ 8 MG in SOD CHLORIDE 0.9% 50 ML IV PRN (00:08)
[2019-03-15] MEDS: ACCU-CHEK XX SCH (02:00)
[2019-03-15 02:20] VITALS: BP 136/79; PULSE 65; RESP 18
[2019-03-15] MEDS: PANTOPRAZOLE (EC) 40 MG TAB PO SCH ×2 (07:01→17:41)
[2019-03-15 07:43] VITALS: BP 175/74; PULSE 63; RESP 18
[2019-03-15 07:48] VITALS: BP 155/74
[2019-03-15] MEDS: INSULIN ASPART [NOVOLOG] 3 ML PEN SC SCH ×4 (07:50→20:53)
[2019-03-15] MEDS: AMLODIPINE 5 MG TAB PO SCH (08:40)
[2019-03-15] MEDS: LUBIPROSTONE 24 MCG CAP PO SCH ×2 (08:40→20:48)
[2019-03-15] MEDS: FERROUS SULFATE (EC) 325 MG TAB PO SCH ×4 (08:41→20:56)
[2019-03-15] MEDS: ASPIRIN (EC) 81 MG TAB PO SCH (08:41)
[2019-03-15] MEDS: oxyCODONE (CR) 20 MG TAB [oxyCONTIN] PO SCH (08:41)
[2019-03-15] MEDS: FENOFIBRATE 48 MG TAB PO SCH (08:41)
[2019-03-15] MEDS: LISINOPRIL 20 MG TAB PO SCH (08:42)
[2019-03-15] MEDS: MAGNESIUM OXIDE 400 MG TAB PO SCH (08:43)
[2019-03-15] MEDS: predniSONE 20 MG TAB PO SCH (08:43)
[2019-03-15] MEDS: LINAGLIPTIN 5 MG TABLET PO SCH (08:43)
[2019-03-15] MEDS: BETHANECHOL 25 MG TAB PO SCH (08:43)
[2019-03-15] MEDS: CLOPIDOGREL 75 MG TAB PO SCH (08:43)
[2019-03-15] MEDS: POLYETHYLENE GLYCOL 17 GM PACKET PO SCH (08:44)
[2019-03-15] MEDS: MAGNESIUM HYDROXIDE 30ML CUP PO SCH ×2 (08:44→09:00)
[2019-03-15] MEDS: ENOXAPARIN 40 MG/0.4 ML SYG SC SCH (08:45)
[2019-03-15 14:42] VITALS: BP 113/58; PULSE 89; RESP 18
[2019-03-15 20:03] VITALS: BP 114/59; PULSE 72; RESP 18
[2019-03-15] MEDS: ATORVASTATIN 20 MG TAB PO SCH (20:48)
[2019-03-15] MEDS: INSULIN GLARGINE [LANTus] (100 UNITS/ML) SYG SC SCH (20:54)
[2019-03-16] MEDS: ONDANSETRON INJ 8 MG in SOD CHLORIDE 0.9% 50 ML IV PRN ×2 (00:38→20:57)
[2019-03-16] MEDS: VANCOMYCIN 500 MG (PMX) 100 ML IVPB SCH ×2 (00:40→20:54)
[2019-03-16 01:18] VITALS: BP 155/77; PULSE 59; RESP 18
[2019-03-16] MEDS: HYDROmorphONE 2 MG/ML SYG IV PRN ×5 (01:43→21:32)
[2019-03-16] MEDS: ACCU-CHEK XX SCH (01:49)
[2019-03-16] MEDS: PANTOPRAZOLE (EC) 40 MG TAB PO SCH ×2 (05:18→17:38)
[2019-03-16 07:24] VITALS: BP 150/68; PULSE 62; RESP 19
[2019-03-16] MEDS: INSULIN ASPART [NOVOLOG] 3 ML PEN SC SCH ×4 (07:50→21:07)
[2019-03-16] MEDS: LUBIPROSTONE 24 MCG CAP PO SCH ×2 (08:27→21:01)
[2019-03-16] MEDS: FERROUS SULFATE (EC) 325 MG TAB PO SCH ×3 (08:27→21:01)
[2019-03-16] MEDS: MAGNESIUM OXIDE 400 MG TAB PO SCH (08:27)
[2019-03-16] MEDS: ASPIRIN (EC) 81 MG TAB PO SCH (08:29)
[2019-03-16] MEDS: LISINOPRIL 20 MG TAB PO SCH (08:29)
[2019-03-16] MEDS: BETHANECHOL 25 MG TAB PO SCH (08:29)
[2019-03-16] MEDS: CLOPIDOGREL 75 MG TAB PO SCH (08:29)
[2019-03-16] MEDS: FENOFIBRATE 48 MG TAB PO SCH (08:30)
[2019-03-16] MEDS: LINAGLIPTIN 5 MG TABLET PO SCH (08:30)
[2019-03-16] MEDS: AMLODIPINE 5 MG TAB PO SCH (08:30)
[2019-03-16] MEDS ORDERED: BISACODYL 10 MG SUPP PR PRN (08:30)
[2019-03-16] MEDS: MAGNESIUM HYDROXIDE 30ML CUP PO SCH (08:31)
[2019-03-16] MEDS: POLYETHYLENE GLYCOL 17 GM PACKET PO SCH (08:31)
[2019-03-16] MEDS: oxyCODONE (CR) 20 MG TAB [oxyCONTIN] PO SCH (08:38)
[2019-03-16] MEDS: predniSONE 10 MG TAB PO SCH (08:38)
[2019-03-16] MEDS: ENOXAPARIN 40 MG/0.4 ML SYG SC SCH (08:40)
[2019-03-16] MEDS: ALTEPLASE (CATHFLO) 2 MG INJ CATHETER PRN (09:58)
[2019-03-16 19:15] VITALS: BP 119/58; PULSE 66; RESP 18
[2019-03-16] MEDS: METHYLNALTREXONE 12 MG/0.6 ML VIAL SC SCH (21:00)
[2019-03-16] MEDS: ATORVASTATIN 20 MG TAB PO SCH (21:01)
[2019-03-16] MEDS: INSULIN GLARGINE [LANTus] (100 UNITS/ML) SYG SC SCH (21:08)
[2019-03-17] MEDS: HYDROmorphONE 2 MG/ML SYG IV PRN ×4 (01:05→10:08)
[2019-03-17 01:51] VITALS: BP 124/62; PULSE 69; RESP 18
[2019-03-17] MEDS: ACCU-CHEK XX SCH (02:00)
[2019-03-17] MEDS: PANTOPRAZOLE (EC) 40 MG TAB PO SCH ×2 (06:55→18:31)
[2019-03-17] MEDS: INSULIN ASPART [NOVOLOG] 3 ML PEN SC SCH ×4 (07:50→22:18)
[2019-03-17 08:23] VITALS: BP 133/63; PULSE 67; RESP 16
[2019-03-17] MEDS: FERROUS SULFATE (EC) 325 MG TAB PO SCH ×3 (09:00→22:11)
[2019-03-17] MEDS: MAGNESIUM HYDROXIDE 30ML CUP PO SCH (09:00)
[2019-03-17] MEDS: POLYETHYLENE GLYCOL 17 GM PACKET PO SCH (09:00)
[2019-03-17] MEDS: LISINOPRIL 20 MG TAB PO SCH (09:09)
[2019-03-17] MEDS: BETHANECHOL 25 MG TAB PO SCH (09:11)
[2019-03-17] MEDS: predniSONE 10 MG TAB PO SCH (09:11)
[2019-03-17] MEDS: ASPIRIN (EC) 81 MG TAB PO SCH ×2 (09:11→09:28)
[2019-03-17] MEDS: oxyCODONE (CR) 20 MG TAB [oxyCONTIN] PO SCH (09:11)
[2019-03-17] MEDS: MAGNESIUM OXIDE 400 MG TAB PO SCH (09:11)
[2019-03-17] MEDS: LUBIPROSTONE 24 MCG CAP PO SCH ×2 (09:11→22:10)
[2019-03-17] MEDS: CLOPIDOGREL 75 MG TAB PO SCH (09:11)
[2019-03-17] MEDS: FENOFIBRATE 48 MG TAB PO SCH (09:12)
[2019-03-17] MEDS: LINAGLIPTIN 5 MG TABLET PO SCH (09:13)
[2019-03-17] MEDS: ENOXAPARIN 40 MG/0.4 ML SYG SC SCH (09:14)
[2019-03-17] MEDS: AMLODIPINE 5 MG TAB PO SCH (09:23)
[2019-03-17] MEDS: VANCOMYCIN 500 MG (PMX) 100 ML IVPB SCH ×2 (09:29→20:17)
[2019-03-17] MEDS ORDERED: ONDANSETRON 4 MG INJ IV PRN (09:30)
[2019-03-17] MEDS: HYDROmorphONE 1 MG/ML SYG IV PRN ×3 (13:04→22:07)
[2019-03-17 16:21] VITALS: BP 132/62; PULSE 72; RESP 18
[2019-03-17 20:21] VITALS: BP 105/53; PULSE 70; RESP 18
[2019-03-17] MEDS: ATORVASTATIN 20 MG TAB PO SCH (22:10)
[2019-03-17] MEDS: INSULIN GLARGINE [LANTus] (100 UNITS/ML) SYG SC SCH (22:16)
[2019-03-18] MEDS: HYDROmorphONE 1 MG/ML SYG IV PRN ×4 (01:30→11:14)
[2019-03-18] MEDS: ACCU-CHEK XX SCH (02:00)
[2019-03-18 02:43] VITALS: BP 108/61; PULSE 74; RESP 20
[2019-03-18] MEDS: PANTOPRAZOLE (EC) 40 MG TAB PO SCH (06:36)
[2019-03-18 08:23] VITALS: BP 110/55; PULSE 71; RESP 20
[2019-03-18] MEDS: LINAGLIPTIN 5 MG TABLET PO SCH (08:57)
[2019-03-18] MEDS: LUBIPROSTONE 24 MCG CAP PO SCH (08:57)
[2019-03-18] MEDS: FENOFIBRATE 48 MG TAB PO SCH (08:58)
[2019-03-18] MEDS: FERROUS SULFATE (EC) 325 MG TAB PO SCH ×2 (08:58→12:59)
[2019-03-18] MEDS: BETHANECHOL 25 MG TAB PO SCH (08:58)
[2019-03-18] MEDS: ASPIRIN (EC) 81 MG TAB PO SCH (08:58)
[2019-03-18] MEDS: CLOPIDOGREL 75 MG TAB PO SCH (08:58)
[2019-03-18] MEDS: LISINOPRIL 20 MG TAB PO SCH (08:59)
[2019-03-18] MEDS: AMLODIPINE 5 MG TAB PO SCH (08:59)
[2019-03-18] MEDS: MAGNESIUM HYDROXIDE 30ML CUP PO SCH (09:00)
[2019-03-18] MEDS: MAGNESIUM OXIDE 400 MG TAB PO SCH (09:00)
[2019-03-18] MEDS: INSULIN ASPART [NOVOLOG] 3 ML PEN SC SCH ×2 (09:00→12:58)
[2019-03-18] MEDS: POLYETHYLENE GLYCOL 17 GM PACKET PO SCH (09:00)
[2019-03-18] MEDS ORDERED: predniSONE 5 MG TAB PO SCH (09:00)
[2019-03-18] MEDS: oxyCODONE (CR) 20 MG TAB [oxyCONTIN] PO SCH (09:00)
[2019-03-18] MEDS: VANCOMYCIN 500 MG (PMX) 100 ML IVPB SCH (09:01)
[2019-03-18] MEDS: ENOXAPARIN 40 MG/0.4 ML SYG SC SCH (09:17)
[2019-03-18] MEDS ORDERED: BISACODYL 10 MG SUPP PR ONE (10:30)
[2019-03-18] MEDS ORDERED: HYDROmorphONE 2 MG/ML SYG IV PRN (15:00)
== END 2019-03-18 16:30 | disposition home health service (06) | DRG 560 ==
LOC: E/R 19:09 → EDBEDREQ 20:55 → MS1 22:14 → OBSVTOIN 02-20 11:06
PROVIDERS: ADMIT Internal Medicine; ATTEND Internal Medicine
PROC: 0S9B3ZX Drainage of Left Hip Joint, Percutaneous Approach, Diagnostic (ICD-10-PCS; principal; 2019-03-05 14:30)
DX: T84.54XA Infection and inflammatory reaction due to internal left knee prosthesis, initial encounter (principal); L03.116 Cellulitis of left lower limb; R64 Cachexia; A04.72 Enterocolitis due to Clostridium difficile, not specified as recurrent; E46 Unspecified protein-calorie malnutrition; K56.7 Ileus, unspecified; K56.609 Unspecified intestinal obstruction, unspecified as to partial versus complete obstruction; T84.093A Other mechanical complication of internal left knee prosthesis, initial encounter; T84.84XA Pain due to internal orthopedic prosthetic devices, implants and grafts, initial encounter; B95.62 Methicillin resistant Staphylococcus aureus infection as the cause of diseases classified elsewhere; M06.9 Rheumatoid arthritis, unspecified; D64.9 Anemia, unspecified; Z68.24 Body mass index [BMI] 24.0-24.9, adult; I73.9 Peripheral vascular disease, unspecified; G89.4 Chronic pain syndrome; I10 Essential (primary) hypertension; E78.5 Hyperlipidemia, unspecified; E87.6 Hypokalemia; Z79.52 Long term (current) use of systemic steroids; Z86.718 Personal history of other venous thrombosis and embolism; R30.0 Dysuria; I49.1 Atrial premature depolarization; I49.3 Ventricular premature depolarization; J44.9 Chronic obstructive pulmonary disease, unspecified; K31.84 Gastroparesis; K57.90 Diverticulosis of intestine, part unspecified, without perforation or abscess without bleeding; E11.43 Type 2 diabetes mellitus with diabetic autonomic (poly)neuropathy; I34.0 Nonrheumatic mitral (valve) insufficiency
CPT/HCPCS: 36415; 36573; 71045; 73530; 73562; 74018; 74176; 74250; 80048; 80053; 80202; 82270; 82565; 82607; 82728; 82746; 82962; 83036; 83540; 83605; 83735; 84100; 84443; 84484; 84520; 85014; 85018; 85025; 85045; 85610; 85651; 85730; 86140; 87045; 87070; 87075; 87102; 93005; 93306; 96374; 96375; C9113; G0378; J0131; J1100; J1170; J1650; J1815; J2250; J2270; J2405; J2543; J2765; J2997; J3010; J3370; J3475; J3480; J7512; Q9967